=== PATIENT | female | born 1955 | race Caucasian/White ===

== ENCOUNTER → 2019-10-04 12:54 | Outpatient (BNVA) | payer MEDICARE, OTHER, SELFPAY | PROVIDERS: Family Provider Family Medicine; PCP Family Medicine; Visit Provider Internal Medicine Rheumatology | DX: M25.50 Pain in unspecified joint (principal); Z79.899 Other long term (current) drug therapy; M81.0 Age-related osteoporosis without current pathological fracture; R76.8 Other specified abnormal immunological findings in serum; E55.9 Vitamin D deficiency, unspecified; Z11.1 Encounter for screening for respiratory tuberculosis; M19.042 Primary osteoarthritis, left hand; M19.041 Primary osteoarthritis, right hand; M77.32 Calcaneal spur, left foot; M77.31 Calcaneal spur, right foot | CPT/HCPCS: 36415; 71046; 72170; 73130; 73630; 80076; 81001; 82565; 82570; 83516; 84156; 85025; 85651; 86140; 86480; 86812; 87077; 87086; 87186; 99204 ==

== ENCOUNTER 2019-10-04 15:22 | Outpatient (CLI) | payer MEDICARE, OTHER, SELFPAY ==
--- NOTE | 2019-10-04 15:34 | XR_ITS ---
WS: [id number] HAND LEFT TECHNIQUE: 3 views of the left hand CLINICAL INFORMATION: joint pain COMPARISON: None. FINDINGS: Narrowing of the radiocarpal joint. Ulna minus variance. Degenerative changes at the DRUJ. Degenerati ve arthritis first CMC and STT. Mild IP joint narrowing involving the PIP and DIP joints. Normal MCP joints. XR/XR hand LT min 3V* [id number] IMPRESSION: 1. Narrowing of the radiocarpal joint. Ulna minus variance. 2. Degenerative arthritis first CMC and STT. 3. Mild IP joint narrowing involving the PIP and DIP joints.
--- NOTE | 2019-10-04 15:34 | XR_ITS ---
WS: [id number] FOOT RIGHT TECHNIQUE: 3 views of the right foot CLINICAL INFORMATION: joint pain COMPARISON: None. FINDINGS: No evidence of acute fracture or dislocation. Normal tarsal metatarsal alignment. Normal calcaneus. N ormal visualized talar dome. Plantar and Achilles calcaneal spurring. XR/XR foot RT min 3V* [id number] IMPRESSION: Plantar and Achilles calcaneal spurring.
--- NOTE | 2019-10-04 15:34 | XR_ITS ---
WS: [id number] PROCEDURE: XR chest 2V* [id number] CLINICAL INFORMATION: joint pain COMPARISON: None. FINDINGS: Heart: Normal cardiac silhouette. Aortic calcification. Lungs: Moderate chronic emphysematous changes. No acute pulmonary infiltrates. Bones: Hypertrophic changes thoracic spine. Mild thoracic curve. Thoracic kyphosis. Cholecystectomy c lips. XR/XR chest 2V* [id number] IMPRESSION: No acute chest findings.
--- NOTE | 2019-10-04 15:34 | XR_ITS ---
WS: [id number] FOOT LEFT TECHNIQUE: 3 views of the left foot CLINICAL INFORMATION: joint pain COMPARISON: None. FINDINGS: No evidence of acute fracture or dislocation. Normal tarsal metatarsal alignment. Normal calcaneus. N ormal visualized talar dome. Plantar calcaneal spur. Achilles spurring with enthesophyte. XR/XR foot LT min 3V* [id number] IMPRESSION: Plantar calcaneal spur. Achilles spurring with enthesophyte.
--- NOTE | 2019-10-04 15:34 | XR_ITS ---
WS: [id number] HAND RIGHT TECHNIQUE: 3 views of the right hand CLINICAL INFORMATION: joint pain COMPARISON: None. FINDINGS: Narrowing of the radiocarpal joint. Ulna minus variance. Degenerative changes at the DRUJ. Degenerati ve arthritis first CMC and STT with hypertrophic changes. Mild IP joint narrowing involving the PIP a nd DIP joints. Normal MCP joints. XR/XR hand RT min 3V* [id number] IMPRESSION: 1. Narrowing of the radiocarpal joint. Ulna minus variance. 2. Degenerative arthritis first CMC and STT. 3. Mild IP joint narrowing involving the PIP and DIP joints.
--- NOTE | 2019-10-04 15:34 | XR_ITS ---
WS: [id number] PELVIS TECHNIQUE: 1 view(s) of the pelvis CLINICAL INFORMATION: joint pain COMPARISON: None. FINDINGS: Mild degenerative arthritis with joint space narrowing both hips. Pelvic phleboliths. Normal acetabul um. Lower lumbar spine is normal. Inferior and superior pubic rami are normal. Normal iliopectineal l ine. Sacrum is normal in appearance. Normal sacroiliac joints. XR/XR pelvis 1-2V* [id number] IMPRESSION: Unremarkable pelvis
== END 2019-10-04 15:23 | disposition home or self-care (01) ==
LOC: RADWPI 15:31
PROVIDERS: Family Provider Family Medicine; PCP Family Medicine; Visit Provider Internal Medicine Rheumatology
DX: M25.50 Pain in unspecified joint (principal); R76.8 Other specified abnormal immunological findings in serum; Z79.899 Other long term (current) drug therapy; Z11.1 Encounter for screening for respiratory tuberculosis; M81.0 Age-related osteoporosis without current pathological fracture; E55.9 Vitamin D deficiency, unspecified; M19.042 Primary osteoarthritis, left hand; M19.041 Primary osteoarthritis, right hand; M77.32 Calcaneal spur, left foot; M77.31 Calcaneal spur, right foot
CPT/HCPCS: 71046; 72170; 73130; 73630; 80076; 81001; 82565; 82570; 84156; 85025; 85651; 86140; 86480; 86812; 87077; 87086; 87186

== ENCOUNTER → 2019-11-02 11:19 | Outpatient (BNVA) | payer MEDICARE, OTHER, SELFPAY | PROVIDERS: Family Provider Family Medicine; PCP Family Medicine; Visit Provider Internal Medicine Rheumatology | DX: M06.041 Rheumatoid arthritis without rheumatoid factor, right hand (principal); M06.042 Rheumatoid arthritis without rheumatoid factor, left hand; R76.8 Other specified abnormal immunological findings in serum; Z79.899 Other long term (current) drug therapy; M81.0 Age-related osteoporosis without current pathological fracture; R21 Rash and other nonspecific skin eruption; Z79.52 Long term (current) use of systemic steroids | CPT/HCPCS: 81001; 99214 ==

== ENCOUNTER 2020-04-10 10:59 | Outpatient (CLI) | payer MEDICARE, OTHER, SELFPAY ==
[2020-04-10 11:58] LABS: Urine Appearance Clear (CLEAR); Urine Color Straw (Yellow); pH Urine 7 (5-7)
[2020-04-10 11:59] LABS: Add Urine Culture? No; Bacteria Urine 1+ /hpf; Bilirubin Urine Neg (Negative); Blood Urine Neg (Negative); Glucose Urine UA Norm (Normal); Ketones Urine Negative (Negative); Leukocyte Esterase Urine Negative (Negative); Nitrate Urine Negative (Negative); Protein Urine Neg (Negative); Specific Gravity, Urine 1.005 (1.005-1.030); Squamous Epithelial Cell Urine 0-4 /hpf (0-5); Urobilinogen Urine Norm (Negative); WBC Urine 0-4 /hpf (0-5)
[2020-04-10 12:07] LABS: Blood Urea Nitrogen 14 mg/dL (8-23); Glomerular Filtration Rate 99.7 mL/min (90-130)
[2020-04-10 12:45] LABS: Urine Creatinine 32 mg/dL (28-217); Urine Protein Random 4 mg/dL
== END 2020-04-10 11:00 | disposition home or self-care (01) ==
PROVIDERS: Visit Provider Internal Medicine Rheumatology
DX: Z79.899 Other long term (current) drug therapy (principal); M19.90 Unspecified osteoarthritis, unspecified site; R76.8 Other specified abnormal immunological findings in serum; R79.89 Other specified abnormal findings of blood chemistry
CPT/HCPCS: 81001; 82565; 82570; 84156; 84520

== ENCOUNTER 2020-06-13 10:40 | Outpatient (CLI) | payer MEDICARE, OTHER, SELFPAY ==
--- NOTE | 2020-06-13 10:44 | MM_ITS ---
WS: [id number] BILATERAL DIGITAL SCREENING MAMMOGRAPHY WITH CAD CLINICAL INFORMATION: SCREENING HISTORY: Screening mammogram. No current complaints. COMPARISON: TECHNIQUE: Bilateral CC and MLO views. FINDINGS: Scattered fibroglandular densities bilaterally. No suspicious focal mass, asymmetry, calcifications, or architectural distortion. No evidence of malignancy. MM/[place] [id number] IMPRESSION: BI-RADS: 1-Negative FOLLOW UP: 1 Year Follow-up Recommend return to annual screening mammography.
== END 2020-06-13 10:41 | disposition home or self-care (01) ==
LOC: RADSHAW 10:43
PROVIDERS: PCP Family Medicine; Visit Provider Family Medicine
DX: Z12.31 Encounter for screening mammogram for malignant neoplasm of breast (principal)
CPT/HCPCS: 77067

== ENCOUNTER → 2020-06-21 12:48 | Outpatient (BNVA) | payer MEDICARE, OTHER, SELFPAY | PROVIDERS: PCP Family Medicine; Visit Provider Internal Medicine Rheumatology | DX: R76.8 Other specified abnormal immunological findings in serum (principal); M06.041 Rheumatoid arthritis without rheumatoid factor, right hand; M06.042 Rheumatoid arthritis without rheumatoid factor, left hand; M81.0 Age-related osteoporosis without current pathological fracture; Z79.899 Other long term (current) drug therapy; Z98.84 Bariatric surgery status; Z87.891 Personal history of nicotine dependence | CPT/HCPCS: 99214 ==

== ENCOUNTER 2020-07-09 12:43 | Outpatient (CLI) | payer MEDICARE, OTHER, SELFPAY ==
[2020-07-09 12:55] VITALS: BP 159/83; PULSE 90; RESP 18; TEMP 36.3; O2SAT 96
[2020-07-09] MEDS: denosumab 60 mg SDV SUBCUT (13:05)
== END 2020-07-09 12:44 | disposition home or self-care (01) ==
PROVIDERS: PCP Family Medicine; Visit Provider Internal Medicine Rheumatology
DX: M81.0 Age-related osteoporosis without current pathological fracture (principal)
CPT/HCPCS: 96372; J0897

== ENCOUNTER → 2020-09-27 08:10 | Outpatient (BNVA) | payer MEDICARE, OTHER, SELFPAY | PROVIDERS: PCP Family Medicine; Referring Provider Family Medicine; Visit Provider Specialist | DX: M25.569 Pain in unspecified knee (principal); M17.11 Unilateral primary osteoarthritis, right knee; Z96.652 Presence of left artificial knee joint | CPT/HCPCS: 73560; 73565 ==

== ENCOUNTER → 2020-10-15 10:18 | Outpatient (BNVA) | payer MEDICARE, OTHER, SELFPAY | PROVIDERS: PCP Family Medicine; Visit Provider Internal Medicine Rheumatology | DX: R76.8 Other specified abnormal immunological findings in serum (principal); M06.041 Rheumatoid arthritis without rheumatoid factor, right hand; M06.042 Rheumatoid arthritis without rheumatoid factor, left hand; M81.0 Age-related osteoporosis without current pathological fracture; Z79.899 Other long term (current) drug therapy; Z98.84 Bariatric surgery status; Z71.89 Other specified counseling | CPT/HCPCS: 99214 ==

== ENCOUNTER 2020-11-01 11:20 | Outpatient (CLI) | payer MEDICARE, OTHER, SELFPAY ==
[2020-11-01 12:14] LABS: Alanine Aminotransferase 53 U/L (0-33); Albumin Level 4.5 g/dL (3.5-5.2); Alkaline Phosphatase 64 IU/L (35-105); Aspartate Amino Transferase 45 U/L (0-32); Globulin 2.5 g/dL (1.3-4.6); Total Bilirubin 0.5 mg/dL (0.15-1.2)
[2020-11-01 12:29] LABS: Hepatitis B Core AB, Total Non-Reactive (Nonreactive); Hepatitis B Surface Antigen Non-Reactive (Nonreactive); Hepatitis C Virus Antibody Non-Reactive (Nonreactive)
== END 2020-11-01 11:21 | disposition home or self-care (01) ==
PROVIDERS: PCP Family Medicine; Visit Provider Internal Medicine Rheumatology
DX: R94.5 Abnormal results of liver function studies (principal); Z79.899 Other long term (current) drug therapy; Z11.59 Encounter for screening for other viral diseases
CPT/HCPCS: 36415; 80076; 86704; 86803; 87340

== ENCOUNTER → 2020-11-08 11:01 | Day surgery (SDC) | payer MEDICARE, OTHER, SELFPAY | PROVIDERS: PCP Family Medicine; Visit Provider Specialist | DX: Z01.818 Encounter for other preprocedural examination (principal) | CPT/HCPCS: 80053; 81001; 85025; 87077; 87086; 87186; 93005 ==

== ENCOUNTER → 2020-11-16 09:15 | Outpatient (BNVA) | payer MEDICARE, OTHER, SELFPAY | PROVIDERS: PCP Family Medicine; Visit Provider Specialist | DX: Z01.818 Encounter for other preprocedural examination (principal); Z20.822 Contact with and (suspected) exposure to COVID-19 | CPT/HCPCS: 81003; 87077; 87086; 87184; 87635 ==

== ENCOUNTER 2020-11-20 12:04 | Observation (INO) | payer MEDICARE, OTHER, SELFPAY ==
[2020-11-08 10:14] VITALS: BMI 37.3
[2020-11-08 10:42] LABS: Basophils # 0.1 10^3/uL (0.0-0.1); Basophils % 1.4 %; Eosinophils # 0.3 10^3/uL (0.0-0.8); Eosinophils % 3.8 %; Hematocrit 43.6 % (37.0-47.0); Hemoglobin 14.4 g/dL (11.5-15.3); Lymphocytes # 1.4 10^3/uL (0.8-4.8); Lymphocytes % 21.8 %; Mean Corpuscular Hemoglobin 30.9 pg (28.0-34.0); Mean Corpuscular Volume 93.6 fl (81-99); Mean Platelet Volume 10.5 fL (7.4-10.4); Monocytes # 0.5 10^3/uL (0.2-0.9); Monocytes % 8.3 %; Neutrophils # 4.19 10^3/uL (1.8-7.7); Neutrophils % 64.5 %; Nucleated Red Blood Cells % 0 %; Platelet Count 186 10^3/cmm (130-400); Red Blood Count 4.66 10^6/uL (4.1-5.3); Red Cell Distribution Width 12.6 % (12.1-15.1); White Blood Count 6.5 10^3/uL (4.0-10.0)
[2020-11-08 10:44] LABS: Blood Urine Neg (Negative); Glucose Urine UA Norm (Normal); Ketones Urine Negative (Negative); Nitrate Urine Negative (Negative); Protein Urine Neg (Negative); Specific Gravity, Urine 1.005 (1.005-1.030); Urine Appearance Clear (CLEAR); Urine Color Straw (Yellow); pH Urine 7 (5-7)
[2020-11-08 10:45] LABS: Add Urine Microscopic? YES; Bilirubin Urine Neg (Negative); Leukocyte Esterase Urine 2+ (Negative); Urobilinogen Urine Norm (Negative)
--- NOTE | 2020-11-08 11:01 | ECG_ITS ---
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 Measurements Intervals [place] Rate: 77 P: 41 SC: 177 QRS: 39 QRSD: 159 T: 6 QT: 397 QTc: 450 Interpretive Statements SINUS RHYTHM INDETERMINATE AXIS RIGHT BUNDLE BRANCH BLOCK [120+ ms QRS DURATION, UPRIGHT V1, 40+ ms S IN I/aVL/V4/V5/V6] ANTERIOR MYOCARDIAL INFARCTION , PROBABLY OLD [40+ ms Q WAVE AND/OR ST/T ABNORMALITY IN V3/V4] No previous ECG available for comparison Electronically Signed On 11-08-2020 20:41:37 CDT by Marlon Mcgregor M.D. [id number]
[2020-11-08 11:02] LABS: Alanine Aminotransferase 57 U/L (0-33); Albumin Level 4.4 g/dL (3.5-5.2); Alkaline Phosphatase 59 IU/L (35-105); Aspartate Amino Transferase 52 U/L (0-32); Blood Urea Nitrogen 16 mg/dL (8-23); Calcium 9.8 mg/dL (8.5-10.5); Carbon Dioxide 27 mmol/L (22-29); Chloride 100 mmol/L (98-107); Globulin 2.6 g/dL (1.3-4.6); Glomerular Filtration Rate 99.7 mL/min (90-130); Glucose 114 mg/dL (65-115); Osmolality Calculated 292 mOsm/kg (285-295); Sodium 140 mmol/L (136-145); Total Bilirubin 0.4 mg/dL (0.15-1.2)
[2020-11-08 11:06] LABS: Anion Gap 16.6 (5-19); Potassium 3.6 mmol/L (3.5-5.1)
[2020-11-08 11:13] LABS: Add Urine Culture? Yes; Bacteria Urine TRACE /hpf; Squamous Epithelial Cell Urine 0-4 /hpf (0-5); WBC Urine 15-25 /hpf (0-5)
--- NOTE | 2020-11-08 12:28 | P.ANESASSM_ITS ---
Pre-Anesthetic Assessment Pre-Anesthetic Assessment: Height/Weight: Height 1.65 m Weight 101.605 kg Proposed Procedure: Operation Date: 11/20/20 07:00 Proposed Procedures p Total Knee Arthroplasty 06049 M17.10(Right) - Ligia Romero MD Was Beta Yasmin taken within 24 hours: N/A Was Clonidine taken within 24 hours: N/A Social: Social History: No alcohol and No tobacco Exam: Pre-Anes Outpt Exam: alert, oriented x 3, clear to auscultation bilaterally and regular rate & rhythm Airway: Submandibular: WNL Cervical ROM: WNL MP: 2 Dentition: False CV/HEM: CV/HEM: HTN Comments: h/o BBB GI: GI: GERD Metabolic: Metabolic: Hyperlipidemia and Morbid obesity Comments: Chronic steroids Musc/skel: Musc/skel: OA/DJD and RA Anesthetic Plan: ASA status: 3 Anesthesia: Regional (specify below) (SAB with adductor blk) Risk of > 500 ml blood loss (7ml/kg in children): No PFSH Anesthesia PFSH: Medical History Anti-TPO antibodies present Diabetes Fibromyalgia High risk medication use Hypertension Immunization counseling Inflammatory arthritis Osteoporosis Positive PRICE (antinuclear antibody) Seronegative rheumatoid arthritis of both hands Skin rash Skin ulcer of face, limited to breakdown of skin Surgical History History of bariatric surgery History of bladder repair surgery History of carpal tunnel repair History of cholecystectomy History of hysterectomy History of left knee replacement Family History Other CAD (coronary artery disease) Cancer Cardiac disease Diabetes Hyperlipidemia Hypertension Stroke Denies family history of Rheumatoid arthritis Lupus Chronic kidney disease (CKD) Lung disease Social History Smoking and tobacco status: never smoked Alcohol intake: never History of recent travel: No Data Anesthesia CBC & Chem 7: 11/08/20 10:00 11/08/20 10:00 Other Labs: Laboratory Results - last 48 hr 11/08/20 11/08/20 11/08/20 10:00 10:00 10:02 WBC 6.5 RBC 4.66 Hgb 14.4 Hct 43.6 MCV 93.6 MCH 30.9 MCHC 33.0 RDW 12.6 Plt Count 186 MPV 10.5 H Neut % (Auto) 64.5 Lymph % (Auto) 21.8 [place] % (Auto) 8.3 Eos % (Auto) 3.8 Baso % (Auto) 1.4 Neut # (Auto) 4.19 Lymph # (Auto) 1.4 [place] # (Auto) 0.5 Eos # (Auto) 0.3 Baso # (Auto) 0.1 Nucleated RBC % (auto) 0 Nucleated RBCs # 0.0 Sodium 140 Potassium 3.6 Chloride 100 Carbon Dioxide 27 Anion Gap 16.6 BUN 16 Creatinine 0.6 GFR Calculation 99.7 Glucose 114 Calculated Osmolality 292 Calcium 9.8 Total Bilirubin 0.4 AST 52 H ALT 57 H Alkaline Phosphatase 59 Total Protein 7.0 Albumin 4.4 Globulin 2.6 Urine Color Straw Urine Appearance Clear Urine pH 7 Ur Specific [place] 1.005 Urine Protein Neg Urine Glucose (UA) Norm Urine Ketones Negative Urine Blood Neg Urine Nitrate Negative Urine Bilirubin Neg Urine Urobilinogen Norm Ur Leukocyte Esterase 2+ H Urine RBC None Urine WBC 15-25 H Ur Squamous Epith Cells 0-4 H Amorphous Sediment Not Reportable Urine Bacteria Trace Cardiac Studies: No Data to Display
[2020-11-20] VITALS (22 sets, daily range): BP systolic 115–197; BP diastolic 76–112; PULSE 60–81; RESP 14–24; TEMP 36.4–36.7; O2SAT 93–99
[2020-11-20] MEDS: acetaminophen 1,000 MG/100 ML PIGGYBACK 400 MG IV ×3 (06:15→21:18)
[2020-11-20] MEDS: sodium chloride 0.9% 1,000 ML 30 ML IV (06:31)
[2020-11-20] MEDS: CELEcoxib 100 mg Capsule 400 MG PO (06:32)
--- NOTE | 2020-11-20 06:53 | W.PM.OPSUD ---
Surgery/Procedure H&P Update DATE OF PROCEDURE: November 20, 2020 DATE H&P PERFORMED: 11/01/20 H&P UPDATE INFORMATION: I have reviewed H&P completed within last 30 days, I have examined patient prior to procedure, No changes to prior documentation and H&P is in [facility] EMR on date indicated CHANGES TO PREVIOUS DOCUMENTATION: Taking Prednisone 5mg daily PREOP DIAGNOSIS: Primary osteoarthritis right knee PLANNED PROCEDURE: Operation Date: 11/20/20 07:00 Proposed Procedures p Total Knee Arthroplasty 99610 M17.10(Right) - Ligia Romero MD Related Problem List Diagnoses (1) Primary osteoarthritis of right knee:
[2020-11-20] MEDS: clindamycin 600 MG/50 ML PREMIX 100 MG IV ×3 (07:20→22:19)
--- NOTE | 2020-11-20 07:47 | P.ANESUD_ITS ---
Pre-Anesthetic Update Pre-Anesthetic Assessment: Date of Surgery/Procedure: 11/20/20 Preop Antoinette gnosis: Primary osteoarthritis right knee Proposed Procedure: Operation Date: 11/20/20 07:00 Proposed Procedures p Total Knee Arthroplasty 39743 M17.10(Right) - Ligia Romero MD Any changes to Pre-Anesthetic Assessment?: No Last Intake: Intake Last Liquid Date 11/19/20 Last Liquid Time 18:00 Last Solid Date 11/19/20 Last Solid Time 18:00 Vitals: Temperature 98.1 F 11/20/20 06:05 Pulse Rate 72 11/20/20 06:05 Respiratory Rate 18 11/20/20 06:05 Blood Pressure 145/104 11/20/20 06:05 Blood Pressure Kayleigh n 117 11/20/20 06:05 Pulse Oximetry 98 11/20/20 06:05 Oxygen Delivery Me thod 11/20/20 06:20 Exam: Pre-Anes Outpt Exam: alert, oriented x 3, clear to auscultation bilaterally and regular rate & rhythm Other Pertinent Information: Other Pertinent Information: SAB with adductor blk Cardiac Studies: No Data to Display
--- NOTE | 2020-11-20 07:47 | ANES.PROC ---
Anesthesia Procedures Procedure/Date: 11/20/20 Nerve Block ^: Nerve Block 1: Main Anesthesia: spinal anesthesia block Time Out Performed: Yes Consent: requested by attending/covering physician, from patient, risks and benefits reviewed and patient agrees to proceed Nerve block location: adductor canal (right) Anesthesia monitors applied: pulse oximetry, EKG, BP cuff and oxygen Anesthetic Used: ropivicaine 0.5% Amount of anesthesia used (mL): 20 Ultrasound used to: recognize landmarks Nerve Stimulator Used?: No Interscalene/Femoral BLK: 4 stimuplex 21 g needle used for position and inplane approach and visualize local anesthetic spread Injection: neg aspiration of heme Patient Tolerated Procedure: well Complications: none
--- NOTE | 2020-11-20 08:18 | SUR.OPER ---
Family Notified Of Patient's Status Via Phone.
[2020-11-20] MEDS: vancomycin 1,000 MG SDV 1000 MG XX (08:42)
[2020-11-20] MEDS: ceFAZolin 1,000 mg SDV 2000 MG IRRIGATION (08:45)
--- NOTE | 2020-11-20 09:27 | SUR.OPER ---
Family Notified Of Patient's Status Via Phone.
--- NOTE | 2020-11-20 10:16 | XR_ITS ---
WS: [id number] XR knee RT 1-2V 47050 REASON FOR EXAM: S/P TKA FINDINGS: 3 component total right knee arthroplasty. Components of the prosthesis are in proper position and al ignment. No bony abnormality. Postsurgical soft tissue changes soft tissues otherwise unremarkable. XR/XR knee RT 1-2V 96773 IMPRESSION: Total right knee arthroplasty as above.
[2020-11-20] MEDS: fentaNYL 50 mcg/mL INJ 2mL IVP ×2 (10:19→10:24)
[2020-11-20 10:27] LABS: Charge for UA Resulting for Rev
--- NOTE | 2020-11-20 10:49 | PM.OP ---
Operative Report Date of procedure: November 20, 2020 Pre-op Diagnosis: Primary osteoarthritis right knee Post-op diagnosis: same Post-op Findings: Severe osteoarthritis right knee without flexion contracture and with multiple osteophytes Procedure Done: Right total knee arthroplasty Implants: The Madonna total knee system with a size 4 triathlon beaded posterior stabilized femur right, a triathlon titanium tibial component size 4 beaded, a triathlon X3 posterior stabilized tibial bearing insert size 4 X 11 mm and a beaded triathlon titanium asymmetric patella size 35 x 10 mm Specimens removed/disposition: Bone, disposed of Pathology: none sent Surgeon: Ligia Romero 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 No flexion contracture was noted. Condition: stable Disposition: PACU (Then to floor for postoperative rehabilitation and pain management with monitoring under observation) Brief History: This 65-year-old woman presented to the office with severe right knee pain which was incapacitating. She was unable to ambulate or perform reasonable activities of daily living. None of these activities were able to be accomplished comfortably. She was unresponsive to conservative measures and wished to proceed with right total knee arthroplasty risks and complications were discussed. The patient is status post successful left total knee arthroplasty done elsewhere. Consents were signed preoperatively, and questions were answered. The patient wished to proceed. Procedure: The patient was brought to the operating theater, and after undergoing adequate spinal anesthesia and sedation, ASA 3, the right lower extremity was prepped with Dura-Prep and draped in usual fashion following placement of a tourniquet high on the leg. The leg was then draped free. Following prepping and draping, the leg was exsanguinated, and the tourniquet was elevated to 300 mmHg for a total tourniquet time of 115 minutes. Prior to elevation of the tourniquet, but following exposure of the site of surgery, a surgical pause was performed. At the time of the surgical pause, we confirmed the site and side of surgery. Additionally, we confirmed the appropriate and timely administration of preoperative antibiotics, clindamycin 600 mg and Transexemic acid 1 g. The availability of equipment was confirmed, and the patient's identity was verbalized as well. Following the surgical pause, an incision was made centering over the patella continuing proximally and distally as necessary to allow access to the knee joint. Dissection continued through skin and soft tissues using a scalpel. Hemostasis was obtained using electrocautery. The skin incision was followed by a median parapatellar arthrotomy. The leg was extended and the patella was everted. Following this, the leg was returned to flexed position. The distal femur was exposed, and a drill hole was made in this for placement of the distal femoral jig. The distal femoral jig was set at 5? of valgus. The distal femoral cutting block was then placed in appropriate position, and an francois wing was used to confirm an appropriate amount of distal femur would be resected. The distal femoral resection was accomplished with 8 mm of bone being resected distally. After the distal femoral resection had been accomplished, the femur was measured and it measured a size 4. Medial lateral dimension measured a size 4. A size 4 femoral cutting block was placed in position, and we were then able to accomplish the anterior, posterior and chamfer cuts. This jig was then removed and the notch guide was placed in position. With the notch guide in appropriate position, the notch was excised including resection of the anterior and posterior cruciate ligaments. This notch was to allow for the posterior stabilized femoral component. At this point, the femur was prepared and attention was directed to the proximal tibia. The posterior knee retractor was placed along with medial and lateral retractors. Further resection of the menisci was accomplished as we had better visualization. A complete meniscectomy was performed both medially and laterally with care being taken to protect the popliteus. Retractors were then placed so that the proximal tibia was well visualized. A drill hole was then made in the tibia for placement of the intramedullary guide. This guide was placed so that approximately 2 mm of bone would be resected from the deficient medial tibial plateau. The intramedullary guide was utilized supplemented with an extramedullary guide to assure appropriate alignment for the proximal tibial resection. The proximal tibial jig was then evaluated, pinned in position, and the proximal tibial resection was accomplished without difficulty. The jig was removed, and the proximal tibia was measured. It measured a size 5. We then attempted a trial reduction with a size 4 by 9 mm insert. Osteophytes were removed from the tibia. The femoral component was placed in position for the trial reduction, and the knee was placed through range of motion. With this, there was excellent stability with excellent varus-valgus alignment with appropriate patellar tracking. Extension was noted to be full as well. After the knee was manipulated, we were able to insert a size 4 x 11 mm insert. With this, we continued to have excellent varus valgus alignment and full extension. Therefore, this was the chosen component. There was full extension and flexion without lift off and the rotation of the tibia was marked. Alignment was checked from the hip to the ankle, and this was noted to be appropriate as well. Attention was then directed to the patella. The patella was measured with a caliper. We resected sufficient patella to leave approximately 14 mm of patella remaining. Measurements of the patella then indicated that a size asymmetric 35 mm x 10 mm was the appropriate patellar size. We then placed the jig to drill for the 3 pegs of the press-fit patella, and these drill holes were made without incident. A trial patella was then placed, and the knee was placed through range of motion. The patella was noted to track nicely without evidence of subluxation. The femur was prepared for a press-fit femur by drilling 2 holes for the femoral pegs. All trial components were subsequently removed. The tibial tray was then pinned into position, and we broached the tibia for the stem of the tibial component. Subsequently, 4 drill holes were made for placement of the press-fit tibia. This was accomplished without difficulty. Care was taken to assure appropriate rotation of the tibia as well as appropriate position on the proximal tibia. The tibial tray was completely seated on the proximal tibia. Following broaching, the tibial guide was removed, and all surfaces were copiously irrigated. The surfaces were then dried and a bone plug was placed into the distal femur. Exparel was also injected at this point. The Tritanium tibia was impacted into position. The beaded femur was then impacted into position in a cementless fashion. The tibial insert was placed. The patella was pressed into position with a patellar clamp. The knee was irrigated with 20 mL of Betadine and 500 mL of normal saline, and this was allowed to remain in the knee for 3-4 minutes. The knee was then copiously irrigated and suctioned dry. Attention was then directed to closure. Closure was accomplished with 0 Vicryl in the fascial tissues. Following this, a 2-0 Monocryl was used in the subcutaneous tissues, and the skin was closed with skin yudith. A sterile dressing was then placed consisting of Dermabond Prineo, opsite, 4x4's, ABD, sterile soft roll, and an Yunior wrap. The patient was returned the Recovery Room in a satisfactory condition. X-rays were obtained there. The patient will be discharged to the floor for postoperative rehabilitation and pain management. Associated Problem List Diagnoses (1) Primary osteoarthritis of right knee:
[2020-11-20 11:02] LABS: Bilirubin Urine Neg (Negative); Glucose Urine UA Norm (Normal); Ketones Urine Negative (Negative); Leukocyte Esterase Urine Negative (Negative); Nitrate Urine Negative (Negative); Protein Urine Neg (Negative); Urine Appearance Clear (CLEAR); Urine Color Straw (Yellow); Urobilinogen Urine Norm (Negative); pH Urine 5 (5-7)
[2020-11-20] MEDS: oxyCODONE 5 mg IR Tab/Cap PO ×4 (11:41→23:14)
[2020-11-20] MEDS: pantoprazole DR 40 mg Tablet PO (12:30)
[2020-11-20] MEDS: predniSONE 5 mg Tablet PO (12:30)
[2020-11-20] MEDS: venlafaxine 75 mg Tablet 37.5 MG PO (12:30)
[2020-11-20] MEDS: hydroCHLOROthiazide 25 mg Tablet PO (12:30)
[2020-11-20] MEDS: aspirin 325 mg EC Tablet PO (12:31)
[2020-11-20] MEDS: cholecalciferol (vitamin D3) 1,000 unit Tablet 1000 UNIT PO (12:31)
[2020-11-20] MEDS: losartan 50 mg Tablet PO (12:33)
[2020-11-20 12:37] LABS: Add Urine Microscopic? NO; Specific Gravity, Urine 1.005 (1.005-1.030)
[2020-11-20 12:38] LABS: Add Urine Culture? No; Blood Urine Neg (Negative)
[2020-11-20] MEDS: chlorhexidine gluconate 0.12% Btl 473 mL 30 ML MUCOUS MEM ×3 (15:14→20:18)
[2020-11-20] MEDS: calcium carbonate 500 mg Chew Tablet 1000 MG PO (18:26)
[2020-11-20] MEDS: iron polysaccharide complex 150 mg Capsule PO (18:26)
[2020-11-20] MEDS: sennosides-docusate Tablet 2 TAB PO (18:26)
[2020-11-20] MEDS: CELEcoxib 200 mg Capsule PO (18:26)
[2020-11-20] MEDS: ciprofloxacin 500 mg Tablet PO (18:26)
[2020-11-20] MEDS: atorvastatin 40 mg Tablet PO (20:18)
[2020-11-20] MEDS: amitriptyline 25 mg Tablet 50 MG PO (20:18)
[2020-11-21] VITALS (9 sets, daily range): BP systolic 106–160; BP diastolic 69–78; PULSE 71–77; RESP 16–18; TEMP 36.4–36.9; O2SAT 96–98
[2020-11-21 02:35] LABS: Basophils % 0.2 %; Eosinophils % 0.1 %; Hematocrit 31.1 % (37.0-47.0); Hemoglobin 10.4 g/dL (11.5-15.3); Lymphocytes # 1.1 10^3/uL (0.8-4.8); Lymphocytes % 12.7 %; Mean Corpuscular HGB Conc 33.4 g/dL (30.0-36.0); Mean Corpuscular Hemoglobin 31.4 pg (28.0-34.0); Mean Platelet Volume 10.9 fL (7.4-10.4); Monocytes # 0.9 10^3/uL (0.2-0.9); Monocytes % 10.2 %; Neutrophils # 6.67 10^3/uL (1.8-7.7); Neutrophils % 76.6 %; Nucleated Red Blood Cells % 0 %; Platelet Count 175 10^3/cmm (130-400); Red Blood Count 3.31 10^6/uL (4.1-5.3); Red Cell Distribution Width 12.5 % (12.1-15.1); White Blood Count 8.7 10^3/uL (4.0-10.0)
[2020-11-21 03:07] LABS: Anion Gap 12.5 (5-19); Blood Urea Nitrogen 12 mg/dL (8-23); Calcium 8.6 mg/dL (8.5-10.5); Carbon Dioxide 25 mmol/L (22-29); Chloride 102 mmol/L (98-107); Glomerular Filtration Rate 123.1 mL/min (90-130); Glucose 119 mg/dL (65-115); Osmolality Calculated 283 mOsm/kg (285-295); Potassium 3.5 mmol/L (3.5-5.1); Sodium 136 mmol/L (136-145)
[2020-11-21] MEDS: oxyCODONE 5 mg IR Tab/Cap PO ×4 (03:23→15:29)
[2020-11-21] MEDS: acetaminophen 1,000 MG/100 ML PIGGYBACK 400 MG IV (05:31)
--- NOTE | 2020-11-21 06:10 | PC.NURSE ---
SHIFT SUMMARY Has not slept much tonight. Says just not able to sleep. Has had c/o pain in right knee and has received po OXYIR q4h and scheduled doses of IV Tylenol. Ice pack in place. Dressing to right knee C&D. Foot pumps to BLE and SANNA hose to left leg. Rodriguez to be removed this am
[2020-11-21] MEDS: clindamycin 600 MG/50 ML PREMIX 100 MG IV (06:32)
[2020-11-21] MEDS: CELEcoxib 200 mg Capsule PO (06:32)
[2020-11-21] MEDS: cholecalciferol (vitamin D3) 1,000 unit Tablet 1000 UNIT PO (07:50)
[2020-11-21] MEDS: multivitamin therapeutic Tablet 1 TAB PO (07:50)
[2020-11-21] MEDS: pantoprazole DR 40 mg Tablet PO (07:50)
[2020-11-21] MEDS: aspirin 325 mg EC Tablet PO (07:50)
[2020-11-21] MEDS: sennosides-docusate Tablet 2 TAB PO (07:50)
[2020-11-21] MEDS: ciprofloxacin 500 mg Tablet PO (07:51)
[2020-11-21] MEDS: hydroCHLOROthiazide 25 mg Tablet PO (07:51)
[2020-11-21] MEDS: venlafaxine 75 mg Tablet 37.5 MG PO (07:51)
[2020-11-21] MEDS: losartan 50 mg Tablet PO (07:51)
[2020-11-21] MEDS: predniSONE 5 mg Tablet PO ×2 (07:51→15:28)
[2020-11-21] MEDS: chlorhexidine gluconate 0.12% Btl 473 mL 30 ML MUCOUS MEM (07:52)
[2020-11-21] MEDS: calcium carbonate 500 mg Chew Tablet 1000 MG PO (07:52)
[2020-11-21] MEDS: iron polysaccharide complex 150 mg Capsule PO (07:52)
--- NOTE | 2020-11-21 10:01 | PC.CHAP ---
Pastoral Care Encounter/Spiritual Assessment Type of Contact [] Declined money order clerk visit [] Patient/Family/Request visit [] Outpatient visit [] Follow-up visit [] Physician referral [] Code/Alert [X] Routine visit [] Staff referral [] Actively dying [] Patient sleeping [] Family support [] [] Out of room [] Palliative care [] [] Receiving care in room [] Pre-surgical visit [] Trauma [] Long length of stay [] ICU visit [] Other: Relational/Emotional Strength [X] Patient feels connected with others/family/visitors/staff [] Distress [] Loneliness/isolation [] Abandonment Spirituality of Patient [X] Person of Niru [X] Attends Mandaeism of their Niru [X] Believes in Prayer [] Reads Bible or Yazidism materials [] There are Spiritual issues to be addressed Infertility Medical Assistant Interventions [X] Prayer [X] Active listening [X] Non-anxious presence [] Spiritual/emotional support [] Crisis/trauma care [] Spiritual counseling [] Bereavement support [] Provided bereavement packet [] Provided Bible/devotional materials [] Provided toy/stuffed animal, coloring book to patient or family member [] Provided Communion [] Anointing/[place] [] Salvation [X] Completed spiritual assessment [] Other: Impact on Illness or Injury [] Angry [] Fearful [] Anxious [] Often cries [] Exhaustion [] Unable to work [] Unable to attend moravian [] Unable to walk/stand [] Unable to read [] Unable to drive [] Unable to eat/drink [] Unable to sleep [] Unable to be with family [] Patient intubated [] Other: Summary Time spent with patient 10 MIN
[2020-11-21] MEDS: ondansetron 2 mg/ML SDV 2 mL 4 MG IVP (12:23)
[2020-11-21] MEDS: acetaminophen 500 mg Tablet 1000 MG PO (14:55)
--- NOTE | 2020-11-21 15:29 | PM.DCS ---
Discharge Providers Date of Admission: 11/20/20 12:04 Date of Discharge: November 21, 2020 Attending Provider at Admission: Ligia Romero MD Attending Provider at Discharge: Ligia Romero MD Primary Care Provider: Kwadwo Dorado DO Diagnoses at Discharge Discharge Diagnosis (1) Primary osteoarthritis of right knee: Status: Acute (2) History of total right knee replacement: Status: Acute Permanent problem details: Right total knee arthroplasty utilizing the following Implants: The [employer] total knee system with a size 4 triathlon beaded posterior stabilized femur right, a triathlon titanium tibial component size 4 beaded, a triathlon X3 posterior stabilized tibial bearing insert size 4 X 11 mm and a beaded triathlon titanium asymmetric patella size 35 x 10 mm Reason for Visit Reason for Visit: Right total knee Hospital Course Hospital Course This 65-year-old woman was admitted following same-day surgery for right total knee arthroplasty. She tolerated the procedure well and postoperatively was taken to the floor under observation status for postoperative rehabilitation and pain management. Prior to the surgical procedure, the patient noted that she had had at least 6 to 9 months of right knee pain which was worsening and was limiting her activities of daily living. On the first postoperative day, she had ambulated with physical therapy. Her wound was benign. There is no evidence of DVT. She was doing very well. Plans were made for her discharge to home. Her family was in agreement. Physical Exam Const: COMMON NORMALS: no acute distress, average body habitus, patient oriented x3 and alert GENERAL APPEARANCE: cooperative and comfortable ORIENTATION/CONSCIOUSNESS: Yes awake HENMT: COMMON NORMALS: normocephalic and atraumatic HEAD & SCALP: normocephalic and atraumatic Eye: GENERAL EYE: appearance normal, both eyes and all related structures Chest: COMMONS NORMALS: normal inspection of the chest Resp: COMMON NORMALS: normal respiratory effort EFFORT & INSPECTION: Yes able to speak in complete sentences and Yes symmetric chest movement Extremity: RIGHT LOWER EXTREMITY: Yes knee joint (Dressing is removed. Wound is benign.) Right knee: Yes inspection (Minimal swelling. Some ecchymosis about the wound), Yes palpation (Some tenderness, no evidence of DVT), Yes ROM (Not evaluated.) and Yes neurovascular exam (Intact) Neuro: COMMON NORMALS: patient oriented x3 SENSORIUM/ORIENTATION: Yes alert Psych: COMMON NORMALS: mental status grossly normal APPEARANCE: Yes grossly normal ATTITUDE: Yes calm and Yes engaged ATTENTION/CONCENTRATION: Yes attention grossly intact Skin: COMMON NORMALS: no rashes or lesions noted GENERAL SKIN EXAM: no rashes or lesions noted Urinary Catheter Management^: Latex Free: Cath Placed During This Visit: yes, but has since been removed by the nurse Reason for Continuing Indwelling Catheter: Decision to DC Catheter Urinary Catheter Date of Insertion: 11/20/20 Urinary Catheter Time of Insertion: 07:30 Date Urinary Catheter Removed: 11/21/20 Time Urinary Catheter Discontinued: 07:13 Discharge Data Data Completed and Pending: Completed Studies During Hospitalization Category Date Time Status XR knee RT 1-2V 7 3560 Routine Exams 11/20/20 10:16 Completed Labs from last 24 hours 11/21/20 11/21/20 02:01 02:01 WBC 8.7 RBC 3.31 L Hgb 10.4 L Hct 31.1 L MCV 94.0 MCH 31.4 MCHC 33.4 RDW 12.5 Plt Count 175 MPV 10.9 H Neut % (Auto) 76.6 Lymph % (Auto) 12.7 [place] % (Auto) 10.2 Eos % (Auto) 0.1 Baso % (Auto) 0.2 Neut # (Auto) 6.67 Lymph # (Auto) 1.1 [place] # (Auto) 0.9 Eos # (Auto) 0.0 Baso # (Auto) 0.0 Nucleated RBC % (a uto) 0 Nucleated RBCs # 0.0 Sodium 136 Potassium 3.5 Chloride 102 Carbon Dioxide 25 Anion Gap 12.5 BUN 12 Creatinine 0.5 GFR Calculation 123.1 Glucose 119 H Calculated Osmolal ity 283 L Calcium 8.6 Vitals: Last Vital Signs Temp 98.5 F 11/21/20 11:42 Pulse 77 11/21/20 11:42 Resp 18 11/21/20 11:53 BP 160/70 11/21/20 11:42 Pulse Ox 96 11/21/20 11:42 Discharge Plan Discharge Patient Disposition: Home Health Service Condition: Stable Prescriptions: New celecoxib 200 mg Capsule 200 mg PO DAILY 30 Days Qty: 30 RF: 0 acetaminophen 500 mg Tablet 1,000 mg PO Q8H Qty: 0 RF: 0 aspirin 325 mg Tablet,Delayed Release (Dr/Ec) 325 mg PO DAILY Qty: 0 RF: 0 oxycodone 5 mg Tablet 5 mg PO Q4H PRN (Reason: Moderate Pain) 7 Days Qty: 30 RF: 0 Continued amitriptyline 50 mg tablet 50 mg PO DAILY RF: 0 mecobalamin (vitamin B12) 5,000 mcg lozenge 5,000 mcg PO .2x wk RF: 0 prednisone 5 mg tablet 5 mg PO DAILY RF: 0 cholecalciferol (vitamin D3) 50 mcg (2,000 unit) capsule 50 mcg PO DAILY Qty: 30 RF: 3 hydrochlorothiazide 25 mg tablet 25 mg PO DAILY RF: 0 venlafaxine 37.5 mg tablet 37.5 mg PO DAILY RF: 0 losartan 50 mg tablet 50 mg PO DAILY RF: 0 atorvastatin 40 mg tablet 40 mg PO DAILY RF: 0 pantoprazole 40 mg tablet,delayed release (DR/EC) 40 mg PO DAILY Qty: 90 RF: 1 nitrofurantoin macrocrystal 100 mg capsule 100 mg PO BID 5 Days Qty: 10 RF: 0 leflunomide 10 mg tablet 10 mg PO DAILY Qty: 30 RF: 0 Held aspirin [Adult Aspirin Regimen] 81 mg tablet,delayed release (DR/EC) 81 mg PO DAILY RF: 0 Hold Instructions: Resume on 12/19/20. May resume 81 mg aspirin after taking 325 mg x 30 days. ciprofloxacin HCl 500 mg tablet 500 mg PO BID Qty: 14 RF: 0 Hold Instructions: Resume on 11/30/20. May use ciprofloxacin nitrofurantoin is not effective Discharge Orders: Discharge Order (Routine); Ordered 11/21/20 Ordered By: Ligia Romero Other Ambulatory Orders: DME: Walker (Order) Location: None Selected Ordered By: Ligia Romero Referrals: [facility] Home Care [Other] Ligia Romero MD [Physician] - 12/10/20 3:15 pm (APPOINTMENT WITH ORTHO OFFICE FOR APPOINTMENT WITH NURSE ON DECEMBER 04 AT 11:15) Discharge Diet: Advance as tolerated and Usual diet Discharge Activity: Increase activity as tolerated, Limit activity as instructed and Use walker/crutches as instructed Patient Instructions: Celecoxib (By mouth), Knee Replacement (DC), Opioid Safety Activity Restrictions/Additional Instructions: Ice to right knee pain physical therapy for range of motion, strengthening, and gait training. Keep wound covered, you may shower. You may resume your 81 mg aspirin after 30 days. At that time, we will discontinue 325 mg aspirin. Discharge Attestations Time Spent in Discharge Care*: greater than 30 min Specific Discharge Activities: educating patient, documenting/other paperwork and evaluating patient/reviewing data Quality Metrics Clinical Quality Measures During this hospital stay, did patient experience: None Coding Level of Care Code Acute Chg FW [place] note Diagnoses Primary osteoarthritis of right knee M17.11 History of total right knee replacement Z96.651
--- NOTE | 2020-11-21 16:50 | ANE.PACU2 ---
Inpatient post-anesthesia follow up: Airway intact: Yes Vital signs: Temperature 98.5 F Pulse Rate 77 Respiratory Rate 18 Blood Pressure 160/70 Pulse Oximetry 96 Oxygen Delivery Me thod Room Air Oxygen Flow Rate Fraction of Inspir ed Oxygen Hydration adequate: Yes Nausea and vomiting: No Pain level: 2 Mental status: Baseline
--- NOTE | 2020-11-22 09:55 | PC.SOCIAL ---
discharge follow up call made, spoke with patient. patient reports yesterday was a rough day but today she is much better. patient is taking all medications as prescribed. patient reports pain relief with those. discussed with patient taking aspirin 325 mg x 1 month then go back to regular regimen of 81 mg daily. patient is using walker and tolerating well. patient is aware of follow up appointment with dr. bass on 12-10. OZ, PT will be starting visits with patient.
== END 2020-11-21 15:48 | disposition home health service (06) ==
LOC: MEDSURG 12:05
PROVIDERS: Admitting Provider Specialist; PCP Family Medicine; Visit Provider Specialist
PROC: (CPT 27447; principal; 2020-11-20 07:00)
DX: M17.11 Unilateral primary osteoarthritis, right knee (principal); I10 Essential (primary) hypertension; K21.9 Gastro-esophageal reflux disease without esophagitis; E78.5 Hyperlipidemia, unspecified; E66.01 Morbid (severe) obesity due to excess calories; Z68.37 Body mass index [BMI] 37.0-37.9, adult; E11.9 Type 2 diabetes mellitus without complications; M79.7 Fibromyalgia; M81.0 Age-related osteoporosis without current pathological fracture; Z82.49 Family history of ischemic heart disease and other diseases of the circulatory system; Z83.3 Family history of diabetes mellitus
CPT/HCPCS: 27447; 36415; 51702; 64447; 73560; 76942; 80048; 81003; 85025; 97110; 97116; 97161; 97165; 97530; C1776; C9290; G0378; J0690; J1100; J2250; J2405; J2704; J2795; J3010; J3370; J3490; J7030; J7512

== ENCOUNTER → 2020-12-10 10:20 | Outpatient (BNVA) | payer MEDICARE, OTHER, SELFPAY | PROVIDERS: PCP Family Medicine; Visit Provider Specialist | DX: Z96.651 Presence of right artificial knee joint (principal) | CPT/HCPCS: 73560; 73565 ==

== ENCOUNTER 2020-12-10 11:45 | Outpatient (CLI) | payer MEDICARE, OTHER, SELFPAY ==
[2020-12-10 12:26] LABS: Basophils # 0.1 10^3/uL (0.0-0.1); Eosinophils # 0.2 10^3/uL (0.0-0.8); Eosinophils % 3.9 %; Hematocrit 38.9 % (37.0-47.0); Hemoglobin 12.2 g/dL (11.5-15.3); Lymphocytes # 1.4 10^3/uL (0.8-4.8); Lymphocytes % 22.2 %; Mean Corpuscular HGB Conc 31.4 g/dL (30.0-36.0); Mean Corpuscular Hemoglobin 30.7 pg (28.0-34.0); Mean Corpuscular Volume 97.7 fl (81-99); Mean Platelet Volume 9.4 fL (7.4-10.4); Monocytes # 0.5 10^3/uL (0.2-0.9); Monocytes % 8.2 %; Neutrophils # 3.86 10^3/uL (1.8-7.7); Neutrophils % 63.4 %; Nucleated Red Blood Cells % 0 %; Platelet Count 376 10^3/cmm (130-400); Red Blood Count 3.98 10^6/uL (4.1-5.3); Red Cell Distribution Width 14.1 % (12.1-15.1); White Blood Count 6.1 10^3/uL (4.0-10.0)
[2020-12-10 12:56] LABS: Alanine Aminotransferase 47 U/L (0-33); Albumin Level 4.1 g/dL (3.5-5.2); Alkaline Phosphatase 161 IU/L (35-105); Aspartate Amino Transferase 30 U/L (0-32); C Reactive Protein 1.9 mg/L (0.0-4.9); Globulin 2.8 g/dL (1.3-4.6); Glomerular Filtration Rate 123.1 mL/min (90-130); Total Bilirubin 0.4 mg/dL (0.15-1.2); Total Protein 6.9 g/dL (6.6-8.7)
== END 2020-12-10 11:46 | disposition home or self-care (01) ==
LOC: LAB 11:48
PROVIDERS: PCP Family Medicine; Visit Provider Internal Medicine Rheumatology
DX: M06.041 Rheumatoid arthritis without rheumatoid factor, right hand (principal); M06.042 Rheumatoid arthritis without rheumatoid factor, left hand; M19.90 Unspecified osteoarthritis, unspecified site; Z79.899 Other long term (current) drug therapy
CPT/HCPCS: 36415; 80076; 82565; 85025; 86140

== ENCOUNTER 2021-01-16 09:40 | Outpatient (CLI) | payer MEDICARE, OTHER, SELFPAY ==
[2021-01-16 11:06] LABS: 25 Hydroxy Vitamin D 44 ng/mL (30-100); Albumin Level 4.6 g/dL (3.5-5.2); Glomerular Filtration Rate 99.7 mL/min (90-130)
[2021-01-16 12:03] VITALS: BP 132/83; PULSE 78; RESP 18; TEMP 36.3; O2SAT 98
[2021-01-16] MEDS: denosumab 60 mg SDV SUBCUT (12:10)
[2021-01-16 12:18] VITALS: BP 143/83; PULSE 79; RESP 18; TEMP 36.2; O2SAT 98
== END 2021-01-16 09:41 | disposition home or self-care (01) ==
LOC: ONCMED 09:42
PROVIDERS: PCP Family Medicine; Referring Provider Internal Medicine Rheumatology; Visit Provider Internal Medicine Rheumatology
DX: M81.0 Age-related osteoporosis without current pathological fracture (principal); Z79.899 Other long term (current) drug therapy
CPT/HCPCS: 36415; 82040; 82306; 82310; 82565; 96372; J0897

== ENCOUNTER → 2021-02-04 08:14 | Outpatient (BNVA) | payer MEDICARE, OTHER, SELFPAY | PROVIDERS: PCP Family Medicine; Visit Provider Specialist | DX: Z96.651 Presence of right artificial knee joint (principal); M25.461 Effusion, right knee | CPT/HCPCS: 73560; 73565 ==

== ENCOUNTER → 2021-02-13 08:10 | Outpatient (BNVA) | payer MEDICARE, OTHER, SELFPAY | PROVIDERS: PCP Family Medicine; Visit Provider Family Medicine | DX: Z79.899 Other long term (current) drug therapy (principal); E16.2 Hypoglycemia, unspecified | CPT/HCPCS: 80053; 83036; 85025 ==

== ENCOUNTER → 2021-04-17 14:28 | Outpatient (BNVA) | payer MEDICARE, SELFPAY | PROVIDERS: PCP Family Medicine; Visit Provider Internal Medicine Rheumatology | DX: R76.8 Other specified abnormal immunological findings in serum (principal); M06.041 Rheumatoid arthritis without rheumatoid factor, right hand; M06.042 Rheumatoid arthritis without rheumatoid factor, left hand; Z79.899 Other long term (current) drug therapy; M81.0 Age-related osteoporosis without current pathological fracture; Z98.84 Bariatric surgery status; Z71.89 Other specified counseling | CPT/HCPCS: 99214 ==

== ENCOUNTER → 2021-05-20 10:17 | Outpatient (BNVA) | payer MEDICARE, SELFPAY | PROVIDERS: PCP Family Medicine; Visit Provider Family Medicine | DX: R30.0 Dysuria (principal); R42 Dizziness and giddiness; M79.7 Fibromyalgia | CPT/HCPCS: 80048 ==

== ENCOUNTER 2021-06-21 10:16 | Outpatient (CLI) | payer MEDICARE, SELFPAY ==
[2021-06-21 11:05] LABS: Basophils # 0.1 10^3/uL (0.0-0.1); Basophils % 1.8 %; Eosinophils # 0.2 10^3/uL (0.0-0.8); Eosinophils % 3.2 %; Hemoglobin 14.4 g/dL (11.5-15.3); Lymphocytes # 2.6 10^3/uL (0.8-4.8); Lymphocytes % 39.6 %; Mean Corpuscular HGB Conc 32.7 g/dL (30.0-36.0); Mean Corpuscular Hemoglobin 31.2 pg (28.0-34.0); Mean Corpuscular Volume 95.2 fl (81-99); Mean Platelet Volume 10.1 fL (7.4-10.4); Monocytes # 0.7 10^3/uL (0.2-0.9); Monocytes % 10.6 %; Neutrophils # 2.93 10^3/uL (1.8-7.7); Neutrophils % 44.5 %; Nucleated Red Blood Cells % 0 %; Platelet Count 208 10^3/cmm (130-400); Red Blood Count 4.62 10^6/uL (4.1-5.3); Red Cell Distribution Width 12.4 % (12.1-15.1); White Blood Count 6.6 10^3/uL (4.0-10.0)
[2021-06-21 11:35] LABS: Alanine Aminotransferase 83 U/L (0-33); Albumin Level 4.2 g/dL (3.5-5.2); Alkaline Phosphatase 63 IU/L (35-105); Aspartate Amino Transferase 80 U/L (0-32); Globulin 2.9 g/dL (1.3-4.6); Glomerular Filtration Rate 99.4 mL/min (90-130); Total Bilirubin 0.4 mg/dL (0.15-1.2); Total Protein 7.1 g/dL (6.6-8.7)
== END 2021-06-21 10:17 | disposition home or self-care (01) ==
LOC: LAB 10:19
PROVIDERS: PCP Family Medicine; Visit Provider Internal Medicine Rheumatology
DX: M06.041 Rheumatoid arthritis without rheumatoid factor, right hand (principal); M06.042 Rheumatoid arthritis without rheumatoid factor, left hand; Z79.899 Other long term (current) drug therapy
CPT/HCPCS: 80076; 82565; 85025; 86140

== ENCOUNTER 2021-07-18 09:42 | Outpatient (CLI) | payer MEDICARE, SELFPAY ==
[2021-07-18 10:51] LABS: Albumin Level 4.5 g/dL (3.5-5.2); Calcium 10.3 mg/dL (8.5-10.5); Glomerular Filtration Rate 83.2 mL/min (90-130)
[2021-07-18 10:52] LABS: 25 Hydroxy Vitamin D 34 ng/mL (30-100)
[2021-07-18 11:42] VITALS: BP 141/82; PULSE 77; RESP 18; TEMP 36.2; O2SAT 99
[2021-07-18] MEDS: denosumab 60 mg SDV SUBCUT (11:49)
[2021-07-18 11:56] VITALS: BP 146/91; PULSE 75; RESP 18; TEMP 36.6; O2SAT 98
[2021-07-18 13:36] LABS: Alanine Aminotransferase 44 U/L (0-33); Albumin Level 4.6 g/dL (3.5-5.2); Alkaline Phosphatase 74 IU/L (35-105); Aspartate Amino Transferase 40 U/L (0-32); Globulin 2.3 g/dL (1.3-4.6); Total Bilirubin 0.3 mg/dL (0.15-1.2); Total Protein 6.9 g/dL (6.6-8.7)
== END 2021-07-18 09:43 | disposition home or self-care (01) ==
PROVIDERS: PCP Family Medicine; Referring Provider Internal Medicine Rheumatology; Visit Provider Internal Medicine Rheumatology
DX: M81.0 Age-related osteoporosis without current pathological fracture (principal); R79.89 Other specified abnormal findings of blood chemistry; Z79.899 Other long term (current) drug therapy
CPT/HCPCS: 36415; 80076; 82040; 82306; 82310; 82565; 96372; J0897

== ENCOUNTER 2021-08-06 10:03 | Outpatient (CLI) | payer MEDICARE, SELFPAY ==
--- NOTE | 2021-08-06 10:28 | MM_ITS ---
WS: [id number] VIEWS: MLO and CC views both breasts. 3D digital tomosynthesis is also included in this exam. Comparison made with prior exam of 06/09/2011, 07/22/2012, 07/25/2013, 09/12/2014, 06/13/2020.. Findings: There was no sign of mass, architectural distortion or suspicious calcification in either breast. Sc attered fibroglandular densities MM/[place] [id number] Impression: BI-RADS: 2-Benign FOLLOW-UP: 1 Year Follow-up This mammogram was also analyzed by the Computer Aided Detection System R2 Imag e [employer].
== END 2021-08-06 10:04 | disposition home or self-care (01) ==
LOC: RAD 10:06
PROVIDERS: PCP Family Medicine; Visit Provider Family Medicine
DX: Z12.31 Encounter for screening mammogram for malignant neoplasm of breast (principal)
CPT/HCPCS: 77063; 77067

== ENCOUNTER → 2021-08-08 14:03 | Outpatient (BNVA) | payer MEDICARE, SELFPAY | PROVIDERS: PCP Family Medicine; Visit Provider Internal Medicine Rheumatology | DX: M06.041 Rheumatoid arthritis without rheumatoid factor, right hand (principal); M06.042 Rheumatoid arthritis without rheumatoid factor, left hand; R76.8 Other specified abnormal immunological findings in serum; Z79.899 Other long term (current) drug therapy; E55.9 Vitamin D deficiency, unspecified; Z98.84 Bariatric surgery status; Z71.89 Other specified counseling | CPT/HCPCS: 99214 ==

== ENCOUNTER → 2021-12-23 08:59 | Outpatient (BNVA) | payer MEDICARE, SELFPAY | PROVIDERS: PCP Family Medicine; Visit Provider Specialist | DX: Z96.653 Presence of artificial knee joint, bilateral (principal) | CPT/HCPCS: 73560; 73565; 99213 ==

== ENCOUNTER → 2022-01-14 08:57 | Outpatient (BNVA) | payer MEDICARE, SELFPAY | PROVIDERS: PCP Family Medicine; Visit Provider Internal Medicine Rheumatology | DX: M06.041 Rheumatoid arthritis without rheumatoid factor, right hand (principal); M06.042 Rheumatoid arthritis without rheumatoid factor, left hand; Z79.899 Other long term (current) drug therapy; M81.0 Age-related osteoporosis without current pathological fracture; Z71.89 Other specified counseling; K21.9 Gastro-esophageal reflux disease without esophagitis; Z79.52 Long term (current) use of systemic steroids; Z98.84 Bariatric surgery status | CPT/HCPCS: 99214 ==

== ENCOUNTER → 2022-01-16 09:56 | Outpatient (BNVA) | payer MEDICARE, SELFPAY | PROVIDERS: PCP Family Medicine; Visit Provider Family Medicine | DX: M79.7 Fibromyalgia (principal); K52.9 Noninfective gastroenteritis and colitis, unspecified; R10.9 Unspecified abdominal pain; Z79.899 Other long term (current) drug therapy; E78.2 Mixed hyperlipidemia | CPT/HCPCS: 80053; 80061; 82150; 83690; 84439; 84443; 85025; 86140 ==

== ENCOUNTER 2022-01-21 07:36 | Outpatient (CLI) | payer MEDICARE, SELFPAY ==
[2022-01-21 08:04] VITALS: BP 136/81; PULSE 74; RESP 18; TEMP 36.2; O2SAT 96
[2022-01-21] MEDS: denosumab 60 mg SDV SUBCUT (08:12)
[2022-01-21 08:20] VITALS: BP 132/84; PULSE 76; RESP 18; TEMP 36.3; O2SAT 96
== END 2022-01-21 07:37 | disposition home or self-care (01) ==
LOC: ONCMED 07:38
PROVIDERS: PCP Family Medicine; Visit Provider Internal Medicine Rheumatology
DX: M81.0 Age-related osteoporosis without current pathological fracture (principal)
CPT/HCPCS: 96372; J0897

== ENCOUNTER → 2022-01-27 09:41 | Outpatient (BNVA) | payer MEDICARE, SELFPAY | PROVIDERS: PCP Family Medicine; Visit Provider Family Medicine | DX: R30.0 Dysuria (principal); R10.9 Unspecified abdominal pain; R74.8 Abnormal levels of other serum enzymes | CPT/HCPCS: 80053; 80074; 81000; 85025; 87077; 87086; 87184 ==

== ENCOUNTER 2022-02-24 07:43 | Outpatient (CLI) | payer MEDICARE, SELFPAY ==
--- NOTE | 2022-02-24 08:00 | USR_ITS ---
PROCEDURE INFORMATION: Exam: US Abdomen Complete Exam date and time: 02/24/2022 7:58 AM Age: 67 years old Clinical indication: Abnormal findings; Abnormal lab test; Elevated liver enzymes; Prior surgery; Surgery date: 6+ months; Surgery type: Gb removal; Additional info: Elevated lft's, ruq pain TECHNIQUE: Imaging protocol: Real-time ultrasound of the abdomen with image documentation. Complete exam. COMPARISON: No relevant prior studies available. FINDINGS: Liver: There is increased parenchymal echogenicity consistent with fatty changes. No mass. Gallbladder: Not seen from prior cholecystectomy. Biliary ducts: Common bile duct is 0.6 cm in width. Pancreas: Visualized pancreas is unremarkable. Right kidney: Unremarkable. Left kidney: Unremarkable. Spleen: 12.4 x 3.9 cm. No focal parenchymal abnormality. Aorta: Evaluation is limited but unremarkable as visualized. Inferior vena cava: Unremarkable as visualized. US/US abdomen complete* [id number] IMPRESSION: 1. Fatty changes of the liver. 2. Prior cholecystectomy.
== END 2022-02-24 07:44 | disposition home or self-care (01) ==
PROVIDERS: PCP Family Medicine; Visit Provider Family Medicine
DX: K52.9 Noninfective gastroenteritis and colitis, unspecified (principal); R10.9 Unspecified abdominal pain; R74.8 Abnormal levels of other serum enzymes
CPT/HCPCS: 76700

== ENCOUNTER → 2022-02-27 10:55 | Outpatient (BNVA) | payer MEDICARE, SELFPAY | PROVIDERS: PCP Family Medicine; Visit Provider Family Medicine | DX: E87.6 Hypokalemia (principal); R74.8 Abnormal levels of other serum enzymes | CPT/HCPCS: 80053 ==

== ENCOUNTER → 2022-03-25 08:31 | Outpatient (BNVA) | payer MEDICARE, SELFPAY | PROVIDERS: PCP Family Medicine; Visit Provider Surgery | DX: K21.9 Gastro-esophageal reflux disease without esophagitis (principal); R11.0 Nausea; R10.13 Epigastric pain | CPT/HCPCS: 99203 ==

== ENCOUNTER 2022-03-26 10:19 | Day surgery (SDC) | payer MEDICARE, SELFPAY ==
[2022-03-25 10:26] VITALS: BMI 39.9
[2022-03-26 10:51] VITALS: BP 161/80; PULSE 84; RESP 17; TEMP 36.1; O2SAT 99
[2022-03-26] MEDS: sodium chloride 0.9% 1,000 ML 30 ML IV (10:53)
--- NOTE | 2022-03-26 11:07 | P.ANESASSM_ITS ---
Pre-Anesthetic Assessment Height/Weight: Height 1.65 m Weight 108.862 kg Temp Pulse Resp BP Pulse Ox O2 Del Method 97 F L 84 17 161/80 99 03/26/22 10:51 03/26/22 10:51 03/26/22 10:51 03/26/22 10:51 03/26/22 10:51 03/26/22 10:51 Preop Diagnosis: Primary osteoarthritis right knee Operation Date: 03/26/22 11:30 [place] 48443 colon 01034 EGD,K21.9,Z12.11(Not Applicable) - DO kevan Rojas Colonoscopy(Not Applicable) - Heron Brown DO Familial anesthetic complications: None Was Beta Yasmin taken within 24 hours: N/A Was Clonidine taken within 24 hours: N/A Last intake: Intake Last Liquid Date 03/25/22 Last Liquid Time 21:00 Last Solid Date 03/24/22 Last Solid Time 17:00 Social No alcohol and No tobacco Exam alert, oriented x 3, clear to auscultation bilaterally and regular rate & rhythm Airway Submandibular: within normal limits Cervical ROM: within normal limits Mallampati: Class III Dentition: false History/ROS No significant history except as noted and No significant complaints Pulmonary Exertional Dyspnea CV/HEM Stable Angina, Arrythmia, Coronary Artery Disease, Hypertension and Murmur Last saw high school teacher MAGDALENO in January None reported Hepatic None reported GI Gastroesophageal Reflux Disease (None this AM) and Hiatal Hernia Metabolic Morbid Obesity [facility] [place] Fibromyalgia, Lower Back Pain and Osteoarthritis/DJD Neuropsych Anxiety, Depression and Headache Anesthetic Plan ASA status: 3 Anesthesia: Anesthesia Evaluation, General and MAC Risk of > 500 ml blood loss (7ml/kg in children): No Medications/Allergies Home Medications Medication Instructions Recorded Confirmed Last Taken Type aspirin 81 mg tablet,delayed 81 mg PO DAILY 10/04/19 03/25/22 03/24/22 History release (Adult Aspirin Regimen) mecobalamin (vitamin B12) 5,000 5,000 mcg PO .2x wk 10/04/19 03/25/22 03/24/22 History mcg lozenge hydrochlorothiazide 25 mg tablet 25 mg PO DAILY #90 tabs 10/09/21 03/25/22 03/25/22 Rx acetaminophen 500 mg tablet 1,000 mg PO BID PRN pain 01/14/22 03/25/2223 History diclofenac sodium 1 % topical gel 2 g topical QID #100 grams 01/14/22 03/25/22 03/25/22 Rx losartan 50 mg tablet 50 mg PO DAILY #90 tabs 01/26/22 03/25/22 03/25/22 Rx pantoprazole 40 mg tablet,delayed 40 mg PO BID #180 tabs 02/27/22 03/25/22 03/25/22 Rx release tramadol 50 mg tablet 50 mg PO TID PRN pain #60 tabs 02/27/22 03/25/22 03/22/22 Rx adalimumab 40 mg/0.8 mL 40 mg SUBCUT DIRECTED 03/26/22 03/26/22 03/15/22 History subcutaneous pen kit (Humira Pen) amitriptyline 50 mg tablet 50 mg PO DAILY 03/26/22 03/26/22 03/25/22 History venlafaxine 75 mg capsule,extended 75 mg PO DAILY 03/26/22 03/26/22 03/25/22 History release 24 hr Allergies Allergy/AdvReac Type Severity Reaction Status Date / Time latex Allergy Unknown Verified 03/25/22 08:33 nickel Allergy Unknown Verified 03/25/22 08:33 sulfamethoxazole Allergy Unknown Verified 03/25/22 08:33 [From Bactrim] trimethoprim [From Bactrim] Allergy Unknown Verified 03/25/22 08:33 leflunomide AdvReac Intermediate elevated Verified 03/25/22 08:33 LFT's Current Medications Generic Name Dose Route Start Last Admin Trade Name Freq PRN Reason Stop Dose Admin Sodium Chloride 1,000 mls @ 30 mls/hr 03/26/22 10:30 03/26/22 10:53 Sodium Chloride 0.9% IV 03/27/22 10:29 30 mls/hr .Q24H AGUILA Administration PFSH Anesthesia Medical History Anti-TPO antibodies present Diabetes Fibromyalgia High risk medication use Hypertension Immunization counseling Inflammatory arthritis Osteoporosis Positive PRICE (antinuclear antibody) Seronegative rheumatoid arthritis of both hands Skin rash Skin ulcer of face, limited to breakdown of skin Surgical History History of bariatric surgery History of bladder repair surgery History of carpal tunnel repair History of cholecystectomy History of hysterectomy History of left knee replacement History of right knee joint replacement Family History Other CAD (coronary artery disease) Cancer Cardiac disease Diabetes Hyperlipidemia Hypertension Stroke Denies family history of Rheumatoid arthritis Lupus Chronic kidney disease (CKD) Lung disease Social History Smoking and tobacco status: never smoked Alcohol intake: never History of recent travel: No Female Reproductive History Spontaneous abortions: No Data Anesthesia Cardiac Studies: No Data to Display
--- NOTE | 2022-03-26 11:31 | W.PM.OPSUD ---
Surgery/Procedure H&P Update DATE OF PROCEDURE: March 26, 2022 DATE H&P PERFORMED: 03/25/22 PREOP DIAGNOSIS: Primary osteoarthritis right knee PLANNED PROCEDURE: Operation Date: 03/26/22 11:30 Proposed Procedures p 56168 colon 02189 EGD,K21.9,Z12.11(Not Applicable) - DO kevan Rojas Colonoscopy(Not Applicable) - Heron Brown DO
[2022-03-26 13:04] VITALS: BP 158/85; PULSE 80; RESP 18; TEMP 36.1; O2SAT 96
[2022-03-26 13:06] VITALS: BP 172/103; PULSE 79; RESP 18; O2SAT 97
[2022-03-26 13:16] VITALS: BP 174/91; PULSE 75; RESP 18; O2SAT 96
--- NOTE | 2022-03-26 13:43 | ANE.PACU2 ---
Inpatient post-anesthesia follow up: Airway intact: Yes Vital signs: Temperature 97.0 F Pulse Rate 75 Respiratory Rate 18 Blood Pressure 174/91 Pulse Oximetry 96 Oxygen Delivery Me thod Room Air Oxygen Flow Rate Fraction of Inspir ed Oxygen Hydration adequate: Yes Nausea and vomiting: No Pain level: 1 Mental status: Baseline
== END 2022-03-26 13:35 | disposition home or self-care (01) ==
PROVIDERS: PCP Family Medicine; Visit Provider Surgery
PROC: 0DJ08ZZ Inspection of Upper Intestinal Tract, Via Natural or Artificial Opening Endoscopic (ICD-10-PCS; CPT 43235; principal; 2022-03-26 11:30)
PROC: 0DJD8ZZ Inspection of Lower Intestinal Tract, Via Natural or Artificial Opening Endoscopic (ICD-10-PCS; CPT 45378; 2022-03-26 11:30)
DX: Z12.11 Encounter for screening for malignant neoplasm of colon (principal); K21.9 Gastro-esophageal reflux disease without esophagitis; I25.110 Atherosclerotic heart disease of native coronary artery with unstable angina pectoris; I10 Essential (primary) hypertension; E66.01 Morbid (severe) obesity due to excess calories; Z68.39 Body mass index [BMI] 39.0-39.9, adult; M79.7 Fibromyalgia; Z79.82 Long term (current) use of aspirin; E11.9 Type 2 diabetes mellitus without complications; K29.50 Unspecified chronic gastritis without bleeding; B96.81 Helicobacter pylori [H. pylori] as the cause of diseases classified elsewhere
CPT/HCPCS: 43239; 88305; G0121; J2704; J3490; J7030

== ENCOUNTER → 2022-04-09 16:33 | Outpatient (BNVA) | payer MEDICARE, SELFPAY | PROVIDERS: PCP Family Medicine; Visit Provider Surgery | DX: Z09 Encounter for follow-up examination after completed treatment for conditions other than malignant neoplasm (principal); K29.70 Gastritis, unspecified, without bleeding; B96.81 Helicobacter pylori [H. pylori] as the cause of diseases classified elsewhere | CPT/HCPCS: 99212 ==

== ENCOUNTER → 2022-04-22 08:42 | Outpatient (BNVA) | payer MEDICARE, SELFPAY | PROVIDERS: PCP Family Medicine; Visit Provider Family Medicine | DX: R21 Rash and other nonspecific skin eruption (principal); R76.8 Other specified abnormal immunological findings in serum | CPT/HCPCS: 80076; 82565; 85025; 85651; 86038; 86140; 86200; 86431 ==

== ENCOUNTER → 2022-04-30 10:12 | Outpatient (BNVA) | payer MEDICARE, SELFPAY | PROVIDERS: PCP Family Medicine; Visit Provider Internal Medicine Rheumatology | DX: M06.041 Rheumatoid arthritis without rheumatoid factor, right hand (principal); M06.042 Rheumatoid arthritis without rheumatoid factor, left hand; M81.0 Age-related osteoporosis without current pathological fracture; Z79.899 Other long term (current) drug therapy; Z71.89 Other specified counseling; E55.9 Vitamin D deficiency, unspecified | CPT/HCPCS: 99214 ==

== ENCOUNTER 2022-06-19 08:15 | Outpatient (CLI) | payer MEDICARE, SELFPAY ==
--- NOTE | 2022-06-19 08:30 | XR_ITS ---
WS: [id number] SCREENING DEXA SCAN [employer] CLINICAL INFORMATION: M81.0 - Age-related osteoporosis without current patholog... COMPARISON: 2014 FINDINGS: The L1-L4 bone mineral density measures 1.311 g/cm2. This corresponds to a T score score of 1.1 and Z score of 1.6. Left femoral neck bone mineral density measures 0.798 g/cm2. This corresponds to a T score of -1.7 an d Z score of -1.1. Right femoral neck bone mineral density measures 0.831 g/cm2. This corresponds to a T score -1.4of an d Z score of -0.8. Mean femoral neck bone mineral density measures 0.814 g/cm2. This corresponds to a T score of -1.5 an d Z score of -0.9. XR/XR DEXA axial skeleton* [id number] IMPRESSION: Normal bone mineralization lumbar spine. Osteopenia femoral necks. Patient's FRAX calculated 10 year probability for major osteoporotic fracture i s 14.9 % and osteoporotic hip fracture is 3.3%. Bone mineralization in the lumbar spine decreased -3.2% since 2015. Bone mineralization femoral necks decreased -0.5% since 2015.
== END 2022-06-19 08:16 | disposition home or self-care (01) ==
LOC: RAD 08:19
PROVIDERS: PCP Family Medicine; Visit Provider Internal Medicine Rheumatology
DX: M81.0 Age-related osteoporosis without current pathological fracture (principal)
CPT/HCPCS: 77080

== ENCOUNTER → 2022-07-24 10:37 | Outpatient (BNVA) | payer MEDICARE, SELFPAY | PROVIDERS: PCP Family Medicine; Visit Provider Family Medicine | DX: Z00.00 Encounter for general adult medical examination without abnormal findings (principal) | CPT/HCPCS: 93005 ==

== ENCOUNTER → 2022-07-30 09:23 | Outpatient (BNVA) | payer MEDICARE, SELFPAY | PROVIDERS: PCP Family Medicine; Visit Provider Specialist | DX: Z96.653 Presence of artificial knee joint, bilateral (principal); M16.0 Bilateral primary osteoarthritis of hip | CPT/HCPCS: 73523; 73560; 73565; 99215 ==

== ENCOUNTER 2022-08-07 07:39 | Outpatient (CLI) | payer MEDICARE, SELFPAY ==
--- NOTE | 2022-08-07 07:44 | MM_ITS ---
WS: [id number] SCREENING DIGITAL TOMOSYNTHESIS MAMMOGRAM WITH CAD HISTORY: SCREENING COMPARISON: 08/06/2021 and 06/13/2020 Bilateral CC and MLO with tomosynthesis views submitted. Synthetic mammography reviewed. Computer aid ed detection analyzed. Breast composition: There are scattered areas of fibroglandular density. No suspicious masses, microc alcifications or architectural distortion. MM/[place] [id number] IMPRESSION: BI-RADS: 1-Negative FOLLOW UP: 1 Year Follow-up
== END 2022-08-07 07:40 | disposition home or self-care (01) ==
LOC: RAD 07:40
PROVIDERS: PCP Family Medicine; Visit Provider Family Medicine
DX: Z12.31 Encounter for screening mammogram for malignant neoplasm of breast (principal)
CPT/HCPCS: 77063; 77067

== ENCOUNTER → 2022-08-12 10:25 | Outpatient (BNVA) | payer MEDICARE, SELFPAY | PROVIDERS: PCP Family Medicine; Visit Provider Internal Medicine Rheumatology | DX: M06.041 Rheumatoid arthritis without rheumatoid factor, right hand (principal); M06.042 Rheumatoid arthritis without rheumatoid factor, left hand; Z79.899 Other long term (current) drug therapy; R76.8 Other specified abnormal immunological findings in serum; Z71.89 Other specified counseling; M81.0 Age-related osteoporosis without current pathological fracture | CPT/HCPCS: 36415; 80076; 82565; 85025; 86140; 99214 ==

== ENCOUNTER 2022-08-26 08:21 | Outpatient (CLI) | payer MEDICARE, SELFPAY ==
[2022-08-26 09:11] LABS: Alanine Aminotransferase 41 U/L (0-33); Albumin Level 4.2 g/dL (3.5-5.2); Alkaline Phosphatase 105 U/L (35-105); Aspartate Amino Transferase 30 U/L (0-32); Globulin 2.6 g/dL (1.3-4.6); Total Bilirubin 0.3 mg/dL (0.15-1.2); Total Protein 6.8 g/dL (6.6-8.7)
== END 2022-08-26 08:22 | disposition home or self-care (01) ==
PROVIDERS: PCP Family Medicine; Visit Provider Internal Medicine Rheumatology
DX: M06.041 Rheumatoid arthritis without rheumatoid factor, right hand (principal); M06.042 Rheumatoid arthritis without rheumatoid factor, left hand; Z79.899 Other long term (current) drug therapy
CPT/HCPCS: 36415; 80076

== ENCOUNTER 2022-09-08 07:41 | Oncology outpatient (recurring) (ONCR) | payer MEDICARE, SELFPAY ==
[2022-09-08 08:05] VITALS: BP 146/86; PULSE 70; RESP 16; TEMP 36.7; O2SAT 95
[2022-09-08 08:40] LABS: Calcium 9.9 mg/dL (8.5-10.5)
[2022-09-08] MEDS: denosumab 60 mg SDV SUBCUT (08:54)
[2022-09-08 08:57] VITALS: BP 150/88; PULSE 73; RESP 16; TEMP 36.4; O2SAT 93
[2022-09-12 11:44] LABS: Vit D 1,25 (Oh)2, Total 49 pg/mL (18-72); Vit D2 1,25 (Oh)2 <8 pg/mL; Vit D3 1,25 (Oh)2 49 pg/mL
== END 2022-09-15 23:59 | disposition home or self-care (01) ==
PROVIDERS: PCP Family Medicine; Visit Provider Internal Medicine Rheumatology
DX: M81.0 Age-related osteoporosis without current pathological fracture (principal)
CPT/HCPCS: 36415; 82040; 82310; 82565; 82652; 93005; 96372; J0897

== ENCOUNTER → 2022-10-13 09:49 | Outpatient (BNVA) | payer MEDICARE, SELFPAY | PROVIDERS: PCP Family Medicine; Visit Provider Nurse Practitioner Family | DX: L23.9 Allergic contact dermatitis, unspecified cause (principal); L57.0 Actinic keratosis; L81.4 Other melanin hyperpigmentation; L57.8 Other skin changes due to chronic exposure to nonionizing radiation; L85.3 Xerosis cutis; D22.5 Melanocytic nevi of trunk | CPT/HCPCS: 17000; 17003; 99214 ==

== ENCOUNTER → 2022-11-05 08:37 | Outpatient (BNVA) | payer MEDICARE, SELFPAY | PROVIDERS: PCP Family Medicine; Visit Provider Family Medicine | DX: E16.2 Hypoglycemia, unspecified (principal); G47.10 Hypersomnia, unspecified; G47.30 Sleep apnea, unspecified; R40.0 Somnolence; Z79.899 Other long term (current) drug therapy; E83.52 Hypercalcemia | CPT/HCPCS: 80053; 83036; 85027 ==

== ENCOUNTER → 2022-11-11 11:07 | Outpatient (BNVA) | payer MEDICARE, SELFPAY | PROVIDERS: PCP Family Medicine; Visit Provider Internal Medicine Rheumatology | DX: M06.041 Rheumatoid arthritis without rheumatoid factor, right hand (principal); M06.042 Rheumatoid arthritis without rheumatoid factor, left hand; M81.0 Age-related osteoporosis without current pathological fracture; Z79.899 Other long term (current) drug therapy; Z71.89 Other specified counseling; R76.8 Other specified abnormal immunological findings in serum | CPT/HCPCS: 99214 ==

== ENCOUNTER → 2022-12-24 08:26 | Outpatient (BNVA) | payer MEDICARE, SELFPAY | PROVIDERS: PCP Family Medicine; Visit Provider Family Medicine | DX: N39.0 Urinary tract infection, site not specified (principal) | CPT/HCPCS: 81000 ==

== ENCOUNTER 2022-12-27 15:35 | Observation (INO) | payer MEDICARE, SELFPAY ==
[2022-12-27] VITALS (8 sets, daily range): BP systolic 131–160; BP diastolic 66–96; PULSE 69–102; RESP 16–18; TEMP 36.6–36.7; O2SAT 96–99; BMI 35.7
--- NOTE | 2022-12-27 15:38 | ECG_ITS ---
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 Measurements Intervals [place] Rate: 70 P: 46 MO: 193 QRS: -11 QRSD: 152 T: 22 QT: 408 QTc: 443 Interpretive Statements SINUS RHYTHM RIGHT BUNDLE BRANCH BLOCK [120+ ms QRS DURATION, UPRIGHT V1, 40+ ms S IN I/aVL/V4/V5/V6] ANTERIOR MYOCARDIAL INFARCTION , PROBABLY OLD [40+ ms Q WAVE AND/OR ST/T ABNORMALITY IN V3/V4] Compared to ECG 07/24/2022 10:48:49 Myocardial infarct finding now present Electronically Signed On 12-28-2022 8:26:29 [employer]AFETY EQUIPMENT TESTER by Shanell Cueva M.D. [id number]
--- NOTE | 2022-12-27 15:51 | XRR_ITS ---
PROCEDURE INFORMATION: Exam: XR Chest Exam date and time: 12/27/2022 4:05 PM Age: 67 years old Clinical indication: Pain; Chest pressure; Additional info: Chest pain TECHNIQUE: Imaging protocol: Radiologic exam of the chest. Views: 1 view. COMPARISON: CR XR chest 2V* [id number] 10/04/2019 3:37 PM FINDINGS: Lungs: Low lung volumes the lungs are otherwise clear No consolidation. Pleural spaces: Unremarkable. No pleural effusion. No pneumothorax. Heart/Mediastinum: Unremarkable. No cardiomegaly. Bones/joints: Unremarkable. Other findings: No change has occurred since prior examination. XR/XR chest 1V portable [id number] IMPRESSION: No acute findings.
[2022-12-27] MEDS: aspirin 81 mg Chew Tablet 324 MG PO (16:05)
[2022-12-27] MEDS: nitroglycerin 0.4 mg sublingual Tablet SUBLINGUAL (16:06)
[2022-12-27 16:09] LABS: Basophils # 0.1 10^3/uL (0.0-0.1); Basophils % 0.9 %; Eosinophils # 0.6 10^3/uL (0.0-0.8); Eosinophils % 7.5 %; Hematocrit 42.8 % (36-47); Lymphocytes # 3.1 10^3/uL (0.8-4.8); Lymphocytes % 41.4 %; Mean Corpuscular HGB Conc 33.2 g/dL (30-55); Mean Corpuscular Hemoglobin 31.3 pg (27-33); Mean Corpuscular Volume 94.5 fl (85-98); Mean Platelet Volume 10.2 fL (7.4-10.4); Monocytes # 0.6 10^3/uL (0.2-0.9); Monocytes % 7.6 %; Neutrophils # 3.17 10^3/uL (1.8-7.7); Neutrophils % 42.5 %; Nucleated Red Blood Cells % 0 %; Platelet Count 217 10^3/cmm (157-399); Red Blood Count 4.53 10^6/uL (3.85-5.65); Red Cell Distribution Width 12.7 % (12.1-15.1); White Blood Count 7.47 10^3/uL (3.29-11.43)
[2022-12-27 16:20] LABS: INR 0.96 (0.8-1.2); Partial Thromboplastin Time 32.9 SECONDS (23.9-36.7)
[2022-12-27 16:27] LABS: Troponin(5th) Baseline < 6 ng/L (0-10)
--- NOTE | 2022-12-27 16:33 | PC.NURSE ---
PATIENT CHEST PAIN RELIEVED AFTER 2 NITRO.
[2022-12-27 16:35] LABS: Anion Gap 13.9 (5-19); Blood Urea Nitrogen 15 mg/dL (8-23); Calcium 10.9 mg/dL (8.5-10.5); Carbon Dioxide 28 mmol/L (22-29); Chloride 98 mmol/L (98-107); Creatinine Clr Calc Pharmacy 68.1813; Glomerular Filtration Rate 62.1 mL/min (90-130); Glucose 103 mg/dL (65-115); NT Pro B Type Natriuretic Pept 40 pg/mL (0-125); Osmolality Calculated 283 mOsm/kg (285-295); Potassium 3.9 mmol/L (3.5-5.1); Sodium 136 mmol/L (136-145)
--- NOTE | 2022-12-27 16:36 | PC.NURSE ---
2ND NITRO GIVEN AT 1615
--- NOTE | 2022-12-27 17:16 | ED_ITS ---
HPI - Chest Pain General: Chief Complaint: Chest Pain Stated Complaint: Cp Time Seen by Provider: 12/27/22 15:40 History of Present Illness: This patient is a 67-year-old white female who presents to the emergency department with anterior neck pain that radiates down into the chest. Symptoms started 2 hours prior to arrival. She does not have any associated chest pain, nausea or vomiting. Her past medical history includes diabetes, hypertension, rheumatoid arthritis and she has a known right bundle branch block. She does take 81 mg of aspirin every night. She does not smoke. She does have a strong family history of coronary artery disease. Review of Systems General: Reports: 10 or more systems reviewed and unremarkable except in HPI and below Card: Reports: chest pain PFSH ED PFSH: Medical History Anti-TPO antibodies present Diabetes Fibromyalgia Helicobacter pylori gastritis High risk medication use Hypertension Immunization counseling Inflammatory arthritis Osteoporosis Positive PRICE (antinuclear antibody) Seronegative rheumatoid arthritis of both hands Skin rash Skin ulcer of face, limited to breakdown of skin Surgical History History of bariatric surgery History of bladder repair surgery History of carpal tunnel repair History of cholecystectomy History of hysterectomy History of left knee replacement History of right knee joint replacement Family History Other CAD (coronary artery disease) Cancer Diabetes Heart disease Hyperlipidemia Hypertension Stroke Denies family history of Rheumatoid arthritis Lupus Chronic kidney disease (CKD) Lung disease Social History Smoking and tobacco/nicotine status: never used tobacco/nicotine Alcohol intake: never Substance/Drug Use: never Female Reproductive History: Spontaneous abortions: No Physical Exam Narrative: EXAM NARRATIVE: Mild distress secondary to chest discomfort. Const: COMMON NORMALS: patient oriented x3 and no limitations GENERAL APPEARANCE: cooperative HENMT: COMMON NORMALS: normocephalic, atraumatic, Normal nasal mucous membranes and turbinates present, moist oral mucous membranes and oropharynx normal HEAD & SCALP: normal to inspection, normocephalic and atraumatic FACE & SINUS: normal facial exam NOSE: Normal nasal mucous membranes and turbinates present Eye: COMMON NORMALS: Equal, round and reactive pupils present, EOMs intact bilaterally and conjunctivae normal GENERAL EYE: appearance normal, both eyes and all related structures CONJUNCTIVA: Yes conjunctivae normal PUPIL: Yes Equal, round and reactive pupils present Neck/C-Spine: COMMON NORMALS: supple and no JVD Chest: OTHER: Some mild discomfort to palpation of the upper chest. Resp: COMMON NORMALS: normal respiratory effort and clear to auscultation bilaterally AUSCULTATION: clear to auscultation bilaterally Cardio: COMMON NORMALS: no JVD, regular rate, regular rhythm, No gallops present (Cardio), No murmurs present (Cardio) and No rub (Cardio) RATE: regular rate RHYTHM: regular rhythm GI: COMMON NORMALS: Normal to inspection, nondistended, normoactive bowel sounds present, Soft to palpation and non-tender AUSCULTATION: Yes normoactive bowel sounds PALPATION: Yes Soft to palpation : COMMON NORMALS: Yes no CVA tenderness BLADDER/KIDNEY EXAM: Yes no CVA tenderness Back/Pelvis: COMMON NORMALS: no CVA tenderness and thoracic and lumbar spine normal to inspection Extremity: COMMON NORMALS: normal to inspection Neuro: COMMON NORMALS: patient oriented x3 and CN's II-XII intact bilaterally Psych: COMMON NORMALS: mental status grossly normal, Normal thought process present and cooperative THOUGHT PROCESS: Normal thought process present Skin: COMMON NORMALS: no rashes or lesions noted, turgor normal and no jaundice GENERAL SKIN EXAM: no rashes or lesions noted and turgor normal Course Vital Signs: Vital signs: Vital Signs Temperature 97.9 F 12/27/22 15:42 Pulse Rate 70 12/27/22 18:01 Respiratory Rate 18 12/27/22 18:01 Blood Pressure 155/81 12/27/22 18:01 Pulse Oximetry 96 12/27/22 18:01 Oxygen Delivery Me thod Room Air 12/27/22 18:01 MDM - Chest Pain Medical Decision Making EKG reveals a right bundle branch block. No acute ST segment abnormalities. Chest x-ray is normal. CBC and BMP are normal. Coags normal. BNP was 40. Baseline troponin was less than 6. Patient was given 324 mg of aspirin and 2 sublingual nitroglycerin tablets. Her chest pain was initially a 7 and following the treatment it is a 0. 2-hour troponin is pending. Patient remains pain-free. Patient reevaluated at 5:50 PM. Her chest discomfort is returning. She describes it as a heavy sensation. Patient is getting another dose of sublingual nitroglycerin at this time. Pain completely relieved again with the sublingual nitroglycerin. 2-hour troponin is 6. I think the patient is high risk for coronary event. I recommended she be admitted to observation. Patient is in agreement. I did discuss the case with Dr. Hinds, hospitalist. She did accept the patient. She would like nitropaste placed. Patient will be admitted to cardiac stepdown. She is stable. Lab Data 12/27/22 15:54 12/27/22 15:54 Radiology Impressions Chest X-Ray 12/27/22 15:51 IMPRESSION: No acute findings. Laboratory Results WBC 7.47 10^3/uL (3.29-11.43) 12/27/22 15:54 RBC 4.53 10^6/uL (3.85-5.65) 12/27/22 15:54 Hgb 14.20 g/dL (11.27-16.99) 12/27/22 15:54 Hct 42.8 % (36-47) 12/27/22 15:54 MCV 94.5 fl (85-98) 12/27/22 15:54 MCH 31.3 pg (27-33) 12/27/22 15:54 MCHC 33.2 g/dL (30-55) 12/27/22 15:54 RDW 12.7 % (12.1-15.1) 12/27/22 15:54 Plt Count 217 10^3/cmm (157-399) 12/27/22 15:54 MPV 10.2 fL (7.4-10.4) 12/27/22 15:54 Neut % (Auto) 42.5 % 12/27/22 15:54 Lymph % (Auto) 41.4 % 12/27/22 15:54 Sutter % (Auto) 7.6 % 12/27/22 15:54 Eos % (Auto) 7.5 % 12/27/22 15:54 Baso % (Auto) 0.9 % 12/27/22 15:54 Neut # (Auto) 3.17 10^3/uL (1.8-7.7) 12/27/22 15:54 Lymph # (Auto) 3.1 10^3/uL (0.8-4.8) 12/27/22 15:54 Sutter # (Auto) 0.6 10^3/uL (0.2-0.9) 12/27/22 15:54 Eos # (Auto) 0.6 10^3/uL (0.0-0.8) 12/27/22 15:54 Baso # (Auto) 0.1 10^3/uL (0.0-0.1) 12/27/22 15:54 Nucleated RBC % (auto) 0 % 12/27/22 15:54 Nucleated RBCs # 0.0 /100WBC 12/27/22 15:54 PT 13.10 SECONDS (12.1-14.9) 12/27/22 15:54 INR 0.96 (0.8-1.2) 12/27/22 15:54 APTT 32.9 SECONDS (23.9-36.7) 12/27/22 15:54 Sodium 136 mmol/L (136-145) 12/27/22 15:54 Potassium 3.9 mmol/L (3.5-5.1) 12/27/22 15:54 Chloride 98 mmol/L (98-107) 12/27/22 15:54 Carbon Dioxide 28 mmol/L (22-29) 12/27/22 15:54 Anion Gap 13.9 (5-19) 12/27/22 15:54 BUN 15 mg/dL (8-23) 12/27/22 15:54 Creatinine 0.9 mg/dL (0.5-0.9) 12/27/22 15:54 GFR Calculation 62.1 mL/min (90-130) L 12/27/22 15:54 Glucose 103 mg/dL (65-115) 12/27/22 15:54 Calculated Osmolality 283 mOsm/kg (285-295) L 12/27/22 15:54 Calcium 10.9 mg/dL (8.5-10.5) H 12/27/22 15:54 Troponin T Baseline < 6 ng/L (0-10) 12/27/22 15:54 Troponin T 120 Minute 6.0 ng/L (0-10) 12/27/22 17:44 Delta Troponin T 0.32922 ABS# (0-10) 12/27/22 17:44 NT-Pro-B Natriuret Pep 40 pg/mL (0-125) 12/27/22 15:54 All radiology interpretation(s) finalized by discharge Discharge Plan Discharge Condition: Stable Prescriptions: No Action aspirin [Adult Aspirin Regimen] 81 mg tablet,delayed release (DR/EC) 81 mg PO DAILY Hold Instructions: Resume on 12/19/20. May resume 81 mg aspirin after taking 325 mg x 30 days. mecobalamin (vitamin B12) 5,000 mcg lozenge 5,000 mcg PO .2x wk Rx Instructions: allow to dissolve in mouth OR may chew lightly before swallowing acetaminophen 500 mg tablet 1,000 mg PO BID PRN (Reason: pain) tramadol 50 mg tablet 50 mg PO TID PRN (Reason: pain) Qty: 60 1RF cefdinir 300 mg capsule 300 mg PO BID Qty: 20 0RF clobetasol 0.05 % ointment 1 applic topical BID 14 Days Qty: 60 2RF Rx Instructions: Apply to affected areas no more than 2 weeks per month, not for face or skin folds. ketoconazole 2 % cream 1 applic topical BID Qty: 30 6RF Rx Instructions: Apply to red-scaly areas on face 1-2 times daily. hydrochlorothiazide 25 mg tablet See Rx Instructions .ROUTE .COMPLEX Qty: 90 1RF Dose Instruction: TAKE 1 TABLET BY MOUTH EVERY DAY Rx Instructions: TAKE 1 TABLET BY MOUTH EVERY DAY losartan 50 mg tablet See Rx Instructions .ROUTE .COMPLEX Qty: 90 2RF Dose Instruction: TAKE 1 TABLET BY MOUTH EVERY DAY Rx Instructions: TAKE 1 TABLET BY MOUTH EVERY DAY amitriptyline 50 mg tablet 50 mg PO DAILY Qty: 90 2RF Rx Instructions: Take 1 Tablet PO Daily Enbrel 50 mg/mL (1 mL) syringe 50 mg SUBCUT .Q7days Qty: 4 3RF venlafaxine 75 mg capsule,extended release 24hr See Rx Instructions .ROUTE .COMPLEX Qty: 30 5RF Dose Instruction: take 1 capsule BY MOUTH EVERY DAY Rx Instructions: take 1 capsule BY MOUTH EVERY DAY pregabalin [Lyrica] 25 mg capsule 25 mg PO BID Qty: 60 5RF Referrals: Kwadwo Dorado DO [Primary Care Provider] - Coding Level of Care Code ED Repair Coil Winder for Chg [place]
--- NOTE | 2022-12-27 17:41 | ECG_ITS ---
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 Measurements Intervals [place] Rate: 63 P: 51 [place]: 210 QRS: 28 QRSD: 162 T: 26 QT: 434 QTc: 447 Interpretive Statements SINUS RHYTHM WITH FIRST DEGREE AV BLOCK RIGHT BUNDLE BRANCH BLOCK [120+ ms QRS DURATION, UPRIGHT V1, 40+ ms S IN I/aVL/V4/V5/V6] Compared to ECG 12/27/2022 15:38:14 First degree AV block now present Myocardial infarct finding no longer present Electronically Signed On 12-29-2022 8:11:33 PREFLIGHT INSPECTOR by Shanell Cueva M.D. [id number]
--- NOTE | 2022-12-27 18:02 | PC.NURSE ---
PATIENT STATED THAT CHEST PRESSURE IS BACK. PATIENT STATES CHEST PAIN SUBSTERNAL AND NOT THE SAME PAIN BEFORE. PATIENT STATED THIS WAS MORE PRESSURE WHILE PRIOR CHEST PAIN WAS MORE PAINFUL IN NATURE. PROVIDER NOTIFIED, 2ND EKG PERFORMED. PATIENT HAD NO FURTHER NEEDS AT THIS TIME.
--- NOTE | 2022-12-27 18:04 | PC.NURSE ---
PATIENT GIVEN 3 NITRO AT TIME OF CHEST PRESSURE.
[2022-12-27 18:20] LABS: Troponin 5 2HR Delta 0.00001 ABS# (0-10)
[2022-12-27] MEDS: nitroglycerin 1 gm/inch oint Pkt 1 INCH TOPICAL (18:40)
--- NOTE | 2022-12-27 20:38 | CTR_ITS ---
PROCEDURE INFORMATION: Exam: CTA Chest With Contrast Exam date and time: 12/27/2022 9:56 PM Age: 67 years old Clinical indication: Radiating; Prior surgery; Surgery date: 6+ months; Surgery type: Bariatric. Gb; Patient HX: C/O chest pain with posterior radiation; Additional info: Chest pain w radiation to back TECHNIQUE: Imaging protocol: Computed tomographic angiography of the chest with contrast. Exam focused on the arteries. 3D rendering (Not supervised by radiologist): MIP and/or 3D reconstructed images were created by the technologist. Radiation optimization: All CT scans at this facility use at least one of these dose optimization techniques: automated exposure control; mA and/or kV adjustment per patient size (includes targeted exams where dose is matched to clinical indication); or iterative reconstruction. Contrast material: OMNI 350; Contrast volume: 95 ml; Contrast route: INTRAVENOUS (IV); REPORTING DATA: Count of CT and Cardiac NM exams in prior 12 months: This patient has received 0 known CTs and 0 known cardiac nuclear medicine studies in the 12 months prior to the current study. COMPARISON: CR (CHEST, ) 12/27/2022 4:05 PM RADIATION DOSE METRICS: Total DLP (mGy-cm): 820.25 FINDINGS: Pulmonary arteries: No main, lobar, or segmental PE identified. Aorta: Unremarkable. No aortic aneurysm. No aortic dissection. Lungs: The lungs show no dominant mass or spiculated nodule. No focal consolidation is seen. Minor lung base atelectasis or scarring. Slight COPD. Pleural spaces: No pneumothorax. No pleural effusion noted. Heart: The heart is not enlarged. No pericardial effusion is noted. Lymph nodes: No bulky hilar or mediastinal lymphadenopathy noted. Diaphragm: Small hiatal hernia. GE junction postop changes. Gallbladder and bile ducts: Absent gallbladder. Bones/joints: Advanced spine DJD. Soft tissues: Unremarkable. CT/CT angio chest [id number] IMPRESSION: The exam is negative for PE.
--- NOTE | 2022-12-27 20:42 | P.HP_ITS ---
Providers/Chief Complaint Admitting Physician: Tracey Hinds MD Primary Care Provider: Kwadwo Dorado DO Chief Complaint: Cp History of Present Illness Pleasant 67-year-old lady with history of RA, DM 2, HTN, no history of heart disease, presented due to chest pain and pressure radiating to her back as well as mild pain into the neck bilaterally, she was pale, diaphoretic, she took 2 nitroglycerin at home with partial relief, but with returning pain received additional nitroglycerin in ER and subsequent Nitropaste applied which eventually took care of the discomfort. Her blood pressure was somewhat elevated on presentation. Normally does not run this high. He reports pain does not change with movement or inspiration. Not reproducible on palpation. Without any GI symptoms, no heartburn, no nausea or abdominal discomfort. Review of Systems Const: Denies: fever(s), chills, body aches or malaise ENMT: Denies: throat pain Card: Reports: chest pain; Denies: edema, pre-syncope, dyspnea on exertion or orthopnea Resp: Denies: dyspnea, productive cough, change in phlegm color or hemoptysis GI: Denies: abdominal pain, nausea, vomiting, diarrhea, constipation, hematoc hezia or melena : Denies: flank pain, urinary frequency or hematuria Musc: Denies: back pain, joint swelling or joint redness Skin/Breast: Denies: rash or new lesions Neuro: Denies: headache(s), numbness in extremities, weakness in extremities, dizziness, confusion or seizure-like activity Medications/Allergies Home Medications Medication Instructions Recorded Confirmed Last Taken Type aspirin 81 mg tablet,delayed 81 mg PO BEDTIME 10/04/19 12/27/22 12/26/22 21:00 History release (Adult Aspirin Regimen) mecobalamin (vitamin B12) 5,000 5,000 mcg PO DIRECTED 10/04/19 12/27/22 12/22/22 History mcg lozenge acetaminophen 500 mg tablet 1,000 mg PO BID PRN pain 01/14/22 12/27/22 03/23/22 History clobetasol 0.05 % topical ointment 1 applic topical BID 2 weeks #60 05/21/22 12/27/22 12/26/22 Rx grams ketoconazole 2 % topical cream 1 applic topical BID #30 grams 0412/27/22 12/26/22 Rx tramadol 50 mg tablet 50 mg PO TID PRN pain #60 tabs 08/12/22 12/27/22 Unknown Rx etanercept 50 mg/mL (1 mL) 50 mg SUBCUT .Q7days #4 mL 12/22/22 12/27/22 12/22/22 Rx subcutaneous syringe (Enbrel) pregabalin 25 mg capsule (Lyrica) 25 mg PO BID #60 caps 12/23/22 12/27/22 09:00 Rx cefdinir 300 mg capsule 300 mg PO BID #20 caps 12/24/22 12/27/22 12/26/22 09:00 Rx amitriptyline 50 mg tablet 50 mg PO BEDTIME 12/27/22 12/27/22 12/26/22 21:00 History hydrochlorothiazide 25 mg tablet 25 mg PO DAILY 12/27/22 12/27/22 12/26/22 History losartan 50 mg tablet 50 mg PO DAILY 12/27/22 12/27/22 12/27/22 History metronidazole 500 mg tablet 500 mg PO 2XD 12/27/22 12/27/22 12/27/22 09:00 History venlafaxine 75 mg capsule,extended 75 mg PO DAILY 12/27/22 12/27/22 12/26/22 History release 24 hr Allergies Allergy/AdvReac Type Severity Reaction Status Date / Time latex Allergy Unknown Verified 12/24/22 08:17 nickel Allergy Unknown Verified 12/24/22 08:17 sulfamethoxazole Allergy Unknown Verified 12/24/22 08:17 [From Bactrim] trimethoprim [From Bactrim] Allergy Unknown Verified 12/24/22 08:17 leflunomide AdvReac Intermediate elevated Verified 12/24/22 08:17 LFT's PFSH Acute PFSH: Medical History Anti-TPO antibodies present Diabetes Fibromyalgia Helicobacter pylori gastritis High risk medication use Hypertension Immunization counseling Inflammatory arthritis Osteoporosis Positive PRICE (antinuclear antibody) Seronegative rheumatoid arthritis of both hands Skin rash Skin ulcer of face, limited to breakdown of skin Surgical History History of bariatric surgery History of bladder repair surgery History of carpal tunnel repair History of cholecystectomy History of hysterectomy History of left knee replacement History of right knee joint replacement Family History Other CAD (coronary artery disease) Cancer Diabetes Heart disease Hyperlipidemia Hypertension Stroke Denies family history of Rheumatoid arthritis Lupus Chronic kidney disease (CKD) Lung disease Social History Smoking and tobacco/nicotine status: never used tobacco/nicotine Alcohol intake: never Substance/Drug Use: never Female Reproductive History: Spontaneous abortions: No Vitals/I&O/Wt Last Vital Signs Temp 98.1 F 12/27/22 20:00 Pulse 74 12/27/22 20:00 Resp 18 12/27/22 20:00 BP 150/92 12/27/22 20:00 Pulse Ox 96 12/27/22 20:00 O2 Del Method Room Air 12/27/22 20:00 Weight last 48 hrs Weight 97.522 kg Physical Exam Narrative: Accompanied by her daughter. Const: COMMON NORMALS: patient oriented x3 and alert GENERAL APPEARANCE: cooperative ORIENTATION/CONSCIOUSNESS: Yes awake HENMT: COMMON NORMALS: oropharynx normal Neck/C-Spine: COMMON NORMALS: no JVD Resp: COMMON NORMALS: normal respiratory effort and clear to auscultation bilaterally AUSCULTATION: clear to auscultation bilaterally Cardio: COMMON NORMALS: no JVD, regular rhythm, S1 normal heart sound present, S2 normal heart sound present and No murmurs present (Cardio) RHYTHM: regular rhythm HEART SOUNDS: S1 normal heart sound present and S2 normal heart sound present GI: COMMON NORMALS: Normal to inspection, nondistended, normoactive bowel sounds present, Soft to palpation and non-tender PALPATION: Yes Soft to palpation Extremity: COMMON NORMALS: no joint enlargement and no pedal edema Neuro: COMMON NORMALS: patient oriented x3 and moves all extremities SENSORIUM/ORIENTATION: Yes alert Skin: COMMON NORMALS: no rashes or lesions noted GENERAL SKIN EXAM: no rashes or lesions noted Data 12/27/22 15:54 12/27/22 15:54 A&P Assessment and plan (1) Chest pain: Chest pain with radiation to the back, she is also pale, diaphoretic, elevated blood pressure, additional assessment for possibility of dissection, discussed risk with CT angiogram, obtained, results reviewed, no dissection, no PE. Complete troponin EKG series. So far not elevated. Reviewed NT-proBNP. Reviewed CBC, INR, chemistry. Chest x-ray. Reviewed ER documentation, discussed with ER provider and referring hospitalist. Concern for possible acute HI/unstable angina with CAD risk factors. Monitor on telemetry. Obtain TTE. Monitor symptoms. Obtain lipid profile. Repeat CBC, chemistry. Reassessment later in the morning, depending on findings, symptoms, consideration of additional risk stratification prior to discharge, though discussed with her stress test if needed would not be available till Thursday. Plan Recent UTI: Has been started on cefdinir. RA: On Enbrel. Tramadol. Follow-up with rheumatology.. Osteoporosis: On Prolia Remote history of diabetes in remission Hypertension: Monitor blood pressures, continue HCTZ, losartan. Other medical problems. Attestations Medical Necessity Statement*: Place in observation for additional assessment management of recurrent chest pain in a lady with coronary artery disease risk factors. Diagnoses Chest pain R07.9
--- NOTE | 2022-12-27 21:08 | PC.NURSE ---
Spoke with regarding patients pregabalin. The patient did not take tonights dose and would like it tonight. said ok to give dose tonight as one time.
[2022-12-27] MEDS: heparin 5,000 unit/mL INJ 1 mL 5000 UNIT SUBCUT (21:41)
[2022-12-27] MEDS: metroNIDAZOLE 500 MG Tablet PO (21:48)
[2022-12-27] MEDS: iohexol 350 mg/mL 500 mL Btl (per mL) IV (22:03)
[2022-12-27 22:09] LABS: Troponin 5 6HR 6.82 ng/L (0-10); Troponin 5 6HR Delta 0.82001 ng/L (0-12)
[2022-12-27] MEDS: pregabalin 25 mg Capsule PO (22:19)
[2022-12-27] MEDS: amitriptyline 25 mg Tablet 50 MG PO (22:20)
[2022-12-27] MEDS: cefdinir 300 MG CAPSULE PO (22:27)
--- NOTE | 2022-12-27 23:59 | ECG_ITS ---
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 Measurements Intervals [place] Rate: 76 P: 48 MO: 196 QRS: 12 QRSD: 167 T: 6 QT: 430 QTc: 485 Interpretive Statements SINUS RHYTHM RIGHT BUNDLE BRANCH BLOCK [120+ ms QRS DURATION, UPRIGHT V1, 40+ ms S IN I/aVL/V4/V5/V6] POSSIBLE ANTERIOR MYOCARDIAL INFARCTION , OF INDETERMINATE AGE [30 ms Q WAVE IN V3/V4, OR R < 0.2 mV IN V4] Compared to ECG 12/27/2022 17:41:07 Myocardial infarct finding now present First degree AV block no longer present Electronically Signed On 12-29-2022 8:15:36 TRUST VAULT CLERK by Shanell Cueva M.D. [id number]
[2022-12-28] VITALS (12 sets, daily range): BP systolic 132–155; BP diastolic 64–92; PULSE 66–82; RESP 14–18; TEMP 36.4–36.9; O2SAT 93–96
[2022-12-28] MEDS: acetaminophen 500 mg Tablet 1000 MG PO ×2 (03:49→14:45)
[2022-12-28 04:45] LABS: Basophils # 0.1 10^3/uL (0.0-0.1); Basophils % 1.1 %; Eosinophils # 0.6 10^3/uL (0.0-0.8); Eosinophils % 9.2 %; Lymphocytes # 2.6 10^3/uL (0.8-4.8); Lymphocytes % 40.1 %; Mean Corpuscular HGB Conc 33.3 g/dL (30-55); Mean Corpuscular Volume 93.1 fl (85-98); Monocytes # 0.6 10^3/uL (0.2-0.9); Neutrophils # 2.66 10^3/uL (1.8-7.7); Neutrophils % 40.6 %; Nucleated Red Blood Cells % 0 %; Platelet Count 191 10^3/cmm (157-399); Red Blood Count 4.19 10^6/uL (3.85-5.65); Red Cell Distribution Width 12.8 % (12.1-15.1); White Blood Count 6.54 10^3/uL (3.29-11.43)
[2022-12-28 05:04] LABS: Anion Gap 11.7 (5-19); Blood Urea Nitrogen 13 mg/dL (8-23); Carbon Dioxide 29 mmol/L (22-29); Chloride 104 mmol/L (98-107); Glomerular Filtration Rate 99.1 mL/min (90-130); Glucose 104 mg/dL (65-115); Osmolality Calculated 292 mOsm/kg (285-295); Potassium 3.7 mmol/L (3.5-5.1); Sodium 141 mmol/L (136-145)
[2022-12-28 05:15] LABS: Chol HDL Ratio 4.16 mg/dL (0.0-4.40); Cholesterol 187 mg/dL (0-200); HDL Cholesterol 45 mg/dL (60-100); LDL Cholesterol Calculated 120 mg/dL (50-129); Triglycerides 111 mg/dL (0-150); VLDL Cholestrol Calculation 22 mg/dL (0-30)
--- NOTE | 2022-12-28 06:00 | USCV_ITS ---
Rylee Bernard Age: 67 Gender: F : 1955 Exam Date: 12/28/2022 06:50 Ordering Phys: Han Patel MD Technologist: Dennis Ortiz Exam Location: [facility] [place] Indication: Chest pain BP: 134 / 74 HR: 64 Rhythm: Sinus Technical Quality: Adequate MEASUREMENTS (Male / Female) Normal Values 2D ECHO LV Ejection Fraction MOD 2C 68.9 % LV Ejection Fraction 2C AL 68.9 % LA Diameter 4.0 cm LA Width 3.7 cm LA Height 4.4 cm RA Width 3.0 cm RA Height 4.5 cm Aorta at Sinotubular Diameter 2.0 cm IVC Diameter 1.8 cm M-MODE Aortic Annulus Diameter 2.9 cm LA Ao Ratio MM 1.6 MV E Point Septal Separation 0.7 cm DOPPLER AV Peak Velocity 282.3 cm/s LVOT Peak Velocity 108.0 cm/s MV Peak Velocity 120.0 cm/s MV Area PHT 3.5 cm squared Mitral E to A Ratio 0.7 MV E' Velocity 41.0 cm/s Mitral E to MV E' Ratio 10.7 Mitral E to LV E' Lateral Ratio 10.9 Mitral E to LV E' Septal Ratio 10.6 TR Peak Velocity 199.3 cm/s TR Peak Gradient 15.9 mmHg TR Mean Velocity 141.4 cm/s TR Mean Gradient 8.9 mmHg TR Velocity Time Integral 47.2 cm Right Atrial Pressure 3.0 mmHg Pulmonary Artery Systolic Pressu 18.9 mmHg PV Peak Velocity 111.0 cm/s RV Acceleration Time 0.1 s RV Ejection Time 0.3 s RV AcT/ET 0.5 FINDINGS Left Ventricle Normal left ventricular size, systolic function and wall thickness, with no regional wall motion abnormalities with estimated ejection fraction 60 to 65%. Normal left ventricular wall thickness. Normal diastolic filling pattern. Right Ventricle The right ventricle is normal in size and function. Right Atrium The right atrium is normal in size. Left Atrium The left atrium is normal in size. Mitral Valve Structurally normal mitral valve without significant stenosis or prolapse. There is trivial mitral regurgitation. Aortic Valve Moderately calcified aortic valve with mild aortic stenosis. There is no aortic regurgitation. Tricuspid Valve Structurally normal tricuspid valve without significant stenosis. There is mild regurgitation. Pulmonary artery systolic pressure is normal. Pulmonic Valve Structurally normal pulmonic valve without significant stenosis. There is no pulmonic regurgitation. Pericardium Normal pericardium without effusion. Aorta Normal ascending aorta dimension. IVC The inferior vena cava appears normal. CONCLUSIONS Avila Solano MD (Electronically Signed) Final Date: 28 December 2022 12:24 S
[2022-12-28] MEDS: aspirin 325 mg Tablet PO (08:28)
[2022-12-28] MEDS: venlafaxine ER (24HR) 75 mg Capsule PO (08:28)
[2022-12-28] MEDS: metroNIDAZOLE 500 MG Tablet PO ×2 (08:28→18:22)
[2022-12-28] MEDS: cefdinir 300 MG CAPSULE PO ×2 (08:28→18:21)
[2022-12-28] MEDS: losartan 50 mg Tablet PO (08:32)
[2022-12-28] MEDS: pregabalin 25 mg Capsule PO ×2 (08:33→18:22)
[2022-12-28] MEDS: hydroCHLOROthiazide 25 mg Tablet PO (08:33)
[2022-12-28] MEDS: heparin 5,000 unit/mL INJ 1 mL 5000 UNIT SUBCUT ×2 (08:46→21:23)
--- NOTE | 2022-12-28 11:58 | PM.PN ---
Subjective Subjective: Seen this morning. Daughter present at bedside. Patient has not had any more chest pain since last night. She is resting comfortably in a chair. She follows with Dr. Duggan in [place]. She states that she has had several stress tests in the past unsure of the reason why. She has not really reported chest pain before. She states the chest pain she had yesterday was new and has never happened like this in the past. It started off as a sharp pain in her back which radiated to her jaw and then moved down to the middle of her chest. She stated it was 8 out of 10. She did not Respiratory diaphoresis or shortness of breath at the time. However the nature of the pain was very alarming to her and she presented to the ER. Troponins negative x3. Vitals/I&O/Wt Last Vital Signs Temp 97.7 F 12/28/22 07:53 Pulse 67 12/28/22 07:53 Resp 17 12/28/22 07:53 BP 135/67 12/28/22 08:32 Pulse Ox 95 12/28/22 07:53 O2 Del Method Room Air 12/28/22 07:53 12/27/22 12/28/22 12/28/22 22:59 06:59 14:59 Intake Total 240 / 240 600 / 840 236 / 236 Balance 240 / 240 600 / 840 236 / 236 Weight last 48 hrs Weight 97.522 kg Physical Exam Narrative: Accompanied by her daughter. Const: COMMON NORMALS: patient oriented x3 and alert GENERAL APPEARANCE: cooperative ORIENTATION/CONSCIOUSNESS: Yes awake HENMT: COMMON NORMALS: oropharynx normal Neck/C-Spine: COMMON NORMALS: no JVD Resp: COMMON NORMALS: normal respiratory effort and clear to auscultation bilaterally AUSCULTATION: clear to auscultation bilaterally Cardio: COMMON NORMALS: no JVD, regular rhythm, S1 normal heart sound present, S2 normal heart sound present and No murmurs present (Cardio) RHYTHM: regular rhythm HEART SOUNDS: S1 normal heart sound present and S2 normal heart sound present GI: COMMON NORMALS: Normal to inspection, nondistended, normoactive bowel sounds present, Soft to palpation and non-tender PALPATION: Yes Soft to palpation Extremity: COMMON NORMALS: no joint enlargement and no pedal edema Neuro: COMMON NORMALS: patient oriented x3 and moves all extremities SENSORIUM/ORIENTATION: Yes alert Skin: COMMON NORMALS: no rashes or lesions noted GENERAL SKIN EXAM: no rashes or lesions noted Data 12/28/22 03:33 12/28/22 03:33 A&P Assessment and plan (1) Chest pain: CT angio chest rule out PE or aortic dissection. Troponins negative x3 BNP 40 Reviewed labs. Patient does have a number of risk factors with heart disease in her parents and her siblings including her son. Check echocardiogram Obtain lipid profile?reviewed. LDL 120, cholesterol 197 Stress test planned for the morning. We will also obtain her cardiology records from [place]. I have notified the charge nurse on the floor. Due to it being the weekend they will most likely be here by tomorrow. Family updated at bedside. Plan Recent UTI: Has been started on cefdinir. RA: On Enbrel. Tramadol. Follow-up with rheumatology.. Osteoporosis: On Prolia Remote history of diabetes in remission Hypertension: Monitor blood pressures, continue HCTZ, losartan. Other medical problems. Attestations Medical Necessity Statement*: Presented with chest pain. Will need to stay in the hospital for monitoring on the cardiac stepdown on telemetry until stress test in a.m. Diagnoses Chest pain R07.9
--- NOTE | 2022-12-28 17:27 | ECG_ITS ---
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 Interpretive Statements NAME OF STUDY: LEXISCAN SESTAMIBI STRESS TEST INDICATION: Chest Pain PROCEDURE: At the baseline, the EKG revealed normal sinus rhythm with a right bundle branch block. The baseline heart was 80 bpm with a blood pressue of 121/97 mm of Hg Lexiscan was infused over a period of 20 seconds. A total of 0.4 milligrams of Lexiscan was infused. The stress phase was continued for a total of 5 minutes. Heart rate at the end of the stress phase was 89 bpm with a blood pressure 134/71 mm of Hg. The EKG at the peak infusion revealed no significant changes. Sestamibi was injected 20 seconds after the Lexiscan infusion. Heart rate at the end of the recovery phase was 84 bpm with a blood pressure of 158/75 mm of Hg. CONCLUSION: 1. No significant EKG changes with the LexiScan infusion 2. No LexiScan induced chest pain or cardiac arrhythmia 3. Normal blood pressure and heart rate response 4. Sestamibi/sestamibi perfusion scan pending; see separate report. Electronically Signed On 01-02-2023 12:36:31 [employer] by Marlon Mcgregor M.D. [id number]
[2022-12-28] MEDS: amitriptyline 25 mg Tablet 50 MG PO (18:28)
[2022-12-29] VITALS (11 sets, daily range): BP systolic 119–160; BP diastolic 76–90; PULSE 64–90; RESP 14–21; TEMP 36.8–37.4; O2SAT 94–98
[2022-12-29] MEDS: regadenoson 0.4 Mg/5 ml Syringe IVP (07:13)
[2022-12-29] MEDS: venlafaxine ER (24HR) 75 mg Capsule PO (09:47)
[2022-12-29] MEDS: pregabalin 25 mg Capsule PO ×2 (09:47→18:23)
[2022-12-29] MEDS: heparin 5,000 unit/mL INJ 1 mL 5000 UNIT SUBCUT ×2 (09:47→21:21)
[2022-12-29] MEDS: metroNIDAZOLE 500 MG Tablet PO ×2 (09:48→18:23)
[2022-12-29] MEDS: cefdinir 300 MG CAPSULE PO ×2 (09:48→18:23)
[2022-12-29] MEDS: aspirin 325 mg Tablet PO (09:48)
[2022-12-29] MEDS: losartan 50 mg Tablet PO (09:48)
[2022-12-29] MEDS: hydroCHLOROthiazide 25 mg Tablet PO (09:48)
--- NOTE | 2022-12-29 12:12 | PM.PN ---
Subjective Subjective: seen this am no acute events overnight Vitals/I&O/Wt Last Vital Signs Temp 99.4 F 12/29/22 11:11 Pulse 64 12/29/22 11:11 Resp 14 12/29/22 11:11 BP 158/80 12/29/22 11:11 Pulse Ox 98 12/29/22 11:11 O2 Del Method Room Air 12/29/22 11:11 12/28/22 12/29/22 12/29/22 22:59 06:59 14:59 Intake Total 480 / 1196 120 / 120 Balance 480 / 1196 120 / 120 Weight last 48 hrs Weight 97.522 kg Physical Exam Narrative: Accompanied by her daughter. Const: COMMON NORMALS: patient oriented x3 and alert GENERAL APPEARANCE: cooperative ORIENTATION/CONSCIOUSNESS: Yes awake Resp: COMMON NORMALS: normal respiratory effort and clear to auscultation bilaterally AUSCULTATION: clear to auscultation bilaterally Cardio: COMMON NORMALS: regular rhythm, S1 normal heart sound present, S2 normal heart sound present and No murmurs present (Cardio) RHYTHM: regular rhythm HEART SOUNDS: S1 normal heart sound present and S2 normal heart sound present GI: COMMON NORMALS: Normal to inspection, nondistended, normoactive bowel sounds present, Soft to palpation and non-tender PALPATION: Yes Soft to palpation Extremity: COMMON NORMALS: no pedal edema Neuro: COMMON NORMALS: patient oriented x3 and moves all extremities SENSORIUM/ORIENTATION: Yes alert Data 12/28/22 03:33 12/28/22 03:33 A&P Assessment and plan (1) Chest pain: CT angio chest rule out PE or aortic dissection. Troponins negative x3 BNP 40 Reviewed labs. Patient does have a number of risk factors with heart disease in her parents and her siblings including her son. Normal left ventricular size, systolic function and wall ?thickness, with no regional wall motion abnormalities with ?estimated ejection fraction 60 to 65%.? Normal left ventricular ?wall thickness. Normal diastolic filling pattern. Obtain lipid profile?reviewed. LDL 120, cholesterol 197 Stress test planned for today RECORDS FROM [facility] CELSA RODRIGUEZ REVIEWED Echo 06/02/2017 LVEF 55 to 60%. No regional wall motion abnormalities identified at the time CT coronary angiography gone 02/13/2022?Agatston and volume score of 188 and 155 respectively. The calcium score places the patient at 82nd percentile for age group. Normal coronary artery origins. Left main coronary artery is patent with mild ostial calcification is noted mid LAD shows eccentric calcification causing 25 to 50% narrowing. Mid to distal LAD shows focal calcification causing 25 to 30% narrowing cannot entirely exclude moderate narrowing at the origin of the first diagonal branch. Medium size second diagonal branch has eccentric dense calcification making accurate assessment of luminal defect possibly around 50% narrowed. Left circumflex artery shows focal plaque causing less than 25% narrowing. Right coronary artery is a dominant vessel. Ostial calcification is noted causing mild narrowing. The distal vessel is small in caliber. CAD RADS?2. Recommend aggressive medical management. Recommend FFR CT to assess functional significance of LAD and diagonal lesions. Subsequently CTA heart flow FFR analysis was performed on March 13, 2022. It showed FFR CT value 0.97 approximately in the LAD, 0.91 in midportion and 0.83 distally. Apical LAD value of 0.76 which is likely nonsignificant. Left circumflex artery FFR CT value of 0.93, 0.89 in the ramus intermedius branch. RCA 0.98 proximally and 0.[address] suggest nonobstructive coronary artery disease. Recommend aggressive medical management. Of note the first diagonal artery is too small to calculate an FFR value. Conclusion: FFR CT shows normal blood flow through areas of suspected blockage. Risk factor modification including lipid control. Small vessels difficult to assess.. AWAITING RESULTS OF STRESS TEST. Further recommendations based on results Plan Recent UTI: Has been started on cefdinir. RA: On Enbrel. Tramadol. Follow-up with rheumatology.. Osteoporosis: On Prolia Remote history of diabetes in remission Hypertension: Monitor blood pressures, continue HCTZ, losartan. Other medical problems. Attestations Medical Necessity Statement*: awaiting results of stress test Diagnoses Chest pain R07.9
--- NOTE | 2022-12-29 15:23 | PC.SOCIAL ---
IMM Update IMM not given, pt is in Observation status at this time.
--- NOTE | 2022-12-29 17:25 | PM.CONSULT ---
Providers/Reason For Consult Consulting Physician/Specialty*: SUZE Mcgregor MD/cardiology Reason for Consult*: Patient with the chest pain and abnormal Myocardial perfusion imaging Requesting Physician: Dr. Hinds Attending Physician: Tracey Hinds MD Primary Care Provider: Kwadwo Dorado DO History of Present Illness History of Present Illness Rylee Bernard is a 67 year old female with a history of hypertension and a strong family history for premature atherosclerotic heart disease is admitted to hospital through the emergency room, where she presented with complaints of chest pain and neck pain. She had a Myocardial perfusion imaging today which was slightly abnormal. Cardiology consult is requested for further cardiac evaluation recommendations. This patient apparently has been in her baseline state of health up until last Thursday when, while she was shopping at the [employer], started having pain on the right side of the chest radiating to the right side of the neck and to the right jaw. The intensity of the pain was moderate to severe. She had some associated nausea and sweating. She was found to be pale by the family members. The pain persisted for a long time. The intensity of the pain was waxing and waning. She was brought to the emergency room where she was given additional sublingual sublingual nitro. She was placed on Nitropaste and had other symptomatic measures in the emergency room. Finally after 2 to 3 hours, the pain completely resolved. At the time of my examination, patient is pain-free. Myocardial infarction was ruled out with serial enzymes and EKGs. She had a CTA of the chest and PE was ruled out. No evidence of aneurysm or dissection. Her blood pressure was moderately elevated in the ER. She underwent the Myocardial perfusion imaging today. Results are as mentioned below. She is known to have a heart murmur and was found to have mild aortic valve stenosis. LV ejection fraction was within normal limits. No significant wall motion normalities. Her son had a myocardial infarction at the age of 49. He had a three-vessel coronary bypass surgery and mitral valve surgery. Apparently he after the surgical procedure. Her father had some type of congenital heart disease. Mother had myocardial infarction in her 60s. 2 of her brothers had myocardial events in their 50s and 60s. Denies any smoking abuse or alcohol abuse or any other substance abuse. This patient has a history of chest pains. 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 She had a CT CA followed by FFR CT. She was found to have mild to moderate coronary disease in 2018. She also had a Myocardial perfusion imaging which was told to be unremarkable. She has a history of hypertension, questionable history of type 2 diabetes, seronegative rheumatoid arthritis, fibromyalgia. Review of Systems Narrative: CONSTITUTIONAL: No fever or chills. EYES: No blurring of vision or other visual disturbances lately. ENT: No hoarseness of voice, auditory disturbances or sore throat. CARDIOVASCULAR: As mentioned above. RESPIRATORY: History of sleep apnea GASTROINTESTINAL: No hematemesis or melena. GENITOURINARY: No dysuria or hematuria. INTEGUMENTARY: No skin rashes or history of skin cancer. NEURO: No transient ischemic attacks or amaurosis. PSYCHIATRIC: No history of psychosis or major depression. HEMATOLOGIC: No bleeding disorders or significant anemia. ENDOCRINE: No history of polyuria or polydipsia. MUSCULOSKELETAL: History of fibromyalgia and seronegative rheumatoid arthritis ALLERGY/IMMUNOLOGY: As mentioned above. Medications/Allergies Home Medications Medication Instructions Recorded Confirmed Last Taken Type aspirin 81 mg tablet,delayed 81 mg PO BEDTIME 10/04/19 12/27/22 12/26/22 21:00 History release (Adult Aspirin Regimen) mecobalamin (vitamin B12) 5,000 5,000 mcg PO DIRECTED 10/04/19 12/27/22 12/22/22 History mcg lozenge acetaminophen 500 mg tablet 1,000 mg PO BID PRN pain 01/14/22 12/27/22 03/23/22 History clobetasol 0.05 % topical ointment 1 applic topical BID 2 weeks #60 05/21/22 12/27/22 12/26/22 Rx grams ketoconazole 2 % topical cream 1 applic topical BID #30 grams 05/21/22 12/27/22 12/26/22 Rx tramadol 50 mg tablet 50 mg PO TID PRN pain #60 tabs 08/12/22 12/27/22 Unknown Rx etanercept 50 mg/mL (1 mL) 50 mg SUBCUT .Q7days #4 mL 12/22/22 12/27/22 12/22/22 Rx subcutaneous syringe (Enbrel) pregabalin 25 mg capsule (Lyrica) 25 mg PO BID #60 caps 12/23/22 12/27/22 12/27/22 09:00 Rx cefdinir 300 mg capsule 300 mg PO BID #20 caps 12/24/22 12/27/22 12/26/22 09:00 Rx amitriptyline 50 mg tablet 50 mg PO BEDTIME 12/27/22 12/27/22 12/26/22 21:00 History hydrochlorothiazide 25 mg tablet 25 mg PO DAILY 12/27/22 12/27/22 12/26/22 History losartan 50 mg tablet 50 mg PO DAILY 12/27/22 12/27/22 12/27/22 History metronidazole 500 mg tablet 500 mg PO 2XD 12/27/22 12/27/22 12/27/22 09:00 History venlafaxine 75 mg capsule,extended 75 mg PO DAILY 12/27/22 12/27/22 12/26/22 History release 24 hr Allergies Allergy/AdvReac Type Severity Reaction Status Date / Time latex Allergy Unknown Verified 12/24/22 08:17 nickel Allergy Unknown Verified 12/24/22 08:17 sulfamethoxazole Allergy Unknown Verified 12/24/22 08:17 [From Bactrim] trimethoprim [From Bactrim] Allergy Unknown Verified 12/24/22 08:17 leflunomide AdvReac Intermediate elevated Verified 12/24/22 08:17 LFT's Current Medications Generic Name Dose Route Start Last Admin Trade Name Eulalio PRN Reason Stop Dose Admin Acetaminophen 1,000 mg 12/27/22 20:34 12/28/22 14:45 Acetaminophen 500 Mg Tablet PO 1,000 mg BID PRN Administration pain Amitriptyline HCl 50 mg 12/27/22 21:00 12/28/22 18:28 Amitriptyline 25 Mg Tablet PO 50 mg BEDTIME AGUILA Administration Aspirin 325 mg 12/28/22 09:00 12/29/22 09:48 Aspirin 325 Mg Tablet PO 325 mg DAILY AGUILA Administration Cefdinir 300 mg 12/28/22 09:00 12/29/22 09:48 Cefdinir 300 Mg Capsule PO 300 mg BID AGUILA Administration Protocol Heparin Sodium (Porcine) 5,000 unit 12/27/22 20:45 12/29/22 09:47 Heparin 5,000 Unit/Ml Inj 1 Ml SUBCUT 5,000 unit Q12H AGUILA Administration Hydrochlorothiazide 25 mg 12/28/22 09:00 12/29/22 09:48 Hydrochlorothiazide 25 Mg Tablet PO 25 mg DAILY AGUILA Administration Ketoconazole 1 applic 12/28/22 09:00 12/29/22 09:50 Ketoconazole Cream 15 Gm TOPICAL Not Given BID AGUILA Losartan Potassium 50 mg 12/28/22 09:00 12/29/22 09:48 Losartan 50 Mg Tablet PO 50 mg DAILY AGUILA Administration Metronidazole 500 mg 12/27/22 20:45 12/29/22 09:48 Metronidazole 500 Mg Tablet PO 500 mg BID AGUILA Administration Non-Formulary Medication 1 applic 12/28/22 09:00 12/29/22 12:50 Clobetasol TOPICAL Not Given BID AGUILA Pregabalin 25 mg 12/28/22 09:00 12/29/22 09:47 Pregabalin 25 Mg Capsule PO 25 mg BID AGUILA Administration Venlafaxine HCl 75 mg 12/28/22 09:00 12/29/22 09:47 Venlafaxine Er (24hr) 75 Mg Capsule PO 75 mg DAILY AGUILA Administration PFSH Acute PFSH: Medical History Anti-TPO antibodies present Diabetes Fibromyalgia Helicobacter pylori gastritis High risk medication use Hypertension Immunization counseling Inflammatory arthritis Osteoporosis Positive PRICE (antinuclear antibody) Seronegative rheumatoid arthritis of both hands Skin rash Skin ulcer of face, limited to breakdown of skin Surgical History History of bariatric surgery History of bladder repair surgery History of carpal tunnel repair History of cholecystectomy History of hysterectomy History of left knee replacement History of right knee joint replacement Family History Other CAD (coronary artery disease) Cancer Diabetes Heart disease Hyperlipidemia Hypertension Stroke Denies family history of Rheumatoid arthritis Lupus Chronic kidney disease (CKD) Lung disease Social History Smoking and tobacco/nicotine status: never used tobacco/nicotine Alcohol intake: never Substance/Drug Use: never Female Reproductive History: Spontaneous abortions: No Vitals/I&O/Wt Last Vital Signs Temp 99.1 F 12/29/22 15:40 Pulse 71 12/29/22 15:40 Resp 15 12/29/22 15:40 BP 146/90 12/29/22 15:40 Pulse Ox 95 12/29/22 15:40 O2 Del Method Room Air 12/29/22 15:40 12/29/22 12/29/22 12/29/22 06:59 14:59 22:59 Intake Total 360 / 360 Balance 360 / 360 Physical Exam Narrative: GENERAL: The patient is alert and oriented times three. Not in any acute distress. Moderately obese HEENT: No significant pallor, icterus or lymphadenopathy.Oral cavity: There are no mucous membrane lesions. NECK: Trachea appears to be central. No masses noted. No JVD or thyromegaly appreciated. RESPIRATORY: Chest is symmetrical. No intercostals muscle retraction or any accessory muscle activation. There is no chest wall tenderness. Breath sounds are heard bilaterally. No rales or rhonchi heard. No evidence of any consolidation. BREASTS: Deferred. HEART: The heart sounds are normal. No S3 or S4. No significant murmurs. No pericardial rub ABDOMEN: No vessel pulsations or distention. No tenderness. No organomegaly appreciated. Bowel sounds are normally heard. : Deferred. RECTAL: Deferred. LYMPHATIC: No lymphadenopathy noted in the neck. EXTREMITIES: No edema or cyanosis. No clubbing. MUSCULOSKELETAL: No acute joint deformities or swelling SKIN: There are no significant rashes or ecchymosis NEUROPSYCHIATRIC: The patient is alert and oriented x3. Appears to be in a good mood. No tremors or rigidity noted. Data 12/28/22 03:33 12/28/22 03:33 Other Labs: Laboratory Last Values WBC 6.54 10^3/uL (3.29-11.43) 12/28/22 03:33 RBC 4.19 10^6/uL (3.85-5.65) 12/28/22 03:33 Hgb 13.00 g/dL (11.27-16.99) 12/28/22 03:33 Hct 39.0 % (36-47) 12/28/22 03:33 MCV 93.1 fl (85-98) 12/28/22 03:33 MCH 31.0 pg (27-33) 12/28/22 03:33 MCHC 33.3 g/dL (30-55) 12/28/22 03:33 RDW 12.8 % (12.1-15.1) 12/28/22 03:33 Plt Count 191 10^3/cmm (157-399) 12/28/22 03:33 MPV 11.0 fL (7.4-10.4) H 12/28/22 03:33 Neut % (Auto) 40.6 % 12/28/22 03:33 Lymph % (Auto) 40.1 % 12/28/22 03:33 Borden % (Auto) 9.0 % 12/28/22 03:33 Eos % (Auto) 9.2 % 12/28/22 03:33 Baso % (Auto) 1.1 % 12/28/22 03:33 Neut # (Auto) 2.66 10^3/uL (1.8-7.7) 12/28/22 03:33 Lymph # (Auto) 2.6 10^3/uL (0.8-4.8) 12/28/22 03:33 Borden # (Auto) 0.6 10^3/uL (0.2-0.9) 12/28/22 03:33 Eos # (Auto) 0.6 10^3/uL (0.0-0.8) 12/28/22 03:33 Baso # (Auto) 0.1 10^3/uL (0.0-0.1) 12/28/22 03:33 Nucleated RBC % (auto) 0 % 12/28/22 03:33 Nucleated RBCs # 0.0 /100WBC 12/28/22 03:33 PT 13.10 SECONDS (12.1-14.9) 12/27/22 15:54 INR 0.96 (0.8-1.2) 12/27/22 15:54 APTT 32.9 SECONDS (23.9-36.7) 12/27/22 15:54 Sodium 141 mmol/L (136-145) 12/28/22 03:33 Potassium 3.7 mmol/L (3.5-5.1) 12/28/22 03:33 Chloride 104 mmol/L (98-107) 12/28/22 03:33 Carbon Dioxide 29 mmol/L (22-29) 12/28/22 03:33 Anion Gap 11.7 (5-19) 12/28/22 03:33 BUN 13 mg/dL (8-23) 12/28/22 03:33 Creatinine 0.6 mg/dL (0.5-0.9) 12/28/22 03:33 GFR Calculation 99.1 mL/min (90-130) 12/28/22 03:33 Glucose 104 mg/dL (65-115) 12/28/22 03:33 Calculated Osmolality 292 mOsm/kg (285-295) 12/28/22 03:33 Calcium 10.0 mg/dL (8.5-10.5) 12/28/22 03:33 Troponin T Baseline < 6 ng/L (0-10) 12/27/22 15:54 Troponin T 120 Minute 6.0 ng/L (0-10) 12/27/22 17:44 Delta Troponin T 0.36556 ABS# (0-10) 12/27/22 17:44 Troponin T Hi Sens 6Hr 6.82 ng/L (0-10) 12/27/22 21:35 Troponin T Hi Sens 6Hr Delta 0.45688 ng/L (0-12) 12/27/22 21:35 NT-Pro-B Natriuret Pep 40 pg/mL (0-125) 12/27/22 15:54 Triglycerides 111 mg/dL (0-150) 12/28/22 03:33 Cholesterol 187 mg/dL (0-200) 12/28/22 03:33 LDL Cholesterol, Calc 120 mg/dL (50-129) 12/28/22 03:33 Total VLDL Cholesterol 22 mg/dL (0-30) 12/28/22 03:33 HDL Cholesterol 45 mg/dL (60-100) L 12/28/22 03:33 Cholesterol/HDL Ratio 4.16 mg/dL (0.0-4.40) 12/28/22 03:33 Other data: 1.? Myocardial perfusion imaging revealing a small area of slightly decreased ?tracer uptake in the inferior wall region with reversibility, only in the ?supine imaging.? No significant improved abnormality with the prone imaging or ?with defect blackout ?map. ?2.? Elevated transient ischemic dilatation ratio, may suggest endocardial ?ischemia.? But the positive predictive value of the finding is limited in the ?absence of any other abnormal objective findings ?3.? Normal LV ejection fraction of 84% ?4.? LV wall motion analysis revealing no gross wall motion abnormalities. ?Clinical correlation is recommended ECHO Normal LV size ejection fraction of 65%. No gross wall motion abnormalities. Mild aortic valve stenosis. My tricuspid regurgitation. Trace of mitral regurgitation The EKG showed Normal sinus rhythm with a right bundle branch block pattern. First-degree AV block. CTCA and CT FFR done in Feb 06February 2022 at the [facility] CT coronary angiography gone 02/13/2022?Agatston and volume score of 188 and 155 respectively.? The calcium score places the patient at 82nd percentile for age group.? Normal coronary artery origins.? Left main coronary artery is patent with mild ostial calcification is noted mid LAD shows eccentric calcification causing 25 to 50% narrowing.? Mid to distal LAD shows focal calcification causing 25 to 30% narrowing cannot entirely exclude moderate narrowing at the origin of the first diagonal branch.? Medium size second diagonal branch has eccentric dense calcification making accurate assessment of luminal defect possibly around 50% narrowed.? Left circumflex artery shows focal plaque causing less than 25% narrowing.? Right coronary artery is a dominant vessel.? Ostial calcification is noted causing mild narrowing.? The distal vessel is small in caliber.??CAD RADS?2.? Recommend aggressive medical management.? FFR CT to assess functional significance of LAD and diagonal lesions.? Subsequently CTA heart flow FFR analysis was performed on March 13, 2022.? It showed FFR CT value 0.97 approximately in the LAD, 0.91 in midportion and 0.83 distally.? Apical LAD value of 0.76 which is likely nonsignificant.? Left circumflex artery FFR CT value of 0.93, 0.89 in the ramus intermedius branch.? RCA 0.98 proximally and 0.87 distally.? Recommendations FFR CT suggest nonobstructive coronary artery disease.? Recommend aggressive medical management.? Of note the first diagonal artery is too small to calculate an FFR value.??Conclusion: FFR CT shows normal blood flow through areas of suspected blockage.? Risk factor modification including lipid control.? Small vessels difficult to assess.. A&P Assessment and plan (1) Chest pain: The patient chest pain is somewhat atypical. However in view of the multiple risk factors including the strong family history for premature atherosclerotic heart disease, possibility of her having underlying coronary ischemia causing the symptoms is a strong consideration. Her stress test findings are not very convincing. However she had mild to moderate CAD by CT CA, 5 years ago. In view of her history, presenting symptoms and the abnormal objective findings, in order to further evaluate her coronary status, a cardiac catheterization would be appropriate. The risk of bleeding, hematoma, vascular injury, myocardial infarction, myocardial perforation, malignant cardiac arrhythmias ,CVA, renal failure and other concomitant complications were explained in detail. Patient and the family understood this well and consented to proceed. We may go ahead and do schedule this procedure for tomorrow morning. Based on the results, further recommendations will be made. (2) Sleep apnea syndrome: Continue on the current measures. (3) Seronegative rheumatoid arthritis of both hands: Continue on the current treatment. (4) Mixed dyslipidemia: Patient may be started on Lipitor 40 mg p.o. now and daily. (5) Benign essential hypertension with target blood pressure below 140/90: the blood pressure is currently a stage II. Antihypertensive medications needs to be optimized. I may start her on amlodipine 5 mg p.o. now and daily Plan Amlodipine 5 mg p.o. now and daily Crestor 10 mg p.o. Based on the clinical progress and the results of the above, further recommendations will be made. Thank you for the opportunity to evaluate this patient make these recommendations Coding Level of Care Code 55150 Diagnoses Chest pain R07.9 Sleep apnea syndrome G47.30 Seronegative rheumatoid arthritis of both hands M06.041; M06.042 Mixed dyslipidemia E78.2 Benign essential hypertension with target blood pressure below 140/90 I10
--- NOTE | 2022-12-29 17:27 | NMCV_ITS ---
NM alexander perf SPECT r/s* [id number] Rylee Bernard Age: 67 Gender: F : 1955 Exam Date: 12/29/2022 17:27 Ordering Phys: Tracey Hinds MD Technologist: GERRY Alicea Exam Location: [facility] Indications: CHEST PAIN STRESS TEST Please see separate stress test report in [facility] for full findings IMAGE PROTOCOL Rest/Stress 1 Lexiscan Day Radiopharmaceutical Dose (mCi) Administration Site Administered by Rest: Tc-99m 10.8 IV GERRY Saeed Sestamibi Stress:Tc-99m 32.7 IV GERRY Saeed Sestamibi Rest: 29-Dec-2022 60 Discovery 630 Stress: 29-Dec-2022 30 Discovery 630 0.4mg Lexiscan. Images obtained in supine and prone position. SPECT RESULTS Technical Quality: Excellent Raw Data Analysis: Normal Image Corrections: No attenuation or motion correction applied Summed Stress Score: 2 Summed Rest Score: 0 Summed Difference Score: 2 PERFUSION FINDINGS Small area of slightly decreased tracer uptake was noted in the mid and apical inferior wall region, with reversibility, only in the supine imaging. With the prone imaging, fairly uniform tracer uptake was noted FUNCTIONAL RESULTS (calculated via Gated SPECT) Stress Image LV EF (%): 84 Stress EDV (mL):69 TID: 1.17 Stress ESV (mL):11 FUNCTIONAL FINDINGS: Segmental wall motion analysis revealing no gross wall motion abnormalities. The transient ischemic dilatation ratio was slightly increased to 1.17 IMPRESSIONS 1. Myocardial perfusion imaging revealing a small area of slightly decreased tracer uptake in the inferior wall region with reversibility, only in the supine imaging. No significant improved abnormality with the prone imaging or with defect blackout map. 2. Elevated transient ischemic dilatation ratio, may suggest endocardial ischemia. But the positive predictive value of the finding is limited in the absence of any other abnormal objective findings 3. Normal LV ejection fraction of 84% 4. LV wall motion analysis revealing no gross wall motion abnormalities. Clinical correlation is recommended Dr Marlon Mcgregor MD FACC (Electronically Signed) Final Date: 29 December 2022 13:29 S
[2022-12-29] MEDS: atorvastatin 40 mg Tablet PO (21:21)
[2022-12-29] MEDS: amitriptyline 25 mg Tablet 50 MG PO (21:21)
[2022-12-29] MEDS: amlodipine 5 mg Tablet 2.5 MG PO (21:21)
[2022-12-29 22:27] LABS: Glucose Point of Care 55 mg/dL (70-110)
[2022-12-29 23:07] LABS: Glucose Point of Care 178 mg/dL (70-110)
[2022-12-30] VITALS (9 sets, daily range): BP systolic 124–140; BP diastolic 61–112; PULSE 64–73; RESP 16–19; TEMP 36.6; O2SAT 96–98
--- NOTE | 2022-12-30 05:17 | PC.NURSE ---
Patient was diaphoretic and weak, stated that she needed some crackers. BG was taken and POC was 55 @ 22:23. Patient ate crackers with peanut butter and drank a 240mL coke and 120mL of orange juice. Patient BG was 178 @ 23:03.
[2022-12-30] MEDS: diphenhydrAMINE 50 mg Capsule PO (06:20)
[2022-12-30] MEDS: sodium chloride 0.9% 1,000 ML 50 ML IV (06:21)
[2022-12-30] MEDS: aspirin 325 mg Tablet PO (06:21)
--- NOTE | 2022-12-30 06:27 | XACV_ITS ---
Exam Room: [facility] Ht: 165 cm Wt: 98 kg BSA: 2.16 m2 Gender: Female : 1955 Any Known Allergies: Other Exam Priority: Routine Procedure(s): Procedure Description: Diagnostic procedure Procedure Description: Left Heart Catheterization Procedure Description: Left ventriculography Procedure Description: Coronary Angiography Balbir BUSBY; Diagnostic Cath Status: Elective Diagnostic Findings * Left main extremity with no significant stenotic lesions. * The left anterior descending artery is a medium caliber vessel which appears to wrap around the LV apex minimally. Mid LAD was found to have a tubular irregular narrowing at the mid segment ranging anywhere from 30 to 40%. The first diagonal branch was found to have a proximal sidebranch having 30 to 40% tubular narrowing. One of the terminal bifurcations of the artery was found to have a 50% eccentric lesion. No other significant extremity lesions were noted. * The intermedius artery was found to have minimal intimal irregularities(high obtuse marginal). * The circumflex artery also was found to have diffusely minimal regularities with no significant stenotic lesions. * The right coronary artery was found to have a high and posterior takeoff. It appears to be a codominant vessel. Selective engagement was difficult. The artery appears to have some intimal irregularities at the proximal and the mid segments. No significant stenotic lesions were noted.. Conclusions 1. 67-year-old white female with history of hypertension,. Myocardial perfusion imaging revealing a small area of inconsistent reversibility in the inferior wall region with elevated transient ischemic dilatation ratio. Patient apparently has a strong family history for premature atherosclerotic heart disease. In view of her presenting symptoms, risk factors and the abnormal objective findings, in order to further evaluate her coronary status, a cardiac catheterization was recommended. Patient underwent left heart catheterization with left and right coronary angiogram and LV angiogram day. The findings are as follows. 2. 1. Mild diffuse coronary artery disease with 30 to 40% lesion in the mid LAD and around 50% lesion in the first diagonal branch.2. Normal LV ejection fraction of 60%.3. LVEDP 29 mmHg suggesting left-ventricular diastolic dysfunction. Diagnostic RX Recommendation: medical therapy and/or counseling LV EDP: 29 mmHg Ventriculography Ejection Fraction: 60.0 % Left Ventriculography Findings: * The LV gram was performed in the SUTTON projection. The LV cavity appears to be of normal size. No filling defects are noted. No significant mitral valve prolapse or mitral regurgitations were noted. The LVEDP was 29 mmHg which went up to 35 mmHg following the LV angiogram. Left ventricular ejection fraction 60%.. Pressures Phase:Rest AO : 141 / 78 ( 104 ) @ 7:39:00 AM 131 / 90 ( 110 ) @ 7:53:00 AM 149 / 73 ( 109 ) @ 8:04:00 AM 151 / 76 ( 109 ) @ 8:04:00 AM LV : 160 / 2 / 29 @ 8:02:00 AM 168 / 3 / 35 @ 8:04:00 AM 167 / 4 / 37 @ 8:04:00 AM Valves Phase:DefaultPhase AV : 17.0 @ 8:10:29 AM 17.0 @ 8:10:29 AM AV Mean Gradient: 18.0 @ 8:10:29 AM Clinical Evaluation EBL: 5mL-10mL Procedural Details Procedure Consent Obtained. Pre-Procedure Time Out. Identified patient by full name and date of as verbalized by the patient/guarantor. Does the consent match the physician's order: Yes. Accurate & Complete Informed Consent: Yes. Inpatient/Outpatient History & Physical on Chart: Yes. If H&P is completed, is and addenduem needed: No. Visualize and Verify Site with Patient/Guarantor: N/A. Relevant Radiology Images available: Yes. The risks, benefits, and alternatives of sedation and/or procedure were discussed by physician. The patient agrees to continue. Procedure started. [facility] Clinical Fraility Score: 3: Managing Well. Kindergartner Indications: New Onset Angina/Abnormal stress test. Chest Pain Symptom Assessment: Typical Angina Symptoms. Cardiovascular Instability: No. Correct patient, site and procedure confirmed by cath team. PERRLA. Strong, equal hand valve mechanic bilaterally. Lungs clear x 5 lobes. IV Site on Arrival: 20 gauge in the right anticubital. IV Fluids: 0.9% NaCl at KVO. 300 mL infused prior to clinical laboratory medical director. Pre Procedural Pulses: bilateral dorsalis pedis was 2+. Pre Procedural Pulses: bilateral posterior tibial was 2+. Pre Procedural Pulses: bilateral radial was 3+. Oxygen started at 2liters/min via nasal canula. right groin was prepped with chloroprep then draped in the usual sterile fashion. right radial was prepped with chloroprep then draped in the usual sterile fashion. Physician notified. Baseline sample Acquired. HR: 75 BPM. Patient's family unavailable. Equipment: 6F - Radial. Cardiac Cath Pack. ACIST Manifold Kit Model BT 2000. Heparinized Saline (2 units/mL), 1000 mL bag. Physician arrived. Physician scrubbed in. Immediate Pre-Procedure Time Out. Correct Patient: Yes; Correct Procedure: Yes; Correct Site: Yes; Correct Patient Position: Yes; Correct Supplies: Yes; Dried Flammable Prep: Yes; Blood Products Available: N/A;. Lidocaine 1% infiltrated to the right radial. Fingerstick bllod [id number]. Arterial access obtained. A 5 estonian Marco catheter in over the exchange wire. Multiple views taken of left coronary artery. Catheter removed over the exchange wire. A 5 estonian JR4 catheter in over the exchange wire. Catheter removed over the exchange wire. A 5 estonian 3DRC catheter in over the exchange wire. Multiple views taken of right coronary artery. A 5 estonian Angled Pig catheter in over the exchange wire. EDP Sample taken: LV 160/2,29; HR: 76 BPM; SpO2: 96%. LV gram performed in SUTTON @ 10 mL/second for a total of 30 mL. EDP Sample taken: LV 168/3,35; HR: 78 BPM; SpO2: 98%. Pullback taken: LV 167/4,37; AO 149/73(109); Mean: 18mmHg, Peak to Peak: 17mmHg, SEP: 24sec/min; HR: 76 BPM; SpO2: 98%. Catheter removed over the exchange wire. Dr. Mcgregor scrubbed out. A TR Band was successful obtaining hemostatsis at the Right Radial artery insertion site. Post Procedure: Pulses reassessed and unchanged. PERRLA. Strong, equal hand valve mechanic bilaterally. No VTE prophylaxis required. Medication's Wasted: Lidocaine 1% = 2 mL. Medication's Wasted: Nitro = 49.8 mg. Medication's Wasted: Heparin = 1000 units. Total IV fluids: 60 mL. Post-op diagnosis: Mild CAD. Complications: none. Estimated blood loss: 5mL-10mL. Responsiveness - Normal response to verbal stimuli; alert and oriented, PERRLA. Airway - Unaffected, no intervention required; spontaneous ventilation. Circulation: W/N/L, pulses unchanged. Nausea/Vomiting: No. Procedure completed. Patient transferred by wheelchair to 1st floor. Vital chart was stopped. Access Site Site: Right Radial artery Sheath Size: 6 Fr Hemostasis Method: TR Band Hemostasis Success: Successful Procedure Medications Start: 7:28 AM Stop: 7:28 AM Medication: Fentanyl Amount: 25 mcg Route: I.V. Start: 7:29 AM Stop: 7:29 AM Medication: Versed Amount: 1 mg Route: I.V. Start: 7:35 AM Stop: 7:35 AM Medication: Fentanyl Amount: 25 mcg Route: I.V. Start: 7:37 AM Stop: 7:37 AM Medication: Versed Amount: 1 mg Route: I.V. Start: 7:37 AM Stop: 7:37 AM Medication: Verapamil Amount: 5 mg Route: I.A. Start: 7:37 AM Stop: 7:37 AM Medication: Nitrogylcerin Amount: 200 mcg Route: I.A. Start: 7:39 AM Stop: 7:39 AM Medication: Heparin Amount: 5000 units Route: I.V. Start: 7:53 AM Stop: 7:53 AM Medication: Fentanyl Amount: 50 mcg Route: I.V. I, the attending physician, have reviewed and verified all procedure medications. Yes, all medications given per verbal order History/Risk Factors Hypertension: Yes Dyslipidemia: Yes Peripheral Arterial Disease (PAD): No Myocardial Infarction (CA): No Obesity: Yes Renal Disease: No Tobacco Use: Never Prior Interventions PCI: No CABG: No Valve Surgery: No Report Signatures Finalized by Dr Marlon Mcgregor MD [facility] on 12/30/2022 08:10 PM
--- NOTE | 2022-12-30 07:16 | PC.NURSE ---
Patient is off the unit for angiogram.
[2022-12-30 08:28] LABS: Glucose Point of Care 102 mg/dL (70-110)
[2022-12-30] MEDS: cefdinir 300 MG CAPSULE PO (09:34)
[2022-12-30] MEDS: amlodipine 5 mg Tablet 2.5 MG PO (09:34)
[2022-12-30] MEDS: metroNIDAZOLE 500 MG Tablet PO (09:34)
[2022-12-30] MEDS: ketoconazole Cream 15 gm 1 APPLIC TOPICAL (09:34)
[2022-12-30] MEDS: hydroCHLOROthiazide 25 mg Tablet PO (09:35)
[2022-12-30] MEDS: pregabalin 25 mg Capsule PO (09:35)
[2022-12-30] MEDS: losartan 50 mg Tablet PO (09:35)
[2022-12-30] MEDS: venlafaxine ER (24HR) 75 mg Capsule PO (09:35)
[2022-12-30 09:51] LABS: Glucose Point of Care 175 mg/dL (70-110)
--- NOTE | 2022-12-30 09:54 | PC.NURSE ---
Patient is back from angiogram. Diagnostic only, TR band is intact on her right wrist. No oozing or hematoma present at this time. Patient is aware of activity restrictions. Daughter is present at bedside to reinforce safety and activity. Nurse will continue to monitor.
--- NOTE | 2022-12-30 13:08 | P.DS_ITS ---
Discharge Providers Date of Admission: 12/27/22 18:35 Date of Discharge: December 30, 2022 Attending Provider at Admission: Tracey Hinds MD Attending Provider at Discharge: Tracey Hinds MD Primary Care Provider: Kwadwo Dorado DO Diagnoses at Discharge Discharge Diagnosis (1) Chest pain: Status: Acute (2) Sleep apnea syndrome: Status: Acute (3) Seronegative rheumatoid arthritis of both hands: Status: Acute (4) Mixed dyslipidemia: Status: Acute (5) Benign essential hypertension with target blood pressure below 140/90: Status: Acute Reason for Visit Reason for Visit: Cp Hospital Course Hospital Course admitted for chest pain and underwent stress test records reviewed from [place] Dr. ceron RECORDS FROM [facility] CELSA RODRIGUEZ REVIEWED Echo 06/02/2017 LVEF 55 to 60%. No regional wall motion abnormalities identified at the time CT coronary angiography gone 02/13/2022?Agatston and volume score of 188 and 155 respectively.? The calcium score places the patient at 82nd percentile for age group.? Normal coronary artery origins.? Left main coronary artery is patent with mild ostial calcification is noted mid LAD shows eccentric calcification causing 25 to 50% narrowing.? Mid to distal LAD shows focal calcification causing 25 to 30% narrowing cannot entirely exclude moderate narrowing at the origin of the first diagonal branch.? Medium size second diagonal branch has eccentric dense calcification making accurate assessment of luminal defect possibly around 50% narrowed.? Left circumflex artery shows focal plaque causing less than 25% narrowing.? Right coronary artery is a dominant vessel.? Ostial calcification is noted causing mild narrowing.? The distal vessel is small in caliber.??CAD RADS?2.? Recommend aggressive medical management.? Recommend FFR CT to assess functional significance of LAD and diagonal lesions.? Subsequently CTA heart flow FFR analysis was performed on March 13, 2022.? It showed FFR CT value 0.97 approximately in the LAD, 0.91 in midportion and 0.83 distally.? Apical LAD value of 0.76 which is likely nonsignificant.? Left circumflex artery FFR CT value of 0.93, 0.89 in the ramus intermedius branch.? RCA 0.98 proximally and 0.87 distally.? Recommendations FFR CT suggest nonobstructive coronary artery disease.? Recommend aggressive medical management.? Of note the first diagonal artery is too small to calculate an FFR value.??Conclusion: FFR CT shows normal blood flow through areas of suspected blockage.? Risk factor modification including lipid control.? Small vessels difficult to assess.. Patient underwent a cardiac catheterization today.? Was found to have mild diffuse coronary artery disease in the left circumflex and left and descending artery..? Elevated LVEDP of 29 mmHg.? Normal LV ejection fraction. Patient will be dc home in stable condition f/u care will be setup with dr. bruno. Physical Exam Narrative: Accompanied by her daughter. Const: COMMON NORMALS: patient oriented x3 and alert GENERAL APPEARANCE: cooperative ORIENTATION/CONSCIOUSNESS: Yes awake Resp: COMMON NORMALS: normal respiratory effort and clear to auscultation bilaterally AUSCULTATION: clear to auscultation bilaterally Cardio: COMMON NORMALS: regular rhythm, S1 normal heart sound present, S2 normal heart sound present and No murmurs present (Cardio) RHYTHM: regular rhythm HEART SOUNDS: S1 normal heart sound present and S2 normal heart sound present GI: COMMON NORMALS: Normal to inspection, nondistended, normoactive bowel sounds present, Soft to palpation and non-tender PALPATION: Yes Soft to palpation Extremity: COMMON NORMALS: no pedal edema RIGHT UPPER EXTREMITY: Yes wrist (capillary refill < 2 sec, no fluctuance noted at angiogram access site.) Neuro: COMMON NORMALS: patient oriented x3 and moves all extremities SENSORIUM/ORIENTATION: Yes alert Discharge Data Studies Completed and Pending Completed Studies During Hospitalization Category Date Time Status CTA chest [CT angio chest [id number]] Routine Cat Scan 12/27/22 20:38 Completed Sestamibi Stress Test Request Routine Exams 12/28/22 17:27 Draft XR chest 1V portable [id number] Stat Exams 12/27/22 15:51 Completed NM alexander perf SPECT r/s* [id number] Routine Nuc Med 12/29/22 17:27 Completed CV. echo complete* [id number] Routine Ultrasound 12/28/22 06:00 Completed Pending at discharge Category Date Time Status SUBMERSIBLE PILOT request for service Routine Exams 12/30/22 06:27 Taken Radiology Impressions Chest X-Ray 12/27/22 15:51 IMPRESSION: No acute findings. Chest CTA 12/27/22 20:38 IMPRESSION: The exam is negative for PE. Laboratory Results WBC 6.54 10^3/uL (3.29-11.43) 12/28/22 03:33 RBC 4.19 10^6/uL (3.85-5.65) 12/28/22 03:33 Hgb 13.00 g/dL (11.27-16.99) 12/28/22 03:33 Hct 39.0 % (36-47) 12/28/22 03:33 MCV 93.1 fl (85-98) 12/28/22 03:33 MCH 31.0 pg (27-33) 12/28/22 03:33 MCHC 33.3 g/dL (30-55) 12/28/22 03:33 RDW 12.8 % (12.1-15.1) 12/28/22 03:33 Plt Count 191 10^3/cmm (157-399) 12/28/22 03:33 MPV 11.0 fL (7.4-10.4) H 12/28/22 03:33 Neut % (Auto) 40.6 % 12/28/22 03:33 Lymph % (Auto) 40.1 % 12/28/22 03:33 Alexander % (Auto) 9.0 % 12/28/22 03:33 Eos % (Auto) 9.2 % 12/28/22 03:33 Baso % (Auto) 1.1 % 12/28/22 03:33 Neut # (Auto) 2.66 10^3/uL (1.8-7.7) 12/28/22 03:33 Lymph # (Auto) 2.6 10^3/uL (0.8-4.8) 12/28/22 03:33 Alexander # (Auto) 0.6 10^3/uL (0.2-0.9) 12/28/22 03:33 Eos # (Auto) 0.6 10^3/uL (0.0-0.8) 12/28/22 03:33 Baso # (Auto) 0.1 10^3/uL (0.0-0.1) 12/28/22 03:33 Nucleated RBC % (auto) 0 % 12/28/22 03:33 Nucleated RBCs # 0.0 /100WBC 12/28/22 03:33 PT 13.10 SECONDS (12.1-14.9) 12/27/22 15:54 INR 0.96 (0.8-1.2) 12/27/22 15:54 APTT 32.9 SECONDS (23.9-36.7) 12/27/22 15:54 Sodium 141 mmol/L (136-145) 12/28/22 03:33 Potassium 3.7 mmol/L (3.5-5.1) 12/28/22 03:33 Chloride 104 mmol/L (98-107) 12/28/22 03:33 Carbon Dioxide 29 mmol/L (22-29) 12/28/22 03:33 Anion Gap 11.7 (5-19) 12/28/22 03:33 BUN 13 mg/dL (8-23) 12/28/22 03:33 Creatinine 0.6 mg/dL (0.5-0.9) 12/28/22 03:33 GFR Calculation 99.1 mL/min (90-130) 12/28/22 03:33 Glucose 104 mg/dL (65-115) 12/28/22 03:33 POC Glucose 175 mg/dL (70-110) H 12/30/22 09:47 Calculated Osmolality 292 mOsm/kg (285-295) 12/28/22 03:33 Calcium 10.0 mg/dL (8.5-10.5) 12/28/22 03:33 Troponin T Baseline < 6 ng/L (0-10) 12/27/22 15:54 Troponin T 120 Minute 6.0 ng/L (0-10) 12/27/22 17:44 Delta Troponin T 0.94694 ABS# (0-10) 12/27/22 17:44 Troponin T Hi Sens 6Hr 6.82 ng/L (0-10) 12/27/22 21:35 Troponin T Hi Sens 6Hr Delta 0.25738 ng/L (0-12) 12/27/22 21:35 NT-Pro-B Natriuret Pep 40 pg/mL (0-125) 12/27/22 15:54 Triglycerides 111 mg/dL (0-150) 12/28/22 03:33 Cholesterol 187 mg/dL (0-200) 12/28/22 03:33 LDL Cholesterol, Calc 120 mg/dL (50-129) 12/28/22 03:33 Total VLDL Cholesterol 22 mg/dL (0-30) 12/28/22 03:33 HDL Cholesterol 45 mg/dL (60-100) L 12/28/22 03:33 Cholesterol/HDL Ratio 4.16 mg/dL (0.0-4.40) 12/28/22 03:33 Vitals Last Vital Signs Temp 97.9 F 12/30/22 04:20 Pulse 69 12/30/22 10:54 Resp 17 12/30/22 10:54 BP 133/112 12/30/22 10:54 Pulse Ox 98 12/30/22 10:54 O2 Del Method Room Air 12/30/22 08:46 Discharge Plan Discharge Patient Disposition: Home Condition: Stable Prescriptions: New atorvastatin 40 mg Tablet 40 mg PO BEDTIME Qty: 30 0RF amlodipine 5 mg Tablet 5 mg PO DAILY Qty: 30 0RF Continued aspirin [Adult Aspirin Regimen] 81 mg tablet,delayed release (DR/EC) 81 mg PO BEDTIME Hold Instructions: Resume on 12/19/20. May resume 81 mg aspirin after taking 325 mg x 30 days. mecobalamin (vitamin B12) 5,000 mcg lozenge 5,000 mcg PO DIRECTED Rx Instructions: allow to dissolve in mouth OR may chew lightly before swallowing, weekly on Mondays acetaminophen 500 mg tablet 1,000 mg PO BID PRN (Reason: pain) tramadol 50 mg tablet 50 mg PO TID PRN (Reason: pain) Qty: 60 1RF cefdinir 300 mg capsule 300 mg PO BID Qty: 20 0RF Rx Instructions: started 12/26 for 8 days clobetasol 0.05 % ointment 1 applic topical BID 14 Days Qty: 60 2RF Rx Instructions: Apply to affected areas no more than 2 weeks per month, not for face or skin folds. ketoconazole 2 % cream 1 applic topical BID Qty: 30 6RF Rx Instructions: Apply to red-scaly areas on face 1-2 times daily. Enbrel 50 mg/mL (1 mL) syringe 50 mg SUBCUT .Q7days Qty: 4 3RF Rx Instructions: takes on Mondays pregabalin [Lyrica] 25 mg capsule 25 mg PO BID Qty: 60 5RF amitriptyline 50 mg tablet 50 mg PO BEDTIME Rx Instructions: Take 1 Tablet PO Daily hydrochlorothiazide 25 mg tablet 25 mg PO DAILY metronidazole 500 mg tablet 500 mg PO 2XD losartan 50 mg tablet 50 mg PO DAILY venlafaxine 75 mg capsule,extended release 24hr 75 mg PO DAILY Discharge Orders: Discharge Order (Routine); Ordered 12/30/22 Ordered By: Tracey Hinds Referrals: Kwadwo Dorado DO [Primary Care Provider] - 01/05/23 8:30 am Ghazala Pelletier FNP [Nurse Practitioner] - 01/05/23 11:00 am Discharge Diet: Cardiac Discharge Activity: Resume usual activity Patient Instructions: Chest Pain (DC), Coronary Artery Disease in Women (DC), Opioid Safety, Post Angiogram Home Care Instructions Discharge Attestations Time Spent in Discharge Care*: greater than 30 min Quality Metrics Clinical Quality Measures [ No reported AMI, CVA or VTE this stay] Coding Level of Care Code Acute Code for Chg Fwd Diagnoses Chest pain R07.9 Sleep apnea syndrome G47.30 Seronegative rheumatoid arthritis of both hands M06.041; M06.042 Mixed dyslipidemia E78.2 Benign essential hypertension with target blood pressure below 140/90 I10
--- NOTE | 2022-12-30 13:31 | PM.PN ---
Subjective Subjective: Patient underwent a cardiac catheterization today. Was found to have mild diffuse coronary artery disease in the left circumflex and left and descending artery.. Elevated LVEDP of 29 mmHg. Normal LV ejection fraction. Medications: Medication Review Details: Current Medications Acetaminophen (Acetaminophen 500 Mg Tablet) 1,000 mg PO BID PRN PRN Reason: pain Last Admin: 12/28/22 14:45 Dose: 1,000 mg Al Hydrox/Mg Hydrox/Simethicone (Wlbd-Pxp-Wgneuiasf-Sadie 30 Ml Udc) 30 ml PO Q15M PRN PRN Reason: INDIGESTION Amitriptyline HCl (Amitriptyline 25 Mg Tablet) 50 mg PO BEDTIME [facility] Last Admin: 12/29/22 21:21 Dose: 50 mg Amlodipine Besylate (Amlodipine 5 Mg Tablet) 2.5 mg PO DAILY [facility] Last Admin: 12/30/22 09:34 Dose: 2.5 mg Aspirin (Aspirin 325 Mg Tablet) 325 mg PO DAILY [facility] Last Admin: 12/30/22 06:21 Dose: 325 mg Atorvastatin Calcium (Atorvastatin 40 Mg Tablet) 40 mg PO BEDTIME [facility] Last Admin: 12/29/22 21:21 Dose: 40 mg Atropine Sulfate (Atropine 1 Mg/Ml Sdv 1 Ml) 0.5 mg IVP PRN PRN PRN Reason: Symptomatic bradycardia Cefdinir (Cefdinir 300 Mg Capsule) 300 mg PO BID [facility]; Protocol Last Admin: 12/30/22 09:34 Dose: 300 mg Heparin Sodium (Porcine) (Heparin 5,000 Unit/Ml Inj 1 Ml) 5,000 unit SUBCUT Q12H [facility] Last Admin: 12/30/22 08:13 Dose: Not Given Hydrochlorothiazide (Hydrochlorothiazide 25 Mg Tablet) 25 mg PO DAILY [facility] Last Admin: 12/30/22 09:35 Dose: 25 mg Sodium Chloride (Sodium Chloride 0.9%) 1,000 mls @ 75 mls/hr IV .[id number] ONE Stop: 12/30/22 19:19 Last Admin: 12/30/22 06:21 Dose: 50 mls/hr Ketoconazole (Ketoconazole Cream 15 Gm) 1 applic TOPICAL BID [facility] Last Admin: 12/30/22 09:34 Dose: 1 applic Losartan Potassium (Losartan 50 Mg Tablet) 50 mg PO DAILY [facility] Last Admin: 12/30/22 09:35 Dose: 50 mg Magnesium Hydroxide (Magnesium Hydroxide 30 Ml Udc) 30 ml PO DAILY PRN PRN Reason: CONSTIPATION Metronidazole (Metronidazole 500 Mg Tablet) 500 mg PO BID [facility] Last Admin: 12/30/22 09:34 Dose: 500 mg Morphine Sulfate (Morphine 4 Mg/Ml Sdv 1 Ml) 2 mg IVP Q4H PRN PRN Reason: SEVERE PAIN Nitroglycerin (Nitroglycerin 0.4 Mg Sublingual Tablet) 0.4 mg SUBLINGUAL Q5M PRN PRN Reason: CHEST PAIN Non-Formulary Medication (Clobetasol) 1 applic TOPICAL BID [facility] Last Admin: 12/30/22 08:13 Dose: Not Given Non-Formulary Medication (Mecobalamin (Vitamin B12)) 5,000 mcg PO DIRECTED [facility] Ondansetron HCl (Ondansetron 2 Mg/Ml Sdv 2 Ml) 4 mg IVP Q8H PRN PRN Reason: vomiting, or N/V if npo Ondansetron HCl (Ondansetron 2 Mg/Ml Sdv 2 Ml) 4 mg IVP Q2M PRN PRN Reason: NAUSEA Pregabalin (Pregabalin 25 Mg Capsule) 25 mg PO BID [facility] Last Admin: 12/30/22 09:35 Dose: 25 mg Temazepam (Temazepam 15 Mg Capsule) 15 mg PO BEDTIME PRN PRN Reason: INSOMNIA Tramadol HCl (Tramadol 50 Mg Tablet) 50 mg PO TID PRN PRN Reason: pain Venlafaxine HCl (Venlafaxine Er (24hr) 75 Mg Capsule) 75 mg PO DAILY [facility] Last Admin: 12/30/22 09:35 Dose: 75 mg Vitals/I&O/Wt Last Vital Signs Temp 97.9 F 12/30/22 04:20 Pulse 69 12/30/22 10:54 Resp 17 12/30/22 10:54 BP 133/112 12/30/22 10:54 Pulse Ox 98 12/30/22 10:54 O2 Del Method Room Air 12/30/22 08:46 12/29/22 12/30/22 12/30/22 22:59 06:59 14:59 Intake Total 480 / 840 240 / 240 Balance 480 / 840 240 / 240 Physical Exam Narrative: GENERAL: The patient is alert and oriented times three. Not in any acute distress. HEENT: No significant pallor, icterus or lymphadenopathy.Oral cavity: There are no mucous membrane lesions. NECK: Trachea appears to be central. No masses noted. No JVD or thyromegaly appreciated. RESPIRATORY: Chest is symmetrical. No intercostals muscle retraction or any accessory muscle activation. There is no chest wall tenderness. Breath sounds are heard bilaterally. No rales or rhonchi heard. No evidence of any consolidation. BREASTS: Deferred. HEART: The heart sounds are normal. No S3 or S4. No significant murmurs. No pericardial rub ABDOMEN: No vessel pulsations or distention. No tenderness. No organomegaly appreciated. Bowel sounds are normally heard. : Deferred. RECTAL: Deferred. LYMPHATIC: No lymphadenopathy noted in the neck. EXTREMITIES: No edema or cyanosis. No clubbing. MUSCULOSKELETAL: No acute joint deformities or swelling SKIN: There are no significant rashes or ecchymosis NEUROPSYCHIATRIC: The patient is alert and oriented x3. Appears to be in a good mood. No tremors or rigidity noted. Data 12/28/22 03:33 12/28/22 03:33 Other Labs: Laboratory Last Values WBC 6.54 10^3/uL (3.29-11.43) 12/28/22 03:33 RBC 4.19 10^6/uL (3.85-5.65) 12/28/22 03:33 Hgb 13.00 g/dL (11.27-16.99) 12/28/22 03:33 Hct 39.0 % (36-47) 12/28/22 03:33 MCV 93.1 fl (85-98) 12/28/22 03:33 MCH 31.0 pg (27-33) 12/28/22 03:33 MCHC 33.3 g/dL (30-55) 12/28/22 03:33 RDW 12.8 % (12.1-15.1) 12/28/22 03:33 Plt Count 191 10^3/cmm (157-399) 12/28/22 03:33 MPV 11.0 fL (7.4-10.4) H 12/28/22 03:33 Neut % (Auto) 40.6 % 12/28/22 03:33 Lymph % (Auto) 40.1 % 12/28/22 03:33 [place] % (Auto) 9.0 % 12/28/22 03:33 Eos % (Auto) 9.2 % 12/28/22 03:33 Baso % (Auto) 1.1 % 12/28/22 03:33 Neut # (Auto) 2.66 10^3/uL (1.8-7.7) 12/28/22 03:33 Lymph # (Auto) 2.6 10^3/uL (0.8-4.8) 12/28/22 03:33 [place] # (Auto) 0.6 10^3/uL (0.2-0.9) 12/28/22 03:33 Eos # (Auto) 0.6 10^3/uL (0.0-0.8) 12/28/22 03:33 Baso # (Auto) 0.1 10^3/uL (0.0-0.1) 12/28/22 03:33 Nucleated RBC % (auto) 0 % 12/28/22 03:33 Nucleated RBCs # 0.0 /100WBC 12/28/22 03:33 PT 13.10 SECONDS (12.1-14.9) 12/27/22 15:54 INR 0.96 (0.8-1.2) 12/27/22 15:54 APTT 32.9 SECONDS (23.9-36.7) 12/27/22 15:54 Sodium 141 mmol/L (136-145) 12/28/22 03:33 Potassium 3.7 mmol/L (3.5-5.1) 12/28/22 03:33 Chloride 104 mmol/L (98-107) 12/28/22 03:33 Carbon Dioxide 29 mmol/L (22-29) 12/28/22 03:33 Anion Gap 11.7 (5-19) 12/28/22 03:33 BUN 13 mg/dL (8-23) 12/28/22 03:33 Creatinine 0.6 mg/dL (0.5-0.9) 12/28/22 03:33 GFR Calculation 99.1 mL/min (90-130) 12/28/22 03:33 Glucose 104 mg/dL (65-115) 12/28/22 03:33 POC Glucose 175 mg/dL (70-110) H 12/30/22 09:47 Calculated Osmolality 292 mOsm/kg (285-295) 12/28/22 03:33 Calcium 10.0 mg/dL (8.5-10.5) 12/28/22 03:33 Troponin T Baseline < 6 ng/L (0-10) 12/27/22 15:54 Troponin T 120 Minute 6.0 ng/L (0-10) 12/27/22 17:44 Delta Troponin T 0.73595 ABS# (0-10) 12/27/22 17:44 Troponin T Hi Sens 6Hr 6.82 ng/L (0-10) 12/27/22 21:35 Troponin T Hi Sens 6Hr Delta 0.62677 ng/L (0-12) 12/27/22 21:35 NT-Pro-B Natriuret Pep 40 pg/mL (0-125) 12/27/22 15:54 Triglycerides 111 mg/dL (0-150) 12/28/22 03:33 Cholesterol 187 mg/dL (0-200) 12/28/22 03:33 LDL Cholesterol, Calc 120 mg/dL (50-129) 12/28/22 03:33 Total VLDL Cholesterol 22 mg/dL (0-30) 12/28/22 03:33 HDL Cholesterol 45 mg/dL (60-100) L 12/28/22 03:33 Cholesterol/HDL Ratio 4.16 mg/dL (0.0-4.40) 12/28/22 03:33 A&P Assessment and plan (1) Chest pain: Cardiac catheterization revealing mild coronary artery disease. Patient may continue on the risk modifying measures. (2) Sleep apnea syndrome: Continue on the current measures. (3) Seronegative rheumatoid arthritis of both hands: Continue on the current treatment. (4) Mixed dyslipidemia: Patient may be started on Lipitor 40 mg p.o. now and daily. (5) Benign essential hypertension with target blood pressure below 140/90: The blood pressure seems to be getting under control. May continue on the current medications. Plan If the patient continues to remain stable, may be discharged home this afternoon. Follow-up appointment at the clinic in 1 week with the nurse practitioner Appointment with me in the office in 1 Patient avoid any weight lifting with the right hand for the next 3 days Attestations Medical Necessity Statement*: Possible discharge home today Coding Level of Care Code 79487 Diagnoses Chest pain R07.9 Sleep apnea syndrome G47.30 Seronegative rheumatoid arthritis of both hands M06.041; M06.042 Mixed dyslipidemia E78.2 Benign essential hypertension with target blood pressure below 140/90 I10
--- NOTE | 2022-12-30 14:11 | PC.NURSE ---
TR band removed, dressing applied. No issues or concerns. Education provided.
--- NOTE | 2022-12-30 14:12 | PC.NURSE ---
Discharge Note Patient discharged to home via POV accompanied by daughter. Discharge instructions reviewed with patient and/or technical service representative. Mobile pharmacy medications and/or prescriptions provided. Belongings/home medications returned.
== END 2022-12-30 14:14 | disposition home or self-care (01) ==
LOC: ER 17:21 → CSU 18:49
PROVIDERS: Internal Medicine; Internal Medicine Cardiovascular Disease; Admitting Provider Internal Medicine; Emergency Provider Emergency Medicine; PCP Family Medicine; Visit Provider Internal Medicine
DX: R07.9 Chest pain, unspecified (principal); G47.30 Sleep apnea, unspecified; M06.041 Rheumatoid arthritis without rheumatoid factor, right hand; M06.042 Rheumatoid arthritis without rheumatoid factor, left hand; E78.2 Mixed hyperlipidemia; I10 Essential (primary) hypertension; N39.0 Urinary tract infection, site not specified; M81.0 Age-related osteoporosis without current pathological fracture; M79.7 Fibromyalgia
CPT/HCPCS: 36415; 36416; 71045; 71275; 78452; 80048; 80061; 82962; 83880; 84484; 85025; 85610; 85730; 93005; 93017; 93306; 93458; 96372; 96375; 99152; 99153; 99285; A9500; C1769; C1887; C1894; G0378; J1644; J2250; J2785; J3010; J3490; J7030; J7042; Q0163; Q9967

== ENCOUNTER → 2023-01-16 10:19 | Outpatient (BNVA) | payer MEDICARE, SELFPAY | PROVIDERS: PCP Family Medicine; Visit Provider Family Medicine | DX: E16.2 Hypoglycemia, unspecified (principal) | CPT/HCPCS: 82384; 82530; 82542; 82570; 83835; 84300 ==

== ENCOUNTER → 2023-01-27 12:50 | Outpatient (BNVA) | payer MEDICARE, SELFPAY | PROVIDERS: PCP Family Medicine; Visit Provider Nurse Practitioner Family | DX: I25.10 Atherosclerotic heart disease of native coronary artery without angina pectoris (principal); I10 Essential (primary) hypertension | CPT/HCPCS: 36415; 80048; 99214 ==

== ENCOUNTER → 2023-03-10 11:03 | Outpatient (BNVA) | payer MEDICARE, SELFPAY | PROVIDERS: PCP Family Medicine; Visit Provider Internal Medicine Rheumatology | DX: Z79.899 Other long term (current) drug therapy (principal); M06.041 Rheumatoid arthritis without rheumatoid factor, right hand; M06.042 Rheumatoid arthritis without rheumatoid factor, left hand; M81.0 Age-related osteoporosis without current pathological fracture; M79.7 Fibromyalgia; Z71.89 Other specified counseling; R76.8 Other specified abnormal immunological findings in serum | CPT/HCPCS: 36415; 80076; 82306; 82310; 82565; 85025; 86140; 99214 ==

== ENCOUNTER 2023-03-17 07:32 | Oncology outpatient (recurring) (ONCR) | payer MEDICARE, MEDICAID, SELFPAY ==
[2023-03-17 08:17] VITALS: BP 111/71; PULSE 60; RESP 18; TEMP 36; O2SAT 93
[2023-03-17] MEDS: denosumab 60 mg SDV SUBCUT (08:21)
--- NOTE | 2023-03-17 08:29 | PC.NURSE ---
labs drawn in last week and reviewed.mm
== END 2023-03-18 23:59 | disposition home or self-care (01) ==
LOC: ONCMED 07:33
PROVIDERS: PCP Family Medicine; Visit Provider Internal Medicine Rheumatology
DX: M81.0 Age-related osteoporosis without current pathological fracture (principal)
CPT/HCPCS: 96372; 96401; J0897

== ENCOUNTER → 2023-04-06 09:53 | Outpatient (BNVA) | payer MEDICARE, SELFPAY | PROVIDERS: PCP Family Medicine; Visit Provider Family Medicine | DX: Z13.6 Encounter for screening for cardiovascular disorders (principal); Z79.899 Other long term (current) drug therapy | CPT/HCPCS: 80061; 80076; 82947; 83036 ==

== ENCOUNTER 2023-04-15 14:00 | Outpatient (CLI) | payer MEDICARE, SELFPAY | END 2023-04-15 14:01 | disposition home or self-care (01) | LOC: SLEEP 04-16 08:59 | PROVIDERS: PCP Family Medicine; Visit Provider Family Medicine | DX: G47.33 Obstructive sleep apnea (adult) (pediatric) (principal) | CPT/HCPCS: G0399 ==

== ENCOUNTER 2023-04-27 12:52 | Observation (INO) | payer MEDICARE, MEDICAID, SELFPAY ==
[2023-04-27] VITALS (42 sets, daily range): BP systolic 109–152; BP diastolic 61–83; PULSE 59–100; RESP 13–26; TEMP 36.5–37; O2SAT 93–99; BMI 33.4; BMI 34.4
[2023-04-27 13:12] LABS: Glucose Point of Care 130 mg/dL (70-110)
--- NOTE | 2023-04-27 14:50 | CT_ITS ---
WS: [id number] CT HEAD NONCONTRAST HISTORY: Symptoms of acute stroke TECHNIQUE: Contiguous axial imaging performed through the brain in 2.5 mm imaging. Bone and soft tiss ue windows. Sagittal and coronal reformats reviewed. All CT scans at [facility] use at least one of these dose optimization techniques: automated exposure control; mA and/or kV adjustment per pa tient size (includes targeted exams where dose is matched to clinical indication); or iterative recon struction. DLP: 1166.48 mGy COMPARISON: None available. Mild atrophy. Minimal small vessel ischemic disease. No prior infarct. No atrophy or prior infarcts or herniation. Ventricles: Normal size with no hydrocephalus. No inferior displacement of the cerebellar tonsils. Paranasal sinuses: As visualized are clear. Mastoid air cells: Well pneumatized. Calvarium and scalp: Skull is intact with no soft tissue edema or swelling. IMPRESSION: 1. No acute intracranial hemorrhage or edema. 2. Very mild atrophy and small vessel ischemic disease.
--- NOTE | 2023-04-27 14:50 | ECG_ITS ---
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 Measurements Intervals [place] Rate: 68 P: 42 AK: 195 QRS: -4 QRSD: 150 T: 7 QT: 406 QTc: 432 Interpretive Statements SINUS RHYTHM RIGHT BUNDLE BRANCH BLOCK [120+ ms QRS DURATION, UPRIGHT V1, 40+ ms S IN I/aVL/V4/V5/V6] Compared to ECG 12/27/2022 23:59:07 Myocardial infarct finding no longer present Electronically Signed On 04-28-2023 22:58:57 CDT by Marlon Mcgregor M.D. [id number]
[2023-04-27 15:23] LABS: Basophils # 0.1 10^3/uL (0.0-0.1); Basophils % 1.1 %; Eosinophils # 0.4 10^3/uL (0.0-0.8); Eosinophils % 6.4 %; Hematocrit 42.6 % (36-47); Lymphocytes # 1.7 10^3/uL (0.8-4.8); Mean Corpuscular HGB Conc 33.6 g/dL (30-55); Mean Corpuscular Hemoglobin 32.4 pg (27-33); Mean Corpuscular Volume 96.4 fl (85-98); Mean Platelet Volume 10.2 fL (7.4-10.4); Monocytes # 0.5 10^3/uL (0.2-0.9); Monocytes % 7.2 %; Neutrophils # 3.65 10^3/uL (1.8-7.7); Nucleated Red Blood Cells % 0 %; Platelet Count 173 10^3/cmm (157-399); Red Blood Count 4.42 10^6/uL (3.85-5.65); Red Cell Distribution Width 11.9 % (12.1-15.1); White Blood Count 6.29 10^3/uL (3.29-11.43)
[2023-04-27 15:28] LABS: Partial Thromboplastin Time 32.8 SECONDS (23.9-36.7)
--- NOTE | 2023-04-27 15:38 | W.ED.DIZZY ---
HPI - Dizziness General: Chief Complaint: Dizziness Stated Complaint: dizzy Time Seen by Provider: 04/27/23 14:40 Source: patient Mode of arrival: ambulatory History of Present Illness: HPI Narrative: 68-year-old female presents emergency room with dizziness, lightheaded and dizzy upon her at a store called her daughter she had some fluttering in her chest never had any chest pain had some weakness on the left side. No facial droop no numbness and tingling. MD elicited complaint: dizziness Severity: mild Exacerbating factors: nothing Relieving factors: nothing Associated symptoms: Denies chest pain, chills, cough, nausea, nasal congestion or vomiting Associated neuro symptoms: Deny confusion, difficulty speaking, dysphagia, diplopia, extremity weakness, facial numbness, facial weakness, gait changes, numbness in extremities or visual changes Review of Systems Const: Denies: fever(s) or chills ENMT: Denies: nasal congestion Card: Denies: chest pain Resp: Reports: dyspnea, productive cough, wheezing and chest congestion GI: Denies: abdominal pain, nausea, vomiting or dysphagia : Denies: dysuria, urinary frequency or urinary urgency Musc: Denies: neck pain or back pain Skin/Breast: Denies: rash Neuro: Denies: numbness in extremities or confusion PFSH ED PFSH: Medical History Atherosclerosis of [place] coronary artery without angina pectoris Helicobacter pylori gastritis Skin rash 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 Osteoporosis Skin ulcer of face, limited to breakdown of skin Positive PRICE (antinuclear antibody) Inflammatory arthritis Fibromyalgia Hypertension Diabetes High risk medication use Immunization counseling Surgical History History of right knee joint replacement History of left knee replacement History of hysterectomy History of cholecystectomy History of bladder repair surgery History of carpal tunnel repair History of bariatric surgery Family History Other CAD (coronary artery disease) Cancer Diabetes Heart disease Hyperlipidemia Hypertension Stroke Denies family history of Rheumatoid arthritis Lupus Chronic kidney disease (CKD) Lung disease Social History Smoking and tobacco/nicotine status: never used tobacco/nicotine Alcohol intake: never Substance/Drug Use: never Female Reproductive History: Spontaneous abortions: No Physical Exam Const: COMMON NORMALS: no acute distress GENERAL APPEARANCE: cooperative and comfortable ORIENTATION/CONSCIOUSNESS: Yes awake, Yes oriented to person, Yes oriented to place and Yes oriented to time HENMT: COMMON NORMALS: normocephalic, atraumatic and hearing grossly normal bilaterally HEAD & SCALP: normocephalic and atraumatic Resp: COMMON NORMALS: normal respiratory effort, No retractions, No use of accessory muscles and clear to auscultation bilaterally AUSCULTATION: clear to auscultation bilaterally Cardio: COMMON NORMALS: regular rate, regular rhythm and No murmurs present (Cardio) RATE: regular rate RHYTHM: regular rhythm GI: COMMON NORMALS: Soft to palpation and No hepatosplenomegaly present AUSCULTATION: Yes normoactive bowel sounds PALPATION: Yes Soft to palpation, No Tenderness to palpation present (GI), No Guarding due to palpation present (GI) and Yes No hepatosplenomegaly present Extremity: COMMON NORMALS: normal to inspection, capillary refill normal, no clubbing, cyanosis or edema, no calf tenderness and no pedal edema Neuro: SENSORIUM/ORIENTATION: Yes oriented to person, Yes oriented to place and Yes oriented to time Skin: COMMON NORMALS: no rashes or lesions noted GENERAL SKIN EXAM: no rashes or lesions noted Course Vital Signs: Vital signs: Vital Signs Temperature 97.7 F 04/27/23 17:55 Pulse Rate 77 04/27/23 17:55 Respiratory Rate 19 H 04/27/23 17:55 Blood Pressure 145/78 04/27/23 17:55 Pulse Oximetry 98 04/27/23 17:55 Oxygen Delivery Me thod Room Air 04/27/23 17:55 MDM - Dizziness Medical Decision Making NIH score of 2 with persistent ataxia in the left arm and left leg otherwise all other evaluations are normal repeat exam after workup completed is persistent. Will admit for CVA further workup initiation of secondary preventative measures. Patient was previously on a statin and had elevated liver enzymes and liver enzymes markedly elevated today as well. Medical Records I reviewed the patient's medical records. Lab Data I reviewed the patient's lab results. 04/27/23 15:11 04/27/23 15:11 Laboratory Results WBC 6.29 10^3/uL (3.29-11.43) 04/27/23 15:11 RBC 4.42 10^6/uL (3.85-5.65) 04/27/23 15:11 Hgb 14.30 g/dL (11.27-16.99) 04/27/23 15:11 Hct 42.6 % (36-47) 04/27/23 15:11 MCV 96.4 fl (85-98) 04/27/23 15:11 MCH 32.4 pg (27-33) 04/27/23 15:11 MCHC 33.6 g/dL (30-55) 04/27/23 15:11 RDW 11.9 % (12.1-15.1) L 04/27/23 15:11 Plt Count 173 10^3/cmm (157-399) 04/27/23 15:11 MPV 10.2 fL (7.4-10.4) 04/27/23 15:11 Neut % (Auto) 58.0 % 04/27/23 15:11 Lymph % (Auto) 27.0 % 04/27/23 15:11 [place] % (Auto) 7.2 % 04/27/23 15:11 Eos % (Auto) 6.4 % 04/27/23 15:11 Baso % (Auto) 1.1 % 04/27/23 15:11 Neut # (Auto) 3.65 10^3/uL (1.8-7.7) 04/27/23 15:11 Lymph # (Auto) 1.7 10^3/uL (0.8-4.8) 04/27/23 15:11 [place] # (Auto) 0.5 10^3/uL (0.2-0.9) 04/27/23 15:11 Eos # (Auto) 0.4 10^3/uL (0.0-0.8) 04/27/23 15:11 Baso # (Auto) 0.1 10^3/uL (0.0-0.1) 04/27/23 15:11 Nucleated RBC % (auto) 0 % 04/27/23 15:11 Nucleated RBCs # 0.0 /100WBC 04/27/23 15:11 PT 12.40 SECONDS (12.1-14.9) 04/27/23 15:11 INR 0.90 (0.8-1.2) 04/27/23 15:11 APTT 32.8 SECONDS (23.9-36.7) 04/27/23 15:11 Sodium 139 mmol/L (136-145) 04/27/23 15:11 Potassium 4.1 mmol/L (3.5-5.1) 04/27/23 15:11 Chloride 103 mmol/L (98-107) 04/27/23 15:11 Carbon Dioxide 26 mmol/L (22-29) 04/27/23 15:11 Anion Gap 14.1 (5-19) 04/27/23 15:11 BUN 13 mg/dL (8-23) 04/27/23 15:11 Creatinine 0.6 mg/dL (0.5-0.9) 04/27/23 15:11 GFR Calculation 98.8 mL/min (90-130) 04/27/23 15:11 Glucose 99 mg/dL (65-115) 04/27/23 15:11 POC Glucose 130 mg/dL (70-110) H 04/27/23 13:09 Calculated Osmolality 288 mOsm/kg (285-295) 04/27/23 15:11 Calcium 9.8 mg/dL (8.5-10.5) 04/27/23 15:11 Total Bilirubin 0.2 mg/dL (0.15-1.2) 04/27/23 15:11 AST 178 U/L (0-32) H 04/27/23 15:11 ALT 484 U/L (0-33) H 04/27/23 15:11 Alkaline Phosphatase 175 U/L (35-105) H 04/27/23 15:11 Total Protein 7.0 g/dL (6.6-8.7) 04/27/23 15:11 Albumin 4.2 g/dL (3.5-5.2) 04/27/23 15:11 Globulin 2.8 g/dL (1.3-4.6) 04/27/23 15:11 Urine Color Light yellow (Yellow) 04/27/23 15:32 Urine Appearance Clear (CLEAR) 04/27/23 15:32 Urine pH 6 (5-7) 04/27/23 15:32 Ur Specific [place] 1.010 (1.005-1.030) 04/27/23 15:32 Urine Protein Neg (Negative) 04/27/23 15:32 Urine Glucose (UA) Norm (Normal) 04/27/23 15:32 Urine Ketones Negative (Negative) 04/27/23 15:32 Urine Blood Neg (Negative) 04/27/23 15:32 Urine Nitrate Negative (Negative) 04/27/23 15:32 Urine Bilirubin Neg (Negative) 04/27/23 15:32 Urine Urobilinogen Norm mg/dL (Negative) 04/27/23 15:32 Ur Leukocyte Esterase Negative (Negative) 04/27/23 15:32 Urine Opiates Screen Negative ng/mL (Negative) 04/27/23 15:32 Ur Barbiturates Screen Negative ng/mL (Negative) 04/27/23 15:32 Ur Phencyclidine Scrn Negative ng/mL (Negative) 04/27/23 15:32 Ur Amphetamines Screen Negative ng/mL (Negative) 04/27/23 15:32 U Benzodiazepines Scrn Negative ng/mL (Negative) 04/27/23 15:32 Urine Cocaine Screen Negative ng/mL (Negative) 04/27/23 15:32 U Marijuana (THC) Screen Negative ng/mL (Negative) 04/27/23 15:32 All radiology interpretation(s) finalized by discharge Discharge Plan Discharge Patient Disposition: Placed in Observation Admit Provider: Han Patel Clinical Impression: Acute CVA (cerebrovascular accident), Transaminitis Coding Level of Care Code ED Adaptive Physical Education Specialist for Porsha Whitehead NIH stroke score NIHSS Level Of Consciousness - 1a: 0 Level Of Consciousness Questions - 1b: Both Correct Level Of Consciousness Commands - 1c: Both Correct Best Gaze - 2: Normal Visual [place] - 3: No Visual Loss Facial Palsy - 4: Normal Motor Arm Right - 5: No Drift Motor Arm Left - 5: No Drift Motor Leg Right - 6: No Drift Motor Leg Left - 6: No Drift Limb Ataxia - 7: Present In Two Limbs Sensory - 8: Normal Best Language - 9: No Aphasia Dysarthia - 10: Normal Extinction And Inattention - 11: 0 Score Total Score: 2
[2023-04-27 15:42] LABS: Alanine Aminotransferase 484 U/L (0-33); Albumin Level 4.2 g/dL (3.5-5.2); Alkaline Phosphatase 175 U/L (35-105); Anion Gap 14.1 (5-19); Aspartate Amino Transferase 178 U/L (0-32); Blood Urea Nitrogen 13 mg/dL (8-23); Calcium 9.8 mg/dL (8.5-10.5); Carbon Dioxide 26 mmol/L (22-29); Chloride 103 mmol/L (98-107); Creatinine Clr Calc Pharmacy 72.9999; Globulin 2.8 g/dL (1.3-4.6); Glomerular Filtration Rate 98.8 mL/min (90-130); Glucose 99 mg/dL (65-115); Osmolality Calculated 288 mOsm/kg (285-295); Potassium 4.1 mmol/L (3.5-5.1); Sodium 139 mmol/L (136-145); Total Bilirubin 0.2 mg/dL (0.15-1.2)
[2023-04-27 16:33] LABS: Add Urine Microscopic? NO; Charge for UA Resulting for Rev
--- NOTE | 2023-04-27 16:41 | PC.NURSE ---
received report from ER nurse Victoria Per ER report that pt is going to be an observation for dizziness/possible stroke?, Per report pt does not have anything to eat yet due for an order of a bedside swallow study? No meds given in ER per report. VS are stable. Notified Dr Patel in regards to a diet order or clarification of orders.
[2023-04-27 16:51] LABS: Amphetamines Screen Urine Negative (Negative); Barbiturates Screen Urine Negative (Negative); Benzodiazepines Screen Urine Negative (Negative); Bilirubin Urine Neg (Negative); Blood Urine Neg (Negative); Cocaine Screen Urine Negative (Negative); Glucose Urine UA Norm (Normal); Ketones Urine Negative (Negative); Leukocyte Esterase Urine Negative (Negative); Nitrate Urine Negative (Negative); Opiate Screen Urine Negative (Negative); PCP Screen Urine Negative (Negative); Protein Urine Neg (Negative); THC Screen Urine Negative (Negative); Urine Appearance Clear (CLEAR); Urine Color Light yellow (Yellow); Urobilinogen Urine Norm (Negative); pH Urine 6 (5-7)
--- NOTE | 2023-04-27 17:36 | USCV_ITS ---
Rylee Bernard Age: 68 Gender: F : 1955 Exam Date: 04/27/2023 22:40 Ordering Phys: Han Patel MD Technologist: HORACIO Exam Location: [facility] Indication: cva BP: 141 / 69 HR: 70 Rhythm: Sinus Technical Quality: Adequate MEASUREMENTS (Male / Female) Normal Values 2D ECHO LV Diastolic Diameter PLAX 3.4 cm 4.2 - 5.9 / 3.9 - 5.3 cm IVS Diastolic Thickness 1.8 cm 0.6 - 1.0 / 0.6 - 0.9 cm IVS Systolic Thickness 2.3 cm LVPW Diastolic Thickness 1.6 cm 0.6 - 1.0 / 0.6 - 0.9 cm LVPW Systolic Thickness 1.8 cm LVOT Diameter 2.4 cm LV Ejection Fraction 2D Teich 70.8 % LV Ejection Fraction MOD 2C 82.6 % LV Ejection Fraction 2C AL 84.7 % LA Diameter 4.5 cm Aorta at Sinotubular Diameter 2.8 cm IVC Diameter 1.1 cm M-MODE LA Ao Ratio MM 1.7 AV Cusp Separation MM 1.4 cm DOPPLER AV Peak Velocity 297.0 cm/s LVOT Peak Velocity 123.0 cm/s AV Area Cont Eq vti 2.1 cm squared AV Area Cont Eq pk 1.9 cm squared MV Peak Velocity 124.0 cm/s MV Area PHT 3.0 cm squared Mitral E to A Ratio 1.0 TR Peak Velocity 236.0 cm/s TR Peak Gradient 22.3 mmHg TV Peak E Velocity 66.0 cm/s Right Atrial Pressure 3.0 mmHg Pulmonary Artery Systolic Pressu 25.3 mmHg PV Peak Velocity 124.0 cm/s FINDINGS Left Ventricle Normal left ventricular size and systolic function, EF 82%.moderate left ventricular hypertrophy. No regional wall motion abnormalities. Grade II/IV diastolic dysfunction, moderately elevated filling pressures. Right Ventricle The right ventricle is normal in size and function. Right Atrium The right atrium is normal in size. Left Atrium Mildly increased left atrial size. Saline contrast injection revealed no evidence of any right to left shunt Mitral Valve Moderate mitral annular calcification. Aortic Valve Mild aortic valve stenosis, mean gradient 16.7 mmHg, NEREIDA 2.1 cm squared. Peak velocity of 2.9 cm/s Tricuspid Valve Mild tricuspid valve regurgitation. Pulmonic Valve No abnormalities noted Pericardium No pericardial effusion. Aorta Normal ascending aorta dimension. IVC The inferior vena cava appears normal. CONCLUSIONS Normal left ventricular size and systolic function, EF 82%.moderate left ventricular hypertrophy. No regional wall motion abnormalities. Grade II/IV diastolic dysfunction, moderately elevated filling pressures. Mild aortic valve stenosis, mean gradient 16.7 mmHg, NEREIDA 2.1 cm squared. Peak velocity of 2.9 cm/s Mild tricuspid valve regurgitation. Mildly increased left atrial size. Saline contrast injection revealed no evidence of any right to left shunt. There is no pericardial effusion. There are no intracardiac masses. Compared to the study from 12/28/2022, there may not be significant change Dr Marlon Mcgregor MD [facility] (Electronically Signed) Final Date: 28 April 2023 13:11 S
--- NOTE | 2023-04-27 18:09 | P.HP_ITS ---
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 She was assessed in ER for possible CVA, at that time NIH stroke score was reported as 2 with ataxia in left upper and lower extremity. Slurred speech and word finding difficulty have resolved. She reports feeling like she was about to pass out earlier. She reports earlier in the morning she was experiencing some palpitations. Review of Systems 2 Const: Denies: fever(s) or chills ENMT: Denies: throat pain Card: Reports: pre-syncope; Denies: chest pain or edema Resp: Denies: dyspnea or productive cough GI: Denies: abdominal pain, nausea, vomiting or diarrhea Musc: Denies: back pain, joint swelling or joint redness Skin/Breast: Denies: rash or new lesions Neuro: Reports: dizziness; Denies: headache(s) Medications/Allergies Home Medications Medication Instructions Recorded Confirmed Last Taken Type aspirin 81 mg tablet,delayed 81 mg PO BEDTIME 10/04/19 04/27/23 04/26/23 History release (Adult Aspirin Regimen) mecobalamin (vitamin B12) 5,000 5,000 mcg PO DIRECTED 10/04/19 04/27/23 04/27/23 History mcg lozenge acetaminophen 500 mg tablet 1,000 mg PO BID PRN pain 01/14/22 04/27/23 03/23/22 History ketoconazole 2 % topical cream 1 applic topical BID #30 grams 05/21/22 04/27/23 12/26/22 Rx tramadol 50 mg tablet 50 mg PO TID PRN pain #60 tabs 08/12/22 04/27/23 Unknown Rx pregabalin 25 mg capsule (Lyrica) 25 mg PO BID #60 caps 12/23/22 04/27/23 12/27/22 09:00 Rx amitriptyline 50 mg tablet 50 mg PO BEDTIME 12/27/22 04/27/23 04/26/23 History losartan 50 mg tablet 50 mg PO DAILY 12/27/22 04/27/23 04/27/23 History evolocumab 140 mg/mL subcutaneous 140 mg SUBCUT .h1hsnru #2 mL 04/14/23 04/27/23 04/24/23 Rx pen injector (Unique Maldonado) etanercept 50 mg/mL (1 mL) See Rx Instructions .Route 04/22/23 04/27/23 Unknown Rx subcutaneous syringe (Enbrel) .COMPLEX #4 mL amlodipine 5 mg tablet 5 mg PO DAILY 04/27/23 04/27/23 04/27/23 History hydrochlorothiazide 25 mg tablet 25 mg PO DAILY 04/27/23 04/27/23 04/27/23 History phbzccab-nvn-pchpm ac 400 1 tab PO DAILY 04/27/23 04/27/23 04/27/23 History mcg-calcium carb 500 mg-vit K1 20 mcg tablet (Women's 50 Plus Multivitamin) turmeric root extract 150 1 tab PO DAILY 04/27/23 04/27/23 04/27/23 History mg-remedios root extract 25 mg chewable tablet venlafaxine 75 mg capsule,extended 75 mg PO DAILY 04/27/23 04/27/23 04/27/23 History release 24 hr Allergies Allergy/AdvReac Type Severity Reaction Status Date / Time latex Allergy Unknown Verified 04/27/23 15:10 nickel Allergy Unknown Verified 04/27/23 15:10 sulfamethoxazole Allergy Unknown Verified 04/27/23 15:10 [From Bactrim] trimethoprim [From Bactrim] Allergy Unknown Verified 04/27/23 15:10 leflunomide AdvReac Intermediate elevated Verified 04/27/23 15:10 LFT's PFSH Acute 2 PFSH: Medical History Atherosclerosis of bois forte coronary artery without angina pectoris Helicobacter pylori gastritis Skin rash 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 Osteoporosis Skin ulcer of face, limited to breakdown of skin Positive PRICE (antinuclear antibody) Inflammatory arthritis Fibromyalgia Hypertension Diabetes High risk medication use Immunization counseling Surgical History History of right knee joint replacement History of left knee replacement History of hysterectomy History of cholecystectomy History of bladder repair surgery History of carpal tunnel repair History of bariatric surgery Family History Other CAD (coronary artery disease) Cancer Diabetes Heart disease Hyperlipidemia Hypertension Stroke Denies family history of Rheumatoid arthritis Lupus Chronic kidney disease (CKD) Lung disease Social History Smoking and tobacco/nicotine status: never used tobacco/nicotine Alcohol intake: never Substance/Drug Use: never Female Reproductive History: Spontaneous abortions: No Vitals/I&O/Wt Last Vital Signs Temp 97.7 F 04/27/23 17:55 Pulse 77 04/27/23 17:55 Resp 19 H 04/27/23 17:55 BP 145/78 04/27/23 17:55 Pulse Ox 98 04/27/23 17:55 O2 Del Method Room Air 04/27/23 17:55 Weight last 48 hrs Weight 93.894 kg Weight 91.172 kg Physical Exam 2 Narrative: Accompanied by her daughter. Const: COMMON NORMALS: patient oriented x3 and alert GENERAL APPEARANCE: c ooperative ORIENTATION/CONSCIOUSNESS: Yes awake HENMT: COMMON NORMALS: oropharynx normal Neck/C-Spine: COMMON NORMALS: no JVD Resp: COMMON NORMALS: normal respiratory effort and clear to auscultation bilaterally AUSCULTATION: clear to auscultation bilaterally Cardio: COMMON NORMALS: no JVD, regular rhythm, S1 normal heart sound present, S2 normal heart sound present and No murmurs present (Cardio) RHYTHM: regular rhythm HEART SOUNDS: S1 normal heart sound present and S2 normal heart sound present GI: COMMON NORMALS: Normal to inspection, nondistended, normoactive bowel sounds present, Soft to palpation and non-tender PALPATION: Yes Soft to palpation Extremity: COMMON NORMALS: no joint enlargement and no pedal edema Neuro: COMMON NORMALS: patient oriented x3 and moves all extremities S ENSORIUM/ORIENTATION: Yes alert OTHER: She is awake and alert, readily following directions. Mild nystagmus on left gaze. Visual vidal full to confrontation. No visual extinction. Performs FNF well, however, somewhat slower on the left side. No upper or lower extremity drift. Sensation symmetrical, no sensory extinction. Skin: COMMON NORMALS: no rashes or lesions noted GENERAL SKIN EXAM: no rashes or lesions noted Data 04/27/23 15:11 04/27/23 15:11 A&P Assessment and plan (1) Focal neurological deficit: Focal neurologic deficit persisting after an episode of feeling unwell, initially with slurred speech, word finding difficulty, difficulty with ambulation and balance. She does not seem to recall all her symptoms, history in part obtained from her daughter. Noted some persistent motor deficit in the left upper and lower extremity in ER. On my exam he is noted to have mild nystagmus at the left gaze. Somewhat slower when testing left FNF compared to the right. Reviewed vitals, CBC, INR, CMP, UA, U tox, CT head, EKG. ER note, discussed with ER provider. Discussed possibility of CVA. She takes aspirin daily at home. Discussed we will additionally assess with MRI brain, monitor on telemetry. Will assess carotid duplex, echocardiogram with bubble study. Noted mild hyperglycemia, history of diabetes, check A1c. Long-term may benefit from optimization of blood pressure control, however, At risk of orthostatic hypotension. Additionally concern with reported risk of hepatitis with losartan, held for now. Continue amlodipine. HCTZ. Monitor blood pressures. Cardiac diet. Discussed consideration of addition of Plavix to aspirin for 21 days, however, with transaminitis, Plavix may be associated with risk of hepatitis, acute liver failure, hold off starting for now we will have to discuss with regards to liver concerns, although with worsening liver parameters I do not believe that the benefit outweighs potential severe risk. Will increase aspirin dose for now to 162 mg. Discussed risk of bleeding. clinical research monitor at discharge. PT, OT assessment. Follow-up with neurology. (2) Pre-syncope: Monitor on telemetry. clinical research monitor at discharge. Assess echocardiogram. Tomorrow assess orthostatics. (3) Transaminitis: Worsening transaminitis, AST 178, ALT 484. Has been taken off statin. Started on Repatha. Appears there is still worsening of transaminitis. Hold losartan, venlafaxine, amitriptyline for now, all appear to carry risk of hepatitis. Check viral hepatitis panel. 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 Reviewed prior abdominal ultrasound, noted history of fatty liver disease. Will need to follow-up with regards to this. Check also ceruloplasmin, ferritin, TIBC. Plan Remote remote history of diabetes in remission after gastric bypass surgery, noted to have some mild hyperglycemia, 130. Check A1c. CAD, continue aspirin. Also on Repatha, statin was discontinued due to transaminitis. HTN, does have history of orthostatic hypotension, presyncopal episodes today. Blood pressure could benefit from better control, however, risk of further orthostasis as discussed. Additionally concern regarding losartan potential risk of hepatitis. Hold for now. Intermittent hypoglycemia: Check blood glucose in case of any similar episodes of malaise. Seronegative rheumatoid arthritis: On etanercept. Reviewed rheumatology note. Attestations 2 Medical Necessity Statement*: Place in observation for additional assessment and management of possible CVA versus TIA. Diagnoses Focal neurological deficit R29.818 Pre-syncope R55 Transaminitis R74.01
--- NOTE | 2023-04-27 18:34 | PC.NURSE ---
refused meal tray family will bring a pecan yarelis salwendy
[2023-04-27 18:41] LABS: Ferritin 339 ng/mL (15-150); Iron 49 ug/dL (37-145); Percent Saturation 38.2 % (20-50); Total Iron Binding Capacity 128 mcg/dl; Unsaturated Iron Binding 79 ug/dL (112-347)
[2023-04-27] MEDS: pregabalin 25 mg Capsule PO (18:47)
--- NOTE | 2023-04-27 20:59 | USCV_ITS ---
Rylee Bernard Age: 68 Gender: F : 1955 Exam Date: 04/27/2023 22:14 Ordering Phys: Han Patel MD Technologist: HORACIO Exam Location: [facility] – [place] Indication: cva, stopped smoking 1995 Risk Factors: cva, stopped smoking 1995 Previous Vascular Surgery: None Right Brachial BP: 114 / 69 1 Left Brachial BP: / Right Left Velocity (cm/s) Spectral Plaque Velocity (cm/s) Spectral Plaque Syst/Diast Broadening Syst/Diast Broadening 196.10/38.10 Mod None Prox CCA 118.70/ 22.30 Mod None 122.90/18.90 Min Homo Mid CCA 106.40/ 16.20 Min Homo 80.40/ 17.20 Min Hetro Distal CCA 71.50 / 12.10 Min Hetro 79.70/ 21.40 Mod Iglesia Prox ICA 73.60 / 22.30 Min Hetro 57.70/ 14.80 Mod Hetro Mid ICA 79.70 / 26.40 Min Hetro 59.80/ 14.80 Min Homo Distal ICA 85.50 / 28.40 None Homo 113.00 Min Hetro ECA 85.90 Min Homo 1.20 ICA/CCA 1.20 Antegrade Vertebral Antegrade 42.20/ 6.20 cm/s 45.20/ 10.10 cm/s Bi Subclavian Tri 78.30 88.70 FINDINGS Comparison:. 09/07/14. Diffuse bilateral scattered calcified plaque and intimal thickening throughout the common carotid arteries and extending through the bifurcation. Tortuous carotid arteries. Antegrade vertebral arteries. CONCLUSIONS Bilateral ICA stenosis less than 50%. Mild progression of plaque since the prior exam. Dr. Gladys Camara DO (Electronically Signed) Final Date: 28 April 2023 08:49 S
[2023-04-27] MEDS: trazodone 50 mg Tablet 25 MG PO (21:37)
[2023-04-27 21:57] LABS: Hepatitis A Antibody IgM Non-Reactive (Nonreactive); Hepatitis B Core IgM Non-Reactive (Nonreactive); Hepatitis B Surface Antigen Non-Reactive (Nonreactive); Hepatitis C Virus Antibody Non-Reactive (Nonreactive)
[2023-04-28] VITALS (9 sets, daily range): BP systolic 106–155; BP diastolic 48–79; PULSE 62–70; RESP 15–24; TEMP 36.4–37.1; O2SAT 93–99
[2023-04-28 04:46] LABS: Basophils # 0.1 10^3/uL (0.0-0.1); Basophils % 0.9 %; Eosinophils # 0.6 10^3/uL (0.0-0.8); Eosinophils % 8.6 %; Hematocrit 37.9 % (36-47); Lymphocytes # 2.8 10^3/uL (0.8-4.8); Lymphocytes % 41.2 %; Mean Corpuscular HGB Conc 33.5 g/dL (30-55); Mean Corpuscular Hemoglobin 31.8 pg (27-33); Mean Corpuscular Volume 94.8 fl (85-98); Mean Platelet Volume 10.6 fL (7.4-10.4); Monocytes # 0.5 10^3/uL (0.2-0.9); Monocytes % 7.7 %; Neutrophils # 2.84 10^3/uL (1.8-7.7); Neutrophils % 41.5 %; Nucleated Red Blood Cells % 0 %; Platelet Count 167 10^3/cmm (157-399); Red Cell Distribution Width 11.9 % (12.1-15.1); White Blood Count 6.85 10^3/uL (3.29-11.43)
[2023-04-28 05:07] LABS: Estmated Average Glucose 91; Hemoglobin A1C 4.8 % (4.0-6.0)
[2023-04-28 05:09] LABS: Alanine Aminotransferase 354 U/L (0-33); Albumin Level 3.8 g/dL (3.5-5.2); Alkaline Phosphatase 145 U/L (35-105); Anion Gap 13.9 (5-19); Aspartate Amino Transferase 111 U/L (0-32); Blood Urea Nitrogen 13 mg/dL (8-23); Calcium 9.2 mg/dL (8.5-10.5); Carbon Dioxide 25 mmol/L (22-29); Chloride 104 mmol/L (98-107); Creatinine Clr Calc Pharmacy 74.1246; Globulin 2.5 g/dL (1.3-4.6); Glucose 92 mg/dL (65-115); Osmolality Calculated 288 mOsm/kg (285-295); Potassium 3.9 mmol/L (3.5-5.1); Sodium 139 mmol/L (136-145); Total Bilirubin 0.3 mg/dL (0.15-1.2); Total Protein 6.3 g/dL (6.6-8.7)
[2023-04-28 05:12] LABS: Chol HDL Ratio 2.98 mg/dL (0.0-4.40); Cholesterol 152 mg/dL (0-200); HDL Cholesterol 51 mg/dL (60-100); LDL Cholesterol Calculated 90 mg/dL (50-129); LDL HDL Ratio 1.76 RATIO (0.00-3.22); Triglycerides 57 mg/dL (0-150)
--- NOTE | 2023-04-28 09:00 | MR_ITS ---
WS: [id number] MRI HEAD WITHOUT CONTRAST TECHNIQUE: Sagittal T1, T2 axial, T2 axial FLAIR, axial and coronal T1 images, axial susceptibility w eighted imaging, axial diffusion weighted images, and coronal T2 images were obtained. CLINICAL INFORMATION: suspected cva COMPARISON: MRI 2015 CT 04/27/2023 FINDINGS: No evidence of restricted diffusion to suggest acute ischemia. Ventricular system and basilar cistern s are patent. Mild small vessel changes. Mild parenchymal volume loss. Normal posterior fossa. Normal vascular flow voids at the skull base. No extra-axial fluid collections. No evidence of mass or mass effect. Paranasal sinuses and mastoid air cells are well aerated. Normal posterior nasopharynx. No hemosideri n on the susceptibly weighted images. Temporal lobes and hippocampal formations are normal in appeara nce. Normal optic chiasm and pituitary infundibulum. No other suspicious findings. IMPRESSION: 1. No evidence of restricted diffusion to suggest acute ischemia. 2. Mild small vessel changes. Mild parenchymal volume loss. This is slightly progressed since 2014. 3. No hemosiderin on the susceptibly weighted images. 4. No other suspicious findings.
[2023-04-28] MEDS: hydroCHLOROthiazide 25 mg Tablet PO (09:21)
[2023-04-28] MEDS: amlodipine 5 mg Tablet PO (09:21)
[2023-04-28] MEDS: pregabalin 25 mg Capsule PO (09:21)
[2023-04-28] MEDS: aspirin 81 mg EC Tablet 162 MG PO (09:21)
--- NOTE | 2023-04-28 10:15 | PC.NURSE ---
still in the mri department
--- NOTE | 2023-04-28 16:08 | PC.NURSE ---
Discharge Note Patient discharged to home via private vehicle accompanied by violet Matthew. Discharge instructions reviewed with patient and/or event representative. Mobile pharmacy medications and/or prescriptions provided. Belongings/home medications returned.
--- NOTE | 2023-04-28 17:46 | PM.DCS ---
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 She was assessed in ER for possible CVA, at that time NIH stroke score was reported as 2 with ataxia in left upper and lower extremity. Slurred speech and word finding difficulty have resolved. She reports feeling like she was about to pass out earlier. She reports earlier in the morning she was experiencing some palpitations. Hospital Course Hospital Course With persistence of focal deficits and possible presyncope she was hospitalized for further assessment, she was monitored on telemetry and is set up with monitoring analyst at discharge. Blood pressures were monitored, and somewhat elevated side, however, recently she has been orthostatic with standing, and sitting episode of feeling unwell. Could be due to orthostatic hypotension. Due to help address this her amlodipine was discontinued. She was instructed on orthostatic precautions. Please reassess orthostatic vital signs. She was additionally assessed by MRI brain, carotid Doppler study, echocardiogram bubble study. No acute CVA noted on MRI. Her symptoms did seem to further resolve overnight. She continues on aspirin, Repatha. Statin was discontinued due to transaminitis and at the moment is not restarted. We considered clopidogrel, however, with risk of hepatitis, acute liver failure possible limited benefit was not judged to be worse to severe risk. Aspirin dose is increased to 160 mg. Carotid Doppler showed carotid stenosis less than 50% bilaterally. Echocardiogram bubble study did not show intracardiac shunt. Did show grade 2 diastolic dysfunction, mild aortic stenosis. Please follow-up. She is asked to follow-up with cardiology as well. A1c was checked and was 4.8. She did have history of hypoglycemic episodes. No hypoglycemia in the hospital, however, she is set up with glucometer and instructions in case of recurrent episodes to check her blood glucose in addition to heart rate and blood pressure. To help with blood pressure control she is started on olmesartan. Her losartan is discontinued due to transaminitis. Similarly venlafaxine is discontinued due to same risk of hepatitis. Amitriptyline is discontinued due to risk of CVA and hepatitis. She is started on trazodone for insomnia instead which worked for her during hospitalization. With noted worsening transaminitis on presentation, liver parameters were repeated and are better today. AST down to 111, ALT down to 354. Does have mild to moderate alk phos elevation 145. Abdominal ultrasound from about a year ago shows fatty liver disease, this will need to be followed up. Viral hepatitis panel was negative. 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 AMA and ASMA were sent out, please follow-up. Additional studies obtained were ceruloplasmin which is still pending, please follow-up. Ferritin noted mildly elevated, TIBC without suggestion of iron overload. She has recently been taken off statin and assess for now not restarted. Improvement in transaminitis with holding some of the above medicines could suggest medicine effect, otherwise with presyncope question is of possible transient arrhythmia or other hypotension which as mentioned above will be further followed up with monitoring analyst. HCTZ for now was continued, her, in case of further issues with transaminase elevation and/or orthostasis, consider discontinuing/changing out this medication. Not started on beta-helena, currently at the moment as we do not know whether there may have been an episode of bradycardia. In case no bradycardia on cardiac monitoring these medications to be considered as options for management of hypertension hopefully with less orthostatic effect. With regards to TIA she is asked to also follow-up with neurology. Continue to optimize cardiovascular risk factors. Physical Exam Const: COMMON NORMALS: patient oriented x3 and alert GENERAL APPEARANCE: cooperative ORIENTATION/CONSCIOUSNESS: Yes awake HENMT: COMMON NORMALS: oropharynx normal Neck/C-Spine: COMMON NORMALS: no JVD Resp: COMMON NORMALS: normal respiratory effort and clear to auscultation bilaterally AUSCULTATION: clear to auscultation bilaterally Cardio: COMMON NORMALS: no JVD, regular rhythm, S1 normal heart sound present, S2 normal heart sound present and No murmurs present (Cardio) RHYTHM: regular rhythm HEART SOUNDS: S1 normal heart sound present and S2 normal heart sound present GI: COMMON NORMALS: Normal to inspection, nondistended, normoactive bowel sounds present, Soft to palpation and non-tender PALPATION: Yes Soft to palpation Extremity: COMMON NORMALS: no joint enlargement and no pedal edema Neuro: COMMON NORMALS: patient oriented x3 and moves all extremities SENSORIUM/ORIENTATION: Yes alert OTHER: Nonfocal neuroexam. Skin: COMMON NORMALS: no rashes or lesions noted GENERAL SKIN EXAM: no rashes or lesions noted Discharge Data Studies Completed and Pending Completed Studies During Hospitalization Category Date Time Status CT head thrombolytic [id number] Stat Cat Scan 04/27/23 14:50 Completed MR head wo con* [id number] Routine MRI 04/28/23 09:00 Completed CV carotid duplex BI* [id number] Routine Ultrasound 04/27/23 20:59 Completed CV. echo w/w bubble cont [id number] Routine Ultrasound 04/27/23 17:36 Completed Pending at discharge Category Date Time Status AMA [Mitochondrial AB Screen] Routine Lab 04/27/23 15:11 Received Ceruloplasmin Routine Lab 04/27/23 15:11 Received Smooth Muscle AB Screen w/Refl Routine Lab 04/27/23 15:11 Received Laboratory Results WBC 6.85 10^3/uL (3.29-11.43) 04/28/23 04:14 RBC 4.00 10^6/uL (3.85-5.65) 04/28/23 04:14 Hgb 12.70 g/dL (11.27-16.99) 04/28/23 04:14 Hct 37.9 % (36-47) 04/28/23 04:14 MCV 94.8 fl (85-98) 04/28/23 04:14 MCH 31.8 pg (27-33) 04/28/23 04:14 MCHC 33.5 g/dL (30-55) 04/28/23 04:14 RDW 11.9 % (12.1-15.1) L 04/28/23 04:14 Plt Count 167 10^3/cmm (157-399) 04/28/23 04:14 MPV 10.6 fL (7.4-10.4) H 04/28/23 04:14 Neut % (Auto) 41.5 % 04/28/23 04:14 Lymph % (Auto) 41.2 % 04/28/23 04:14 [place] % (Auto) 7.7 % 04/28/23 04:14 Eos % (Auto) 8.6 % 04/28/23 04:14 Baso % (Auto) 0.9 % 04/28/23 04:14 Neut # (Auto) 2.84 10^3/uL (1.8-7.7) 04/28/23 04:14 Lymph # (Auto) 2.8 10^3/uL (0.8-4.8) 04/28/23 04:14 [place] # (Auto) 0.5 10^3/uL (0.2-0.9) 04/28/23 04:14 Eos # (Auto) 0.6 10^3/uL (0.0-0.8) 04/28/23 04:14 Baso # (Auto) 0.1 10^3/uL (0.0-0.1) 04/28/23 04:14 Nucleated RBC % (auto) 0 % 04/28/23 04:14 Nucleated RBCs # 0.0 /100WBC 04/28/23 04:14 PT 12.40 SECONDS (12.1-14.9) 04/27/23 15:11 INR 0.90 (0.8-1.2) 04/27/23 15:11 APTT 32.8 SECONDS (23.9-36.7) 04/27/23 15:11 Sodium 139 mmol/L (136-145) 04/28/23 04:14 Potassium 3.9 mmol/L (3.5-5.1) 04/28/23 04:14 Chloride 104 mmol/L (98-107) 04/28/23 04:14 Carbon Dioxide 25 mmol/L (22-29) 04/28/23 04:14 Anion Gap 13.9 (5-19) 04/28/23 04:14 BUN 13 mg/dL (8-23) 04/28/23 04:14 Creatinine 0.5 mg/dL (0.5-0.9) 04/28/23 04:14 GFR Calculation 122.0 mL/min (90-130) 04/28/23 04:14 Glucose 92 mg/dL (65-115) 04/28/23 04:14 POC Glucose 130 mg/dL (70-110) H 04/27/23 13:09 Estimat Average Glucose 91 04/28/23 04:14 Hemoglobin A1c 4.8 % (4.0-6.0) 04/28/23 04:14 Calculated Osmolality 288 mOsm/kg (285-295) 04/28/23 04:14 Calcium 9.2 mg/dL (8.5-10.5) 04/28/23 04:14 Iron 49 ug/dL (37-145) 04/27/23 15:11 TIBC 128 mcg/dl 04/27/23 15:11 % Saturation 38.2 % (20-50) 04/27/23 15:11 Unsat Iron Binding 79 ug/dL (112-347) L 04/27/23 15:11 Ferritin 339 ng/mL (15-150) H 04/27/23 15:11 Total Bilirubin 0.3 mg/dL (0.15-1.2) 04/28/23 04:14 AST 111 U/L (0-32) H 04/28/23 04:14 ALT 354 U/L (0-33) H 04/28/23 04:14 Alkaline Phosphatase 145 U/L (35-105) H 04/28/23 04:14 Total Protein 6.3 g/dL (6.6-8.7) L 04/28/23 04:14 Albumin 3.8 g/dL (3.5-5.2) 04/28/23 04:14 Globulin 2.5 g/dL (1.3-4.6) 04/28/23 04:14 Triglycerides 57 mg/dL (0-150) 04/28/23 04:14 Cholesterol 152 mg/dL (0-200) 04/28/23 04:14 LDL Cholesterol, Calc 90 mg/dL (50-129) 04/28/23 04:14 HDL Cholesterol 51 mg/dL (60-100) L 04/28/23 04:14 LDL/HDL Ratio 1.76 RATIO (0.00-3.22) 04/28/23 04:14 Cholesterol/HDL Ratio 2.98 mg/dL (0.0-4.40) 04/28/23 04:14 Urine Color Light yellow (Yellow) 04/27/23 15:32 Urine Appearance Clear (CLEAR) 04/27/23 15:32 Urine pH 6 (5-7) 04/27/23 15:32 Ur Specific [place] 1.010 (1.005-1.030) 04/27/23 15:32 Urine Protein Neg (Negative) 04/27/23 15:32 Urine Glucose (UA) Norm (Normal) 04/27/23 15:32 Urine Ketones Negative (Negative) 04/27/23 15:32 Urine Blood Neg (Negative) 04/27/23 15:32 Urine Nitrate Negative (Negative) 04/27/23 15:32 Urine Bilirubin Neg (Negative) 04/27/23 15:32 Urine Urobilinogen Norm mg/dL (Negative) 04/27/23 15:32 Ur Leukocyte Esterase Negative (Negative) 04/27/23 15:32 Urine Opiates Screen Negative ng/mL (Negative) 04/27/23 15:32 Ur Barbiturates Screen Negative ng/mL (Negative) 04/27/23 15:32 Ur Phencyclidine Scrn Negative ng/mL (Negative) 04/27/23 15:32 Ur Amphetamines Screen Negative ng/mL (Negative) 04/27/23 15:32 U Benzodiazepines Scrn Negative ng/mL (Negative) 04/27/23 15:32 Urine Cocaine Screen Negative ng/mL (Negative) 04/27/23 15:32 U Marijuana (THC) Screen Negative ng/mL (Negative) 04/27/23 15:32 Hepatitis A IgM Ab Non-reactive (Nonreactive) 04/27/23 15:11 Hep Bs Antigen Non-reactive (Nonreactive) 04/27/23 15:11 Hep B Core IgM Ab Non-reactive (Nonreactive) 04/27/23 15:11 Hepatitis C Antibody Non-reactive (Nonreactive) 04/27/23 15:11 Vitals Last Vital Signs Temp 97.6 F 04/28/23 12:00 Pulse 70 04/28/23 12:00 Resp 21 H 04/28/23 12:00 BP 119/79 04/28/23 15:18 Pulse Ox 97 04/28/23 12:00 O2 Del Method Room Air 04/28/23 12:00 Discharge Plan Discharge Patient Disposition: Home Condition: Stable Prescriptions: New (DME) diabetic supplies, miscellan. Misc See Rx Instructions .Route Qty: 1 0RF Rx Instructions: Glucometer and 90 lancets and strips olmesartan 20 mg tablet 20 mg PO DAILY Qty: 90 0RF trazodone 50 mg Tablet 25 mg PO BEDTIME Qty: 90 0RF Continued mecobalamin (vitamin B12) 5,000 mcg lozenge 5,000 mcg PO DIRECTED Rx Instructions: allow to dissolve in mouth OR may chew lightly before swallowing, weekly on Mondays acetaminophen 500 mg tablet 1,000 mg PO BID PRN (Reason: pain) tramadol 50 mg tablet 50 mg PO TID PRN (Reason: pain) Qty: 60 1RF ketoconazole 2 % cream 1 applic topical BID Qty: 30 6RF Rx Instructions: Apply to red-scaly areas on face 1-2 times daily. pregabalin [Lyrica] 25 mg capsule 25 mg PO BID Qty: 60 5RF Repatha SureClick 140 mg/mL pen injector 140 mg SUBCUT .[id number] Qty: 2 3RF Enbrel 50 mg/mL (1 mL) syringe See Rx Instructions .ROUTE .COMPLEX Qty: 4 3RF Dose Instruction: inject 50mg SUBCUTANEOUSLY EVERY 7 DAYS Rx Instructions: inject 50mg SUBCUTANEOUSLY EVERY 7 DAYS hydrochlorothiazide 25 mg tablet 25 mg PO DAILY Women's 50 Plus Multivitamin 400 mcg-500 mg calcium-20 mcg Tablet 1 tab PO DAILY turmeric root-remedios root ext 150-25 mg Tablet,Chewable 1 tab PO DAILY Changed Adult Aspirin Regimen 81 mg tablet,delayed release (DR/EC) 162 mg PO BEDTIME Qty: 90 0RF Discontinued amitriptyline 50 mg tablet 50 mg PO BEDTIME losartan 50 mg tablet 50 mg PO DAILY venlafaxine 75 mg capsule,extended release 24hr 75 mg PO DAILY amlodipine 5 mg tablet 5 mg PO DAILY Discharge Orders: Discharge Order (Routine); Ordered 04/28/23 Ordered By: Han Patel Other Ambulatory Orders: MCT/Event Monitor 21 Days (Routine) Timeframe: 1 Day Facility: [facility] - Location: Radiology Ordered By: Han Patel Referrals: Kwadwo Dorado DO [Primary Care Provider] - 05/05/23 10:30 am Alfonso Kent MD [Physician] - 1 week (TIA We have notified your physician's clinic of the need for a follow-up appointment to be scheduled. If you have not heard from them within the next 2 business days, please call them directly. ) Ghazala Pelletier FNP [Nurse Practitioner] - 05/07/23 3:00 pm Discharge Diet: Cardiac and Diabetic Patient Instructions: Trazodone (By mouth), Olmesartan (By mouth), Transient Ischemic Attack (GEN), Non-diabetic Hypoglycemia (GEN), Chronic Hypertension (DC), Non-Alcoholic Fatty Liver Disease (GEN), Hypotension (GEN), What to Do if Your Blood Sugar is Low (GEN), Holter Monitor (GEN), Prevent Cardiovascular Disease (GEN), POTS (Postural Orthostatic Tachycardia Syndrome) (GEN), Stroke Stoplight Activity Restrictions/Additional Instructions: Follow-up with your primary doctor and with neurology for reassessment after transient ischemic attack. Your aspirin dose has been increased 162 mg. You are not started on Plavix as per discussion due to concern for risk to your liver. Continue Repatha. Amitriptyline is discontinued with concern for risk for cerebrovascular accident and hepatitis. Call 911 immediately in case of any concerning symptoms. Continue to optimize risk factors of cardiovascular disease. Continue to monitor your blood pressure 3 times daily, there may be difficulty in optimizing her blood pressure due to also orthostatic hypotension (blood pressure dropping when you are upright, standing or walking. Due to orthostatic hypotension amlodipine is discontinued. Due to elevated liver enzymes losartan is stopped. He was started on olmesartan. He will continue on HCTZ for now, but if there is further issues with liver enzyme elevation or significant orthostatic hypotension, consider also discontinuing/changing that medication. Follow-up with your primary doctor and shipping/receiving manager regarding grade 2 diastolic left heart dysfunction and mild aortic valve stenosis. Maintain heart healthy/Mediterranean diet. Include at least 150 minutes of exercise a week, walking as discussed to the point where you cannot hold a continuous conversation. You are also being set up for monitoring analyst for 3 weeks to assess for any irregular heartbeat, fast heartbeat runs or slow heartbeat or pauses. Follow-up with your primary doctor for reassessment of the monitoring analyst as well as with your shipping/receiving manager to further address any findings. Follow-up with your primary doctor and shipping/receiving manager for reassessment after possible presyncopal episode. In case of any further symptoms check your blood pressure, heart rate and blood glucose immediately. You are given a prescription for a glucometer. In case of low blood glucose, less than 80, take sweet snacks, recheck in 15 minutes, if not improving take more sugary snacks and recheck again in 50 minutes, if still no improving progress to ER. If improving, recheck again in about an hour. Avoid sitting up or standing up suddenly, in case you feel lightheaded sitting or standing this may be due to blood pressure drop with orthostatic hypotension. Sit down or lie down immediately to avoid fainting, falling down and injury. Avoid dehydration. Have your primary doctor reassess orthostatic vitals. In case heart monitor does not show pauses or slow heartbeat consider adding beta-helena or clonidine to help manage blood pressure with less orthostatic effect and less risk to deliver. Losartan, amitriptyline and venlafaxine are discontinued due to risk of hepatitis. You are started on olmesartan. In case of further issues with your liver consider discontinuation of HCTZ. Follow-up with your primary doctor regarding pending studies including studies for autoimmune hepatitis and ceruloplasmin. Consider workup for possible causes of hepatitis. Follow-up with your primary doctor also regarding nonalcoholic fatty liver disease which also would benefit from similar interventions like preventing heart disease including maintaining healthy diet, exercise, weight loss. Monitor for progression to liver cirrhosis. Discussed with your primary doctor discontinued amitriptyline, venlafaxine, started trazodone for sleep. Discharge Attestations Time Spent in Discharge Care*: greater than 30 min Quality Metrics Clinical Quality Measures [ Cerebrovascular Accident { Contraindication to Antithrombotic: None; antithrombotic prescribed; Contraindication to Anticoagulation: Overlap treatment not indicated; Contraindication to Statin: Adverse reaction to drug;}] Coding Level of Care Code 17302 Total time (in minutes) for Discharge: 55 Diagnoses Focal neurological deficit R29.818 Pre-syncope R55 Transaminitis R74.01
[2023-04-29 13:10] LABS: Ceruloplasmin 30 mg/dL (18-53)
[2023-05-01 04:45] LABS: Smooth Muscle Ab Screen NEGATIVE (NEGATIVE)
== END 2023-04-28 16:08 | disposition home or self-care (01) ==
LOC: ER 15:54 → CSU 16:24
PROVIDERS: Admitting Provider Internal Medicine; Emergency Provider Family Medicine; PCP Family Medicine; Visit Provider Internal Medicine
DX: R29.818 Other symptoms and signs involving the nervous system (principal); R55 Syncope and collapse; R74.01 Elevation of levels of liver transaminase levels; Z98.84 Bariatric surgery status; I25.10 Atherosclerotic heart disease of native coronary artery without angina pectoris; I10 Essential (primary) hypertension; E11.649 Type 2 diabetes mellitus with hypoglycemia without coma; Z87.891 Personal history of nicotine dependence; I65.23 Occlusion and stenosis of bilateral carotid arteries
CPT/HCPCS: 36415; 36416; 70450; 70551; 80053; 80061; 80074; 80306; 81003; 82390; 82728; 82962; 83036; 83516; 83540; 83550; 85025; 85610; 85730; 92523; 92610; 93005; 93880; 97161; 97167; 99285; C8929; G0378

== ENCOUNTER 2023-05-20 18:31 | Observation (INO) | payer MEDICARE, MEDICAID, SELFPAY ==
[2023-05-20] VITALS (7 sets, daily range): BP systolic 140–174; BP diastolic 69–89; PULSE 63–86; RESP 16–20; TEMP 36.3–36.6; O2SAT 97–100; BMI 33.4; BMI 33.9
[2023-05-20 18:58] LABS: Glucose Point of Care 139 mg/dL (70-110)
[2023-05-20 19:10] LABS: Basophils # 0.1 10^3/uL (0.0-0.1); Basophils % 0.9 %; Eosinophils # 0.4 10^3/uL (0.0-0.8); Eosinophils % 6.1 %; Hematocrit 42.5 % (36-47); Lymphocytes % 30.9 %; Mean Corpuscular HGB Conc 33.9 g/dL (30-55); Mean Corpuscular Hemoglobin 32.1 pg (27-33); Mean Corpuscular Volume 94.9 fl (85-98); Mean Platelet Volume 10.3 fL (7.4-10.4); Monocytes # 0.5 10^3/uL (0.2-0.9); Monocytes % 7.9 %; Neutrophils # 3.55 10^3/uL (1.8-7.7); Nucleated Red Blood Cells % 0 %; Platelet Count 179 10^3/cmm (157-399); Red Blood Count 4.48 10^6/uL (3.85-5.65); Red Cell Distribution Width 12.3 % (12.1-15.1); White Blood Count 6.57 10^3/uL (3.29-11.43)
--- NOTE | 2023-05-20 19:15 | ED_ITS ---
HPI - Recheck/Abnormal Lab/Rx 2 General: Chief Complaint: Recheck/Abnormal Lab/Rx Stated Complaint: bld sug in 40s Time Seen by Provider: 05/20/23 18:49 History of Present Illness: Patient presents to the ER today with complaints of blood sugar bottoming out multiple times throughout the day. Patient iis not on any diabetes medicines. Patient checked her blood sugar frequently throughout the day and at 1 time it would be 160 and then within an hour later of not doing anything or eating anything he would be in the 40s. Patient is trying to be in eating all throughout the day to help this but is just been fluctuating wildly. Patient eventually came to the ER for further evaluation and treatment. Patient has had a gastric bypass and in the past she did gain all her weight from it but here in the last year she has been watching what she is eaten and lost over 50 pounds again. 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 Osteoporosis Skin ulcer of face, limited to breakdown of skin Positive PRICE (antinuclear antibody) Inflammatory arthritis Fibromyalgia Hypertension Diabetes High risk medication use Immunization counseling Surgical History History of right knee joint replacement History of left knee replacement History of hysterectomy History of cholecystectomy History of bladder repair surgery History of carpal tunnel repair History of bariatric surgery Family History Other CAD (coronary artery disease) Cancer Diabetes Heart disease Hyperlipidemia Hypertension Stroke Denies family history of Rheumatoid arthritis Lupus Chronic kidney disease (CKD) Lung disease Social History Smoking and tobacco/nicotine status: never used tobacco/nicotine Alcohol intake: never Substance/Drug Use: never Female Reproductive History: Spontaneous abortions: No Physical Exam 2 Const: COMMON NORMALS: no acute distress, average body habitus, patient oriented x3, no limitations, healthy appearing, alert and well nourished HENMT: COMMON NORMALS: normocephalic, atraumatic, hearing grossly normal bilaterally, external ears normal, Normal external nose present, moist oral mucous membranes and oropharynx normal HEAD & SCALP: normocephalic and atraumatic NOSE: Normal external nose present EXTERNAL EAR: Yes external ears normal Neck/C-Spine: COMMON NORMALS: no JVD Chest: COMMONS NORMALS: normal inspection of the chest and normal palpation of entire chest wall Resp: COMMON NORMALS: normal respiratory effort, No retractions, No use of accessory muscles and clear to auscultation bilaterally AUSCULTATION: clear to auscultation bilaterally Cardio: COMMON NORMALS: no JVD, regular rate, regular rhythm, S1 normal heart sound present, S2 normal heart sound present, No gallops present (Cardio), No clicks present (Cardio), No murmurs present (Cardio) and No rub (Cardio) R ATE: regular rate RHYTHM: regular rhythm HEART SOUNDS: S1 normal heart sound present and S2 normal heart sound present GI: COMMON NORMALS: Normal to inspection, nondistended, normoactive bowel sounds present, Soft to palpation, non-tender, No hepatosplenomegaly present and no masses PALPATION: Yes Soft to palpation and Yes No hepatosplenomegaly present Neuro: COMMON NORMALS: patient oriented x3 SENSORIUM/ORIENTATION: Yes alert Course 2 Vital Signs: Vital signs: Vital Signs Temperature 97.4 F L 05/20/23 18:41 Pulse Rate 86 05/20/23 20:21 Respiratory Rate 16 05/20/23 20:21 Blood Pressure 140/86 05/20/23 20:21 Pulse Oximetry 98 05/20/23 20:21 Oxygen Delivery Me thod Room Air 05/20/23 20:21 MDM - Recheck/Abnormal Lab/Rx Medical Decision Making Had lab work and a CT scan of the abdomen pelvis most which was essentially benign liver enzymes had improved patient's blood sugar did fluctuate here in the ER from about 160 down to 70 with minimal exertion patient was placed on a D5 drip at 100 cc an hour which improved to 150 and then the the next check it was in the 90s. Discussed these results as well as a benign CT scan of her abdomen pelvis with Dr. Kennedy and family and they agreed to place her observation for the night. Differential Diagnosis Unlikely encounter for medication refill, encounter for wound recheck, encounter for recheck of burn, encounter for removal of sutures or warfarin-induced coagulopathy Medical Records I reviewed the patient's medical records. Lab Data I reviewed the patient's lab results. 05/20/23 19:01 05/20/23 19:01 Radiology Impressions Abdomen/Pelvis CT 05/20/23 19:17 IMPRESSION: 1. Prominent fluid in the small bowel without dilation may reflect an enteritis. 2. Minimal diverticulosis without diverticulitis. 3. Cholecystectomy. 4. Mild biliary dilation, nonspecific. 5. Gastric surgical sutures. 6. Constipation. Laboratory Results WBC 6.57 10^3/uL (3.29-11.43) 05/20/23 19: RBC 4.48 10^6/uL (3.85-5.65) 05/20/23 19: Hgb 14.40 g/dL (11.27-16.99) 05/20/23 19: Hct 42.5 % (36-47) 05/20/23 19: MCV 94.9 fl (85-98) 05/20/23 19: MCH 32.1 pg (27-33) 05/20/23 19: MCHC 33.9 g/dL (30-55) 05/20/23 19: RDW 12.3 % (12.1-15.1) 05/20/23 19: Plt Count 179 10^3/cmm (157-399) 05/20/23 19:01 MPV 10.3 fL (7.4-10.4) 05/20/23 19:01 Neut % (Auto) 54.0 % 05/20/23 19: Lymph % (Auto) 30.9 % 05/20/23 19:01 Hale % (Auto) 7.9 % 05/20/23 19:01 Eos % (Auto) 6.1 % 05/20/23 19:01 Baso % (Auto) 0.9 % 05/20/23 19:01 Neut # (Auto) 3.55 10^3/uL (1.8-7.7) 05/20/23 19:01 Lymph # (Auto) 2.0 10^3/uL (0.8-4.8) 05/20/23 19:01 Hale # (Auto) 0.5 10^3/uL (0.2-0.9) 05/20/23 19:01 Eos # (Auto) 0.4 10^3/uL (0.0-0.8) 05/20/23 19:01 Baso # (Auto) 0.1 10^3/uL (0.0-0.1) 05/20/23 19:01 Nucleated RBC % (auto) 0 % 05/20/23 19:01 Nucleated RBCs # 0.0 /100WBC 05/20/23 19:01 ESR 2 mm/hr (0-15) 05/20/23 19:01 Sodium 138 mmol/L (136-145) 05/20/23 19:01 Potassium 3.4 mmol/L (3.5-5.1) L 05/20/23 19: Chloride 100 mmol/L (98-107) 05/20/23 19: Carbon Dioxide 27 mmol/L (22-29) 05/20/23 19: Anion Gap 14.4 (5-19) 05/20/23 19:01 BUN 16 mg/dL (8-23) 05/20/23 19:01 Creatinine 0.6 mg/dL (0.5-0.9) 05/20/23 19:01 GFR Calculation 98.8 mL/min (90-130) 05/20/23 19:01 Glucose 82 mg/dL (65-115) 05/20/23 19: POC Glucose 97 mg/dL (70-110) 05/20/23 21:14 Calculated Osmolality 286 mOsm/kg (285-295) 05/20/23 19:01 Calcium 10.2 mg/dL (8.5-10.5) 05/20/23 19:01 Phosphorus 2.7 mg/dL (2.5-4.5) 05/20/23 19:01 Magnesium 1.7 mg/dL (1.7-2.3) 05/20/23 19:01 Total Bilirubin 0.2 mg/dL (0.15-1.2) 05/20/23 19:01 AST 36 U/L (0-32) H 05/20/23 19:01 ALT 99 U/L (0-33) H 05/20/23 19:01 Alkaline Phosphatase 142 U/L (35-105) H 05/20/23 19:01 C-Reactive Protein 3.0 mg/L (0.0-4.9) 05/20/23 19:01 Total Protein 7.0 g/dL (6.6-8.7) 05/20/23 19: Albumin 4.4 g/dL (3.5-5.2) 05/20/23 19: Globulin 2.6 g/dL (1.3-4.6) 05/20/23 19:01 Lipase 33 U/L (13-60) 05/20/23 19:01 Urine Color Light yellow (Yellow) 05/20/23 19:25 Urine Appearance Clear (CLEAR) 05/20/23 19:25 Urine pH 5 (5-7) 05/20/23 19:25 Ur Specific Crenshaw 1.010 (1.005-1.030) 05/20/23 19:25 Urine Protein Neg (Negative) 05/20/23 19:25 Urine Glucose (UA) Norm (Normal) 05/20/23 19:25 Urine Ketones Negative (Negative) 05/20/23 19:25 Urine Blood Neg (Negative) 05/20/23 19:25 Urine Nitrate Negative (Negative) 05/20/23 19:25 Urine Bilirubin Neg (Negative) 05/20/23 19:25 Urine Urobilinogen Norm mg/dL (Negative) 05/20/23 19:25 Ur Leukocyte Esterase 1+ (Negative) H 05/20/23 19:25 Urine RBC 0-4 /hpf (0-2) H 05/20/23 19:25 Urine WBC 0-4 /hpf (0-5) H 05/20/23 19:25 Ur Squamous Epith Cells 0-4 /hpf (0-5) H 05/20/23 19:25 Amorphous Sediment Not Reportable 05/20/23 19:25 Urine Bacteria Trace /hpf (NONE) 05/20/23 19:25 All radiology interpretation(s) finalized by discharge Discharge Plan Discharge Patient Disposition: Placed in Observation Clinical Impression: Hypoglycemia Coding Level of Care Code ED Water Pollution Specialist for Porsha Whitehead
--- NOTE | 2023-05-20 19:17 | CTR_ITS ---
PROCEDURE INFORMATION: Exam: CT Abdomen And Pelvis With Contrast Exam date and time: 05/20/2023 7:58 PM Age: 68 years old Clinical indication: Abnormal findings; Abnormal lab test; Other: Elevated lfts; Prior surgery; Surgery date: 6+ months; Surgery type: Char, hyst, bladder repair, bariatric surgery; Additional info: Recurrent hypoglycemia, elevated lfts TECHNIQUE: Imaging protocol: Computed tomography of the abdomen and pelvis with contrast. Radiation optimization: All CT scans at this facility use at least one of these dose optimization techniques: automated exposure control; mA and/or kV adjustment per patient size (includes targeted exams where dose is matched to clinical indication); or iterative reconstruction. Contrast material: OMNI 350; Contrast volume: 100 ml; Contrast route: INTRAVENOUS (IV); COMPARISON: CR XR hip BI m 5V wo/w pel* [id number] 07/30/2022 10:23 AM RADIATION DOSE METRICS: Total DLP (mGy-cm): 930.93 FINDINGS: Liver: Normal. No mass. Gallbladder and bile ducts: Cholecystectomy. Mild biliary dilation, nonspecific. Pancreas: Normal. No ductal dilation. Spleen: Normal. No splenomegaly. Adrenal glands: Normal. No mass. Kidneys and ureters: Normal. No hydronephrosis. Stomach and bowel: Prominent fluid in the small bowel without dilation may reflect an enteritis. Minimal diverticulosis without diverticulitis. Gastric surgical sutures. Constipation. Appendix: No evidence of appendicitis. Intraperitoneal space: Unremarkable. No free air. No significant fluid collection. Vasculature: Unremarkable. No abdominal aortic aneurysm. Lymph nodes: Unremarkable. No enlarged lymph nodes. Urinary bladder: Unremarkable as visualized. Reproductive: Unremarkable as visualized. Bones/joints: Unremarkable. No acute fracture. Soft tissues: Unremarkable. CT/CT abdomen pelvis w con* [id number] IMPRESSION: 1. Prominent fluid in the small bowel without dilation may reflect an enteritis. 2. Minimal diverticulosis without diverticulitis. 3. Cholecystectomy. 4. Mild biliary dilation, nonspecific. 5. Gastric surgical sutures. 6. Constipation.
[2023-05-20 19:31] LABS: Glucose Point of Care 69 mg/dL (70-110)
[2023-05-20 19:32] LABS: Alanine Aminotransferase 99 U/L (0-33); Albumin Level 4.4 g/dL (3.5-5.2); Alkaline Phosphatase 142 U/L (35-105); Anion Gap 14.4 (5-19); Aspartate Amino Transferase 36 U/L (0-32); Blood Urea Nitrogen 16 mg/dL (8-23); Calcium 10.2 mg/dL (8.5-10.5); Carbon Dioxide 27 mmol/L (22-29); Chloride 100 mmol/L (98-107); Creatinine Clr Calc Pharmacy 72.9999; Globulin 2.6 g/dL (1.3-4.6); Glomerular Filtration Rate 98.8 mL/min (90-130); Glucose 82 mg/dL (65-115); Osmolality Calculated 286 mOsm/kg (285-295); Potassium 3.4 mmol/L (3.5-5.1); Sodium 138 mmol/L (136-145); Total Bilirubin 0.2 mg/dL (0.15-1.2)
[2023-05-20 19:33] LABS: Erythrocyte Sedimentation Rate 2 mm/hr (0-15)
[2023-05-20 19:46] LABS: Lipase 33 U/L (13-60); Magnesium 1.7 mg/dL (1.7-2.3); Phosphorus 2.7 mg/dL (2.5-4.5)
[2023-05-20] MEDS: dextrose 5%-sod chloride 0.9% 1,000 ML 100 ML IV (19:47)
[2023-05-20] MEDS: iohexol 350 mg/mL 500 mL Btl (per mL) IV (19:59)
[2023-05-20 20:13] LABS: Glucose Point of Care 150 mg/dL (70-110)
[2023-05-20 20:28] LABS: Add Urine Microscopic? YES; Bilirubin Urine Neg (Negative); Blood Urine Neg (Negative); Glucose Urine UA Norm (Normal); Ketones Urine Negative (Negative); Nitrate Urine Negative (Negative); Protein Urine Neg (Negative); Urine Appearance Clear (CLEAR); Urine Color Light yellow (Yellow); Urobilinogen Urine Norm (Negative); pH Urine 5 (5-7)
[2023-05-20 20:29] LABS: Bacteria Urine TRACE /hpf; Leukocyte Esterase Urine 1+ (Negative); RBC Urine 0-4 /hpf (0-2); Squamous Epithelial Cell Urine 0-4 /hpf (0-5); WBC Urine 0-4 /hpf (0-5)
[2023-05-20 20:30] LABS: Add Urine Culture? No
[2023-05-20 21:19] LABS: Glucose Point of Care 97 mg/dL (70-110)
[2023-05-20 21:50] LABS: Glucose Point of Care 110 mg/dL (70-110)
[2023-05-20 22:10] LABS: Cortisol Random 13.89 ug/dL (2.47-19.5); Free T4 Free Thyroxine 1.37 ng/dL (0.82-1.77); T3 Free 2.5 PG/ML (2.0-4.4)
--- NOTE | 2023-05-20 22:38 | PM.HP ---
Providers/Chief Complaint Admitting Physician: Oumar Art MD Primary Care Provider: Kwadwo Dorado DO Chief Complaint: bld sug in 40s History of Present Illness Rylee Bernard is a 68 year old female with a past medical history of type 2 diabetes mellitus, history of gastric bypass, recent history of 50 pound weight loss, hypertension, rheumatoid arthritis, who presents to [facility] due to recurrent hypoglycemic episodes. Patient tells me that since her gastric bypass, she has had issues with hypoglycemia, typically they resolve with a glucose tablet, or soda. She tells me that today she did have a couple of carbohydrate rich meals, for lunch she had a steak sandwich, since then she has had recurrent hypoglycemic episodes into the low 50s feeling lightheaded and dizzy feeling unwell, not improving with glucose tablet or soda, and these recurrent hypoglycemic episodes have become more frequent more severe, interfering with her functioning. Review of Systems Const: Denies: fever(s) Card: Denies: chest pain GI: Denies: abdominal pain Endo: Denies: polyuria or polydipsia Medications/Allergies Home Medications Medication Instructions Recorded Confirmed Last Taken Type mecobalamin (vitamin B12) 5,000 5,000 mcg PO DIRECTED 10/04/19 05/20/23 05/20/23 22:45 History mcg lozenge acetaminophen 500 mg tablet 1,000 mg PO BID PRN pain 01/14/22 05/20/23 03/23/22 History ketoconazole 2 % topical cream 1 applic topical BID #30 grams 05/21/22 05/20/23 05/20/23 Rx pregabalin 25 mg capsule (Lyrica) 25 mg PO BID #60 caps 12/23/22 05/20/23 05/20/23 Rx evolocumab 140 mg/mL subcutaneous 140 mg SUBCUT .[id number] #2 mL 04/14/23 05/20/23 05/08/23 Rx pen injector (Repatha SureClick) etanercept 50 mg/mL (1 mL) See Rx Instructions .Route 04/22/23 05/20/23 Unknown Rx subcutaneous syringe (Enbrel) .COMPLEX #4 mL hydrochlorothiazide 25 mg tablet 25 mg PO DAILY 04/27/23 05/20/23 05/20/23 History wjsjespy-uce-jqdeu ac 400 1 tab PO DAILY 04/27/23 05/05/23 04/27/23 History mcg-calcium carb 500 mg-vit K1 20 mcg tablet (Women's 50 Plus Multivitamin) turmeric root extract 150 1 tab PO DAILY 04/27/23 05/20/23 05/20/23 22:46 History mg-remedios root extract 25 mg chewable tablet aspirin 81 mg tablet,delayed 162 mg (2 x 81 mg) PO BEDTIME #90 04/28/23 05/20/23 05/20/23 Rx release (Adult Aspirin Regimen) tabs diabetic supplies, miscellan. #1 ea 04/28/23 05/05/23 Unknown Rx olmesartan 20 mg tablet 20 mg PO DAILY #90 tabs 04/28/23 05/20/23 05/20/23 Rx buspirone 10 mg tablet 10 mg PO TID #90 tabs 05/05/23 05/20/23 05/20/23 Rx clonazepam 1 mg tablet 1 mg PO DAILY PRN insomnia #30 tabs 05/07/23 05/20/23 Unknown Rx tramadol 50 mg tablet 50 mg PO TID PRN pain #60 tabs 05/14/23 05/20/23 Unknown Rx Allergies Allergy/AdvReac Type Severity Reaction Status Date / Time latex Allergy Unknown Verified 04/27/23 15:10 nickel Allergy Unknown Verified 04/27/23 15:10 sulfamethoxazole Allergy Unknown Verified 04/27/23 15:10 [From Bactrim] trimethoprim [From Bactrim] Allergy Unknown Verified 04/27/23 15:10 ALEXY Inhibitors AdvReac Severe ADR-Cough Verified 04/28/23 13:55 leflunomide AdvReac Intermediate elevated Verified 04/27/23 15:10 LFT's PFSH Acute PFSH: Medical History Multiple episodes of hypoglycemia Atherosclerosis of [place] coronary artery without angina pectoris Helicobacter pylori gastritis Skin rash 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 Osteoporosis Skin ulcer of face, limited to breakdown of skin Positive PRICE (antinuclear antibody) Inflammatory arthritis Fibromyalgia Hypertension Diabetes High risk medication use Immunization counseling Surgical History History of right knee joint replacement History of left knee replacement History of hysterectomy History of cholecystectomy History of bladder repair surgery History of carpal tunnel repair History of bariatric surgery Family History Other CAD (coronary artery disease) Cancer Diabetes Heart disease Hyperlipidemia Hypertension Stroke Denies family history of Rheumatoid arthritis Lupus Chronic kidney disease (CKD) Lung disease Social History Smoking and tobacco/nicotine status: never used tobacco/nicotine Alcohol intake: never Substance/Drug Use: never Female Reproductive History: Spontaneous abortions: No Vitals/I&O/Wt Last Vital Signs Temp 97.4 F L 05/20/23 22:03 Pulse 68 05/20/23 22:03 Resp 16 05/20/23 22:03 BP 154/89 05/20/23 22:03 Pulse Ox 99 05/20/23 22:03 O2 Del Method Room Air 05/20/23 20:21 Weight last 48 hrs Weight 91.2 kg Weight 91.172 kg Physical Exam Const: COMMON NORMALS: no acute distress and patient oriented x3 Eye: COMMON NORMALS: Equal, round and reactive pupils present and EOMs intact bilaterally Resp: COMMON NORMALS: normal respiratory effort, No retractions, No use of accessory muscles and clear to auscultation bilaterally AUSCULTATION: clear to auscultation bilaterally Cardio: COMMON NORMALS: regular rate, regular rhythm, S1 normal heart sound present and S2 normal heart sound present RATE: regular rate RHYTHM: regular rhythm HEART SOUNDS: S1 normal heart sound present and S2 normal heart sound present GI: COMMON NORMALS: Normal to inspection, nondistended, normoactive bowel sounds present, Soft to palpation and non-tender Extremity: COMMON NORMALS: no pedal edema Neuro: COMMON NORMALS: patient oriented x3, CN's II-XII intact bilaterally and moves all extremities Psych: COMMON NORMALS: mental status grossly normal Data 05/20/23 19:01 05/20/23 19:01 A&P Assessment and plan (1) Postprandial hypoglycemia: (2) History of gastric bypass: (3) Hypoglycemia: Plan Postprandial hypoglycemia -Symptomatology sounds a lot like complication of her history of gastric bypass, what I can gauge for patient is that when she has a carbohydrate rich meal such as this steak sandwich she had this afternoon, she develops significant hypoglycemic episodes, which now have become much more difficult to control with glucose tablets or soda -She is not on any insulin, metformin -No new medications -None of her home medications are highly associated with hypoglycemic episodes -Postprandial hypoglycemia is a well-known complication, although rare from gastric bypass, I have ordered insulin levels, C-peptide levels, I do not believe we do proinsulin levels here, her TSH within normal limits, cortisol is within normal limits will check an a.m. cortisol ? Typically for post gastric bypass hypoglycemia, dietary modification to reduce surgein plasma glucose after meals , thus patient will have to have dietary eval for very low or low carbohydrate high-protein diet, high-fiber diet, dietary changes to increase nutrient transit time, avoid drinking meals, splitting foodintake to 5-6 meals a day ? Other possibilities include adding may be a acarbose or diazoxide ? The other possibility although unlikely is an insulinoma, although CT scan abdomen pelvis did not show any masses within the pancreas can review with radiology in the morning, I have ordered insulin, C-peptide, beta hydroxybutyrate levels -For now continue D5 normal saline at 100 cc an hour, every hour blood sugars -Likely will require dietary eval in the morning -Full code -Lovenox for DVT prophylaxis Attestations Medical Necessity Statement*: Patient requires hospitalization, outpatient observation, for hypoglycemia Diagnoses Postprandial hypoglycemia E16.1 History of gastric bypass Z98.84 Hypoglycemia E16.2
[2023-05-20 22:51] LABS: Glucose Point of Care 89 mg/dL (70-110)
[2023-05-20 23:06] LABS: Estmated Average Glucose 103; Hemoglobin A1C 5.2 % (4.0-6.0)
[2023-05-20] MEDS: enoxaparin 40 mg/0.4 mL Syringe SUBCUT (23:13)
[2023-05-20] MEDS: pantoprazole 40 mg SDV IVP (23:13)
[2023-05-20 23:15] LABS: Cortisol Random 14.03 ug/dL (2.47-19.5)
[2023-05-20 23:29] LABS: Lipase 30 U/L (13-60)
[2023-05-20 23:44] LABS: Glucose Point of Care 177 mg/dL (70-110)
[2023-05-20 23:47] LABS: Gamma Glutamyl Transferase 161 U/L (5-36)
[2023-05-21] VITALS (11 sets, daily range): BP systolic 137–175; BP diastolic 71–82; PULSE 61–82; RESP 16–20; TEMP 35.8–36.8; O2SAT 98–100
[2023-05-21 00:34] LABS: Glucose Point of Care 159 mg/dL (70-110)
[2023-05-21 02:04] LABS: Glucose Point of Care 103 mg/dL (70-110)
[2023-05-21 03:05] LABS: Glucose Point of Care 101 mg/dL (70-110)
[2023-05-21 04:15] LABS: Glucose Point of Care 112 mg/dL (70-110)
[2023-05-21 05:04] LABS: Glucose Point of Care 118 mg/dL (70-110)
[2023-05-21 05:04] LABS: Basophils # 0.1 10^3/uL (0.0-0.1); Eosinophils # 0.4 10^3/uL (0.0-0.8); Eosinophils % 6.8 %; Hematocrit 38.1 % (36-47); Lymphocytes # 2.3 10^3/uL (0.8-4.8); Mean Corpuscular HGB Conc 34.1 g/dL (30-55); Mean Corpuscular Hemoglobin 31.9 pg (27-33); Mean Corpuscular Volume 93.6 fl (85-98); Mean Platelet Volume 10.2 fL (7.4-10.4); Monocytes # 0.5 10^3/uL (0.2-0.9); Monocytes % 8.4 %; Neutrophils # 2.64 10^3/uL (1.8-7.7); Neutrophils % 44.6 %; Nucleated Red Blood Cells % 0 %; Platelet Count 158 10^3/cmm (157-399); Red Blood Count 4.07 10^6/uL (3.85-5.65); Red Cell Distribution Width 12.3 % (12.1-15.1); White Blood Count 5.92 10^3/uL (3.29-11.43)
[2023-05-21 05:23] LABS: Alanine Aminotransferase 75 U/L (0-33); Albumin Level 3.8 g/dL (3.5-5.2); Alkaline Phosphatase 95 U/L (35-105); Anion Gap 11.3 (5-19); Aspartate Amino Transferase 32 U/L (0-32); Blood Urea Nitrogen 10 mg/dL (8-23); Calcium 9.2 mg/dL (8.5-10.5); Carbon Dioxide 28 mmol/L (22-29); Chloride 106 mmol/L (98-107); Globulin 2.1 g/dL (1.3-4.6); Glucose 117 mg/dL (65-115); Magnesium 1.7 mg/dL (1.7-2.3); Osmolality Calculated 294 mOsm/kg (285-295); Phosphorus 2.4 mg/dL (2.5-4.5); Potassium 3.3 mmol/L (3.5-5.1); Sodium 142 mmol/L (136-145); Total Bilirubin 0.4 mg/dL (0.15-1.2); Total Protein 5.9 g/dL (6.6-8.7)
[2023-05-21] MEDS: dextrose 5%-sod chloride 0.9% 1,000 ML 100 ML IV (05:46)
[2023-05-21 06:05] LABS: Glucose Point of Care 123 mg/dL (70-110)
[2023-05-21 07:25] LABS: Glucose Point of Care 176 mg/dL (70-110)
[2023-05-21 08:14] LABS: Glucose Point of Care 188 mg/dL (70-110)
[2023-05-21] MEDS: hydroCHLOROthiazide 25 mg Tablet PO (08:52)
[2023-05-21] MEDS: BuSPIRONE 10 mg Tablet PO (08:53)
[2023-05-21] MEDS: pregabalin 25 mg Capsule PO ×2 (08:53→17:06)
[2023-05-21 09:47] LABS: Glucose Point of Care 69 mg/dL (70-110)
[2023-05-21 10:10] LABS: Glucose Point of Care 133 mg/dL (70-110)
[2023-05-21] MEDS: glucagon 1 mg/mL KIT 1 mL IM (11:05)
[2023-05-21 11:06] LABS: Glucose Point of Care 70 mg/dL (70-110)
[2023-05-21] MEDS: dextrose 10% 1,000 ML 50 ML IV (11:27)
[2023-05-21] MEDS: aspirin 81 mg EC Tablet 162 MG PO (11:27)
[2023-05-21] MEDS: OLMESARTAN 20 MG TAB 1 EACH PO (11:31)
[2023-05-21] MEDS: dextrose 10% 250 ML 1000 ML IV (11:34)
[2023-05-21 11:37] LABS: Glucose Point of Care 84 mg/dL (70-110)
[2023-05-21] MEDS: fexofenadine 60 mg Tablet PO ×2 (12:09→17:06)
[2023-05-21] MEDS: olopatadine 0.1% Op Soln 5 mL Btl 1 DROP EYE-RIGHT ×2 (12:09→17:06)
[2023-05-21 12:40] LABS: Glucose Point of Care 362 mg/dL (70-110)
--- NOTE | 2023-05-21 12:42 | PC.NURSE ---
Patient had an episode where she felt very hot and flushed. Blood glucose was checked and it was 70. Dr. Jean was on the floor and came to patients room. BP slightly elevated. Orders given to change IV fluids to D10. Bolus was given. IM glucagon given. Q1H accu checks continued. Encourage PO intake Q2H. Changed diet to regular.
[2023-05-21 13:39] LABS: Glucose Point of Care 113 mg/dL (70-110)
[2023-05-21 14:25] LABS: Glucose Point of Care 75 mg/dL (70-110)
[2023-05-21 14:54] LABS: Glucose Point of Care 114 mg/dL (70-110)
[2023-05-21] MEDS: ALPRAZolam 0.5 mg Tablet 0.25 MG PO (15:14)
[2023-05-21 15:25] LABS: Glucose Point of Care 134 mg/dL (70-110)
[2023-05-21 16:28] LABS: Glucose Point of Care 125 mg/dL (70-110)
[2023-05-21 17:21] LABS: Glucose Point of Care 121 mg/dL (70-110)
--- NOTE | 2023-05-21 17:44 | P.TS_ITS ---
Transfer Summary Providers Date of Admission: 05/20/23 21:35 Date of Discharge/Transfer: 05/21/23 Attending Provider at Admission: Oumar Art MD Attending Provider at Transfer: Moon Jean MD Primary Care Provider: Kwadwo Dorado DO Transfer Plans: Anticipated date of transfer: 05/21/23 . Diagnoses at Discharge Discharge Diagnosis (1) Postprandial hypoglycemia: Status: Acute (2) History of gastric bypass: Status: Acute (3) Hypoglycemia: Status: Acute Reason for Visit Reason for Visit bld sug in 40s Hospital Course Hospital Course 68-year-old lady with a past medical history of gastric bypass surgery in 2012 at [facility] . She has been dealing with episodic hypoglycemia ever since surgical intervention, however has had increased frequency and severity of these hypoglycemic episodes over the past 2 months in spite of sticking to a low carbohydrate high-protein diet. Patient was admitted to the hospital yesterday after presenting here with symptomatic hypoglycemia. She stated that during the day at home her blood sugar had been in the 50s, she took several glucose tablets and juice however this did not improve her symptoms. At the time she had arrived to the emergency room her blood sugar was 69. She has been on dextrose 10% infusion and has had intermittent injections of glucagon since being here. She becomes symptomatic with diaphoresis, dizziness lightheadedness and tachycardia with blood sugar dropping in the 70s. Patient has had recurrence of these episodes. Previously in December 2022 patient was admitted here for evaluation of chest discomfort and underwent cardiac evaluation. Incidentally was noted to have blood sugar down to 55 on this admission. Review of records show that patient was additionally recently here in early April with concerns for TIA. Overall neurological workup was negative for stroke or TIA. It is possible that hypoglycemia may have contributed to her symptoms experienced at home. Serum TSH, random cortisol level are within normal range. Serum C-peptide level and insulin levels have been ordered, these are send out tests results are not expected for the next few days. Given patient's recurrent symptoms of hypoglycemia, case was discussed with outpatient convolute tube winder Dr. Haynes (patient is not an established patient with endocrinology service) and it was recommended to obtain 72-hour fasting glucose testing for further evaluation of recurrent hypoglycemia. We do not have the capability to perform this test at our hospital, additionally we do not have any inpatient endocrinology services. Therefore we requested transfer to higher center where patient may get appropriate diagnostics and interventions and consultation with endocrinology service. Patient has been accepted for transfer at [facility] in [facility]. Her other comorbidities include seronegative rheumatoid arthritis for which she is under treatment from rheumatology with evolocumab, hypertension. She is not currently on any insulin or other oral hypoglycemic agents. Physical Exam Narrative: General: No acute distress, AO x3 HEENT: PERRLA, pupils bilaterally equal and reactive, pallors not present Chest: Normal vesicular breath sounds, no added sounds, equal good air entry bilaterally CVS: S1-S2 regular, no murmurs, no tachycardia, no gallops, no rubs Abdomen: Soft, nontender, no organomegaly, bowel sounds present Neuro: No focal deficits, no facial deformity, AO x3, power 5/5 in all limbs TS Data Studies Completed and Pending Pending at discharge Category Date Time Status Beta-Hydroxybutyrate QAM Lab 05/21/23 04:28 Received C-Peptide QAM Lab 05/21/23 04:28 Received Insulin ( Reference Lab Test) QAM Lab 05/21/23 04:28 Received Completed Studies During Hospitalization Category Date Time Status CT abdomen pelvis w con* [id number] Stat Cat Scan 05/20/23 19:17 Completed Laboratory Last Values WBC 5.92 10^3/uL (3.29-11.43) 05/21/23 04:28 RBC 4.07 10^6/uL (3.85-5.65) 05/21/23 04:28 Hgb 13.00 g/dL (11.27-16.99) 05/21/23 04:28 Hct 38.1 % (36-47) 05/21/23 04:28 MCV 93.6 fl (85-98) 05/21/23 04:28 MCH 31.9 pg (27-33) 05/21/23 04: MCHC 34.1 g/dL (30-55) 05/21/23 04: RDW 12.3 % (12.1-15.1) 05/21/23 04:28 Plt Count 158 10^3/cmm (157-399) 05/21/23 04:28 MPV 10.2 fL (7.4-10.4) 05/21/23 04: Neut % (Auto) 44.6 % 05/21/23 04:28 Lymph % (Auto) 39.0 % 05/21/23 04: [place] % (Auto) 8.4 % 05/21/23 04: Eos % (Auto) 6.8 % 05/21/23 04: Baso % (Auto) 1.0 % 05/21/23 04: Neut # (Auto) 2.64 10^3/uL (1.8-7.7) 05/21/23 04: Lymph # (Auto) 2.3 10^3/uL (0.8-4.8) 05/21/23 04: [place] # (Auto) 0.5 10^3/uL (0.2-0.9) 05/21/23 04: Eos # (Auto) 0.4 10^3/uL (0.0-0.8) 05/21/23 04: Baso # (Auto) 0.1 10^3/uL (0.0-0.1) 05/21/23 04: Nucleated RBC % (auto) 0 % 05/21/23 04: Nucleated RBCs # 0.0 /100WBC 05/21/23 04: ESR 2 mm/hr (0-15) 05/20/23 19:01 Sodium 142 mmol/L (136-145) 05/21/23 04: Potassium 3.3 mmol/L (3.5-5.1) L 05/21/23 04: Chloride 106 mmol/L (98-107) 05/21/23 04: Carbon Dioxide 28 mmol/L (22-29) 05/21/23 04: Anion Gap 11.3 (5-19) 05/21/23 04: BUN 10 mg/dL (8-23) 05/21/23 04:28 Creatinine 0.5 mg/dL (0.5-0.9) 05/21/23 04: GFR Calculation 122.0 mL/min (90-130) 05/21/23 04:28 Glucose 117 mg/dL (65-115) H 05/21/23 04:28 POC Glucose 121 mg/dL (70-110) H 05/21/23 17:14 Estimat Average Glucose 103 05/20/23 19:01 Hemoglobin A1c 5.2 % (4.0-6.0) 05/20/23 19: Calculated Osmolality 294 mOsm/kg (285-295) 05/21/23 04:28 Calcium 9.2 mg/dL (8.5-10.5) 05/21/23 04:28 Phosphorus 2.4 mg/dL (2.5-4.5) L 05/21/23 04:28 Magnesium 1.7 mg/dL (1.7-2.3) 05/21/23 04:28 Total Bilirubin 0.4 mg/dL (0.15-1.2) 05/21/23 04:28 GGT 161 U/L (5-36) H 05/20/23 19:01 AST 32 U/L (0-32) 05/21/23 04:28 ALT 75 U/L (0-33) H 05/21/23 04:28 Alkaline Phosphatase 95 U/L (35-105) 05/21/23 04:28 C-Reactive Protein 3.0 mg/L (0.0-4.9) 05/20/23 19:01 Total Protein 5.9 g/dL (6.6-8.7) L 05/21/23 04:28 Albumin 3.8 g/dL (3.5-5.2) 05/21/23 04:28 Globulin 2.1 g/dL (1.3-4.6) 05/21/23 04:28 Lipase 30 U/L (13-60) 05/20/23 19: Lipase 33 U/L (13-60) 05/20/23 19: TSH 2.70 uIU/mL (0.27-4.20) 05/20/23 19:01 Free T4 1.37 ng/dL (0.82-1.77) 05/20/23 19:01 Free T3 2.5 PG/ML (2.0-4.4) 05/20/23 19:01 Random Cortisol 13.89 ug/dL (2.47-19.5) 05/20/23 19: Random Cortisol 14.03 ug/dL (2.47-19.5) 05/20/23 19:01 Urine Color Light yellow (Yellow) 05/20/23 19:25 Urine Appearance Clear (CLEAR) 05/20/23 19:25 Urine pH 5 (5-7) 05/20/23 19:25 Ur Specific Luke 1.010 (1.005-1.030) 05/20/23 19:25 Urine Protein Neg (Negative) 05/20/23 19:25 Urine Glucose (UA) Norm (Normal) 05/20/23 19:25 Urine Ketones Negative (Negative) 05/20/23 19:25 Urine Blood Neg (Negative) 05/20/23 19:25 Urine Nitrate Negative (Negative) 05/20/23 19:25 Urine Bilirubin Neg (Negative) 05/20/23 19:25 Urine Urobilinogen Norm mg/dL (Negative) 05/20/23 19:25 Ur Leukocyte Esterase 1+ (Negative) H 05/20/23 19:25 Urine RBC 0-4 /hpf (0-2) H 05/20/23 19:25 Urine WBC 0-4 /hpf (0-5) H 05/20/23 19:25 Ur Squamous Epith Cells 0-4 /hpf (0-5) H 05/20/23 19:25 Amorphous Sediment Not Reportable 05/20/23 19:25 Urine Bacteria Trace /hpf (NONE) 05/20/23 19:25 Radiology Impressions Abdomen/Pelvis CT 05/20/23 19:17 IMPRESSION: 1. Prominent fluid in the small bowel without dilation may reflect an enteritis. 2. Minimal diverticulosis without diverticulitis. 3. Cholecystectomy. 4. Mild biliary dilation, nonspecific. 5. Gastric surgical sutures. 6. Constipation. Recent Clincial Data Last Vital Signs Temp 97.7 F 05/21/23 16:00 Pulse 71 05/21/23 16:00 Resp 17 05/21/23 14:55 BP 145/71 05/21/23 16:00 Pulse Ox 100 05/21/23 16:00 O2 Del Method Room Air 05/21/23 16:00 FiO2 21 05/20/23 23:55 Vital Signs Temp Pulse Resp BP Pulse Ox O2 Del Method 05/21/23 16:00 97.7 F 71 145/71 100 Room Air 05/21/23 14:55 77 17 150/80 98 Room Air 05/21/23 14:00 82 05/21/23 12:00 67 175/75 100 Room Air 05/21/23 10:58 75 16 165/82 100 05/21/23 07:57 75 16 100 Room Air 05/21/23 07:09 97.7 F 61 17 145/79 99 Room Air Intake & Output/Weight 05/19/23 05/20/23 05/21/23 05/22/23 06:59 06:59 06:59 06:59 Intake Total 1490 / 1490 1432.5 / 1432.5 Balance 1490 / 1490 1432.5 / 1432.5 Weight 91.654 kg Vitals Last Vital Signs Temp 97.7 F 05/21/23 16:00 Pulse 71 05/21/23 16:00 Resp 17 05/21/23 14:55 BP 145/71 05/21/23 16:00 Pulse Ox 100 05/21/23 16:00 O2 Del Method Room Air 05/21/23 16:00 FiO2 21 05/20/23 23:55 TS Medications Medications Acetaminophen (Acetaminophen 325 Mg Tablet) 650 mg PO Q6H PRN PRN Reason: Mild/Mod Pain Or Temp >/= 101 Artificial Tears (Artificial Tears Op Soln 15 Ml Btl) 1 drop EYE-BOTH Q4H PRN PRN Reason: DRY EYE(S) Aspirin (Aspirin 81 Mg Ec Tablet) 162 mg PO DAILY [facility] Last Admin: 05/21/23 11:27 Dose: 162 mg Buspirone HCl (Buspirone 10 Mg Tablet) 10 mg PO TID [facility] Last Admin: 05/21/23 15:16 Dose: Not Given Enoxaparin Sodium (Enoxaparin 40 Mg/0.4 Ml Syringe) 40 mg SUBCUT Q24H [facility] Last Admin: 05/20/23 23:13 Dose: 40 mg Fexofenadine HCl (Fexofenadine 60 Mg Tablet) 60 mg PO BID [facility] Last Admin: 05/21/23 17:06 Dose: 60 mg Hydrochlorothiazide (Hydrochlorothiazide 25 Mg Tablet) 25 mg PO DAILY [facility] Last Admin: 05/21/23 08:52 Dose: 25 mg Dextrose (D5w) 500 mls @ 0 mls/hr IV ONCE PRN; Protocol PRN Reason: Adult Acute Hypoglycemia Prot Dextrose (D10w) 125 mls @ 750 mls/hr IV PRN PRN; Protocol PRN Reason: Adult Acute Hypoglycemia Nursing Protocol Dextrose (D10w) 250 mls @ 1,000 mls/hr IV PRN PRN; Protocol PRN Reason: Adult Acute Hypoglycemia Nursing Protocol Last Infusion: 05/21/23 12:03 Dose: Infused Dextrose (D10w) 1,000 mls @ 75 mls/hr IV .[id number] [facility] Last Infusion: 05/21/23 15:30 Dose: 75 mls/hr Morphine Sulfate (Morphine 4 Mg/Ml Sdv 1 Ml) 2 mg IVP Q4H PRN PRN Reason: SEVERE PAIN Olmesartan 20 Mg Tab 1 each PO DAILY [facility] Last Admin: 05/21/23 11:31 Dose: 1 each Non-Formulary Medication (Melatonin) 5 mg PO BEDTIME [facility] Olopatadine HCl (Olopatadine 0.1% Op Soln 5 Ml Btl) 1 drop EYE-RIGHT BID [facility] Last Admin: 05/21/23 17:06 Dose: 1 drop Ondansetron HCl (Ondansetron 2 Mg/Ml Sdv 2 Ml) 4 mg IVP Q8H PRN PRN Reason: vomiting, or N/V if npo Pantoprazole Sodium (Pantoprazole 40 Mg Sdv) 40 mg IVP Q24H [facility] Last Admin: 05/20/23 23:13 Dose: 40 mg Pregabalin (Pregabalin 25 Mg Capsule) 25 mg PO BID [facility] Last Admin: 05/21/23 17:06 Dose: 25 mg Discontinued Medications Alprazolam (Alprazolam 0.5 Mg Tablet) 0.25 mg PO ONCE ONE Stop: 05/21/23 14:56 Last Admin: 05/21/23 15:14 Dose: 0.25 mg Aspirin (Aspirin 81 Mg Ec Tablet) 162 mg PO BEDTIME [facility] Dextrose/Sodium Chloride (Dextrose 5%-Sod Chloride 0.9%) 1,000 mls @ 100 mls/hr IV .Q10H [facility] Last Infusion: 05/21/23 16:55 Dose: Infused Dextrose/Sodium Chloride (Dextrose 5%-Sod Chloride 0.9%) 1,000 mls @ 100 mls/hr IV .Q10H [facility] Last Admin: 05/21/23 02:12 Dose: Not Given Iohexol (Iohexol 350 Mg/Ml 500 Ml Btl (Per Ml)) 0 ml IV ONCE ONE Stop: 05/20/23 19:59 Last Admin: 05/20/23 19:59 Dose: 100 ml Losartan Potassium (Losartan 50 Mg Tablet) 50 mg PO DAILY [facility] Non-Formulary Medication (Olmesartan) 20 mg PO DAILY [facility] Non-Formulary Medication (Melatonin) 5 mg PO DAILY [facility] Allergies latex Allergy (Verified 04/27/23 15:10) Unknown nickel Allergy (Verified 04/27/23 15:10) Unknown sulfamethoxazole [From Bactrim] Allergy (Verified 04/27/23 15:10) Unknown trimethoprim [From Bactrim] Allergy (Verified 04/27/23 15:10) Unknown ALEXY Inhibitors Adverse Reaction (Severe, Verified 04/28/23 13:55) ADR-Cough leflunomide Adverse Reaction (Intermediate, Verified 04/27/23 15:10) elevated LFT's Home Medications mecobalamin (vitamin B12) 5,000 mcg lozenge 5,000 mcg PO DIRECTED 10/04/19 [History Confirmed 05/20/23] acetaminophen 500 mg tablet 1,000 mg PO BID PRN pain 01/14/22 [History Confirmed 05/20/23] ketoconazole 2 % topical cream 1 applic topical BID #30 grams 05/21/22 [Rx Confirmed 05/20/23] pregabalin 25 mg capsule (Lyrica) 25 mg PO BID #60 caps 12/23/22 [Rx Confirmed 05/20/23] evolocumab 140 mg/mL subcutaneous pen injector (Unique Maldonado) 140 mg SUBCUT .i3bcomo #2 mL 04/14/23 [Rx Confirmed 05/20/23] etanercept 50 mg/mL (1 mL) subcutaneous syringe (Enbrel) See Rx Instructions .Route .COMPLEX #4 mL 04/22/23 [Rx Confirmed 05/20/23] hydrochlorothiazide 25 mg tablet 25 mg PO DAILY 04/27/23 [History Confirmed 05/20/23] [id number] ac 400 mcg-calcium carb 500 mg-vit K1 20 mcg tablet (Women's 50 Plus Multivitamin) 1 tab PO DAILY 04/27/23 [History Confirmed 05/20/23] turmeric root extract 150 mg-remedios root extract 25 mg chewable tablet 1 tab PO DAILY 04/27/23 [History Confirmed 05/20/23] aspirin 81 mg tablet,delayed release (Adult Aspirin Regimen) 162 mg (2 x 81 mg) PO BEDTIME #90 tabs 03/12/24 [Rx Confirmed 05/20/23] diabetic supplies, miscellan. #1 ea 04/28/23 [Rx Confirmed 05/20/23] olmesartan 20 mg tablet 20 mg PO DAILY #90 tabs 04/28/23 [Rx Confirmed 05/20/23] buspirone 10 mg tablet 10 mg PO TID #90 tabs 05/05/23 [Rx Confirmed 05/20/23] clonazepam 1 mg tablet 1 mg PO DAILY PRN insomnia #30 tabs 05/07/23 [Rx Conf irmed 05/20/23] tramadol 50 mg tablet 50 mg PO TID PRN pain #60 tabs 05/14/23 [Rx Confirmed 05/20/23] melatonin 5 mg PO BEDTIME 05/21/23 [History Confirmed 05/21/23] Discharge Plan Discharge Patient Disposition: Xfer Other Condition: Stable Prescriptions: No Action mecobalamin (vitamin B12) 5,000 mcg lozenge 5,000 mcg PO DIRECTED Rx Instructions: allow to dissolve in mouth OR may chew lightly before swallowing, weekly on Mondays acetaminophen 500 mg tablet 1,000 mg PO BID PRN (Reason: pain) ketoconazole 2 % cream 1 applic topical BID Qty: 30 6RF Rx Instructions: Apply to red-scaly areas on face 1-2 times daily. buspirone 10 mg tablet 10 mg PO TID Qty: 90 5RF pregabalin [Lyrica] 25 mg capsule 25 mg PO BID Qty: 60 5RF Repatha SureClick 140 mg/mL pen injector 140 mg SUBCUT .[id number] Qty: 2 3RF Enbrel 50 mg/mL (1 mL) syringe See Rx Instructions .ROUTE .COMPLEX Qty: 4 3RF Dose Instruction: inject 50mg SUBCUTANEOUSLY EVERY 7 DAYS Rx Instructions: inject 50mg SUBCUTANEOUSLY EVERY 7 DAYS clonazepam 1 mg tablet 1 mg PO DAILY PRN (Reason: insomnia) Qty: 30 2RF Rx Instructions: Take 1/2 to 1 tab PO at bedtime as needed for insomnia. tramadol 50 mg tablet 50 mg PO TID PRN (Reason: pain) Qty: 60 5RF hydrochlorothiazide 25 mg tablet 25 mg PO DAILY Women's 50 Plus Multivitamin 400 mcg-500 mg calcium-20 mcg Tablet 1 tab PO DAILY turmeric root-remedios root ext 150-25 mg Tablet,Chewable 1 tab PO DAILY (DME) diabetic supplies, miscellan. Misc See Rx Instructions .Route Qty: 1 0RF Rx Instructions: Glucometer and 90 lancets and strips olmesartan 20 mg tablet 20 mg PO DAILY Qty: 90 0RF aspirin [Adult Aspirin Regimen] 81 mg tablet,delayed release (DR/EC) 162 mg PO BEDTIME Qty: 90 0RF melatonin 5 mg PO BEDTIME Discharge Orders: Transfer Out of Facility (Order); Ordered 05/21/23 Ordered By: Moon Jean Referrals: Kwadwo Dorado DO [Primary Care Provider] - Patient Instructions: Opioid Safety Transfer Attestations Time Spent in Transfer Care: greater than 30 min Quality Metrics Clinical Quality Measures [ No reported AMI, CVA or VTE this stay] Coding Level of Care Code Acute Code for Chg Fwd Total time (in minutes) for Discharge: 70 Other Coding Information Prolonged care (total time indicated above or notated here) ( week) Diagnoses Postprandial hypoglycemia E16.1 History of gastric bypass Z98.84 Hypoglycemia E16.2
[2023-05-21 18:21] LABS: Glucose Point of Care 212 mg/dL (70-110)
[2023-05-24 03:51] LABS: Beta-Hydroxybutyrate 0.06 mmol/L
== END 2023-05-21 19:29 | disposition other institution (70) ==
LOC: ER 21:29 → MEDSURG 21:35
PROVIDERS: Emergency Medicine; Admitting Provider Family Medicine; Emergency Provider Emergency Medicine; PCP Family Medicine; Visit Provider Student in an Organized Health Care Education/Training Program
DX: E11.649 Type 2 diabetes mellitus with hypoglycemia without coma (principal); Z98.84 Bariatric surgery status; M06.00 Rheumatoid arthritis without rheumatoid factor, unspecified site; I10 Essential (primary) hypertension; Z79.82 Long term (current) use of aspirin; M79.7 Fibromyalgia
CPT/HCPCS: 36415; 36416; 74177; 80053; 81001; 82010; 82533; 82962; 82977; 83036; 83525; 83690; 83735; 84100; 84439; 84443; 84481; 84681; 85025; 85651; 86140; 94660; 94664; 96361; 96372; 96374; 99285; C9113; G0378; J1610; J1650; J7042; J7799; Q9967

== ENCOUNTER 2023-06-02 09:42 | Outpatient (CLI) | payer MEDICARE, SELFPAY ==
[2023-06-02 10:25] LABS: Anion Gap 10.9 (5-19); Blood Urea Nitrogen 19 mg/dL (8-23); Calcium 10.2 mg/dL (8.5-10.5); Carbon Dioxide 31 mmol/L (22-29); Chloride 100 mmol/L (98-107); Glomerular Filtration Rate 98.8 mL/min (90-130); Glucose 101 mg/dL (65-115); Magnesium 2.2 mg/dL (1.7-2.3); Osmolality Calculated 288 mOsm/kg (285-295); Potassium 3.9 mmol/L (3.5-5.1); Sodium 138 mmol/L (136-145)
== END 2023-06-02 09:43 | disposition home or self-care (01) ==
LOC: LAB 09:44
PROVIDERS: PCP Family Medicine; Visit Provider Internal Medicine Cardiovascular Disease
DX: I25.10 Atherosclerotic heart disease of native coronary artery without angina pectoris (principal); Z79.899 Other long term (current) drug therapy
CPT/HCPCS: 36415; 80048; 83735

== ENCOUNTER → 2023-06-16 08:26 | Outpatient (BNVA) | payer MEDICARE, MEDICAID, SELFPAY | PROVIDERS: PCP Family Medicine; Visit Provider Family Medicine | DX: E16.2 Hypoglycemia, unspecified (principal); R74.8 Abnormal levels of other serum enzymes | CPT/HCPCS: 80053; 83525; 84206; 84305; 84681 ==

== ENCOUNTER 2023-07-14 12:02 | Emergency (ER) | payer MEDICARE, SELFPAY ==
--- NOTE | 2023-07-14 12:02 | ECG_ITS ---
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 Measurements Intervals [place] Rate: 52 P: 2 LA: 172 QRS: -3 QRSD: 144 T: 16 QT: 417 QTc: 389 Interpretive Statements SINUS BRADYCARDIA RIGHT BUNDLE BRANCH BLOCK [120+ ms QRS DURATION, UPRIGHT V1, 40+ ms S IN I/aVL/V4/V5/V6] POSSIBLE ANTERIOR MYOCARDIAL INFARCTION , OF INDETERMINATE AGE [30 ms Q WAVE IN V3/V4, OR R < 0.2 mV IN V4] Compared to ECG 04/27/2023 15:03:48 Myocardial infarct finding now present Sinus rhythm no longer present Electronically Signed On 07-14-2023 16:48:56 CDT by Channing Reynoso M.D. [email or web address].[id number] f
[2023-07-14 12:07] VITALS: BP 184/80; PULSE 51; RESP 18; TEMP 36.6; O2SAT 100; BMI 35.2
--- NOTE | 2023-07-14 12:33 | XR_ITS ---
WS: [id number] Exam: XR chest 1V portable [id number] Date/Time of Exam: 07/14/2023 12:39 PM Reason For Exam: chest pain Comparison 12/27/2022. The lungs are clear and fully inflated. Normal cardiomediastinal silhouette. No pleural effusions. De generative changes and spondylosis of the T-spine. XR/XR chest 1V portable [id number] IMPRESSION: 1. No acute cardiopulmonary finding.
[2023-07-14 12:40] VITALS: BP 176/84; PULSE 52; O2SAT 98
[2023-07-14] MEDS: aspirin 81 mg Chew Tablet 324 MG PO (12:41)
[2023-07-14 13:10] VITALS: PULSE 68; O2SAT 99
[2023-07-14 13:31] LABS: Basophils # 0.1 10^3/uL (0.0-0.1); Basophils % 1.7 %; Eosinophils # 0.5 10^3/uL (0.0-0.8); Eosinophils % 10.5 %; Hematocrit 36.8 % (36-47); Lymphocytes # 1.5 10^3/uL (0.8-4.8); Lymphocytes % 32.1 %; Mean Corpuscular HGB Conc 33.7 g/dL (30-55); Mean Corpuscular Hemoglobin 32.5 pg (27-33); Mean Corpuscular Volume 96.6 fl (85-98); Mean Platelet Volume 10.5 fL (7.4-10.4); Monocytes # 0.4 10^3/uL (0.2-0.9); Monocytes % 7.4 %; Neutrophils # 2.28 10^3/uL (1.8-7.7); Neutrophils % 48.1 %; Nucleated Red Blood Cells % 0 %; Platelet Count 148 10^3/cmm (157-399); Red Blood Count 3.81 10^6/uL (3.85-5.65); Red Cell Distribution Width 12.1 % (12.1-15.1); White Blood Count 4.74 10^3/uL (3.29-11.43)
[2023-07-14 13:50] LABS: Alanine Aminotransferase 192 U/L (0-33); Alkaline Phosphatase 83 U/L (35-105); Anion Gap 13.3 (5-19); Aspartate Amino Transferase 103 U/L (0-32); Blood Urea Nitrogen 14 mg/dL (8-23); Calcium 9.5 mg/dL (8.5-10.5); Carbon Dioxide 27 mmol/L (22-29); Chloride 103 mmol/L (98-107); Creatinine Clr Calc Pharmacy 75.0617; Globulin 2.1 g/dL (1.3-4.6); Glomerular Filtration Rate 98.8 mL/min (90-130); Glucose 128 mg/dL (65-115); Osmolality Calculated 290 mOsm/kg (285-295); Potassium 4.3 mmol/L (3.5-5.1); Sodium 139 mmol/L (136-145); Total Bilirubin 0.3 mg/dL (0.15-1.2); Total Protein 6.1 g/dL (6.6-8.7)
[2023-07-14 13:51] LABS: Troponin(5th) Baseline 7 ng/L (0-10)
[2023-07-14 14:00] VITALS: BP 156/68; PULSE 48; O2SAT 99
--- NOTE | 2023-07-14 14:10 | ECG_ITS ---
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 Measurements Intervals [place] Rate: 47 P: 13 TX: 188 QRS: -1 QRSD: 144 T: 13 QT: 443 QTc: 395 Interpretive Statements SINUS BRADYCARDIA RIGHT BUNDLE BRANCH BLOCK [120+ ms QRS DURATION, UPRIGHT V1, 40+ ms S IN I/aVL/V4/V5/V6] Compared to ECG 07/14/2023 12:02:59 Myocardial infarct finding no longer present Electronically Signed On 07-14-2023 16:51:20 CDT by Channing Reynoso M.D. [id number]
--- NOTE | 2023-07-14 14:14 | CT_ITS ---
WS: [id number] CT HEAD TECHNIQUE: Noncontrast CT of the head obtained from the skullbase to the vertex. CLINICAL INFORMATION: facial numbness COMPARISON: 04/27/2023 DLP: 1121.[address] scans at [facility] use at least one of these dose optimization techniques: automated e xposure control; mA and/or kV adjustment per patient size (includes targeted exams where dose is matc hed to clinical indication); or iterative reconstruction. FINDINGS: No evidence of intracranial hemorrhage or mass effect. Ventricular system and basal cisterns are parks nt. Mild small vessel changes with mild parenchymal volume loss. No extra-axial fluid collections. No evidence of mass or mass effect. Intracranial vascular calcification. Paranasal sinuses and mastoid air cells are well aerated. .Normal visualized soft tissues. CT/CT head wo con* [id number] IMPRESSION: 1. No evidence of intracranial hemorrhage or mass effect. 2. Mild small vessel changes. Mild parenchymal volume loss. 3. Cavernous carotid calcification. 4. No acute intracranial findings. Notified Oziel Mckinley DO at 07/14/2023 3:00 PM.
--- NOTE | 2023-07-14 14:34 | W.ED.CHESTPA ---
HPI - Chest Pain General: Chief Complaint: Chest Pain Stated Complaint: Chest Pain--numbness Time Seen by Provider: 07/14/23 12:32 History of Present Illness: 68-year-old female presents to the emergency room with complaint of intermittent chest pain fluttering or heart this been going on for quite some time now. She has had episodes of hypoglycemia as well. She seen cardiology she has had several episodes of palpitations she is on a relatively low-dose of metoprolol that has not changed recently. Today she began having fluttering palpitations. They have evaluated him in the past thinking she may have atrial fibrillation. She not having any chest pain at this time. She does have some fluttering at times associated with shortness of breath. No medication changes or prescription medicines recently. MD complaint: chest pain Pertinent past history: coronary artery disease Onset (ago): minute(s) Timing of current episode: episodic Onset: during rest Quality: aching Associated symptoms: Deny abdominal pain, diaphoresis, dyspnea, fever(s), leg edema, nausea, palpitations, sense of impending doom, syncope or vomiting Treatment prior to arrival: none Review of Systems Const: Denies: fever(s) or diaphoresis Card: Denies: palpitations or syncope Resp: Denies: dyspnea GI: Denies: abdominal pain, nausea or vomiting : Denies: dysuria, urinary frequency or urinary urgency Musc: Denies: neck pain or back pain Skin/Breast: Denies: rash PFSH ED PFSH: Medical History Multiple episodes of hypoglycemia Atherosclerosis of [place] coronary artery without angina pectoris Helicobacter pylori gastritis Skin rash 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 Osteoporosis Skin ulcer of face, limited to breakdown of skin Positive PRICE (antinuclear antibody) Inflammatory arthritis Fibromyalgia Hypertension Diabetes High risk medication use Immunization counseling Surgical History History of right knee joint replacement History of left knee replacement History of hysterectomy History of cholecystectomy History of bladder repair surgery History of carpal tunnel repair History of bariatric surgery Family History Other CAD (coronary artery disease) Cancer Diabetes Heart disease Hyperlipidemia Hypertension Stroke Denies family history of Rheumatoid arthritis Lupus Chronic kidney disease (CKD) Lung disease Social History Smoking and tobacco/nicotine status: never used tobacco/nicotine Alcohol intake: never Substance/Drug Use: never Female Reproductive History: Spontaneous abortions: No Physical Exam Const: COMMON NORMALS: no acute distress GENERAL APPEARANCE: cooperative and comfortable ORIENTATION/CONSCIOUSNESS: Yes awake, Yes oriented to person, Yes oriented to place and Yes oriented to time HENMT: COMMON NORMALS: normocephalic, atraumatic and hearing grossly normal bilaterally HEAD & SCALP: normocephalic and atraumatic Resp: COMMON NORMALS: normal respiratory effort, No retractions, No use of accessory muscles and clear to auscultation bilaterally AUSCULTATION: clear to auscultation bilaterally Cardio: COMMON NORMALS: regular rate, regular rhythm and No murmurs present (Cardio) RATE: regular rate RHYTHM: regular rhythm GI: COMMON NORMALS: Soft to palpation and No hepatosplenomegaly present AUSCULTATION: Yes normoactive bowel sounds PALPATION: Yes Soft to palpation, No Tenderness to palpation present (GI), No Guarding due to palpation present (GI) and Yes No hepatosplenomegaly present Extremity: COMMON NORMALS: normal to inspection, capillary refill normal, no clubbing, cyanosis or edema, no calf tenderness and no pedal edema Neuro: SENSORIUM/ORIENTATION: Yes oriented to person, Yes oriented to place and Yes oriented to time Skin: COMMON NORMALS: no rashes or lesions noted GENERAL SKIN EXAM: no rashes or lesions noted Course Vital Signs: Vital signs: Vital Signs Temperature 97.9 F 07/14/23 12:07 Pulse Rate 53 L 07/14/23 16:47 Respiratory Rate 18 07/14/23 12:07 Blood Pressure 160/70 07/14/23 16:47 Pulse Oximetry 99 07/14/23 16:47 Oxygen Delivery Me thod Room Air 07/14/23 16:47 MDM - Chest Pain Medical Decision Making Labs and imaging reviewed. Will monitor strip she had several episodes of bradycardia at times down to the 40s. However she was relatively asymptomatic of this she does not have a large number of PVCs noted. No further chest discomfort. Unfortunately for this has been a long ongoing issue. Additionally she is showed me her Dexcom monitor she has had several episodes of rapidly fluctuating blood sugars. She does not take any at antihyperglycemic's blood sugar has gone from 250s down to the 50s and 60s within an hour with no medications. This is an ongoing workup for her as an outpatient she is set up to see endocrinology. Her blood pressure remained elevated. Consulted Dr. Mcgregor by phone and reviewed findings in the emergency room as well as her bradycardia. Dr. Mcgregor recommends we decrease metoprolol to 12.5 twice daily add amlodipine 2.5 daily and follow-up with him within the next week to review. Continue to monitor blood sugars. Dr. Mcgregor is considering placement of a loop recorder. If there is any further symptoms return to the emergency room or contact Dr. Garcia office. Medical Records I reviewed the patient's medical records. Lab Data I reviewed the patient's lab results. 07/14/23 13:26 07/14/23 13:26 Radiology Impressions Chest X-Ray 07/14/23 12:33 IMPRESSION: 1. No acute cardiopulmonary finding. Head CT 07/14/23 14:14 IMPRESSION: 1. No evidence of intracranial hemorrhage or mass effect. 2. Mild small vessel changes. Mild parenchymal volume loss. 3. Cavernous carotid calcification. 4. No acute intracranial findings. Notified Oziel Mckinley DO at 07/14/2023 3:00 PM. Laboratory Results WBC 4.74 10^3/uL (3.29-11.43) 07/14/23 13: RBC 3.81 10^6/uL (3.85-5.65) L 07/14/23 13:26 Hgb 12.40 g/dL (11.27-16.99) 07/14/23 13:26 Hct 36.8 % (36-47) 07/14/23 13:26 MCV 96.6 fl (85-98) 07/14/23 13:26 MCH 32.5 pg (27-33) 07/14/23 13: MCHC 33.7 g/dL (30-55) 07/14/23 13:26 RDW 12.1 % (12.1-15.1) 07/14/23 13:26 Plt Count 148 10^3/cmm (157-399) L 07/14/23 13:26 MPV 10.5 fL (7.4-10.4) H 07/14/23 13:26 Neut % (Auto) 48.1 % 07/14/23 13:26 Lymph % (Auto) 32.1 % 07/14/23 13:26 [place] % (Auto) 7.4 % 07/14/23 13:26 Eos % (Auto) 10.5 % 07/14/23 13:26 Baso % (Auto) 1.7 % 07/14/23 13:26 Neut # (Auto) 2.28 10^3/uL (1.8-7.7) 07/14/23 13:26 Lymph # (Auto) 1.5 10^3/uL (0.8-4.8) 07/14/23 13:26 [place] # (Auto) 0.4 10^3/uL (0.2-0.9) 07/14/23 13:26 Eos # (Auto) 0.5 10^3/uL (0.0-0.8) 07/14/23 13: Baso # (Auto) 0.1 10^3/uL (0.0-0.1) 07/14/23 13:26 Nucleated RBC % (auto) 0 % 07/14/23 13:26 Nucleated RBCs # 0.0 /100WBC 07/14/23 13:26 Sodium 139 mmol/L (136-145) 07/14/23 13:26 Potassium 4.3 mmol/L (3.5-5.1) 07/14/23 13:26 Chloride 103 mmol/L (98-107) 07/14/23 13:26 Carbon Dioxide 27 mmol/L (22-29) 07/14/23 13:26 Anion Gap 13.3 (5-19) 07/14/23 13:26 BUN 14 mg/dL (8-23) 07/14/23 13:26 Creatinine 0.6 mg/dL (0.5-0.9) 07/14/23 13:26 GFR Calculation 98.8 mL/min (90-130) 07/14/23 13:26 Glucose 128 mg/dL (65-115) H 07/14/23 13:26 Calculated Osmolality 290 mOsm/kg (285-295) 07/14/23 13:26 Calcium 9.5 mg/dL (8.5-10.5) 07/14/23 13:26 Magnesium 2.1 mg/dL (1.7-2.3) 07/14/23 13:26 Total Bilirubin 0.3 mg/dL (0.15-1.2) 07/14/23 13:26 AST 103 U/L (0-32) H 07/14/23 13:26 ALT 192 U/L (0-33) H 07/14/23 13:26 Alkaline Phosphatase 83 U/L (35-105) 07/14/23 13:26 Troponin T Baseline 7 ng/L (0-10) 07/14/23 13:26 Troponin T 120 Minute 6.86 ng/L (0-10) 07/14/23 15:24 Delta Troponin T -0.14 ABS# (0-10) L 07/14/23 15:24 Total Protein 6.1 g/dL (6.6-8.7) L 07/14/23 13:26 Albumin 4.0 g/dL (3.5-5.2) 07/14/23 13:26 Globulin 2.1 g/dL (1.3-4.6) 07/14/23 13:26 TSH 3.30 uIU/mL (0.27-4.20) 07/14/23 13:26 All radiology interpretation(s) finalized by discharge Discharge Plan Discharge Patient Disposition: Home Clinical Impression: Palpitations, HTN (hypertension) Condition: Stable Prescriptions: New amlodipine 2.5 mg tablet 2.5 mg PO DAILY Qty: 30 0RF metoprolol tartrate 25 mg tablet 12.5 mg PO BID Qty: 30 0RF Discontinued metoprolol tartrate 25 mg tablet 25 mg PO BID No Action mecobalamin (vitamin B12) 5,000 mcg lozenge 5,000 mcg PO DIRECTED Rx Instructions: allow to dissolve in mouth OR may chew lightly before swallowing, weekly on Mondays buspirone 10 mg tablet 10 mg PO TID Qty: 90 5RF (DME) FreeStMyoKardia Riley 3 Sensor Device See Rx Instructions .MEDSUPPLY Qty: 2 12RF Rx Instructions: Change every 14 days; Use as directed to check blood sugar Repatha SureClick 140 mg/mL pen injector 140 mg SUBCUT .[id number] Qty: 2 3RF Enbrel 50 mg/mL (1 mL) syringe See Rx Instructions .ROUTE .COMPLEX Qty: 4 3RF Dose Instruction: inject 50mg SUBCUTANEOUSLY EVERY 7 DAYS Rx Instructions: inject 50mg SUBCUTANEOUSLY EVERY 7 DAYS tramadol 50 mg tablet 50 mg PO TID PRN (Reason: pain) Qty: 60 5RF (DME) lancets [Accu-Chek Softclix Lancets] Misc See Rx Instructions .Route Qty: 100 5RF Rx Instructions: Use As directed alprazolam 0.25 mg tablet 0.25 mg PO DAILY Qty: 30 2RF magnesium L-lactate 84 mg tablet extended release 168 mg PO DAILY Qty: 60 1RF (DME) Accu-Chek Guide test strips Strip See Rx Instructions .Route Qty: 150 5RF Rx Instructions: Check sugars 5x a day. pregabalin [Lyrica] 25 mg capsule 25 mg PO BID Qty: 60 5RF hydrochlorothiazide 25 mg tablet 25 mg PO DAILY Women's 50 Plus Multivitamin 400 mcg-500 mg calcium-20 mcg Tablet 1 tab PO DAILY (DME) diabetic supplies, miscellan. [facility] See Rx Instructions .Route Qty: 1 0RF Rx Instructions: Glucometer and 90 lancets and strips olmesartan 20 mg tablet 20 mg PO DAILY Qty: 90 0RF aspirin [Adult Aspirin Regimen] 81 mg tablet,delayed release (DR/EC) 162 mg PO BEDTIME Qty: 90 0RF mupirocin 2 % ointment 1 applic TOPICAL PRN PRN (Reason: Skin Irritation) Vitamin D3 25 mcg (1,000 unit) Tablet 25 mcg PO DAILY Prolia 60 mg/mL Syringe 60 mg SUBCUT .[id number] melatonin 5 mg PO BEDTIME Discharge Orders: Discharge ED (Routine); Ordered 07/14/23 Ordered By: Oziel Mckinley Referrals: Kwadwo Dorado DO [Primary Care Provider] - Discharge Diet: Usual diet Discharge Activity: Increase activity as tolerated Patient Instructions: Opioid Safety, Pain Management Activity Restrictions/Additional Instructions: Thank you for choosing [facility] for your healthcare needs today. Please realize this is an emergency room and that we are providing you with a medical screening exam and this may not be complete and all inclusive of all the testing and or work up that you may need to determine your ailment or severity of your illness. It is very important that you follow up as instructed or that you return to the Emergency Department should you have concerns or if your condition changes or worsens in any way. You were seen today for palpitations facial numbness. CT of your head was negative cardiac enzymes and EKGs were normal. We did note that you were significantly bradycardic. Reviewed your case with Dr. Mcgregor. We recommend that you decrease your metoprolol to 12.5 mg twice a day add amlodipine 2.5 mg daily. Follow-up with your primary care doctor within the next week to reevaluate your blood pressure. Coding Level of Care Code ED Transportation Technician for Porsha Whitehead
[2023-07-14 15:00] LABS: Magnesium 2.1 mg/dL (1.7-2.3)
[2023-07-14 15:53] LABS: Troponin 5 2HR 6.86 ng/L (0-10); Troponin 5 2HR Delta -0.14 ABS# (0-10)
[2023-07-14 16:47] VITALS: BP 160/70; PULSE 53; O2SAT 99
--- NOTE | 2023-07-14 18:33 | ECG_ITS ---
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 Measurements Intervals [place] Rate: 48 P: 15 GA: 180 QRS: -1 QRSD: 153 T: 14 QT: 459 QTc: 414 Interpretive Statements SINUS BRADYCARDIA RIGHT BUNDLE BRANCH BLOCK [120+ ms QRS DURATION, UPRIGHT V1, 40+ ms S IN I/aVL/V4/V5/V6] Compared to ECG 07/14/2023 14:10:18 No significant changes Electronically Signed On 07-14-2023 16:51:16 CDT by Channing Reynoso M.D. [email or web address]
== END 2023-07-14 16:51 | disposition home or self-care (01) ==
PROVIDERS: Emergency Provider Family Medicine; PCP Family Medicine
DX: R00.2 Palpitations (principal); I10 Essential (primary) hypertension; Z79.82 Long term (current) use of aspirin; I25.10 Atherosclerotic heart disease of native coronary artery without angina pectoris
CPT/HCPCS: 36415; 70450; 71045; 80053; 83735; 84443; 84484; 85025; 93005; 99285

== ENCOUNTER → 2023-07-28 08:29 | Outpatient (BNVA) | payer MEDICARE, MEDICAID, SELFPAY | PROVIDERS: PCP Family Medicine; Visit Provider Psychiatry & Neurology Neurology | DX: Z86.73 Personal history of transient ischemic attack (TIA), and cerebral infarction without residual deficits (principal); R29.898 Other symptoms and signs involving the musculoskeletal system; M79.641 Pain in right hand; M79.642 Pain in left hand | CPT/HCPCS: 99203 ==

== ENCOUNTER 2023-08-03 14:55 | Outpatient (CLI) | payer MEDICARE, MEDICAID, SELFPAY ==
[2023-08-03 15:53] LABS: Vitamin B12 968 pg/mL (232-1245)
[2023-08-03 16:15] LABS: Folate Level > 20.0 ng/mL (4.8-37.3)
[2023-08-06 23:54] LABS: Methylmalonic Acid 267 nmol/L (69-390)
== END 2023-08-03 14:56 | disposition home or self-care (01) ==
LOC: LAB 14:56
PROVIDERS: PCP Family Medicine; Visit Provider Psychiatry & Neurology Neurology
DX: I63.9 Cerebral infarction, unspecified (principal); E53.8 Deficiency of other specified B group vitamins; E78.2 Mixed hyperlipidemia; R55 Syncope and collapse
CPT/HCPCS: 36415; 82607; 82746; 83090; 83921; 99214

== ENCOUNTER 2023-08-11 07:35 | Outpatient (CLI) | payer MEDICARE, MEDICAID, SELFPAY ==
--- NOTE | 2023-08-11 07:41 | MM_ITS ---
WS: [id number] BILATERAL 3D TOMOSYNTHESIS DIGITAL SCREENING MAMMOGRAPHY WITH CAD CLINICAL INFORMATION: SCREENING HISTORY: Screening mammogram. No current complaints. COMPARISON: 2022 TECHNIQUE: Bilateral CC and MLO views. FINDINGS: Scattered fibroglandular densities bilaterally. No suspicious focal mass, asymmetry, calcifications, or architectural distortion. No evidence of malignancy. MM/[place] [id number] IMPRESSION: BI-RADS: 1-Negative FOLLOW UP: 1 Year Follow-up Recommend return to annual screening mammography.
== END 2023-08-11 07:36 | disposition home or self-care (01) ==
LOC: RAD 07:36
PROVIDERS: PCP Family Medicine; Visit Provider Family Medicine
DX: Z12.31 Encounter for screening mammogram for malignant neoplasm of breast (principal); R92.323 Mammographic fibroglandular density, bilateral breasts
CPT/HCPCS: 77063; 77067

== ENCOUNTER 2023-09-22 14:08 | Oncology outpatient (recurring) (ONCR) | payer MEDICARE, MEDICAID, SELFPAY ==
[2023-09-22] MEDS: denosumab 60 mg SDV SUBCUT (14:30)
[2023-09-22 14:36] VITALS: BP 131/72; PULSE 62; RESP 18; TEMP 36.2; O2SAT 97
== END 2023-10-17 23:55 | disposition home or self-care (01) ==
PROVIDERS: PCP Family Medicine; Visit Provider Internal Medicine Rheumatology
DX: M81.0 Age-related osteoporosis without current pathological fracture (principal); Z79.899 Other long term (current) drug therapy
CPT/HCPCS: 96372; J0897

== ENCOUNTER → 2023-10-05 10:59 | Outpatient (BNVA) | payer MEDICARE, MEDICAID, SELFPAY | PROVIDERS: PCP Family Medicine; Visit Provider Internal Medicine Rheumatology | DX: M06.041 Rheumatoid arthritis without rheumatoid factor, right hand (principal); M06.042 Rheumatoid arthritis without rheumatoid factor, left hand; M81.0 Age-related osteoporosis without current pathological fracture; Z71.85 Encounter for immunization safety counseling; Z79.899 Other long term (current) drug therapy; R76.8 Other specified abnormal immunological findings in serum; Z87.891 Personal history of nicotine dependence | CPT/HCPCS: 99214 ==

== ENCOUNTER → 2023-11-24 11:45 | Outpatient (BNVA) | payer MEDICARE, SELFPAY | PROVIDERS: PCP Family Medicine; Referring Provider Psychiatry & Neurology Neurology; Visit Provider Psychiatry & Neurology Neurology | DX: R29.898 Other symptoms and signs involving the musculoskeletal system (principal); G56.03 Carpal tunnel syndrome, bilateral upper limbs | CPT/HCPCS: 95911 ==

== ENCOUNTER 2023-11-25 11:21 | Emergency (ER) | payer MEDICARE, SELFPAY ==
[2023-11-25 11:26] VITALS: BP 156/75; PULSE 62; RESP 16; TEMP 36.8; O2SAT 97; BMI 33.7
--- NOTE | 2023-11-25 12:04 | W.ED.BACK ---
HPI - Back Pain/Injury General: Chief Complaint: Back Pain/Injury Stated Complaint: twisted back and side of legs Time Seen by Provider: 11/25/23 11:55 History of Present Illness: 68-year-old female who says she tripped and spun on a area rug. She did not fall. But she did tweak her back and is now having pain in her right low back that radiates down her right thigh. No saddle numbness, no urinary retention or incontinence, no focal motor deficit, no sensory deficit. no recent fever. no cough. no shortness of breath. no chest pain. no abdominal pain. no nausea or vomiting. no dysuria. no altered mental status. no edema. Related Data Home Medications Medication Instructions Recorded Confirmed mecobalamin (vitamin B12) 5,000 5,000 mcg PO DIRECTED 10/04/19 11/24/23 mcg lozenge crqxipnt-mag-uyekg ac 400 1 tab PO DAILY 04/27/23 11/24/23 mcg-calcium carb 500 mg-vit K1 20 mcg tablet (Women's 50 Plus Multivitamin) cholecalciferol (vitamin D3) 25 25 mcg PO DAILY 07/14/23 11/24/23 mcg (1,000 unit) tablet (Vitamin D3) denosumab 60 mg/mL subcutaneous 60 mg SUBCUT .[id number] 07/14/23 11/24/23 syringe (Prolia) mupirocin 2 % topical ointment 1 applic topical PRN PRN Skin 07/14/23 11/24/23 Irritation acarbose 25 mg tablet mg PO 07/28/23 11/24/23 melatonin 10 mg PO BEDTIME 10/05/23 11/24/23 Previous Rx's Medication Instructions Recorded aspirin 81 mg tablet,delayed 162 mg (2 x 81 mg) PO BEDTIME #90 04/28/23 release (Adult Aspirin Regimen) tabs diabetic supplies, miscellan. #1 ea 04/28/23 tramadol 50 mg tablet 50 mg PO TID PRN pain #60 tabs 05/14/23 lancets (Accu-Chek Softclix #100 ea 05/26/23 Lancets) blood sugar diagnostic (Accu-Chek #150 ea 06/23/23 Guide test strips) pregabalin 25 mg capsule (Lyrica) 25 mg PO BID #60 caps 06/29/23 metoprolol tartrate 25 mg tablet 12.5 mg (1/2 x 25 mg) PO BID #30 07/14/23 tabs amlodipine 5 mg tablet 5 mg PO DAILY #90 tabs 08/04/23 evolocumab 140 mg/mL subcutaneous See Rx Instructions .Route 08/17/23 pen injector (Repatha SureClick) .COMPLEX #2 mL magnesium L-lactate 84 mg See Rx Instructions .Route 09/28/23 tablet,extended release (Magtab) .COMPLEX #60 tabs etanercept 50 mg/mL (1 mL) See Rx Instructions .Route 10/05/23 subcutaneous syringe (Enbrel) .COMPLEX #4 mL olmesartan 20 mg tablet 20 mg PO DAILY #90 tabs 10/31/23 buspirone 10 mg tablet 10 mg PO TID #90 tabs 11/05/23 alprazolam 0.25 mg tablet 0.25 mg PO DAILY #30 tabs 11/16/23 hydrochlorothiazide 25 mg tablet 25 mg PO DAILY #60 tabs 11/16/23 cyclobenzaprine 10 mg tablet 10 mg PO Q8H PRN muscle spasm #20 11/25/23 tabs dexamethasone 6 mg tablet 6 mg PO DAILY 5 days #5 tabs 11/25/23 diclofenac sodium 50 mg 50 mg PO BID PRN pain #14 tabs 11/25/23 tablet,delayed release hydrocodone 5 mg-acetaminophen 325 1 tab PO Q8H PRN pain #14 tabs 11/25/23 mg tablet Allergies Allergy/AdvReac Type Severity Reaction Status Date / Time latex Allergy Unknown Verified 10/27/23 09:11 nickel Allergy Unknown Verified 10/27/23 09:11 sulfamethoxazole Allergy Unknown Verified 10/27/23 09:11 [From Bactrim] trimethoprim [From Bactrim] Allergy Unknown Verified 10/27/23 09:11 ALEXY Inhibitors AdvReac Severe ADR-Cough Verified 10/27/23 09:11 leflunomide AdvReac Intermediate elevated Verified 10/27/23 09:11 LFT's Review of Systems Narrative: Thank you for choosing [facility] for your healthcare needs today. Please realize this is an emergency room and that we are providing you with a medical screening exam and this may not be complete and all inclusive of all the testing and or work up that you may need to determine your ailment or severity of your illness. You have been screened and evaluated and felt safe for discharge. Health conditions do change or evolve sometimes and as such it is important that you follow up with your Primary Doctor to be re checked, 3-5 days is a general good time frame for follow up. 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 Osteoporosis Skin ulcer of face, limited to breakdown of skin Positive PRICE (antinuclear antibody) Inflammatory arthritis Fibromyalgia Hypertension Diabetes High risk medication use Immunization counseling Surgical History History of right knee joint replacement History of left knee replacement History of hysterectomy History of cholecystectomy History of bladder repair surgery History of carpal tunnel repair History of bariatric surgery Family History Other CAD (coronary artery disease) Cancer Diabetes Heart disease Hyperlipidemia Hypertension Stroke Denies family history of Rheumatoid arthritis Lupus Chronic kidney disease (CKD) Lung disease Social History Smoking and tobacco/nicotine status: former use of tobacco/nicotine Quit status (tobacco/nicotine): has quit using Year quit tobacco: 1995 Alcohol intake: never Substance/Drug Use: never Female Reproductive History: Spontaneous abortions: No Physical Exam Narrative: EXAM NARRATIVE: General: Alert, no acute distress. Head: Normocephalic Neck: Trachea midline Eye: Extraocular movements are intact. Ears, nose, mouth and throat: Oral mucosa moist Respiratory: Respirations are non-labored Musculoskeletal: Normal ROM Back: no step off, no focal tenderness, some paraspinal muscle tenderness Neurological: Alert and oriented to person, place, time, and situation, No focal neurological deficit observed. Psychiatric: Cooperative, appropriate mood & affect. Course Vital Signs: Vital signs: Vital Signs Temperature 98.2 F 11/25/23 11:26 Pulse Rate 62 11/25/23 11:26 Respiratory Rate 16 11/25/23 11:26 Blood Pressure 156/75 11/25/23 11:26 Pulse Oximetry 97 11/25/23 11:26 Oxygen Delivery Me thod Room Air 11/25/23 11:26 MDM - Back Pain/Injury Medical Decision Making Assessment and plan: Low back pain Lumbar strain Lumbar radiculopathy ?IM Decadron, IM Norflex and p.o. Knapp in the emergency room. - Discharged home - Discussed plan with patient. Answered any questions. - Evaluation and treatment of this problem were appropriate in the emergency setting. No radiology studies performed this visit Discharge Plan Discharge Patient Disposition: Home Clinical Impression: Strain of lumbar region Condition: Stable Prescriptions: New cyclobenzaprine 10 mg tablet 10 mg PO Q8H PRN (Reason: muscle spasm) Qty: 20 0RF hydrocodone-acetaminophen 5-325 mg tablet 1 tab PO Q8H PRN (Reason: pain) Qty: 14 0RF Rx Instructions: Take 1/2 to 1 tab every 8 hours as needed for pain dexamethasone 6 mg tablet 6 mg PO DAILY 5 Days Qty: 5 0RF diclofenac sodium 50 mg tablet,delayed release (DR/EC) 50 mg PO BID PRN (Reason: pain) Qty: 14 0RF No Action mecobalamin (vitamin B12) 5,000 mcg lozenge 5,000 mcg PO DIRECTED Rx Instructions: allow to dissolve in mouth OR may chew lightly before swallowing, weekly on Mondays Enbrel 50 mg/mL (1 mL) syringe See Rx Instructions .ROUTE .COMPLEX Qty: 4 5RF Dose Instruction: inject 50mg SUBCUTANEOUSLY EVERY 7 DAYS Rx Instructions: inject 50mg SUBCUTANEOUSLY EVERY 7 DAYS melatonin 10 mg PO BEDTIME acarbose 25 mg tablet PO tramadol 50 mg tablet 50 mg PO TID PRN (Reason: pain) Qty: 60 5RF (DME) lancets [Accu-Chek Softclix Lancets] Misc See Rx Instructions .Route Qty: 100 5RF Rx Instructions: Use As directed (DME) Accu-Chek Guide test strips Strip See Rx Instructions .Route Qty: 150 5RF Rx Instructions: Check sugars 5x a day. pregabalin [Lyrica] 25 mg capsule 25 mg PO BID Qty: 60 5RF amlodipine 5 mg tablet 5 mg PO DAILY Qty: 90 3RF Repatha SureClick 140 mg/mL pen injector See Rx Instructions .ROUTE .COMPLEX Qty: 2 3RF Dose Instruction: inject 140mg SUBCUTANEOUSLY every TWO weeks Rx Instructions: inject 140mg SUBCUTANEOUSLY every TWO weeks magnesium L-lactate [Magtab] 84 mg tablet extended release See Rx Instructions .ROUTE .COMPLEX Qty: 60 1RF Dose Instruction: TAKE TWO TABLETS BY MOUTH DAILY Rx Instructions: TAKE TWO TABLETS BY MOUTH DAILY olmesartan 20 mg tablet 20 mg PO DAILY Qty: 90 1RF buspirone 10 mg tablet 10 mg PO TID Qty: 90 5RF hydrochlorothiazide 25 mg tablet 25 mg PO DAILY Qty: 60 1RF alprazolam 0.25 mg tablet 0.25 mg PO DAILY Qty: 30 2RF Women's 50 Plus Multivitamin 400 mcg-500 mg calcium-20 mcg Tablet 1 tab PO DAILY (DME) diabetic supplies, miscellan. Misc See Rx Instructions .Route Qty: 1 0RF Rx Instructions: Glucometer and 90 lancets and strips aspirin [Adult Aspirin Regimen] 81 mg tablet,delayed release (DR/EC) 162 mg PO BEDTIME Qty: 90 0RF mupirocin 2 % ointment 1 applic TOPICAL PRN PRN (Reason: Skin Irritation) Vitamin D3 25 mcg (1,000 unit) Tablet 25 mcg PO DAILY Prolia 60 mg/mL Syringe 60 mg SUBCUT .[id number] metoprolol tartrate 25 mg tablet 12.5 mg PO BID Qty: 30 0RF Discharge Orders: Discharge ED (Routine); Ordered 11/25/23 Ordered By: Ermelinda Newman Referrals: Gerard Bonilla MD [Primary Care Provider] - Discharge Diet: Usual diet Discharge Activity: Increase activity as tolerated Patient Instructions: Sciatica (ED), Lumbar Radiculopathy (ED) Activity Restrictions/Additional Instructions: Thank you for choosing [facility] for your healthcare needs today. Please realize this is an emergency room and that we are providing you with a medical screening exam and this may not be complete and all inclusive of all the testing and or work up that you may need to determine your ailment or severity of your illness. You have been screened and evaluated and felt safe for discharge. Health conditions do change or evolve sometimes and as such it is important that you follow up with your Primary Doctor to be re checked, 3-5 days is a general good time frame for follow up. You are always welcome to return to the ED for re assessment if your symptoms are worsening or you have new concerns Coding Level of Care Code ED Outside Deliverer for Porsha Whitehead
[2023-11-25] MEDS: HYDROcodone-acetaminophen 5-325 mg Tablet 1 TAB PO (12:20)
[2023-11-25] MEDS: dexamethasone 10 mg/mL INJ IM (12:20)
[2023-11-25] MEDS: orphenadrine 30 mg/mL Inj 2 mL 60 MG IM (12:22)
[2023-11-25 12:33] VITALS: BP 142/67; PULSE 58; O2SAT 100
== END 2023-11-25 12:34 | disposition home or self-care (01) ==
PROVIDERS: Emergency Provider Emergency Medicine; PCP Family Medicine
DX: S39.012A Strain of muscle, fascia and tendon of lower back, initial encounter (principal); Z79.82 Long term (current) use of aspirin; Z87.891 Personal history of nicotine dependence; I25.10 Atherosclerotic heart disease of native coronary artery without angina pectoris; E11.9 Type 2 diabetes mellitus without complications; W22.8XXA Striking against or struck by other objects, initial encounter
CPT/HCPCS: 96372; 99284; J1100; J2360

== ENCOUNTER 2024-01-11 08:28 | Outpatient (CLI) | payer MEDICARE, SELFPAY ==
[2024-01-11 09:29] LABS: Basophils # 0.1 10^3/uL (0.0-0.1); Basophils % 1.8 %; Eosinophils # 0.4 10^3/uL (0.0-0.8); Eosinophils % 8.8 %; Hematocrit 40.8 % (36-47); Lymphocytes % 44.2 %; Mean Corpuscular HGB Conc 33.3 g/dL (30-55); Mean Corpuscular Hemoglobin 32.2 pg (27-33); Mean Corpuscular Volume 96.7 fl (85-98); Mean Platelet Volume 10.7 fL (7.4-10.4); Monocytes # 0.4 10^3/uL (0.2-0.9); Monocytes % 8.8 %; Neutrophils # 1.59 10^3/uL (1.8-7.7); Neutrophils % 36.2 %; Nucleated Red Blood Cells % 0 %; Platelet Count 159 10^3/cmm (157-399); Red Blood Count 4.22 10^6/uL (3.85-5.65); Red Cell Distribution Width 12.3 % (12.1-15.1); White Blood Count 4.41 10^3/uL (3.29-11.43)
[2024-01-11 09:37] LABS: Erythrocyte Sedimentation Rate 2 mm/hr (0-15)
[2024-01-11 09:38] LABS: Alanine Aminotransferase 59 U/L (0-33); Albumin Level 4.2 g/dL (3.5-5.2); Alkaline Phosphatase 54 U/L (35-105); Aspartate Amino Transferase 42 U/L (0-32); Globulin 2.4 g/dL (1.3-4.6); Glomerular Filtration Rate 98.8 mL/min (90-130); Total Bilirubin 0.3 mg/dL (0.15-1.2); Total Protein 6.6 g/dL (6.6-8.7)
== END 2024-01-11 08:29 | disposition home or self-care (01) ==
LOC: LAB 08:31
PROVIDERS: PCP Family Medicine; Visit Provider Internal Medicine Rheumatology
DX: Z79.899 Other long term (current) drug therapy (principal); M06.041 Rheumatoid arthritis without rheumatoid factor, right hand; M06.042 Rheumatoid arthritis without rheumatoid factor, left hand
CPT/HCPCS: 36415; 80076; 82565; 85025; 85651; 86140

== ENCOUNTER 2024-02-03 14:19 | Observation (INO) | payer MEDICARE, SELFPAY ==
[2024-02-02 08:50] LABS: Bilirubin Urine Negative (Negative); Blood Urine Negative (Negative); Glucose Urine UA Negative (Normal); Ketones Urine Negative (Negative); Leukocyte Esterase Urine Negative (Negative); Nitrate Urine Negative (Negative); Protein Urine Negative (Negative); Specific Gravity, Urine 1.009 (1.005-1.030); Urine Appearance Clear (CLEAR); Urine Color Yellow (Yellow); pH Urine 7.5 (5-7)
[2024-02-02 08:50] LABS: Basophils # 0.1 10^3/uL (0.0-0.1); Basophils % 1.2 %; Eosinophils # 0.3 10^3/uL (0.0-0.8); Eosinophils % 5.1 %; Lymphocytes % 38.3 %; Mean Corpuscular HGB Conc 33.7 g/dL (30-55); Mean Corpuscular Hemoglobin 31.7 pg (27-33); Mean Platelet Volume 10.5 fL (7.4-10.4); Monocytes # 0.5 10^3/uL (0.2-0.9); Neutrophils # 2.31 10^3/uL (1.8-7.7); Neutrophils % 45.4 %; Nucleated Red Blood Cells % 0 %; Platelet Count 174 10^3/cmm (157-399); Red Blood Count 4.36 10^6/uL (3.85-5.65); Red Cell Distribution Width 12.3 % (12.1-15.1); White Blood Count 5.09 10^3/uL (3.29-11.43)
[2024-02-02 08:52] LABS: Add Urine Microscopic? YES; Bacteria Urine None Seen /hpf; Hyaline Casts Urine 0-4 /lpf; RBC Urine 0-2 /hpf (0-2); Squamous Epithelial Cell Urine 0-5 /hpf (0-5); WBC Urine 0-5 /hpf (0-5)
[2024-02-02 09:08] LABS: Alanine Aminotransferase 38 U/L (0-33); Alkaline Phosphatase 50 U/L (35-105); Anion Gap 10.9 (5-19); Aspartate Amino Transferase 34 U/L (0-32); Blood Urea Nitrogen 17 mg/dL (8-23); Calcium 10.2 mg/dL (8.5-10.5); Carbon Dioxide 29 mmol/L (22-29); Chloride 104 mmol/L (98-107); Globulin 2.4 g/dL (1.3-4.6); Glucose 92 mg/dL (65-115); Osmolality Calculated 291 mOsm/kg (285-295); Potassium 3.9 mmol/L (3.5-5.1); Sodium 140 mmol/L (136-145); Total Bilirubin 0.3 mg/dL (0.15-1.2); Total Protein 6.4 g/dL (6.6-8.7)
[2024-02-03] VITALS (17 sets, daily range): BP systolic 136–158; BP diastolic 60–104; PULSE 54–85; RESP 16–24; TEMP 36.1–37; O2SAT 95–100; BMI 34.9
[2024-02-03] MEDS: scopolamine 1.5 Patch 1 PATCH TRANSDERMA (08:25)
[2024-02-03] MEDS: sodium chloride 0.9% 1,000 ML 30 ML IV (08:25)
[2024-02-03] MEDS: enoxaparin 30 mg/0.3 mL Syringe SUBCUT (08:26)
[2024-02-03 08:38] LABS: Glucose Point of Care 99 mg/dL (70-110)
--- NOTE | 2024-02-03 09:37 | P.ANESUD_ITS ---
Pre-Anesthetic Update Pre-Anesthetic Assessment: Date of Surgery/Procedure: 02/03/24 Preop Antoinette gnosis: Cystocele, rectocele, mixed urinary incontinence Proposed Procedure: Operation Date: 02/03/24 09:30 Proposed Procedures p Anterior Repair Colporrhaphy 98245, 07474, N81.10, N81.6, N39.46(Not Applicable) - Alexsander Lai MD s Posterior Repair Posterior Colporrhaphy(Not Applicable) - Alexsander Lai MD s Sling Single Incision Sling(Not Applicable) - Alexsander Lai MD Any changes to Pre-Anesthetic Assessment?: No Last Intake: Intake Last Liquid Date 02/02/24 Last Liquid Time 22:00 Last Solid Date 02/02/24 Last Solid Time 17:30 Labs Last 48hrs: Short CBC 02/02/24 Range/Units 08:22 WBC 5.09 (3.29-11.43) 10^ 3/uL Hgb 13.80 (11.27-16.99) g/ dL Hct 41.0 (36-47) % MCV 94.0 (85-98) fl Plt Count 174 (157-399) 10^3/c mm Neut % (Auto) 45.4 % Neut # (Auto) 2.31 (1.8-7.7) 10^3/u L BMP 02/02/24 08:22 Sodium 140 Potassium 3.9 Chloride 104 Carbon Dioxide 29 BUN 17 Creatinine 0.6 Glucose 92 Calcium 10.2 Liver Function 02/02/24 Range/Units 08:22 Total Bilirubin 0.3 (0.15-1.2) mg/dL AST 34 H (0-32) U/L ALT 38 H (0-33) U/L Alkaline Phosphata se 50 (35-105) U/L Albumin 4.0 (3.5-5.2) g/dL Urine 02/02/24 Range/Units 07:52 Urine Color Yellow (Yellow) Urine Appearance Clear (CLEAR) Urine pH 7.5 (5-7) Ur Specific Gravit y 1.009 (1.005-1.030) Urine Protein Negative (Negative) Urine Glucose (UA) Negative (Normal) Urine Ketones Negative (Negative) Urine Nitrate Negative (Negative) Urine Bilirubin Negative (Negative) Ur Leukocyte Audra ase Negative (Negative) Urine RBC 0-2 (0-2) /hpf Urine WBC 0-5 (0-5) /hpf Blood Bank 02/02/24 08:22 Blood Type O Positive Rho(D) Type Rh positive Antibody Screen Negative Vitals: Temperature 97.6 F 02/03/24 08:05 Temperature Source Temporal Artery S can 02/03/24 08:05 Pulse Rate 54 L 02/03/24 08:05 Respiratory Rate 16 02/03/24 08:05 Blood Pressure 141/73 02/03/24 08:05 Blood Pressure Kayleigh n 95 02/03/24 08:05 Pulse Oximetry 98 02/03/24 08:05 Oxygen Delivery Me thod Room Air 02/03/24 08:07 Exam: Pre-Anes Outpt Exam: alert, oriented x 3, clear to auscultation bilaterally and regular rate & rhythm Cardiac Studies: Echocardiogram 04/27/23 Sestamibi Stress Test (Cardiology) 12/28 Cardiac Event Monitor 05/07/23
--- NOTE | 2024-02-03 09:43 | W.PM.OPSUD ---
Surgery/Procedure H&P Update DATE OF PROCEDURE: February 03, 2024 DATE H&P PERFORMED: 01/22/24 H&P UPDATE INFORMATION: I have reviewed H&P completed within last 30 days, I have examined patient prior to procedure and No changes to prior documentation PREOP DIAGNOSIS: Cystocele, rectocele, mixed urinary incontinence PLANNED PROCEDURE: Operation Date: 02/03/24 09:30 Proposed Procedures p Anterior Repair Colporrhaphy 94487, 94911, N81.10, N81.6, N39.46(Not Applicable) - Alexsander Lai MD s Posterior Repair Posterior Colporrhaphy(Not Applicable) - Alexsander Lai MD s Sling Single Incision Sling(Not Applicable) - Alexsander Lai MD
[2024-02-03] MEDS: ceFAZolin 2,000 mg SDV 2000 MG IVP (10:15)
[2024-02-03] MEDS: lidocaine-epi 1% 20 mL INJ INJECTION (10:45)
--- NOTE | 2024-02-03 11:38 | ANES.PROC ---
Anesthesia Procedures Procedure/Date: 02/03/24 Endotracheal intubation Procedure Narrative: My hands were washed immediately prior to the procedure. I wore a surgical cap, mask with protective eyewear, gown and gloves throughout the procedure. The patient was placed on a cardiac rehabilitation specialist including continuous pulse oximetry. The patient received Lidocaine, Propofol and 100mcg of Fentanyl for induction and for adequate paralysis. Using a Mac 3 laryngoscope and a size 7.5cm endotracheal tube with stylet, the patient was intubated on the first attempt. The stylet was removed and cuff balloon was inflated. Appropriate endotracheal tube position was confirmed by direct visualization of vocal cord passage, fogging of the tube, CO2 colormetric indicator and symmetric breath sounds. The tube was secured at ~20cm at the lips. Intubation: Sedative (amount): fentanyl (Propofol, Lidocaine) Paralytic (amount): rocuronium Laryngoscope: Elsie (3) ET Tube Size: 7.5 ET Tube Uncuffed: No Tube Secured Depth (cm): 20 Tube Secured Location: lips Tube Placement Confirmation: visualized tube passing through cords and equal breath sounds bilaterally Intubation Complications: none Other Information: Supervising Anesthesiologist: Dr. Pretty.
--- NOTE | 2024-02-03 12:15 | P.BOP_ITS ---
Date of Procedure: 02/03/24 Surgeon: Alexsander Lai MD Bridges Supervisor(s): Procedure(s) performed: Anterior and posterior colporrhaphy augmented with allograft, mid urethral sling Findings of the procedure(s): Cystocele, rectocele Estimated blood loss: 200 Specimen(s) removed: Post-operative diagnosis: Status post anterior & posterior colporrhaphy with mid urethral sling
--- NOTE | 2024-02-03 12:18 | P.OP_ITS ---
Operative Report Date of procedure: February 03, 2024 Pre-op diagnosis: Cystocele Rectocele Mixed urinary incontinence Post-op diagnosis: same Procedure done: Anterior colporrhaphy augmented with allograft Posterior colporrhaphy augmented with allograft Mid urethral sling Implants: Coloplast dermis allograft Coloplast Altis mid urethral sling Surgeon: Alexsander Lai MD Estimated blood loss (mL): 200 IV fluids (mL): 1,900 Urine output (mL): 200 Complications: none Procedure: After obtaining informed consent, the patient was taken to the operating room and placed in the supine position, given general anesthesia, and prepped and draped in sterile fashion. The abdomen, vulva and vagina were prepped and draped in a sterile manner. A time out procedure was performed. The anterior vaginal mucosa beneath the midurethra was infiltrated with 2% lidocaine with epinephrine. A vertical midline incision was made beneath the midurethra, nearly 1.5 cm length. Careful submucosal dissection was performed bilaterally up to the interior portion of the inferior pubic ramus. The insertion of adductor longus tendon on the patient?s pubic ramus was identified as reference land cornell. Palpated the notch along the internal edge of ischiopubic ramus where the adductor longus tendon and the inferior pubic ramus meet. The Altis single incision sling (SIS) was selected. Then the needle of the SIS inserted aiming at the location of this notch. One of the integrated self- fixating tips place onto the needle by sliding it over the end of the needle. The needle/sling assembly was inserted toward the location of identified reference notch making sure that the flat of the handle is perpendicular to the desired path. The needle was tracked along the posterior surface of the ischiopubic ramus until the midline cornell on the mesh is approximately at the midline position under the urethra. The needle was removed and the same was repeated on the contralateral side until the appropriate sling tension under the urethra was achieved ensuring that the mesh lays flat. The needle was removed and vaginal incision was closed in a running interlocking fashion with 2-0 Vicryl. The vaginal mucosa was then injected in the midline with 2% lidocaine with epinephrine. The vaginal mucosa was scored in the midline with the Bovie approximately 1 cm medial to the urethral meatus to 1 cm distal to the vaginal cuff. This vaginal mucosa was then undermined and then incised in the midline with the Metzenbaum scissors. The lateral aspects of the vaginal mucosa were then grasped with the Allis clamps and the vaginal mucosa was then dissected off the underlying fascia with the Metzenbaum scissors. Again, there was noted to be quite a bit of oozing at the incision, which was controlled with cautery. After adequate dissection was performed, bilaterally. A coloplast Dermis allograft was modified at time of application to fit spacea, 3 x 3 cm piece. The Co loplast allograft was placed in front of cystocele ready to be implanted facing the vagina mucosa. Suture is placed at distal end of graft and placed towards vaginal cuff. Final suture is placed on proximal portion of the graft to complete the placement overlying the bladder. Then Interrupted vertical mattress sutures of 0 Vicryl were used to elevate the cystocele superiorly. The excessive vaginal mucosa was then trimmed with the Metzenbaum scissors and the vaginal mucosa was then reapproximated in the running interlocking fashion with 2-0 Vicryl. Posterior colpoperineorrhaphy was performed with Allis clamps to grasp hymenal caruncles to allow 2-3 fingerbreadths caliber; infiltrated with 2% Lidocaine with epinephrine before triangular incision to excise fibrotic subdermal rectovaginal tissue from old perineal laceration. Fascia dissected off towards vaginal cuff and deemed weakened and thinned-out in midline; colporrhaphy performed with interrupted mattress 0-Vicryl sutures before reinforced with a tension-free 3x3 cms ``in-laid patch of Colopast allograft towards perineal body after a separate crown stitch with 0-Vicryl performed. Field irrigated; hemostasis secured before vaginal incision closed running-locked with 3-0 Vicryl. Then the Rodriguez catheter was removed and cystoscope was inserted. The bladder was filled with sterile water. Complete evaluation of the bladder mucosa was performed noting no lacerations, dimpling, tears, bleeding of the mucosa or muscular layers. Both ureteral orifices were identified. Prompt excretion of urine from both ureteral orifices was noted. Cystoscope was withdrawn. The Rodriguez catheter was replaced. Excellent hemostasis was obtained. A vaginal pack is placed overnight as postoperative support for the vaginal tissues after graft placement and closure of vaginal incisions. Sponge, lap, needle, and instrument counts were correct times three. The patient was taken to the recovery room, awake and in stable condition.
[2024-02-03] MEDS: fentaNYL 50 mcg/mL INJ 2mL IVP (13:09)
[2024-02-03] MEDS: ketorolac 30 mg/mL INJ IVP ×2 (14:41→20:59)
--- NOTE | 2024-02-03 14:58 | ANE.PACU2 ---
Inpatient post-anesthesia follow up: Airway intact: Yes Vital signs: Temperature 97.7 F Pulse Rate 69 Respiratory Rate 18 Blood Pressure 148/104 Pulse Oximetry 96 Oxygen Delivery Me thod Room Air Oxygen Flow Rate 8 Fraction of Inspir ed Oxygen Hydration adequate: Yes Nausea and vomiting: No Pain level: 1 Mental status: Baseline
[2024-02-03 15:08] LABS: Glucose Point of Care 136 mg/dL (70-110)
[2024-02-03] MEDS: HYDROcodone-acetaminophen 5-325 mg Tablet PO (17:15)
[2024-02-03] MEDS: docusate sodium 100 mg Capsule PO (17:15)
[2024-02-03] MEDS: ACARBOSE 25 MG 25 EACH PO (17:54)
[2024-02-03] MEDS: OXYBUTYNIN 10 MG 1 EACH PO (17:55)
[2024-02-03 20:35] LABS: Glucose Point of Care 190 mg/dL (70-110)
[2024-02-03] MEDS: metoprolol tartrate 25 mg Tablet 12.5 MG PO (21:00)
[2024-02-03] MEDS: amlodipine 5 mg Tablet PO (21:00)
[2024-02-03] MEDS: ALPRAZolam 0.5 mg Tablet 0.25 MG PO (21:00)
[2024-02-03] MEDS: BuSPIRONE 10 mg Tablet PO (21:00)
[2024-02-03] MEDS: magnesium lactate 84 mg Tablet PO (21:02)
[2024-02-03] MEDS: pregabalin 25 mg Capsule PO (21:02)
--- NOTE | 2024-02-03 23:32 | PC.NURSE ---
This nurse was told in change of shift report that the patient had complaints of left hip pain. At this time patient reported that the pain as better than it was and she was able to move it more now. This nurse upon every rounding has offered position changes and elevation of hip with pillow to help make patient more comfortable. Patient reports that it is no longer painful at the 2315 rounding just uncomfortable but that is relieved with a pillow or slight shift of weight.
[2024-02-04 00:49] VITALS: BP 115/57; PULSE 74; RESP 14; TEMP 37.1; O2SAT 96
[2024-02-04] MEDS: HYDROcodone-acetaminophen 5-325 mg Tablet PO (01:00)
[2024-02-04 01:01] LABS: Glucose Point of Care 105 mg/dL (70-110)
[2024-02-04] MEDS: ketorolac 30 mg/mL INJ IVP ×2 (03:03→08:01)
--- NOTE | 2024-02-04 03:10 | PC.NURSE ---
This nurse changed patient pad at this time. Pad noted to have minimal bright red blood on it. Patient stated this is the pad that was changed during day shift.
[2024-02-04 05:27] VITALS: BP 123/61; PULSE 65; RESP 16; TEMP 37.2; O2SAT 96
--- NOTE | 2024-02-04 05:39 | PC.NURSE ---
This nurse removed vaginal packing at this time
[2024-02-04 05:54] LABS: Hematocrit 31.7 % (36-47); Mean Corpuscular HGB Conc 33.4 g/dL (30-55); Mean Corpuscular Hemoglobin 32.2 pg (27-33); Mean Corpuscular Volume 96.4 fl (85-98); Mean Platelet Volume 10.3 fL (7.4-10.4); Platelet Count 140 10^3/cmm (157-399); Red Blood Count 3.29 10^6/uL (3.85-5.65); Red Cell Distribution Width 12.3 % (12.1-15.1); White Blood Count 5.94 10^3/uL (3.29-11.43)
[2024-02-04 06:02] LABS: Glucose Point of Care 96 mg/dL (70-110)
[2024-02-04] MEDS: hydroCHLOROthiazide 25 mg Tablet PO (08:01)
[2024-02-04] MEDS: aspirin 81 mg EC Tablet 162 MG PO (08:01)
[2024-02-04 08:03] VITALS: BP 126/60
[2024-02-04] MEDS: pregabalin 25 mg Capsule PO (08:03)
[2024-02-04] MEDS: losartan 50 mg Tablet PO (08:03)
[2024-02-04] MEDS: docusate sodium 100 mg Capsule PO (08:03)
[2024-02-04] MEDS: metoprolol tartrate 25 mg Tablet 12.5 MG PO (08:06)
[2024-02-04] MEDS: BuSPIRONE 10 mg Tablet PO ×2 (08:06→12:04)
[2024-02-04] MEDS: cholecalciferol (vitamin D3) 1,000 unit Tablet 1000 UNIT PO (08:07)
[2024-02-04] MEDS: ACARBOSE 25 MG 25 EACH PO ×2 (08:07→12:00)
[2024-02-04] MEDS: magnesium lactate 84 mg Tablet PO (08:17)
[2024-02-04 08:19] LABS: Glucose Point of Care 125 mg/dL (70-110)
[2024-02-04 10:00] VITALS: BP 143/60; PULSE 56; RESP 16; TEMP 36.6; O2SAT 100
--- NOTE | 2024-02-04 12:35 | PM.OBGYDC ---
Discharge Providers CONVENTION SERVICES MANAGER Date of Admission: 02/03/24 14:19 Date of Discharge: 02/04/24 Attending Provider at Admission: Alexsander Lai MD Attending Provider at Discharge: Alexsander Lai MD Primary Care Provider: Gerard Bonilla MD Reason for Visit Reason for Visit: N39.46 Hospital Course Hospital Course Mrs. Bernard 69-year-old female G2, P2 post hysterectomy from 1980s. Diagnosed with cystocele, rectocele and mixed urinary incontinence. Admitted for planned anterior posterior colporrhaphy augmented with allograft and mid urethral sling. The procedures were performed without complication. Overnight observation have been uneventful. She is afebrile hemodynamically stable preoperative day 1. Tolerating diet well. Ambulating without difficulty. Refers mild discomfort on left hip joint. She was counseled regarding pelvic rest for 6 weeks (no sex, no tampons, no vaginal douches). Return to the emergency room if any fever, increased bleeding or pain and heavy weight lifting limitations to 10 pounds or a gallon of milk. Physical Exam Narrative: GA: Alert and oriented ?3. HEENT: WNL. Heart: Regular rate and rhythm. Lungs: Clear to auscultation bilaterally. Abdomen: Bowel sounds present, nontender. EXPRESSIVE THERAPIST: spotting bleeding. Extremities: No edema, no cyanosis, no calves pain. Urinary Catheter Management: Rodriguez: Cath Placed During This Visit: yes, but has since been removed by the nurse Reason for Continuing Indwelling Catheter: Decision to DC Catheter Urinary Catheter Date of Insertion: 02/03/24 Urinary Catheter Time of Insertion: 10:40 Date Urinary Catheter Removed: 02/04/24 Time Urinary Catheter Discontinued: 05:39 Discharge Data Studies Completed and Pending Laboratory Results WBC 5.94 10^3/uL (3.29-11.43) 02/04/24 05:47 RBC 3.29 10^6/uL (3.85-5.65) L 02/04/24 05:47 Hgb 10.60 g/dL (11.27-16.99) L 02/04/24 05:47 Hct 31.7 % (36-47) L 02/04/24 05:47 MCV 96.4 fl (85-98) 02/04/24 05:47 MCH 32.2 pg (27-33) 02/04/24 05:47 MCHC 33.4 g/dL (30-55) 02/04/24 05:47 RDW 12.3 % (12.1-15.1) 02/04/24 05:47 Plt Count 140 10^3/cmm (157-399) L 02/04/24 05:47 MPV 10.3 fL (7.4-10.4) 02/04/24 05:47 Neut % (Auto) 45.4 % 02/02/24 08:22 Lymph % (Auto) 38.3 % 02/02/24 08:22 [place] % (Auto) 10.0 % 02/02/24 08:22 Eos % (Auto) 5.1 % 02/02/24 08:22 Baso % (Auto) 1.2 % 02/02/24 08:22 Neut # (Auto) 2.31 10^3/uL (1.8-7.7) 02/02/24 08:22 Lymph # (Auto) 2.0 10^3/uL (0.8-4.8) 02/02/24 08:22 [place] # (Auto) 0.5 10^3/uL (0.2-0.9) 02/02/24 08:22 Eos # (Auto) 0.3 10^3/uL (0.0-0.8) 02/02/24 08:22 Baso # (Auto) 0.1 10^3/uL (0.0-0.1) 02/02/24 08:22 Nucleated RBC % (auto) 0 % 02/02/24 08:22 Nucleated RBCs # 0.0 /100WBC 02/02/24 08:22 Sodium 140 mmol/L (136-145) 02/02/24 08:22 Potassium 3.9 mmol/L (3.5-5.1) 02/02/24 08:22 Chloride 104 mmol/L (98-107) 02/02/24 08:22 Carbon Dioxide 29 mmol/L (22-29) 02/02/24 08:22 Anion Gap 10.9 (5-19) 02/02/24 08:22 BUN 17 mg/dL (8-23) 02/02/24 08:22 Creatinine 0.6 mg/dL (0.5-0.9) 02/02/24 08:22 GFR Calculation Not Reportable 02/02/24 08:22 Glucose 92 mg/dL (65-115) 02/02/24 08:22 POC Glucose 125 mg/dL (70-110) H 02/04/24 08:14 Calculated Osmolality 291 mOsm/kg (285-295) 02/02/24 08:22 Calcium 10.2 mg/dL (8.5-10.5) 02/02/24 08:22 Total Bilirubin 0.3 mg/dL (0.15-1.2) 02/02/24 08:22 AST 34 U/L (0-32) H 02/02/24 08:22 ALT 38 U/L (0-33) H 02/02/24 08:22 Alkaline Phosphatase 50 U/L (35-105) 02/02/24 08:22 Total Protein 6.4 g/dL (6.6-8.7) L 02/02/24 08:22 Albumin 4.0 g/dL (3.5-5.2) 02/02/24 08:22 Globulin 2.4 g/dL (1.3-4.6) 02/02/24 08:22 Urine Color Yellow (Yellow) 02/02/24 07:52 Urine Appearance Clear (CLEAR) 02/02/24 07:52 Urine pH 7.5 (5-7) 02/02/24 07:52 Ur Specific [place] 1.009 (1.005-1.030) 02/02/24 07:52 Urine Protein Negative (Negative) 02/02/24 07:52 Urine Glucose (UA) Negative (Normal) 02/02/24 07:52 Urine Ketones Negative (Negative) 02/02/24 07:52 Urine Blood Negative (Negative) 02/02/24 07:52 Urine Nitrate Negative (Negative) 02/02/24 07:52 Urine Bilirubin Negative (Negative) 02/02/24 07:52 Urine Urobilinogen 1.0 mg/dL (Negative) 02/02/24 07:52 Ur Leukocyte Esterase Negative (Negative) 02/02/24 07:52 Urine RBC 0-2 /hpf (0-2) 02/02/24 07:52 Urine WBC 0-5 /hpf (0-5) 02/02/24 07:52 Ur Squamous Epith Cells 0-5 /hpf (0-5) 02/02/24 07:52 Amorphous Sediment Not Reportable 02/02/24 07:52 Urine Bacteria None seen /hpf (NONE) 02/02/24 07:52 Hyaline Casts 0-4 /lpf H 02/02/24 07:52 Blood Type O Positive 02/02/24 08:22 Rho(D) Type Rh positive 02/02/24 08:22 Antibody Screen Negative 02/02/24 08:22 Vitals Last Vital Signs Temp 98.9 F 02/04/24 05:27 Pulse 65 02/04/24 05:27 Resp 16 02/04/24 05:27 BP 126/60 02/04/24 08:03 Pulse Ox 96 02/04/24 05:27 O2 Del Method Room Air 02/04/24 05:27 O2 Flow Rate 8 02/03/24 12:31 Results Labs OB ([facility]): Blood Type O Positive 02/02/24 Antibody Screen Negative 02/02/24 Hct 31.7 % (36-47) L 02/04/24 Hgb 10.60 g/dL (11.27-16.99) L 02/04/24 Rho(D) Type Rh positive 02/02/24 Plt Count 140 10^3/cmm (157-399) L 02/04/24 Hep Bs Antigen Non-reactive (Nonreactive) 04/27/23 Hep B Core IgM Ab Non-reactive (Nonreactive) 04/27/23 Hepatitis C Antibody Non-reactive (Nonreactive) 04/27/23 TSH 3.30 uIU/mL (0.27-4.20) 07/14/23 Free T4 1.37 ng/dL (0.82-1.77) 05/20/23 Hemoglobin A1c 5.2 % (4.0-6.0) 05/20/23 Urine Opiates Screen Negative ng/mL (Negative) 04/27/23 Ur Barbiturates Screen Negative ng/mL (Negative) 04/27/23 Ur Phencyclidine Scrn Negative ng/mL (Negative) 04/27/23 Ur Amphetamines Screen Negative ng/mL (Negative) 04/27/23 U Benzodiazepines Scrn Negative ng/mL (Negative) 04/27/23 Urine Cocaine Screen Negative ng/mL (Negative) 04/27/23 U Marijuana (THC) Screen Negative ng/mL (Negative) 03/11/24 Discharge Plan Discharge Patient Disposition: Home Condition: Stable Prescriptions: New hydrocodone-acetaminophen 5-325 mg tablet 1 tab PO Q4H PRN (Reason: pain) Qty: 20 0RF acetaminophen 325 mg capsule 325 mg PO Q4H PRN (Reason: fever or pain) Qty: 60 0RF docusate sodium [Colace] 100 mg capsule 100 mg PO BID Qty: 60 0RF ibuprofen 800 mg tablet 800 mg PO TID PRN (Reason: pain) Qty: 60 0RF Continued mecobalamin (vitamin B12) 5,000 mcg lozenge 5,000 mcg PO DIRECTED Rx Instructions: allow to dissolve in mouth OR may chew lightly before swallowing, weekly on Mondays melatonin 10 mg PO BEDTIME acarbose 25 mg tablet 25 mg PO TID tramadol 50 mg tablet 50 mg PO TID PRN (Reason: pain) Qty: 60 5RF (DME) lancets [Accu-Chek Softclix Lancets] Misc See Rx Instructions .Route Qty: 100 5RF Rx Instructions: Use As directed (DME) Accu-Chek Guide test strips Strip See Rx Instructions .Route Qty: 150 5RF Rx Instructions: Check sugars 5x a day. amlodipine 5 mg tablet 5 mg PO DAILY Qty: 90 3RF olmesartan 20 mg tablet 20 mg PO DAILY Qty: 90 1RF buspirone 10 mg tablet 10 mg PO TID Qty: 90 5RF hydrochlorothiazide 25 mg tablet 25 mg PO DAILY Qty: 60 1RF alprazolam 0.25 mg tablet 0.25 mg PO DAILY Qty: 30 2RF pregabalin [Lyrica] 25 mg capsule 25 mg PO BID Qty: 60 5RF oxybutynin chloride 10 mg tablet extended release 24hr 10 mg PO DAILY Qty: 30 2RF Women's 50 Plus Multivitamin 400 mcg-500 mg calcium-20 mcg Tablet 1 tab PO DAILY (DME) diabetic supplies, miscellan. Misc See Rx Instructions .Route Qty: 1 0RF Rx Instructions: Glucometer and 90 lancets and strips aspirin [Adult Aspirin Regimen] 81 mg tablet,delayed release (DR/EC) 162 mg PO BEDTIME Qty: 90 0RF mupirocin 2 % ointment 1 applic TOPICAL PRN PRN (Reason: Skin Irritation) cholecalciferol (vitamin D3) [Vitamin D3] 25 mcg (1,000 unit) Tablet 25 mcg PO DAILY Prolia 60 mg/mL Syringe 60 mg SUBCUT .U2INCZWL metoprolol tartrate 25 mg tablet 12.5 mg PO BID Qty: 30 0RF magnesium L-lactate [Magtab] 84 mg tablet extended release 84 mg PO BID Rx Instructions: TAKE TWO TABLETS BY MOUTH DAILY Enbrel 50 mg/mL (1 mL) syringe 50 mg SUBCUT .7D Rx Instructions: inject 50mg SUBCUTANEOUSLY EVERY 7 DAYS Repatha SureClick 140 mg/mL pen injector 140 mg SUBCUT .14D Rx Instructions: inject 140mg SUBCUTANEOUSLY every TWO weeks Discharge Orders: Discharge Order (Routine); Ordered 02/04/24 Ordered By: Alexsander Lai Referrals: Alexsander Lai MD [Physician] - 2 weeks Discharge Diet: Soft Mechanical Discharge Activity: Limit activity as instructed Patient Instructions: Acute Wound Care (DC), Bladder Sling for Women (GEN), Anterior Vaginal Repair (GEN), Posterior Vaginal Repair (GEN), Opioid Safety, Post Anesthesia Care Activity Restrictions/Additional Instructions: 1. Please call [facility] on next working day to make your post-operative appointment in 2 weeks. 2. Please stay home until you come back to the clinic on first post-hospatilization check up. 3. Please follow instructions on your medications CAREFULLY. 4. If you have abdominal incision, do not cover it unless dressing is necessary because of drainage. OK to shower, but avoid bath. Leave steri-strips until they fall off. If they are still on one week after surgery, you may remove them. 5. If you had vaginal surgery or vaginal repair, Dr. Lai may instruct you to take SITZ bath. 6. Yellow, blood tinged odorous vaginal discharge is usually normal after hysterectomy or vaginal surgeries. 7. No SEXUAL INTERCOURSE, tampons, or douches until you are completely released from the post-operative care. 8. Avoid constipation by eating right and maybe using some Metamucil or Milk of Magnesia. 9. All prescription refills are given during the working hours. Please do no wait till it runs out. Call the clinic at [phone] before your medication runs out. The clinic will get in touch with your doctor to prescribe medications if necessary. 10. Please remain within 40 mile radius from our hospital because emergencies do happen now and then during the post-operative period. 11. If you have stairs at home, take one step at a time slowly and minimize the number of trips. It helps to stay in one floor for the next few days. No lifting except what you can lift by one hand until you are released from the post-operative care. 12. Driving is discouraged until you are well healed. It may be 3-4 weeks before you feel strong enough to drive. You should be able to turn and look through the rear window without pain and you should be able to push the brake pedal very hard without pain before you drive. No fast rules, but SAFETY should be your primary concern. DO NOT drive if you are on sedating medications such as narcotics. 13. Call the clinic (during working hours) to make urgent appointment or go to the Emergency room, if any of the following occurs: i. Vaginal bleeding becomes heavy, more than a period. ii. Incision becomes red and sore, or drains pus. iii. Your TEMPERATURE is over 100.4F or you have chill. iv. IV site becomes red and swollen (a little ``knot?? is usually OK) v. Persistent nausea and vomiting vi. Persistent constipation or diarrhea vii. Rash or allergic reaction to medications. Discharge Attestations CONVENTION SERVICES MANAGER Time Spent in Discharge Care*: greater than 30 min Coding Level of Care Code Acute Code for Chg Fwd
[2024-02-04 13:30] VITALS: BP 137/62; PULSE 60; RESP 16; TEMP 36.6; O2SAT 100
== END 2024-02-04 13:40 | disposition home or self-care (01) ==
LOC: OBGYN 14:20
PROVIDERS: Admitting Provider Obstetrics & Gynecology; PCP Family Medicine; Visit Provider Obstetrics & Gynecology
PROC: 0JQC0ZZ Repair Pelvic Region Subcutaneous Tissue and Fascia, Open Approach (ICD-10-PCS; CPT 57240; principal; 2024-02-03 09:20)
PROC: (CPT 57250; 2024-02-03 09:20)
PROC: (CPT 57288; 2024-02-03 09:20)
DX: N81.10 Cystocele, unspecified (principal); N81.6 Rectocele; N39.46 Mixed incontinence; Z90.710 Acquired absence of both cervix and uterus; I10 Essential (primary) hypertension; E11.9 Type 2 diabetes mellitus without complications
CPT/HCPCS: 57288; 57260; 36415; 36416; 51798; 80053; 81001; 82962; 85025; 85027; 86850; 86900; 96374; 96376; A4216; C1713; C1762; G0378; J0690; J1100; J1650; J1885; J2405; J2704; J3010; J3490; J7030

== ENCOUNTER → 2024-02-23 12:42 | Outpatient (BNVA) | payer MEDICARE, SELFPAY | PROVIDERS: PCP Family Medicine; Visit Provider Internal Medicine Cardiovascular Disease | DX: R00.2 Palpitations (principal); G45.1 Carotid artery syndrome (hemispheric); I25.10 Atherosclerotic heart disease of native coronary artery without angina pectoris; I95.9 Hypotension, unspecified; E66.9 Obesity, unspecified; Z68.34 Body mass index [BMI] 34.0-34.9, adult; Z87.891 Personal history of nicotine dependence | CPT/HCPCS: 99214 ==

== ENCOUNTER 2024-03-23 08:34 | Inpatient (IN) | payer MEDICARE, MEDICAID, SELFPAY ==
[2024-03-23] VITALS (19 sets, daily range): BP systolic 144–218; BP diastolic 49–105; PULSE 61–80; RESP 13–20; TEMP 36.4–36.6; O2SAT 93–97; BMI 34.3
--- NOTE | 2024-03-23 08:42 | CT_ITS ---
WS: [id number] CT HEAD NONCONTRAST HISTORY: possible stroke TECHNIQUE: Contiguous axial imaging performed through the brain. Bone and soft tissue windows. Sagittal and coronal reformats reviewed. All CT scans at [facility] use at least one of these dose optimization techniques: automated exposure control; mA and/or kV adjustment per patient size (includes targeted exams where dose is matched to clinical indication); or iterative reconstruction. DLP: 1199.90 mGy COMPARISON: 07/14/2023 No acute intracranial hemorrhage, midline shift or mass effect. Mild atrophy and small vessel disease. Similar to the prior study. No new infarct. Ventricles: Normal size with no hydrocephalus. No inferior displacement of the cerebellar tonsils. Paranasal sinuses: As visualized are clear. Mastoid air cells: Well pneumatized. Calvarium and scalp: Skull is intact with no soft tissue edema or swelling. Mild scattered calcifications through the carotid cavernous sinuses. CT/CT head thrombolytic 18982 IMPRESSION: 1. No acute intracranial hemorrhage or edema. 2. Mild volume loss and small vessel changes. Notified Ermelinda Newman MD at 03/23/2024 8:55 AM.
--- NOTE | 2024-03-23 08:42 | XR_ITS ---
WS: [id number] Portable AP upright chest, 03/23/2024 Clinical Data: Chest pain Comparison: Portable chest, 07/14/2023 Findings: No nodules, masses or effusions are seen. The heart is normal. The pulmonary vascularity is not increased. No pneumonia or pneumothorax is seen. The aortic arch and descending thoracic aorta show calcification and tortuosity. There is calcification above the greater tuberosity of the right shoulder which may represent calcific bursitis and/or tendinitis. 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 XR/XR chest 1V portable [id number] Impression: Atherosclerosis.
--- NOTE | 2024-03-23 08:43 | ECG_ITS ---
[facility]: 2024-[facility]23 Pat Name: Rylee Bernard Department: Room: Gender: Female Court Transcriber: : [id number] Requested By: Ermelinda Hartmann Order Number: [id number] Juan MD: Channing Reynoso M.D. Measurements Intervals [place] Rate: 66 P: 18 PA: 146 QRS: 10 QRSD: 160 T: 31 QT: 416 QTc: 438 Interpretive Statements SINUS RHYTHM RIGHT BUNDLE BRANCH BLOCK [120+ ms QRS DURATION, UPRIGHT V1, 40+ ms S IN I/aVL/V4/V5/V6] PROBABLE ANTERIOR MYOCARDIAL INFARCTION , OF INDETERMINATE AGE [35 ms Q WAVE IN V3/V4] Compared to ECG 07/14/2023 15:44:08 Myocardial infarct finding now present Sinus bradycardia no longer present Electronically Signed On 03-24-2024 22:00:31 [employer]ASER [employer]INT OPERATOR by Channing Reynoso M.D. [email or web address]
[2024-03-23 08:45] LABS: Glucose Point of Care 164 mg/dL (70-110)
[2024-03-23 08:54] LABS: Basophils # 0.1 10^3/uL (0.0-0.1); Basophils % 1.1 %; Eosinophils # 0.4 10^3/uL (0.0-0.8); Eosinophils % 8.3 %; Hematocrit 40.4 % (36-47); Mean Corpuscular HGB Conc 33.7 g/dL (30-55); Mean Corpuscular Hemoglobin 32.5 pg (27-33); Mean Corpuscular Volume 96.7 fl (85-98); Mean Platelet Volume 10.8 fL (7.4-10.4); Monocytes # 0.4 10^3/uL (0.2-0.9); Monocytes % 8.3 %; Neutrophils # 2.34 10^3/uL (1.8-7.7); Neutrophils % 43.9 %; Nucleated Red Blood Cells % 0 %; Platelet Count 148 10^3/cmm (157-399); Red Blood Count 4.18 10^6/uL (3.85-5.65); Red Cell Distribution Width 12.2 % (12.1-15.1); White Blood Count 5.32 10^3/uL (3.29-11.43)
--- NOTE | 2024-03-23 08:56 | W.ED.NEUROSD ---
HPI - Neuro Symptoms/Deficit General: Chief Complaint: Neuro Symptoms/Deficit Stated Complaint: high b/p, chest feels heavy Time Seen by Provider: 03/23/24 08:39 History of Present Illness: 69-year-old female with history of hypertension, and diabetes who presents emergency room with chest pressure, headache, weakness and blurred vision. She says vision still is not as bright as it was but has improved some. No focal visual field deficits. She has generalized weakness. All 4 extremities she has some trouble lifting off the bed. She says her right arm feels heavier than her left. She has no drift. She is complaining of pressure in her chest. Her blood pressure is elevated this morning. 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 It is regularly been in the 170s to 180s but this morning it was over 200 systolic. All of the symptoms started about 45 minutes ago Related Data Home Medications ?Medication ?Instructions ?Recorded ?Confirmed htdwazpt-rhz-abylj ac 400 1 tab PO DAILY 04/27/23 03/23/24 mcg-calcium carb 500 mg-vit K1 20 mcg tablet (Women's 50 Plus Multivitamin) cholecalciferol (vitamin D3) 25 25 mcg PO DAILY 07/14/23 03/23/24 mcg (1,000 unit) tablet (Vitamin D3) denosumab 60 mg/mL subcutaneous 60 mg SUBCUT .[id number] 07/14/23 03/23/24 syringe (Prolia) acarbose 25 mg tablet 25 mg PO TID 07/28/23 03/23/24 etanercept 50 mg/mL (1 mL) 50 mg SUBCUT .7D 02/02/24 03/23/24 subcutaneous syringe (Enbrel) evolocumab 140 mg/mL subcutaneous 140 mg SUBCUT .14D 02/02/24 03/23/24 pen injector (Repatha SureClick) magnesium L-lactate 84 mg 84 mg PO BID 02/02/24 03/23/24 tablet,extended release (Magtab) oxybutynin chloride 10 mg 10 mg PO DAILY 03/23/24 03/23/24 tablet,extended release 24 hr Previous Rx's ?Medication ?Instructions ?Recorded aspirin 81 mg tablet,delayed 162 mg (2 x 81 mg) PO BEDTIME #90 03/12/24 release (Adult Aspirin Regimen) tabs buspirone 10 mg tablet 10 mg PO TID #90 tabs 11/05/23 pregabalin 25 mg capsule (Lyrica) 25 mg PO BID #60 caps 12/31/23 acetaminophen 325 mg capsule 325 mg PO Q4H PRN fever or pain 02/04/24 #60 caps ibuprofen 800 mg tablet 800 mg PO TID PRN pain #60 tabs 02/04/24 alprazolam 0.25 mg tablet 0.25 mg PO DAILY #30 tabs 02/15/24 docusate sodium 100 mg capsule 100 mg PO TID #90 caps 02/19/24 (Colace) olmesartan 40 mg tablet 40 mg PO DAILY #90 tabs 03/10/24 carvedilol 6.25 mg tablet 6.25 mg PO BID #60 tabs 03/21/24 Allergies Allergy/AdvReac Type Severity Reaction Status Date / Time latex Allergy Unknown Verified 03/21/24 13:16 nickel Allergy Unknown Verified 03/21/24 13:16 sulfamethoxazole (From Allergy Unknown Verified 03/21/24 13:16 Bactrim) trimethoprim (From Bactrim) Allergy Unknown Verified 03/21/24 13:16 ALEXY Inhibitors AdvReac Severe ADR-Cough Verified 03/21/24 13:16 leflunomide AdvReac Intermediate elevated Verified 03/21/24 13:16 LFT's Review of Systems Narrative: Constitutional symptoms: Negative except as documented in HPI. Skin symptoms: Negative except as documented in HPI. Eye symptoms: Negative except as documented in HPI. ENMT symptoms: Negative except as documented in HPI. Respiratory symptoms: Negative except as documented in HPI. Cardiovascular symptoms: Negative except as documented in HPI. Gastrointestinal symptoms: Negative except as documented in HPI. Genitourinary symptoms: Negative except as documented in HPI. Musculoskeletal symptoms: Negative except as documented in HPI. Neurologic symptoms: Negative except as documented in HPI. Psychiatric symptoms: Negative except as documented in HPI. Endocrine symptoms: Negative except as documented in HPI. 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 Lai at [facility] for cystocele, rectocele, mixed urinary incontinence History of right knee joint replacement History of left knee replacement History of hysterectomy History of cholecystectomy History of bladder repair surgery in her 20's History of carpal tunnel repair History of bariatric surgery Family History Father Hypertension Heart disease Mother Hypertension Heart disease Brother Diabetes Hypertension Heart disease Sister Heart disease Other CAD (coronary artery disease) Cancer Hyperlipidemia Stroke Denies family history of Rheumatoid arthritis Lupus Chronic kidney disease (CKD) Lung disease Social History Smoking and tobacco/nicotine status: former use of tobacco/nicotine Quit status (tobacco/nicotine): has quit using Year quit tobacco: 1995 Alcohol intake: never Substance/Drug Use: never Female Reproductive History: Spontaneous abortions: No Physical Exam Narrative: EXAM NARRATIVE: General: Alert, no acute distress. Skin: Warm, dry. Head: Normocephalic, atraumatic. Neck: Supple, trachea midline. Eye: Extraocular movements are intact. Ears, nose, mouth and throat: mucosa moist. Cardiovascular: Regular, Normal peripheral perfusion. Respiratory: Lungs are clear to auscultation, respirations are non-labored, breath sounds are equal, Symmetrical chest wall expansion. Gastrointestinal: Soft, Nontender, Non distended Musculoskeletal: Normal ROM, no deformity. Neurological: Alert and oriented, No focal neurological deficit observed. Psychiatric: Cooperative, appropriate mood & affect. Course Vital Signs: Vital signs: Vital Signs Temperature 97.7 F 03/23/24 08:47 Pulse Rate 64 03/23/24 10:30 Respiratory Rate 20 H 03/23/24 08:41 Blood Pressure 200/80 03/23/24 11:00 Pulse Oximetry 97 03/23/24 10:30 Oxygen Delivery Me thod Room Air 03/23/24 10:30 MDM - Neuro Symptoms/Deficit Medical Decision Making Medical decision making: Differential diagnosis for patient with focal neurologic deficit(s) includes but not limited to and based on the above HPI, review of systems and physical exam: ischemic stroke, hemorrhagic stroke and embolic stroke secondary to atrial fibrillation), TIA, Coreas's palsey, metabolic encephalopathy with previous stroke. Differential diagnosis for patient with chest pain includes but is not limited to and based on the above HPI, review of systems and physical exam: Pneumonia. unstable angina. angina. Acute coronary syndrome / [place]. Pulmonary embolism. Costochondritis / musculoskeletal. Pleurisy. Pericarditis. Esophageal spasm. Pancreatis. Cholecystitis. Orders placed to evaluate differential diagnosis based on the above differential, HPI and physical exam NIH Stroke Scale/Score (NIHSS) from [employer] on 03/23/2024 All calculations should be rechecked by clinician prior to use RESULT SUMMARY: 0 points NIH Stroke Scale INPUTS: 1A: Level of consciousness ?> 0 = Alert; keenly responsive 1B: Ask month and age ?> 0 = Both questions right 1C: 'Blink eyes' & 'squeeze hands' ?> 0 = Performs both tasks 2: Horizontal extraocular movements ?> 0 = Normal 3: Visual vidal ?> 0 = No visual loss 4: Facial palsy ?> 0 = Normal symmetry 5A: Left arm motor drift ?> 0 = No drift for 10 seconds 5B: Right arm motor drift ?> 0 = No drift for 10 seconds 6A: Left leg motor drift ?> 0 = No drift for 5 seconds 6B: Right leg motor drift ?> 0 = No drift for 5 seconds 7: Limb Ataxia ?> 0 = No ataxia 8: Sensation ?> 0 = Normal; no sensory loss 9: Language/aphasia ?> 0 = Normal; no aphasia 10: Dysarthria ?> 0 = Normal 11: Extinction/inattention ?> 0 = No abnormality EKG: Time 8:38 AM. Rate 66. Normal sinus rhythm, No ST-T changes, no ectopy, right bundle branch block, This was reviewed and interpreted by myself the ER physician At 8:[address] head: No acute intracranial process. no intracranial hemorrhage, no evidence of infarct. no evidence of acute fracture.This was reviewed and interpreted by myself the ER physician. Consultation: Dr. Kent with neurology was consulted and has seen the patient in the emergency room. He recommends CTA. Admission for blood pressure control. Cardiac monitoring. Lab Review: Laboratory results were reviewed and interpreted by myself the emergency room physician. No leukocytosis. No anemia. No renal failure. Initial troponin is negative. proBNP is minimal at 374. I reviewed the patient's medical record. According to Dr. Churchill's most recent note she been having some issues of hypotension and so hydrochlorothiazide was discontinued, olmesartan was continued and amlodipine was reduced. Also she had a cardiac catheterization about 15 months ago. This showed mild diffuse coronary disease with no occlusions. Ranged between 30 and 50% Reexamination: Patient says chest pain has resolved. She still feels some numbness in her right foot. Otherwise her neurologic exam is normal. Consultation: I spoke with Dr. Pisano who agrees to admission. Assessment and plan: Accelerated hypertension Neurologic symptoms Chest pain Coronary artery disease ?IV hydralazine in the emergency room for blood pressure. has required multiple doses -I discussed the patient with the hospitalist on-call who is admitting the patient. - Discussed findings and plan with patient. Answered any questions. - All laboratory values were reviewed and interpreted personally by myself, the ER physician - All imaging was reviewed and interpreted personally by myself, the ER physician. - Evaluation and treatment of this problem were appropriate in the emergency setting Lab Data 03/23/24 08:45 03/23/24 08:45 Radiology Impressions Chest X-Ray 03/23/24 08:42 Impression: Atherosclerosis. Head CT 03/23/24 08:42 IMPRESSION: 1. No acute intracranial hemorrhage or edema. 2. Mild volume loss and small vessel changes. Notified Ermelinda Newman MD at 03/23/2024 8:55 AM. Head/Neck CTA 03/23/24 09:14 IMPRESSION: 1. No cervical carotid artery stenosis. Small amount of plaque at the bifurcations. 2. Mild plaque to the carotid cavernous arteries. No stenosis. 3. No thrombus or occlusion within the [place]. No aneurysm. Laboratory Results WBC 5.32 10^3/uL (3.29-11.43) 03/23/24 08:45 RBC 4.18 10^6/uL (3.85-5.65) 03/23/24 08:45 Hgb 13.60 g/dL (11.27-16.99) 03/23/24 08:45 Hct 40.4 % (36-47) 03/23/24 08:45 MCV 96.7 fl (85-98) 03/23/24 08:45 MCH 32.5 pg (27-33) 03/23/24 08:45 MCHC 33.7 g/dL (30-55) 03/23/24 08:45 RDW 12.2 % (12.1-15.1) 03/23/24 08:45 Plt Count 148 10^3/cmm (157-399) L 03/23/24 08:45 MPV 10.8 fL (7.4-10.4) H 03/23/24 08:45 Neut % (Auto) 43.9 % 03/23/24 08:45 Lymph % (Auto) 38.0 % 03/23/24 08:45 [place] % (Auto) 8.3 % 03/23/24 08:45 Eos % (Auto) 8.3 % 03/23/24 08:45 Baso % (Auto) 1.1 % 03/23/24 08:45 Neut # (Auto) 2.34 10^3/uL (1.8-7.7) 03/23/24 08:45 Lymph # (Auto) 2.0 10^3/uL (0.8-4.8) 03/23/24 08:45 [place] # (Auto) 0.4 10^3/uL (0.2-0.9) 03/23/24 08:45 Eos # (Auto) 0.4 10^3/uL (0.0-0.8) 03/23/24 08:45 Baso # (Auto) 0.1 10^3/uL (0.0-0.1) 03/23/24 08:45 Nucleated RBC % (auto) 0 % 03/23/24 08:45 Nucleated RBCs # 0.0 /100WBC 03/23/24 08:45 PT 12.50 SECONDS (12.1-14.9) 03/23/24 08:45 INR 0.87 (0.8-1.2) 03/23/24 08:45 APTT 31.9 SECONDS (23.9-36.7) 03/23/24 08:45 Sodium 138 mmol/L (136-145) 03/23/24 08:45 Potassium 4.0 mmol/L (3.5-5.1) 03/23/24 08:45 Chloride 102 mmol/L (98-107) 03/23/24 08:45 Carbon Dioxide 26 mmol/L (22-29) 03/23/24 08:45 Anion Gap 14.0 (5-19) 03/23/24 08:45 BUN 18 mg/dL (8-23) 03/23/24 08:45 Creatinine 0.6 mg/dL (0.5-0.9) 03/23/24 08:45 GFR Calculation Not Reportable 03/23/24 08:45 Glucose 151 mg/dL (65-115) H 03/23/24 08:45 POC Glucose 69 mg/dL (70-110) L 03/23/24 09:46 Calculated Osmolality 291 mOsm/kg (285-295) 03/23/24 08:45 Calcium 9.7 mg/dL (8.5-10.5) 03/23/24 08:45 Total Bilirubin 0.3 mg/dL (0.15-1.2) 03/23/24 08:45 AST 30 U/L (0-32) 03/23/24 08:45 ALT 49 U/L (0-33) H 03/23/24 08:45 Alkaline Phosphatase 137 U/L (35-105) H 03/23/24 08:45 Troponin T Baseline < 6 ng/L (0-10) 03/23/24 08:45 Troponin T 120 Minute 6.04 ng/L (0-10) 03/23/24 10:41 Delta Troponin T 0.14760 ABS# (0-10) 03/23/24 10:41 C-Reactive Protein 3.0 mg/L (0.0-4.9) 03/23/24 08:45 NT-Pro-B Natriuret Pep 374 pg/mL (0-125) H 03/23/24 08:45 Total Protein 6.3 g/dL (6.6-8.7) L 03/23/24 08:45 Albumin 4.2 g/dL (3.5-5.2) 03/23/24 08:45 Globulin 2.1 g/dL (1.3-4.6) 03/23/24 08:45 Vitamin B12 1052 pg/mL (232-1245) 03/23/24 08:45 25-OH Vitamin D Total 29 ng/mL (30-100) L 03/23/24 08:45 Urine Color Yellow (Yellow) 03/23/24 09:35 Urine Appearance Clear (CLEAR) 03/23/24 09:35 Urine pH 7.5 (5-7) 03/23/24 09:35 Ur Specific [place] 1.011 (1.005-1.030) 03/23/24 09:35 Urine Protein Negative (Negative) 03/23/24 09:35 Urine Glucose (UA) Negative (Normal) 03/23/24 09:35 Urine Ketones Negative (Negative) 03/23/24 09:35 Urine Blood Negative (Negative) 03/23/24 09:35 Urine Nitrate Negative (Negative) 03/23/24 09:35 Urine Bilirubin Negative (Negative) 03/23/24 09:35 Urine Urobilinogen 0.2 mg/dL (Negative) 03/23/24 09:35 Ur Leukocyte Esterase 1+ (Negative) A 03/23/24 09:35 Urine RBC 0-2 /hpf (0-2) 03/23/24 09:35 Urine WBC 0-5 /hpf (0-5) 03/23/24 09:35 Ur Squamous Epith Cells 0-5 /hpf (0-5) 03/23/24 09:35 Amorphous Sediment Not Reportable 03/23/24 09:35 Urine Bacteria None seen /hpf (NONE) 03/23/24 09:35 Hyaline Casts 0-4 /lpf H 03/23/24 09:35 Coronavirus (PCR) Negative (Negative) 03/23/24 08:57 Influenza A (PCR) Negative (Negative) 03/23/24 08:57 Influenza Type B (PCR) Negative (Negative) 03/23/24 08:57 RSV (PCR) Negative (Negative) 03/23/24 08:57 All radiology interpretation(s) finalized by discharge Discharge Plan Discharge Patient Disposition: Admitted As Inpatient Clinical Impression: Accelerated hypertension, Chest pain, Vision changes, Neurological symptoms, Coronary artery disease Condition: Stable Coding Level of Care Code ED College Professor for Porsha Whitehead
[2024-03-23 09:07] LABS: INR 0.87 (0.8-1.2)
[2024-03-23 09:09] LABS: Partial Thromboplastin Time 31.9 SECONDS (23.9-36.7)
--- NOTE | 2024-03-23 09:14 | CT_ITS ---
WS: [id number] CT ANGIOGRAM CEREBRAL AND CAROTID ARTERIES HISTORY: Possible stroke TECHNIQUE: CT angiogram is performed of the carotid and cerebral arteries. During arterial injection imaging is obtained from the skull vertex to the aortic arch in 1.25 mm imaging. Coronal and sagittal reformats are submitted. Additional multi planar reformats of the carotid and cerebral arteries are submitted, MIP imaging also reviewed. NASCET criteria utilized. All CT scans at [facility] use at least one of these dose optimization techniques: automated exposure control; mA and/or kV adjustment per patient size (includes targeted exams where dose is matched to clinical indication); or iterative reconstruction. CONTRAST: Omnipaque 350; 100 mL IV. DLP: 407.58 mGy.cm COMPARISON: None available. Carotid Angiogram: Right carotid: Common carotid artery: Mild partial circumferential plaque at the bifurcation. Stenosis less than 50%. Internal carotid artery: Plaque at the bifurcation with less than 50% stenosis. External carotid artery: Patent. Left carotid: Common carotid artery: Arises normally from the aorta. No significant plaque or stenosis. Internal carotid artery: Mild plaque at the bifurcation. No stenosis. External carotid artery: Patent. Right vertebral artery: Unremarkable. Left vertebral artery: Dominant. Patent. Subclavian arteries: No stenosis or significant abnormality. Upper thorax: Normal. Thyroid gland: Normal. Osseous structures: Cervical spondylosis. CEREBRAL ANGIOGRAM: Intracranial vertebral arteries: Normal with no significant atherosclerosis. Basilar artery: No significant stenosis or occlusion. No aneurysm. Intracranial Internal carotid arteries: Demonstrates no significant stenosis or plaque. Middle cerebral arteries: No central emboli or occlusion. Anterior cerebral arteries and ACOM: Normal. Posterior cerebral arteries and PCOM's: Normal. Dural venous sinuses are normally enhancing. Mastoid air cells: Normal. Paranasal sinuses: Normal. Calvarium: Normal. CT/CT angio headneck* [id number] IMPRESSION: 1. No cervical carotid artery stenosis. Small amount of plaque at the bifurcat ions. 2. Mild plaque to the carotid cavernous arteries. No stenosis. 3. No thrombus or occlusion within the [place]. No aneurysm.
[2024-03-23 09:18] LABS: Troponin(5th) Baseline < 6 ng/L (0-10)
[2024-03-23 09:28] LABS: Alanine Aminotransferase 49 U/L (0-33); Albumin Level 4.2 g/dL (3.5-5.2); Alkaline Phosphatase 137 U/L (35-105); Aspartate Amino Transferase 30 U/L (0-32); Blood Urea Nitrogen 18 mg/dL (8-23); Calcium 9.7 mg/dL (8.5-10.5); Carbon Dioxide 26 mmol/L (22-29); Chloride 102 mmol/L (98-107); Creatinine Clr Calc Pharmacy 72.8808; Globulin 2.1 g/dL (1.3-4.6); Glucose 151 mg/dL (65-115); NT Pro B Type Natriuretic Pept 374 pg/mL (0-125); Osmolality Calculated 291 mOsm/kg (285-295); Sodium 138 mmol/L (136-145); Total Bilirubin 0.3 mg/dL (0.15-1.2); Total Protein 6.3 g/dL (6.6-8.7)
[2024-03-23] MEDS: iohexol 350 mg/mL 500 mL Btl (per mL) IV (09:30)
--- NOTE | 2024-03-23 09:36 | PM.CONSULT ---
Providers/Reason For Consult Consulting Physician/Specialty*: Alfonso Kent MD neurology and epilepsy Reason for Consult*: Acute care/code stroke emergency department room #5 Primary Care Provider: Gerard Bonilla MD History of Present Illness History of Present Illness Rylee Bernard is a 69 year old female with a history of hypoglycemia followed by endocrinology and another facility. Patient also has a history of hypertension followed by cardiology at [facility]. According to the patient around 8 AM on 03/23/2024 she reported not feeling well and contacted her daughter who is a nurse at [facility] emergency department. The patient stated that she was experiencing chest pain and blurred vision and weakness all over. At home patient's blood pressure reading was 201/94. The patient stated that she started eating grapes and was drinking orange juice when the EMS arrived. In the emergency department the patient's blood pressure was improved but was still elevated with systolic blood pressure greater than 190. Point of contact glucose Accu-Chek 164. Patient's symptoms resolved in the emergency department. Stat noncontrast head CT was obtained and was reported to be negative for any acute findings. NIH score = 0. CT angiogram of the head and neck ordered. Results pending at the time of this dictation. Drug allergies: Latex type reaction unknown Nickel type reaction unknown Sulfonamide antibiotics (Bactrim) type reaction unknown Trimethoprim (from Bactrim) type reaction unknown ALEXY inhibitors which resulted in a cough Leflunomide resulted in elevated liver enzymes Current medications: Acarbose 25 mg p.o. 3 times daily Tylenol 3 and 25 mg p.o. every 4 hours as needed for pain Aspirin 81 mg tablet 2 p.o. nightly BuSpar 10 mg p.o. 3 times daily Alprazolam 0.25 mg p.o. daily Carvedilol 6.25 mg p.o. twice daily Vitamin D3 25 mcg p.o. daily Colace 100 mg p.o. 3 times daily Enbrel 50 mg subcutaneously every 7 days Ibuprofen 800 mg p.o. 3 times daily as needed for pain Magnesium 84 mg p.o. twice daily Olmesartan 40 mg p.o. daily Oxybutynin chloride 10 mg p.o. daily Lyrica 25 mg p.o. twice daily Prolia 60 mg subcutaneously every 6-month Repatha 140 mg subcutaneously every 14 days Multivitamin 1 p.o. daily Past medical history: Essential hypertension Hypoglycemia TIA involving right internal carotid artery Mixed incontinence urge and stress POP-Q stage II rectocele Bilateral carpal tunnel syndrome Vitamin D deficiency Bradycardia Obstructive sleep apnea History of gastric bypass Insomnia Elevated liver enzymes Atherosclerotic of qagan [place] coronary arteries without angina Primary osteoarthritis of the hips bilateral Helicobacter pylori gastritis Gastroesophageal reflux disease without esophagitis Hypokalemia Mixed dyslipidemia Anxiety and depression Chronic diarrhea Abdominal pain Fibromyalgia History of total right knee replacement Primary osteoarthritis of left knee 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 Osteoporosis Positive PRICE (antinuclear antibody) Inflammatory arthritis Habits: None Review of Systems General: Reports: 10 or more systems reviewed and unremarkable except in HPI and below Medications/Allergies Home Medications ?Medication ?Instructions ?Recorded ?Confirmed ?Last Taken ?Type rissgddx-zpk-jsosl ac 400 1 tab PO DAILY 04/27/23 03/23/24 02/02/24 History mcg-calcium carb 500 mg-vit K1 20 mcg tablet (Women's 50 Plus Multivitamin) aspirin 81 mg tablet,delayed 162 mg (2 x 81 mg) PO BEDTIME #90 04/28/23 03/23/24 02/01/24 Rx release (Adult Aspirin Regimen) tabs cholecalciferol (vitamin D3) 25 25 mcg PO DAILY 07/14/23 03/23/24 02/02/24 History mcg (1,000 unit) tablet (Vitamin D3) denosumab 60 mg/mL subcutaneous 60 mg SUBCUT .[id number] 07/14/23 03/23/24 09/22/23 History syringe (Prolia) acarbose 25 mg tablet 25 mg PO TID 07/28/23 03/23/24 02/02/24 History buspirone 10 mg tablet 10 mg PO TID #90 tabs 11/05/23 03/23/24 02/02/24 Rx pregabalin 25 mg capsule (Lyrica) 25 mg PO BID #60 caps 12/31/23 03/23/24 02/02/24 Rx etanercept 50 mg/mL (1 mL) 50 mg SUBCUT .7D 02/02/24 03/23/24 01/29/24 History subcutaneous syringe (Enbrel) evolocumab 140 mg/mL subcutaneous 140 mg SUBCUT .14D 02/02/24 03/23/24 01/29/24 History pen injector (Repatha SureClick) magnesium L-lactate 84 mg 84 mg PO BID 02/02/24 03/23/24 02/02/24 History tablet,extended release (Magtab) acetaminophen 325 mg capsule 325 mg PO Q4H PRN fever or pain 02/04/24 03/23/24 Unknown Rx #60 caps ibuprofen 800 mg tablet 800 mg PO TID PRN pain #60 tabs 02/04/24 03/23/24 Unknown Rx alprazolam 0.25 mg tablet 0.25 mg PO DAILY #30 tabs 02/15/24 03/23/24 Unknown Rx docusate sodium 100 mg capsule 100 mg PO TID #90 caps 02/19/24 03/23/24 Unknown Rx (Colace) olmesartan 40 mg tablet 40 mg PO DAILY #90 tabs 03/10/24 03/23/24 Unknown Rx carvedilol 6.25 mg tablet 6.25 mg PO BID #60 tabs 03/21/24 03/23/24 Unknown Rx oxybutynin chloride 10 mg 10 mg PO DAILY 03/23/24 03/23/24 Unknown History tablet,extended release 24 hr Allergies Allergy/AdvReac Type Severity Reaction Status Date / Time latex Allergy Unknown Verified 03/21/24 13:16 nickel Allergy Unknown Verified 03/21/24 13:16 sulfamethoxazole (From Allergy Unknown Verified 03/21/24 13:16 Bactrim) trimethoprim (From Bactrim) Allergy Unknown Verified 03/21/24 13:16 ALEXY Inhibitors AdvReac Severe ADR-Cough Verified 03/21/24 13:16 leflunomide AdvReac Intermediate elevated Verified 03/21/24 13:16 LFT's PFSH Acute PFSH: Medical History Vitamin D deficiency Atherosclerosis of [place] coronary artery without angina pectoris Helicobacter pylori gastritis 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 Albino at [facility] for cystocele, rectocele, mixed urinary incontinence History of right knee joint replacement History of left knee replacement History of hysterectomy History of cholecystectomy History of bladder repair surgery in her 20's History of carpal tunnel repair History of bariatric surgery Family History Father Hypertension Heart disease Mother Hypertension Heart disease Brother Diabetes Hypertension Heart disease Sister Heart disease Other CAD (coronary artery disease) Cancer Hyperlipidemia Stroke Denies family history of Rheumatoid arthritis Lupus Chronic kidney disease (CKD) Lung disease Social History Smoking and tobacco/nicotine status: former use of tobacco/nicotine Quit status (tobacco/nicotine): has quit using Year quit tobacco: 1995 Alcohol intake: never Substance/Drug Use: never Female Reproductive History: Spontaneous abortions: No Vitals/I&O/Wt Last Vital Signs Temp 97.7 F 03/23/24 08:47 Pulse 75 03/23/24 08:41 Resp 20 H 03/23/24 08:41 BP 194/81 03/23/24 08:59 Pulse Ox 95 03/23/24 08:41 O2 Del Method Room Air 03/23/24 08:41 Weight last 48 hrs Weight 206 lb Physical Exam Narrative: NIH score = 0. Point of contact glucose Accu-Chek 164. Stat noncontrast head CT was obtained and was reported to be negative for any acute findings. CT angiogram of the head and neck ordered. Results pending at the time of this dictation. Blood pressure 191/81 heart rate 75 respirations 20 temperature 97.7 ?F O2 saturation 95% on room air The patient is alert and oriented x 3. Speech is fluent. Head normocephalic. Neck supple. Cranial nerves II through XII intact. Pupils 4 mm round reactive to light and accommodation. Extraocular movements intact. Visual vidal appear to be full via confrontation. There were no nystagmus. Motor testing 5/5 bilaterally. There was no drift. Tgmfvq-biuz-ywiluv and yzpk-zoyf-qttb maneuvers revealed no ataxia. Deep tendon reflex revealed plantar responses bilaterally. Sensory examination was intact to touch. There was no obvious extinction on double sensory stimulation. Throat clear. Lungs clear. Heart regular rhythm and rate. Extremities were negative for cyanosis Data 03/23/24 08:45 03/23/24 08:45 A&P Assessment and plan (1) TIA (transient ischemic attack): Impression: 1. 69-year-old female with a history of hypoglycemia and hypertension who reported experiencing acute onset of chest pain and blurred vision and weakness all over. The patient's reported eating grapes and drinking orange juice and point of contact glucose Accu-Chek 164 on arrival on arrival and symptoms resolved on arrival. Etiology of symptoms unclear but cannot rule out the possibility of transient ischemic attack versus hypoglycemic episode as well as symptoms related to hypertension Plan: 1. Agree with obtaining CT angiogram of the head and neck to assess for large vessel occlusion 2. Recommend obtaining lab for B12 level and vitamin D 3. Recommend monitoring serum glucose to assess for episodes of hypoglycemia 4. Recommend observation admission to hospital and place patient on cardiac telemetry 5. Neurochecks and vital signs per NIH stroke protocol 6. Recommend discontinuing naproxen and ibuprofen since these medications have been reported to be associated with increased risk for heart disease and strokes 7. Recommend OT and PT consults to evaluate patient's complaints of generalized weakness 8. Stroke pamphlet and stroke education for patient and family 9. Recommend cardiac evaluation 10. Recommend increasing aspirin to 325 mg p.o. every morning with food and start lipid-lowering agent per NIH stroke protocol unless contraindications PDMP PDMP Reviewed: Not Reviewed Consult Attestations Medical Necessity Statement: The patient was evaluated by neurology for acute care/code stroke emergency department room #5 Coding Level of Care Code 14967 Diagnoses TIA (transient ischemic attack) G45.9
[2024-03-23 09:49] LABS: Glucose Point of Care 69 mg/dL (70-110)
[2024-03-23] MEDS: hyDRALAzine 20 mg/mL INJ 1 mL 10 MG IVP (09:53)
--- NOTE | 2024-03-23 09:57 | PC.NURSE ---
PT stated she was feeling like her blood sugar dropped, PT sugar dropped to 69. Have PT peanut butter crackers and apple juice, will continue to monitor
[2024-03-23 10:13] LABS: Bilirubin Urine Negative (Negative); Blood Urine Negative (Negative); Glucose Urine UA Negative (Normal); Ketones Urine Negative (Negative); Leukocyte Esterase Urine 1+ (Negative); Nitrate Urine Negative (Negative); Protein Urine Negative (Negative); Specific Gravity, Urine 1.011 (1.005-1.030); Urine Appearance Clear (CLEAR); Urine Color Yellow (Yellow); Urobilinogen Urine 0.2 mg/dL (Negative); pH Urine 7.5 (5-7)
[2024-03-23 10:17] LABS: Bacteria Urine None Seen /hpf; Hyaline Casts Urine 0-4 /lpf; RBC Urine 0-2 /hpf (0-2); Squamous Epithelial Cell Urine 0-5 /hpf (0-5); WBC Urine 0-5 /hpf (0-5)
[2024-03-23 10:19] LABS: Influenza A NEGATIVE (Negative); Influenza B NEGATIVE (Negative); Respiratory Syncytial Virus Ce NEGATIVE (Negative); SARS-CoV-2 PCR NEGATIVE (Negative)
[2024-03-23 10:25] LABS: 25 Hydroxy Vitamin D 29 ng/mL (30-100); Vitamin B12 1052 pg/mL (232-1245)
[2024-03-23 10:40] LABS: Add Urine Culture? No
[2024-03-23 11:14] LABS: Troponin 5 2HR 6.04 ng/L (0-10); Troponin 5 2HR Delta 0.04001 ABS# (0-10)
[2024-03-23] MEDS: hyDRALAzine 20 mg/mL INJ 1 mL IVP (11:53)
--- NOTE | 2024-03-23 11:53 | ECG_ITS ---
[facility] 2024-[facility]-23 Pat Name: Rylee Bernard Department: Room: Gender: Female Message Clerk: : 1955 Requested By: Ermelinda Hartmann Order Number: [id number] Juan MD: Channing Reynoso M.D. Measurements Intervals [place] Rate: 57 P: 47 NH: 177 QRS: -13 QRSD: 157 T: 16 QT: 465 QTc: 456 Interpretive Statements SINUS BRADYCARDIA RIGHT BUNDLE BRANCH BLOCK [120+ ms QRS DURATION, UPRIGHT V1, 40+ ms S IN I/aVL/V4/V5/V6] PROBABLE ANTERIOR MYOCARDIAL INFARCTION , OF INDETERMINATE AGE [35 ms Q WAVE IN V3/V4] Compared to ECG 03/23/2024 08:38:54 Sinus rhythm no longer present Myocardial infarct finding still present Electronically Signed On 03-24-2024 22:19:33 ENVIRONMENTAL SERVICES SUPERVISOR by Channing Reynoso M.D. [id number]
--- NOTE | 2024-03-23 12:30 | PM.HP ---
Providers/Chief Complaint Primary Care Provider: Gerard Bonilal MD Chief Complaint: high b/p, chest feels heavy History of Present Illness Very pleasant 69-year-old lady with history of moderate coronary artery disease, seronegative RA, recurrent hypoglycemia, HTN, DM, anxiety, other medical problems, presents to the hospital after having chest heaviness, with elevated blood pressure, blurred vision, generalized weakness, stroke code was called initially for possible TIA, CT of the head was assessed, blood glucose was found on lower side, 69. She was seen by neurology, not found to have focal deficits. Question of TIA was assessed. Etiology of symptoms unclear, TIA not entirely excluded, but otherwise still possibly secondary to other related conditions, hypertension, hypoglycemia. With blood pressure as high as 218/91 she received hydralazine, 10 mg, but without response in 2 hours, received additional 20 mg. Blood pressure then downtrending, coming down to 160, 140, and then as low as 124 systolic. At the same time she is starting to have chest pressure and feeling unwell. No arrhythmia noted on telemetry. Twelve-lead EKG repeated. Nitroglycerin initially considered but with blood pressure further coming down deferred. She took 162 mg of aspirin this morning, additional 162 mg requested, heparin drip requested. As well as assessment with echocardiogram. She had mild dry cough, mild cold/flulike illness over the weekend which had resolved. D-dimer requested. She was feeling anxious. Low-dose Ativan has been requested. Small bolus of fluid 250 mL over an hour requested. Head of bed lowered. Repeat blood glucose requested. She is feeling slightly better. Review of Systems Const: Reports: fatigue; Denies: fever(s), chills, body aches or malaise ENMT: Denies: throat pain Card: Reports: lightheadedness and other (Chest pressure); Denies: edema, pre-syncope or dyspnea on exertion Resp: Denies: dyspnea, productive cough, change in phlegm color or hemoptysis GI: Denies: abdominal pain, nausea, vomiting, diarrhea, constipation, hematochezia or melena : Denies: flank pain, urinary frequency or hematuria Musc: Denies: back pain, joint swelling or joint redness Skin/Breast: Denies: rash or new lesions Medications/Allergies Home Medications ?Medication ?Instructions ?Recorded ?Confirmed ?Last Taken ?Type uhyqmuez-avi-suqau ac 400 1 tab PO DAILY 04/27/23 03/23/24 02/02/24 History mcg-calcium carb 500 mg-vit K1 20 mcg tablet (Women's 50 Plus Multivitamin) aspirin 81 mg tablet,delayed 162 mg (2 x 81 mg) PO BEDTIME #90 04/28/23 03/23/24 02/01/24 Rx release (Adult Aspirin Regimen) tabs cholecalciferol (vitamin D3) 25 25 mcg PO DAILY 07/14/23 03/23/24 02/02/24 History mcg (1,000 unit) tablet (Vitamin D3) denosumab 60 mg/mL subcutaneous 60 mg SUBCUT .[id number] 07/14/23 03/23/24 09/22/23 History syringe (Prolia) acarbose 25 mg tablet 25 mg PO TID 07/28/23 03/23/24 02/02/24 History buspirone 10 mg tablet 10 mg PO TID #90 tabs 11/05/23 03/23/24 02/02/24 Rx pregabalin 25 mg capsule (Lyrica) 25 mg PO BID #60 caps 12/31/23 03/23/24 02/02/24 Rx etanercept 50 mg/mL (1 mL) 50 mg SUBCUT .7D 02/02/24 03/23/24 01/29/24 History subcutaneous syringe (Enbrel) evolocumab 140 mg/mL subcutaneous 140 mg SUBCUT .14D 02/02/24 03/23/24 01/29/24 History pen injector (Unique Maldonado) magnesium L-lactate 84 mg 84 mg PO BID 02/02/24 03/23/24 02/02/24 History tablet,extended release (Magtab) acetaminophen 325 mg capsule 325 mg PO Q4H PRN fever or pain 02/04/24 03/23/24 Unknown Rx #60 caps ibuprofen 800 mg tablet 800 mg PO TID PRN pain #60 tabs 02/04/24 03/23/24 Unknown Rx alprazolam 0.25 mg tablet 0.25 mg PO DAILY #30 tabs 02/15/24 03/23/24 Unknown Rx docusate sodium 100 mg capsule 100 mg PO TID #90 caps 02/19/24 03/23/24 Unknown Rx (Colace) olmesartan 40 mg tablet 40 mg PO DAILY #90 tabs 03/10/24 03/23/24 Unknown Rx carvedilol 6.25 mg tablet 6.25 mg PO BID #60 tabs 03/21/24 03/23/24 Unknown Rx oxybutynin chloride 10 mg 10 mg PO DAILY 03/23/24 03/23/24 Unknown History tablet,extended release 24 hr Allergies Allergy/AdvReac Type Severity Reaction Status Date / Time latex Allergy Unknown Verified 03/21/24 13:16 nickel Allergy Unknown Verified 03/21/24 13:16 sulfamethoxazole (From Allergy Unknown Verified 03/21/24 13:16 Bactrim) trimethoprim (From Bactrim) Allergy Unknown Verified 03/21/24 13:16 ALEXY Inhibitors AdvReac Severe ADR-Cough Verified 03/21/24 13:16 leflunomide AdvReac Intermediate elevated Verified 03/21/24 13:16 LFT's PFSH Acute PFSH: Medical History Vitamin D deficiency Atherosclerosis of morongo coronary artery without angina pectoris Helicobacter pylori gastritis 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 Lai at [facility] for cystocele, rectocele, mixed urinary incontinence History of right knee joint replacement History of left knee replacement History of hysterectomy History of cholecystectomy History of bladder repair surgery in her 20's History of carpal tunnel repair History of bariatric surgery Family History Father Hypertension Heart disease Mother Hypertension Heart disease Brother Diabetes Hypertension Heart disease Sister Heart disease Other CAD (coronary artery disease) Cancer Hyperlipidemia Stroke Denies family history of Rheumatoid arthritis Lupus Chronic kidney disease (CKD) Lung disease Social History Smoking and tobacco/nicotine status: former use of tobacco/nicotine Quit status (tobacco/nicotine): has quit using Year quit tobacco: 1995 Alcohol intake: never Substance/Drug Use: never Female Reproductive History: Spontaneous abortions: No Vitals/I&O/Wt Last Vital Signs Temp 97.7 F 03/23/24 08:47 Pulse 64 03/23/24 11:58 Resp 19 H 03/23/24 11:58 BP 197/61 03/23/24 11:58 Pulse Ox 97 03/23/24 11:58 O2 Del Method Room Air 03/23/24 10:30 Weight last 48 hrs Weight 93.44 kg Physical Exam Narrative: Accompanied by her daughter. Const: COMMON NORMALS: patient oriented x3 and alert GENERAL APPEARANCE: cooperative ORIENTATION/CONSCIOUSNESS: Yes awake HENMT: COMMON NORMALS: oropharynx normal Neck/C-Spine: COMMON NORMALS: no JVD Resp: COMMON NORMALS: normal respiratory effort and clear to auscultation bilaterally AUSCULTATION: clear to auscultation bilaterally Cardio: COMMON NORMALS: no JVD, regular rhythm, S1 normal heart sound present, S2 normal heart sound present and No murmurs present (Cardio) RHYTHM: regular rhythm HEART SOUNDS: S1 normal heart sound present and S2 normal heart sound present GI: COMMON NORMALS: Normal to inspection, nondistended, normoactive bowel sounds present, Soft to palpation and non-tender PALPATION: Yes Soft to palpation Extremity: COMMON NORMALS: no joint enlargement and no pedal edema Neuro: COMMON NORMALS: patient oriented x3 and moves all extremities SENSORIUM/ORIENTATION: Yes alert Skin: COMMON NORMALS: no rashes or lesions noted GENERAL SKIN EXAM: no rashes or lesions noted Data 03/23/24 08:45 03/23/24 08:45 Micro: Microbiology 03/23/24 10:41 Blood Culture - Preliminary Blood SPECIMEN COLLECTED 03/23/24 10:46 Blood Culture - Preliminary Blood SPECIMEN COLLECTED A&P Assessment and plan (1) Unstable angina: Recurrent chest pressure, prior to presentation and during hospitalization, blood pressure initially elevated, decreasing after hydralazine down as low as 124 systolic, also accompanied by chest pressure. Nitroglycerin held off due to already decreasing blood pressure. Repeat twelve-lead EKG obtained, without additional change compared to prior. Discussed with patient and her daughter. She took 262 mg of aspirin this morning, additional 162 mg requested. Requested heparin drip for suspected unstable angina. Does have history of moderate, 35 to 50% coronary disease on prior angiogram. Discussed with ER provider, reviewed ER provider note. Discussed with computer systems software engineer. Appreciate consultation. Monitor on telemetry with risk of arrhythmia. Request additional assessment with TTE. Continue to monitor blood pressure, with return of chest pressure with decreasing blood pressure requested small bolus 250 mL over 1 hour. Continue to monitor symptoms. She had some sort of mild cold/flulike illness over the weekend which resolved spontaneously. She had some dry cough during that time. D-dimer requested as well. She has been feel anxious as well, small dose Ativan was requested. Resume her home Xanax as well. Chest x-ray reviewed, reviewed vitals, CBC, CMP. Otherwise without suggestion of sepsis, ongoing infection. (2) TIA (transient ischemic attack): Possible TIA not excluded, but NIH was 0. Seems Less likely A TIA. Has been assessed by neurology. Note reviewed. Appreciate recommendations. Vitamin B12 has been obtained, normal. Vitamin D low normal. Continue glucose monitoring with history of recurrent hypoglycemia, soft blood glucose this morning, 69. Hypoglycemia protocol is requested. She states does not take ibuprofen or naproxen. Discussed with her to avoid NSAIDs. Continue telemetry monitoring. Follow-up TTE. Aspirin increased to 325 mg daily. (3) Hypoglycemia: History of recurrent hypoglycemia. Following with endocrinology. Blood glucose soft this morning, 69. Repeat blood glucose. Recheck POC glucose requested. Hypoglycemia protocol. Plan Coronary artery disease, Seronegative RA, Recurrent hypoglycemia, HTN, has had difficulty with managing blood pressures, previously on amlodipine, HCTZ, metoprolol. Heart rates are becoming bradycardic, metoprolol to be discontinued, switched over to carvedilol. With concern for dehydration HCTZ was stopped, amlodipine was reduced and then discontinued as well. She is continuing on olmesartan. Resume carvedilol, for now at reduced dose 3.125 given reduction blood pressure after hydralazine, monitor blood pressure, resume other medications in case blood pressures are further rising. DM, insulin sliding scale. Monitor POC glucose. Hypoglycemia protocol. Anxiety PDMP PDMP Reviewed: Not Reviewed Attestations Medical Necessity Statement*: Admission over 2 midnights anticipated for assessment management of unstable angina, possible TIA in a lady with underlying coronary to disease, HTN, seronegative rheumatoid arthritis, recurrent hypoglycemia, other comorbidities. Diagnoses Unstable angina I20.0 TIA (transient ischemic attack) G45.9 Hypoglycemia E16.2
--- NOTE | 2024-03-23 12:38 | USCV_ITS ---
Rylee Bernard Age: 69 Gender: F : 1955 Exam Date: 03/23/2024 12:49 Ordering Phys: Han Patel MD Technologist: Exam Location: [facility] [place] Indication: cp as BP: 160 / 54 HR: 74 Rhythm: Sinus Technical Quality: Adequate MEASUREMENTS (Male / Female) Normal Values 2D ECHO LV Diastolic Diameter PLAX 4.8 cm 4.2 - 5.9 / 3.9 - 5.3 cm IVS Diastolic Thickness 0.9 cm 0.6 - 1.0 / 0.6 - 0.9 cm IVS Systolic Thickness 2.0 cm LVPW Diastolic Thickness 1.5 cm 0.6 - 1.0 / 0.6 - 0.9 cm LVPW Systolic Thickness 2.0 cm LVOT Diameter 2.0 cm LV Ejection Fraction 2D Teich 56.0 % LV Ejection Fraction MOD 4C 62.7 % LV Ejection Fraction MOD 2C 72.4 % LV Ejection Fraction 2C AL 73.4 % LA Diameter 3.6 cm RA Systolic Volume 4C AL 50.0 ml RA Systolic Volume 4C MOD 48.5 ml LA Sys Volume AL 49.8 cm cubed LA Sys Volume Index AL 23.7 cm cubed/m squared Aorta at Sinotubular Diameter 2.6 cm IVC Diameter 1.6 cm M-MODE LA Ao Ratio MM 1.5 AV Cusp Separation MM 1.2 cm DOPPLER AV Peak Velocity 321.0 cm/s LVOT Peak Velocity 164.0 cm/s AV Area Cont Eq vti 2.1 cm squared AV Area Cont Eq pk 1.7 cm squared MV Peak Velocity 140.0 cm/s MV Area PHT 2.9 cm squared Mitral E to A Ratio 0.7 TV Peak Velocity 230.0 cm/s TR Peak Velocity 252.0 cm/s TR Peak Gradient 25.4 mmHg TV Peak E Velocity 98.0 cm/s PV Peak Velocity 181.0 cm/s FINDINGS Left Ventricle Left ventricle is normal in size. LV systolic function is normal with EF of 60-65%. No regional wall motion abnormalities are seen. Grade 1 diastolic dysfunction. Right Ventricle Normal in size and function. Right Atrium Normal in size Left Atrium Normal in size Mitral Valve Mild mitral annular calcification. Mild mitral regurgitation. Aortic Valve Aortic valve is thickened. Moderate aortic stenosis with aortic valve area of 2 cm squared and mean gradient across aortic valve of 24 mmHg. Tricuspid Valve Mild tricuspid regurgitation. Pulmonary artery systolic pressure is normal. Pulmonic Valve Not well visualized Pericardium Normal Aorta Normal in size IVC Appears to be normal CONCLUSIONS LV systolic function is normal with EF of 60-65% Grade 1 diastolic dysfunction Mild mitral regurgitation Moderate aortic stenosis Mild tricuspid regurgitation Compared to prior echocardiogram from 2023, aortic stenosis has progressed and is moderate now. Channing Reynoso MD (Electronically Signed) Final Date: 24 March 2024 08:30 S
[2024-03-23] MEDS: sodium chloride 0.9% 250 ML IV (12:39)
[2024-03-23] MEDS: LORazepam 2 mg/mL INJ 1 mL 0.5 MG IVP (12:40)
[2024-03-23 13:04] LABS: Glucose Point of Care 161 mg/dL (70-110)
[2024-03-23 13:20] LABS: D Dimer 0.34 ug/mLFEU (0-0.59)
[2024-03-23] MEDS: heparin 5,000 unit/mL INJ 1 mL IVP (13:37)
[2024-03-23] MEDS: heparin drip 25,000 UNIT/500 ML PREMIX 26 UNIT IV (13:40)
[2024-03-23] MEDS: aspirin 81 mg EC Tablet 162 MG PO (13:41)
--- NOTE | 2024-03-23 14:43 | ECG_ITS ---
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 Measurements Intervals [place] Rate: 62 P: 49 VA: 182 QRS: 9 QRSD: 155 T: 19 QT: 439 QTc: 448 Interpretive Statements SINUS RHYTHM RIGHT BUNDLE BRANCH BLOCK [120+ ms QRS DURATION, UPRIGHT V1, 40+ ms S IN I/aVL/V4/V5/V6] Compared to ECG 03/23/2024 11:53:36 Sinus bradycardia no longer present Myocardial infarct finding no longer present Electronically Signed On 03-24-2024 22:19:06 INDUSTRIAL SOCIOLOGIST by Channing Reynoso M.D. [id number]
[2024-03-23 15:43] LABS: Troponin 5 6HR 33.44 ng/L (0-10)
[2024-03-23 15:50] LABS: Troponin 5 6HR Delta 27.44001 ng/L (0-12)
--- NOTE | 2024-03-23 16:37 | P.CONIM_ITS ---
<Statement entered by Rae Churchill MD - 03/23/24 23:58> Patient was evaluated and cared for in conjunction with an advanced practice practitioner. I personally examined the patient and reviewed the chart and all pertinent data including imaging, telemetry, and laboratory results. I discussed the patient in detail with the advanced practice practitioner. Please see their note for complete H&P testing result and agreed upon plan of care for the patient. 69-year-old female past medical history significant for labile hypertension, nonobstructive coronary artery disease as per angiogram in 2022 presented with hypertensive urgency headache blurry vision, after hydralazine she dropped her blood pressure felt overall weak and flushed however within no time has systolic blood pressure climbed up to more than 190. Recently patient had medicine adjustment did to hypotensive and dehydrated episodes at home. She admits to some chest pressure but denies categorically chest pain. Twelve-lead EKG is not suggestive of acute ongoing ischemia. GENERAL: Patient is alert, awake and oriented x3. HEART: Regular S1 and S2. No murmur, rub or gallop. LUNGS: Clear to auscultate bilaterally. CENTRAL NERVOUS SYSTEM: Grossly nonfocal. EXTREMITIES: Lower extremities with out edema bilaterally. Assessment and plan Hypertensive urgency Atypical chest pain History of nonobstructive coronary disease History of labile hypertension Given patient lability of the blood pressure at the moment I will start her on carvedilol 3.125 mg twice daily along with losartan 50 mg, if needed we can add IV nitroglycerin drip for blood pressure control, echocardiogram will be obtained to assess any structural heart problem, once stable blood pressure weeks may will offer Lexiscan MIBI stress test since patient have nonobstructive coronary artery disease including LAD and RCA documented couple of years ago, further plan will be advised as per progress of the patient Providers/Reason For Consult 2 Consulting Physician/Specialty*: Rae Churchill MD Reason for Consult*: Hypertensive urgency with chest pressure Requesting Physician: Han Patel MD Attending Physician: Han Patel Primary Care Provider: Gerard Bonilla MD History of Present Illness History of Present Illness This is a very pleasant 69-year-old female with a past medical history of palpitations, nonobstructive coronary artery disease, hypertension, history of TIA. She came into the ER today due to high blood pressure. Blood pressure was over 200 systolic. Currently it is 190/78. Heart rate 68. She said initially she developed blurry vision with high blood pressure and came to our ER. She was given hydralazine 10 mg and then subsequently 20 mg around 11:00 today. She developed sudden lowering of her blood pressure and chest pressure. She states that this wasin the center and radiated to her left shoulder. She stated it resolved when her blood pressure stabilized. Currently chest pain free. States blurry vision comes and goes but mostly resolved. EKG without any acute ST or T wave abnormalities. Troponin so far negative. Recently she has had some medication changes. When reviewing her blood pressure log it has been uncontrolled for a few weeks. Currently she has a headache as well. She used to take metoprolol succinate 25 mg but this was changed to carvedilol 6.25 mg twice daily. She also took olmesartan 40 mg at home. Hydrochlorothiazide was recently discontinued due to possible dehydration. Amlodipine 5 mg was discontinued due to patient was having lower blood pressure readings. Head and neck CTA was negative for acute stroke. She denies any unilateral weakness or strokelike symptoms, only blurry vision. Most recent heart cath was done December 30, 2022 that showed mild diffuse coronary artery disease with 30 to 40% lesion in the mid LAD and around a 50% lesion in the first diagonal branch. Currently she is on a heparin drip. Review of Systems 2 Narrative: Consitutional: denies fever, chills, body aches, or changes in appetite, denies abnormal weight loss Eyes: Reports recent blurred vision Card: Denies chest pain at this time, reports recent episode of chest pressure at the center of chest that ratiated to left shoulder that seemed to go away when bp normalized, denies palpitations, irregular heart rhythm, edema, syncope, shortness of breath, orthopnea, leg pain with exertion Resp: Denies shortness of breath, denies hemoptysis, denies cough GI: denies abdominal pain, denies nausea or voimting, denies blood in stool : denies blood in urine, denies dysuria Musc: Denies extremity pain, denies limited range of motion or recent injury Skin: Denies rash, lesions, or wounds, denies changes to skin color Neuro: Denies nubmness in extremities, h/a, s/s of stroke Osei: Denies easy bruiding/bleeding Medications/Allergies Home Medications ?Medication ?Instructions ?Recorded ?Confirmed ?Last Taken ?Type [id number]-[id number] ac 400 1 tab PO DAILY 04/27/2307/1002/02/24 History mcg-calcium carb 500 mg-vit K1 20 mcg tablet (Women's 50 Plus Multivitamin) aspirin 81 mg tablet,delayed 162 mg (2 x 81 mg) PO BED TIME #90 04/28/23 03/23/24 02/01/24 Rx release (Adult Aspirin Regimen) tabs cholecalciferol (vitamin D3) 25 25 mcg PO DAILY 03/23/24 02/02/24 History mcg (1,000 unit) tablet (Vitamin D3) denosumab 60 mg/mL subcutaneous 60 mg SUBCUT .[id number] 07/14/23 03/23/24 09/22/23 History syringe (Prolia) acarbose 25 mg tablet 25 mg PO TID 07/28/2302/02/24 History buspirone 10 mg tablet 10 mg PO TID #90 tabs 03/23/24 02/02/24 Rx pregabalin 25 mg capsule (Lyrica) 25 mg PO BID #60 cap s 12/31/23 03/23/24 02/02/24 Rx etanercept 50 mg/mL (1 mL) 50 mg SUBCUT .7D 02/02/24 0 03/23/24 01/29/24 History subcutaneous syringe (Enbrel) evolocumab 140 mg/mL subcutaneous 140 mg SUBCUT .14D 1 04/04/23 03/23/24 01/29/24 History pen injector (Repmiles Maldonado) magnesium L-lactate 84 mg 84 mg PO BID 02/02/2402/02/24 History tablet,extended release (Magtab) acetaminophen 325 mg capsule 325 mg PO Q4H PRN fever o r pain 02/04/24 03/23/24 Unknown Rx #60 caps ibuprofen 800 mg tablet 800 mg PO TID PRN pain #60 t abs 02/04/24 03/23/24 Unknown Rx alprazolam 0.25 mg tablet 0.25 mg PO DAILY #30 tabs 03/23/24 Unknown Rx docusate sodium 100 mg capsule 100 mg PO TID #90 caps 02/19/24 03/23/24 Unknown Rx (Colace) olmesartan 40 mg tablet 40 mg PO DAILY #90 tabs 02/1703/23/24 Unknown Rx carvedilol 6.25 mg tablet 6.25 mg PO BID #60 tabs 05/1003/23/24 Unknown Rx oxybutynin chloride 5 mg tablet 5 mg PO BID #180 tabs 03/23/24 Unknown Rx Allergies Allergy/AdvReac Type Severity Reaction Status Date / Time latex Allergy Unknown Verified 03/21/24 13:16 nickel Allergy Unknown Verified 03/21/24 13:16 sulfamethoxazole (From Allergy Unknown Verified 03/21/24 13:16 Bactrim) trimethoprim (From Bactrim) Allergy Unknown Verified 03/21/24 13:16 ALEXY Inhibitors AdvReac Severe ADR-Cough Verified 03/21/24 13:16 leflunomide AdvReac Intermediate elevated Verified 03/21/24 13:16 LFT's Current Medications Generic Name Dose Route Start Last Admin Trade Name Freq PRN Reason Stop Dose Admin Heparin Sodium/Sodium Chloride 25,000 unit in 500 mls @ 0 mls/hr 03/23/24 12:45 03/23/24 13:40 Heparin Drip IV 13.91 unit/kg/hr CONT AGUILA 26 mls/hr Administration Protocol Per Protocol PFSH Acute 2 PFSH: Medical History Vitamin D deficiency Atherosclerosis of [place] coronary artery without angina pectoris Helicobacter pylori gastritis 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 Lai at [facility] for cystocele, rectocele, mixed urinary incontinence History of right knee joint replacement History of left knee replacement History of hysterectomy History of cholecystectomy History of bladder repair surgery in her 20's History of carpal tunnel repair History of bariatric surgery Family History Father Hypertension Heart disease Mother Hypertension Heart disease Brother Diabetes Hypertension Heart disease Sister Heart disease Other CAD (coronary artery disease) Cancer Hyperlipidemia Stroke Denies family history of Rheumatoid arthritis Lupus Chronic kidney disease (CKD) Lung disease Social History Smoking and tobacco/nicotine status: former use of tobacco/nicotine Quit status (tobacco/nicotine): has quit using Year quit tobacco: 1995 Alcohol intake: never Substance/Drug Use: never Female Reproductive History: Spontaneous abortions: No Vitals/I&O/Wt Last Vital Signs Temp 97.7 F 03/23/24 08:47 Pulse 68 03/23/24 15:30 Resp 19 H 03/23/24 15:30 BP 190/78 03/23/24 15:30 Pulse Ox 93 03/23/24 15:30 O2 Del Method Room Air 03/23/24 10:30 03/23/24 03/23/24 03/23/24 06:59 14:59 22:59 Intake Total 250 / 250 Balance 250 / 250 Weight last 48 hrs Weight 206 lb Physical Exam 2 Narrative: General: No apparent distress, healthy appearing, well nourished HENMT: normoceophalic Muskuloskeletal: Full ROM Lymphatic: no lymphedema noted Respiratory: Normal respiratory effort, clear to auscultation bilaterally throughout all lung vidal, no use of accessory muscles Cardio: No JVD, regular rate, regular rhythm, S1 S2 normal, murmur 4/6 systolic mitral space, peripheral pulses 2+ radial palpated bilaterally GI: Normal to inspection, nondistended Extremities: Full ROM, normal, normal capillary refill, no cyanosis or edema Neuro: Alert and oriented x4, no focal motor deficits Psych: Affect normal, denies suicidal ideation, mental status grossly normal Skin: bilateral lower extremity varicose veins present Data 03/23/24 08:45 03/23/24 08:45 Micro: Microbiology 03/23/24 10:41 Blood Culture - Preliminary Blood SPECIMEN COLLECTED 03/23/24 10:46 Blood Culture - Preliminary Blood SPECIMEN COLLECTED A&P Assessment and plan (1) Accelerated hypertension: (2) Bradycardia: (3) Atherosclerosis of [place] coronary artery without angina pectoris: Qualifiers: [place] vs. transplanted heart: [place] heart Qualified Code(s): I25.10 - Atherosclerotic heart disease of [place] coronary artery without angina pectoris (4) Chest pain: (5) Coronary artery disease: Qualifiers: Associated angina: with unstable angina Coronary Disease-Associated Artery/Lesion type: [place] artery [place] vs. transplanted heart: [place] heart Qualified Code(s): I25.110 - Atherosclerotic heart disease of [place] coronary artery with unstable angina pectoris (6) Unstable angina: Plan At this time, patient's chest pain has resolved. Troponins are negative. My suspicion is that the chest pressure may have been due to the rapid fluctuation in her blood pressure. She has not had this problem in the past, although progressing coronary artery disease is on the differential. At this time, I recommend continue to trend troponins and EKG, add hydralazine 10 mg prn blood pressure of 170 or greater, add back carvedilol at lower dose due to hx of bradycardia, add losartan at 50 mg, add amlodipine [address] on nitro drip. Continue to monitor closely for any EKG changes or episodes of chest pain. Patient is on heparin drip. She has nitro prn. Recommend obtaining echo to evaluate for any LV function or structural abnormalities. If patient continues to have chest discomfort after these adjustments, may consider stress test. Due to hypertensive urgency, we will allow some permissive hypertension to avoid cerebral edema issues. Will allow bp of 140s/80s. Thank you, Dr. Patel, for allowing us to care for this very pleaseant 69 year old female. PDMP PDMP Reviewed: Not Reviewed Coding Level of Care Code Acute Code for Chg Fwd Diagnoses Accelerated hypertension I10 Bradycardia R00.1 Atherosclerosis of [place] coronary artery of [place] heart without angina pectoris I25.10 [place] vs. transplanted heart: [place] heart Chest pain R07.9 Coronary artery disease involving [place] coronary artery of [place] heart with unstable angina pectoris I25.110 Associated angina: with unstable angina Coronary Disease-Associated Artery/Lesion type: [place] artery [place] vs. transplanted heart: [place] heart Unstable angina I20.0
[2024-03-23] MEDS: carvedilol 6.25 mg Tablet 3.125 MG PO (17:47)
[2024-03-23] MEDS: BuSPIRONE 10 mg Tablet PO ×2 (17:49→21:08)
[2024-03-23] MEDS: docusate sodium 100 mg Capsule PO ×2 (17:49→21:08)
[2024-03-23 18:01] LABS: Glucose Point of Care 97 mg/dL (70-110)
[2024-03-23] MEDS: HYDROcodone-acetaminophen 5-325 mg Tablet 1 TAB PO (18:12)
[2024-03-23] MEDS: nitroglycerin drip 50 MG/250 ML PREMIX IV (18:13)
[2024-03-23 18:40] LABS: Glucose Point of Care 228 mg/dL (70-110)
--- NOTE | 2024-03-23 19:34 | PC.NURSE ---
received in to room 108 via stretcher at 1740.report received.pt is alert and awake and oriented x 4. sr on monitor.dr reza visited room.ordered ntg drip for bp control.ntg began at 10 mcg's for bp 221/87.pt quickly became diaphoretic,felt woozey.bp noted to have dropped to 123/63.ntg turned off and dr reza notified.he ordered to resume ntg drip if needed for bp control at 2.5-5 mcgs.pt oriented to room environment.will continue to monitor bp freq.
--- NOTE | 2024-03-23 19:42 | PC.NURSE ---
pt's accucheck prior to dinner was 97.no s/s insulin was given.pt requested accu check be performed again when she became diaphoretic with ntg drip...it was 228..this was just after dinner was eaten.will reassess at hs to see if s/s insulin needed.pt has hx of hypoglycemia
[2024-03-23 21:05] LABS: Glucose Point of Care 215 mg/dL (70-110)
[2024-03-23] MEDS: amlodipine 5 mg Tablet PO (21:08)
[2024-03-23 21:18] LABS: Partial Thromboplastin Time 173.4 SECONDS (23.9-36.7)
[2024-03-23] MEDS: ALPRAZolam 0.5 mg Tablet 0.25 MG PO (21:22)
--- NOTE | 2024-03-23 22:14 | PC.NURSE ---
Patient takes Pregabalin 25mg PO BID at home and was inquiring about if she would be able to get those while she is here. Notified Dr. Alvarado via [employer], message was read, no orders given at this time.
--- NOTE | 2024-03-23 22:48 | PC.NURSE ---
Notified by lab about critical PTT of 173.[address] [facility], given orders to hold Heparin for 4 hours and decrease rate by 2 units when restarted.
[2024-03-24] VITALS (94 sets, daily range): BP systolic 146–199; BP diastolic 25–86; PULSE 61–113; RESP 9–30; TEMP 36.6–36.9; O2SAT 91–98
[2024-03-24] MEDS: acetaminophen 325 mg Tablet PO (00:20)
[2024-03-24] MEDS: ondansetron 2 mg/ML SDV 2 mL 4 MG IVP ×2 (00:49→20:25)
[2024-03-24 00:50] LABS: Basophils # 0.1 10^3/uL (0.0-0.1); Basophils % 0.7 %; Eosinophils # 0.4 10^3/uL (0.0-0.8); Eosinophils % 5.4 %; Hematocrit 38.7 % (36-47); Lymphocytes # 2.6 10^3/uL (0.8-4.8); Lymphocytes % 38.8 %; Mean Corpuscular HGB Conc 34.4 g/dL (30-55); Mean Platelet Volume 11.2 fL (7.4-10.4); Monocytes # 0.6 10^3/uL (0.2-0.9); Monocytes % 8.8 %; Neutrophils # 3.09 10^3/uL (1.8-7.7); Nucleated Red Blood Cells % 0 %; Platelet Count 146 10^3/cmm (157-399); Red Blood Count 4.16 10^6/uL (3.85-5.65); Red Cell Distribution Width 12.2 % (12.1-15.1); White Blood Count 6.72 10^3/uL (3.29-11.43)
[2024-03-24] MEDS: hyDRALAzine 20 mg/mL INJ 1 mL 10 MG IVP ×4 (00:50→17:58)
[2024-03-24 00:53] LABS: Glucose Point of Care 97 mg/dL (70-110)
[2024-03-24 01:04] LABS: Partial Thromboplastin Time 39.4 SECONDS (23.9-36.7)
[2024-03-24 01:14] LABS: Alanine Aminotransferase 40 U/L (0-33); Alkaline Phosphatase 125 U/L (35-105); Anion Gap 14.6 (5-19); Aspartate Amino Transferase 25 U/L (0-32); Blood Urea Nitrogen 17 mg/dL (8-23); Carbon Dioxide 26 mmol/L (22-29); Chloride 104 mmol/L (98-107); Creatinine Clr Calc Pharmacy 72.9386; Globulin 2.6 g/dL (1.3-4.6); Glucose 98 mg/dL (65-115); Osmolality Calculated 294 mOsm/kg (285-295); Potassium 3.6 mmol/L (3.5-5.1); Sodium 141 mmol/L (136-145); Total Bilirubin 0.3 mg/dL (0.15-1.2); Total Protein 6.6 g/dL (6.6-8.7)
[2024-03-24] MEDS: HYDROcodone-acetaminophen 5-325 mg Tablet 1 TAB PO ×4 (04:29→17:58)
[2024-03-24 06:22] LABS: Glucose Point of Care 132 mg/dL (70-110)
[2024-03-24] MEDS: ACARBOSE 25 MG PO ×3 (08:20→20:35)
[2024-03-24] MEDS: aspirin 325 mg EC Tablet PO (08:21)
[2024-03-24] MEDS: oxybutynin chloride XL 5 MG TABLET 10 MG PO (08:22)
[2024-03-24] MEDS: docusate sodium 100 mg Capsule PO ×3 (08:22→21:20)
[2024-03-24] MEDS: carvedilol 6.25 mg Tablet 3.125 MG PO (08:22)
[2024-03-24] MEDS: BuSPIRONE 10 mg Tablet PO ×3 (08:24→21:19)
[2024-03-24 09:02] LABS: Partial Thromboplastin Time 93.5 SECONDS (23.9-36.7)
[2024-03-24] MEDS: losartan 50 mg Tablet PO ×2 (10:02→21:19)
[2024-03-24] MEDS: amlodipine 5 mg Tablet PO ×2 (10:02→21:19)
[2024-03-24 11:57] LABS: Glucose Point of Care 118 mg/dL (70-110)
--- NOTE | 2024-03-24 12:57 | USR_ITS ---
PROCEDURE INFORMATION: Exam: US Duplex Artery and Vein of the Abdominal and/or Reproductive Organs, Complete Kidneys Exam date and time: 03/24/2024 7:30 PM Age: 69 years old Clinical indication: Abdominal or pelvic symptoms: R/O renal artery stenosis; Additional info: R/O renal artery stenosis, PT ate lunch around 12:30. Will be done tonight. Bm TECHNIQUE: Imaging protocol: Real-time duplex ultrasound scan of the arterial and venous flow with color Doppler flow and spectral waveform analysis with image documentation. Complete duplex exam focused on the kidneys. Duplex exam was performed to evaluate for vascular conditions. COMPARISON: US abdomen complete* [id number] 02/24/2022 7:58 AM FINDINGS: Right kidney: Normal. No hydronephrosis. No masses. Right kidney measures 11.8 cm in length. Right renal aortic ratio is 1.1. Left renal aortic ratio is 0.8. Right renal artery: Normal duplex of the renal artery. Duplex waveforms are within normal limits. No hemodynamically significant stenosis. Right interlobar/arcuate arteries: Resistive indices 0.63-0.80. Right renal vein: Patent Left kidney: Normal. No hydronephrosis. No masses. Left kidney measures 13.4 cm in length. Left renal artery: Normal duplex of the renal artery. Duplex waveforms are within normal limits. No hemodynamically significant stenosis. Left interlobar/arcuate arteries: Resistive indices 0.66-0.77. Left renal vein: Patent Aorta: Visualized aorta is unremarkable. Peak systolic velocity of the aorta of the level of the renal arteries is 126 cm/s. US/CV renal doppler [id number] IMPRESSION: Normal kidneys. No hemodynamically significant stenosis.
[2024-03-24] MEDS: carvedilol 3.125 mg Tablet PO (13:12)
[2024-03-24] MEDS: heparin drip 25,000 UNIT/500 ML PREMIX 16 UNIT IV (15:17)
[2024-03-24 16:39] LABS: Partial Thromboplastin Time 67.9 SECONDS (23.9-36.7)
[2024-03-24 17:12] LABS: Glucose Point of Care 107 mg/dL (70-110)
--- NOTE | 2024-03-24 17:33 | P.PN_ITS ---
Subjective 2 Subjective: She is feeling slightly better today. She had a difficult night. Has been having a bothersome headache, likely related to nitroglycerin infusion. Chest pain/pressure has let up. Blood pressure overall slightly better, but still with fluctuation, and some elevated values. Vitals/I&O/Wt Last Vital Signs Temp 97.8 F 03/24/24 11:59 Pulse 65 03/24/24 16:00 Resp 11 L 03/24/24 16:00 BP 172/66 03/24/24 16:00 Pulse Ox 94 03/24/24 16:00 O2 Del Method Room Air 03/24/24 16:00 03/24/24 03/24/24 03/24/24 06:59 14:59 22:59 Intake Total 321.1 / 1015.75 961.313 / 961.313 25.6 / 986.913 Output Total 600 / 2350 1350 / 1350 500 / 1850 Balance -278.9 / -1334.25 -388.687 / -388.687 -474.4 / -863.087 Weight last 48 hrs Weight 93.582 kg Weight 93.44 kg Weight 93.582 kg Weight 93.44 kg Physical Exam 2 Narrative: Accompanied by her daughter. Const: COMMON NORMALS: patient oriented x3 and alert GENERAL APPEARANCE: c ooperative ORIENTATION/CONSCIOUSNESS: Yes awake OTHER: Cold compress on her forehead. HENMT: COMMON NORMALS: oropharynx normal Neck/C-Spine: COMMON NORMALS: no JVD Resp: COMMON NORMALS: normal respiratory effort and clear to auscultation bilaterally AUSCULTATION: clear to auscultation bilaterally Cardio: COMMON NORMALS: no JVD, regular rhythm, S1 normal heart sound present, S2 normal heart sound present and No murmurs present (Cardio) RHYTHM: regular rhythm HEART SOUNDS: S1 normal heart sound present and S2 normal heart sound present GI: COMMON NORMALS: Normal to inspection, nondistended, normoactive bowel sounds present, Soft to palpation and non-tender PALPATION: Yes Soft to palpation Extremity: COMMON NORMALS: no joint enlargement and no pedal edema Neuro: COMMON NORMALS: patient oriented x3 and moves all extremities S ENSORIUM/ORIENTATION: Yes alert Skin: COMMON NORMALS: no rashes or lesions noted GENERAL SKIN EXAM: no rashes or lesions noted Urinary Catheter Management: Rodriguez: Cath Placed During This Visit: yes Reason for Continuing Indwelling Catheter: Accurate Measurement of Urinary Output in Critically Ill Patients Urinary Catheter Date of Insertion: 03/23/24 Urinary Catheter Time of Insertion: 16:00 Data 03/24/24 00:30 03/24/24 00:30 Micro: Microbiology 03/23/24 10:41 Blood Culture - Preliminary Blood NEGATIVE TO DATE 03/23/24 10:46 Blood Culture - Preliminary Blood NEGATIVE TO DATE A&P Assessment and plan (1) Unstable angina: Chest pressure/heaviness has let up. Blood pressure overall with improvement, although still with some fluctuation. She has been having headaches secondary to nitroglycerin drip. Reviewed vitals, CBC, chemistry, troponin s eries,Echocardiogram has been obtained as well, EKG, reviewed, with noted normal ejection fraction, grade 1 diastolic dysfunction, mild MVR, moderate AVS, mild TVR. Compared to prior echo from 2019 4 aortic stenosis appears to have progressed. Discussed with cigar packing examiner, reviewed cardiology note, continue optimization of blood pressure. Nitroglycerin drip has been titrated off. Continue optimization with oral medications. Carvedilol dose is being increased up to 6.25. Continue amlodipine with increased to twice daily, losartan dose is also increased to twice daily. Monitor blood pressures. Monitor for risk of hypotension with aortic stenosis. Once blood pressure is better controlled, plan would be for additional assessment with stress test with perfusion imaging. Continue calcium channel helena with possible coronary vasospasm. Continue optimization of cardiovascular risk factors with possible microvascular disease. Reviewed D-dimer, not elevated. Resume her home Xanax as well as needed for anxiety. Reviewed vitals, CBC, CMP. Otherwise without suggestion of sepsis, ongoing infection. (2) TIA (transient ischemic attack): Without recurrence of symptoms. CTA head and neck reviewed, no cervical carotid artery stenosis, small amount of plaque at the bifurcations. Mild plaque at the carotid cavernous arteries. No stenosis. Possible TIA not excluded, but NIH was 0. Seems Less likely A TIA. Has been assessed by neurology. Note reviewed. Appreciate recommendations. Vitamin B12 has been obtained, normal. Vitamin D low normal. Continue glucose monitoring with history of recurrent hypoglycemia, soft blood glucose this morning, 69. Hypoglycemia protocol is requested. She states does not take ibuprofen or naproxen. Discussed with her to avoid NSAIDs. Continue telemetry monitoring. Follow-up TTE. Aspirin increased to 325 mg daily. (3) Hypoglycemia: So far without additional recurrence. Continue to monitor POC glucose. History of recurrent hypoglycemia. Following with endocrinology. Blood glucose soft this morning, 69. Repeat blood glucose. Recheck POC glucose requested. Hypoglycemia protocol. Plan Coronary artery disease, Seronegative RA, Recurrent hypoglycemia, HTN, has had difficulty with managing blood pressures, previously on amlodipine, HCTZ, metoprolol. Heart rates are becoming bradycardic, metoprolol to be discontinued, switched over to carvedilol. With concern for dehydration HCTZ was stopped, amlodipine was reduced and then discontinued as well. She is continuing on olmesartan. Resume carvedilol, for now at reduced dose 3.125 given reduction blood pressure after hydralazine, monitor blood pressure, resume other medications in case blood pressures are further rising. DM, insulin sliding scale. Monitor POC glucose. Hypoglycemia protocol. Anxiety PDMP PDMP Reviewed: Not Reviewed Attestations 2 Medical Necessity Statement*: Continue admission for optimization of control of difficult to control hypertension, resistant hypertension, further assessment of chest pressure, with coronary disease, possible unstable angina on presentation. and High MDM includes amount and/or complexity of data reviewed/ordered [ previous or external records, resulted lab(s)/test(s), ordered lab(s)/test(s) and other healthcare professional discussion] and described risk of complication, morbidity or mortality of management as documented Diagnoses Unstable angina I20.0 TIA (transient ischemic attack) G45.9 Hypoglycemia E16.2
[2024-03-24] MEDS: pregabalin 25 mg Capsule PO (17:58)
--- NOTE | 2024-03-24 19:16 | PC.NURSE ---
acarbose will be given late due to pt npo for abd ultrasound.pt takes med with meals.
--- NOTE | 2024-03-24 21:09 | PC.NURSE ---
Patient blood pressure 171/73, Dr Churchill notified and was instructed to give ordered night medications.
[2024-03-24] MEDS: ALPRAZolam 0.5 mg Tablet 0.25 MG PO (21:20)
[2024-03-24] MEDS: carvedilol 6.25 mg Tablet PO (21:20)
[2024-03-24 21:31] LABS: Glucose Point of Care 227 mg/dL (70-110)
[2024-03-24] MEDS: promethazine 25 mg/mL SDV 1 mL 12.5 MG IM (21:39)
--- NOTE | 2024-03-24 21:40 | P.PN_ITS ---
Subjective 2 Subjective: Patient continues to have headache blood pressure this morning was still 180 systolic, patient does not tolerate IV nitroglycerin as blood pressure is very labile and drops right away Vitals/I&O/Wt Last Vital Signs Temp 98.5 F 03/24/24 20:50 Pulse 90 03/24/24 20:50 Resp 15 03/24/24 20:50 BP 167/65 03/24/24 21:19 Pulse Ox 93 03/24/24 20:50 O2 Del Method Room Air 03/24/24 20:50 03/24/24 03/24/24 03/24/24 06:59 14:59 22:59 Intake Total 321.1 / 1015.75 961.313 / 961.313 25.6 / 986.913 Output Total 600 / 2350 1350 / 1350 500 / 1850 Balance -278.9 / -1334.25 -388.687 / -388.687 -474.4 / -863.087 Weight last 48 hrs Weight 206 lb 5 oz Weight 206 lb Weight 206 lb 5 oz Weight 206 lb Physical Exam 2 Const: OTHER: GENERAL: Patient is alert, awake and oriented x3. HEART: Regular S1 and S2. No murmur, rub or gallop. LUNGS: Clear to auscultate bilaterally. CENTRAL NERVOUS SYSTEM: Grossly nonfocal. EXTREMITIES: Lower extremities with out edema bilaterally. Urinary Catheter Management: Rodriguez: Cath Placed During This Visit: yes Reason for Continuing Indwelling Catheter: Accurate Measurement of Urinary Output in Critically Ill Patients Urinary Catheter Date of Insertion: 03/23/24 Urinary Catheter Time of Insertion: 16:00 Data 03/24/24 00:30 03/24/24 00:30 Micro: Microbiology 03/23/24 10:41 Blood Culture - Preliminary Blood NEGATIVE TO DATE 03/23/24 10:46 Blood Culture - Preliminary Blood NEGATIVE TO DATE A&P Assessment and plan (1) Accelerated hypertension: (2) Bradycardia: (3) Atherosclerosis of [place] coronary artery without angina pectoris: Qualifiers: [place] vs. transplanted heart: [place] heart Qualified Code(s): I25.10 - Atherosclerotic heart disease of [place] coronary artery without angina pectoris (4) Chest pain: (5) Coronary artery disease: Qualifiers: Associated angina: with unstable angina Coronary Disease-Associated Artery/Lesion type: [place] artery [place] vs. transplanted heart: [place] heart Qualified Code(s): I25.110 - Atherosclerotic heart disease of [place] coronary artery with unstable angina pectoris (6) Unstable angina: Plan Increase Coreg to 6.125 mg p.o. Increase losartan to 50 Increase amlodipine to 5 mg p.o. Once blood pressure stable we will proceed with Lexiscan MIBI stress test may be next week or as an outpatient Ultrasound for abdominal renal artery Hydralazine 10 mg IV Q6 as needed for systolic blood pressure more than 170 PDMP PDMP Reviewed: Not Reviewed Attestations 2 Medical Necessity Statement*: Require continuation hospitalization for above defined care Coding Level of Care Code Acute Code for Chg Fwd Diagnoses Accelerated hypertension I10 Bradycardia R00.1 Atherosclerosis of [place] coronary artery of [place] heart without angina pectoris I25.10 [place] vs. transplanted heart: [place] heart Chest pain R07.9 Coronary artery disease involving [place] coronary artery of [place] heart with unstable angina pectoris I25.110 Associated angina: with unstable angina Coronary Disease-Associated Artery/Lesion type: [place] artery [place] vs. transplanted heart: [place] heart Unstable angina I20.0
--- NOTE | 2024-03-24 21:44 | PC.NURSE ---
Patient was given zofran for nausea. Patient stated that she was still very nauseous, Dr Churchill was notified and gave new order for phenergan IM 12.5 Q4H for nausea.
[2024-03-24 22:43] LABS: Partial Thromboplastin Time 69.8 SECONDS (23.9-36.7)
[2024-03-25] VITALS (26 sets, daily range): BP systolic 119–172; BP diastolic 52–90; PULSE 64–89; RESP 13–18; TEMP 36.5–37.1; O2SAT 88–95; BMI 34.6
[2024-03-25] MEDS: HYDROcodone-acetaminophen 5-325 mg Tablet 1 TAB PO (02:06)
[2024-03-25 05:34] LABS: Basophils # 0.1 10^3/uL (0.0-0.1); Basophils % 0.7 %; Eosinophils # 0.3 10^3/uL (0.0-0.8); Eosinophils % 3.6 %; Hematocrit 39.5 % (36-47); Lymphocytes # 3.1 10^3/uL (0.8-4.8); Lymphocytes % 44.3 %; Mean Corpuscular HGB Conc 33.4 g/dL (30-55); Mean Corpuscular Hemoglobin 32.3 pg (27-33); Mean Corpuscular Volume 96.6 fl (85-98); Mean Platelet Volume 11.3 fL (7.4-10.4); Monocytes # 0.5 10^3/uL (0.2-0.9); Monocytes % 7.8 %; Neutrophils # 2.99 10^3/uL (1.8-7.7); Neutrophils % 43.5 %; Nucleated Red Blood Cells % 0 %; Platelet Count 164 10^3/cmm (157-399); Red Blood Count 4.09 10^6/uL (3.85-5.65); Red Cell Distribution Width 12.7 % (12.1-15.1); White Blood Count 6.89 10^3/uL (3.29-11.43)
[2024-03-25 05:46] LABS: Partial Thromboplastin Time 61.8 SECONDS (23.9-36.7)
[2024-03-25 05:54] LABS: Alanine Aminotransferase 30 U/L (0-33); Albumin Level 3.8 g/dL (3.5-5.2); Alkaline Phosphatase 116 U/L (35-105); Anion Gap 14.9 (5-19); Aspartate Amino Transferase 21 U/L (0-32); Blood Urea Nitrogen 16 mg/dL (8-23); Calcium 10.4 mg/dL (8.5-10.5); Carbon Dioxide 25 mmol/L (22-29); Chloride 106 mmol/L (98-107); Creatinine Clr Calc Pharmacy 72.9386; Globulin 2.7 g/dL (1.3-4.6); Glucose 95 mg/dL (65-115); Osmolality Calculated 295 mOsm/kg (285-295); Potassium 3.9 mmol/L (3.5-5.1); Sodium 142 mmol/L (136-145); Total Bilirubin 0.3 mg/dL (0.15-1.2); Total Protein 6.5 g/dL (6.6-8.7)
--- NOTE | 2024-03-25 06:06 | PC.NURSE ---
Contacted Dr Reza to confirm if stress test would be performed morning of 03/25, Dr reza stated that no stress test until blood pressure is under control.
[2024-03-25 06:25] LABS: Glucose Point of Care 111 mg/dL (70-110)
[2024-03-25] MEDS: ACARBOSE 25 MG PO ×3 (08:13→17:52)
[2024-03-25] MEDS: aspirin 325 mg EC Tablet PO (08:14)
[2024-03-25] MEDS: carvedilol 6.25 mg Tablet PO ×2 (08:14→21:35)
[2024-03-25] MEDS: docusate sodium 100 mg Capsule PO ×3 (08:14→21:36)
[2024-03-25] MEDS: oxybutynin chloride XL 5 MG TABLET 10 MG PO (08:14)
[2024-03-25] MEDS: pregabalin 25 mg Capsule PO ×2 (08:15→17:52)
[2024-03-25] MEDS: amlodipine 5 mg Tablet PO (08:15)
[2024-03-25] MEDS: BuSPIRONE 10 mg Tablet PO ×3 (08:15→21:36)
[2024-03-25] MEDS: losartan 50 mg Tablet PO ×2 (08:15→21:35)
[2024-03-25] MEDS: ALPRAZolam 0.5 mg Tablet 0.25 MG PO ×3 (08:20→21:35)
[2024-03-25 11:30] LABS: Glucose Point of Care 74 mg/dL (70-110)
[2024-03-25 12:11] LABS: Partial Thromboplastin Time 47.9 SECONDS (23.9-36.7)
--- NOTE | 2024-03-25 12:33 | PC.SOCIAL ---
IMM Updated Updated pt on IMM. No questions voiced. Provided pt a copy. Initialed, dated, & timed a copy & placed in chart.
--- NOTE | 2024-03-25 12:48 | PC.NURSE ---
Patient will stay one more night per Dr Churchill for medication adjustments. Informed patient of discharge cancellation. Patient verbalized understanding.
[2024-03-25 12:57] LABS: Glucose Point of Care 174 mg/dL (70-110)
--- NOTE | 2024-03-25 13:11 | PC.NURSE ---
network development coordinator rounds 2/6 at 0825 stroke education book given. 2/7 rounds patient doing much better, possibly going home today.
--- NOTE | 2024-03-25 13:14 | PC.NURSE ---
learning coordinator rounds 03/24 and 03/25- patient intubated and sedated
--- NOTE | 2024-03-25 14:06 | P.PN_ITS ---
Subjective 2 Subjective: She had a very miserable night, very nauseated, malaise, stress test was canceled. But is feeling better this morning. So far headache has resolved. Vitals/I&O/Wt Last Vital Signs Temp 97.8 F 03/25/24 12:00 Pulse 70 03/25/24 13:57 Resp 16 03/25/24 12:00 BP 119/90 03/25/24 12:00 Pulse Ox 95 03/25/24 12:00 O2 Del Method Room Air 03/25/24 12:00 03/24/24 03/25/24 03/25/24 22:59 06:59 14:59 Intake Total 362.4 / 1323.713 112.267 / 1435.980 687.2 / 687.2 Output Total 1050 / 2400 350 / 2750 700 / 700 Balance -687.6 / -1076.287 -237.733 / -1314.020 -12.8 / -12.8 Weight last 48 hrs Weight 94.461 kg Weight 93.582 kg Weight 93.44 kg Weight 93.582 kg Physical Exam 2 Narrative: Accompanied by her daughter. Appears to be in better spirits, more energetic, pleasant, conversant. He reports feeling much better. Const: COMMON NORMALS: patient oriented x3 and alert GENERAL APPEARANCE: c ooperative ORIENTATION/CONSCIOUSNESS: Yes awake HENMT: COMMON NORMALS: oropharynx normal Neck/C-Spine: COMMON NORMALS: no JVD Resp: COMMON NORMALS: normal respiratory effort and clear to auscultation bilaterally AUSCULTATION: clear to auscultation bilaterally Cardio: COMMON NORMALS: no JVD, regular rhythm, S1 normal heart sound present, S2 normal heart sound present and No murmurs present (Cardio) RHYTHM: regular rhythm HEART SOUNDS: S1 normal heart sound present and S2 normal heart sound present GI: COMMON NORMALS: Normal to inspection, nondistended, normoactive bowel sounds present, Soft to palpation and non-tender PALPATION: Yes Soft to palpation Extremity: COMMON NORMALS: no joint enlargement and no pedal edema Neuro: COMMON NORMALS: patient oriented x3 and moves all extremities S ENSORIUM/ORIENTATION: Yes alert Skin: COMMON NORMALS: no rashes or lesions noted GENERAL SKIN EXAM: no rashes or lesions noted Urinary Catheter Management: Rodriguez: Cath Placed During This Visit: yes, but has since been removed by the nurse Reason for Continuing Indwelling Catheter: Accurate Measurement of Urinary Output in Critically Ill Patients Urinary Catheter Date of Insertion: 03/23/24 Urinary Catheter Time of Insertion: 16:00 Date Urinary Catheter Removed: 03/25/24 Time Urinary Catheter Discontinued: 11:56 Data 03/25/24 04:57 03/25/24 04:57 Micro: Microbiology 03/23/24 10:46 Blood Culture - Preliminary Blood Staphylococcus epidermidis 03/23/24 10:41 Blood Culture - Preliminary Blood NEGATIVE TO DATE A&P Assessment and plan (1) Unstable angina: Stress test was originally planned for today with her and cardiology, however, they had canceled the stress test given she had had a very miserable night with nausea, malaise. She is feeling much better today. Headache is resolved. No recurrence of chest pressure. Discussed with her ambulating to further assess how she is doing. Blood pressure is overall gradually becoming more optimized, medications further adjusted by cardiology. She has completed 48 hours of anticoagulation, heparin drip is discontinued. Switched over to prophylactic Lovenox. Pending additional reassessment, monitor on telemetry for now. Depending condition, may be able to discharge tomorrow if continues to do well and cleared by cardiology with follow-up with outpatient stress test. Monitor for risk of hypotension with aortic stenosis. Discussed with material handler, test case developer. Reviewed cardiology note. Hydralazine has been added. Continue calcium channel helena with possible coronary vasospasm. Continue optimization of cardiovascular risk factors with possible microvascular disease. Reviewed D-dimer, not elevated. Resume her home Xanax as well as needed for anxiety. (2) TIA (transient ischemic attack): Without recurrence of symptoms. CTA head and neck reviewed, no cervical carotid artery stenosis, small amount of plaque at the bifurcations. Mild plaque at the carotid cavernous arteries. No stenosis. Possible TIA not excluded, but NIH was 0. Seems Less likely A TIA. Has been assessed by neurology. Note reviewed. Appreciate recommendations. Vitamin B12 has been obtained, normal. Vitamin D low normal. Continue glucose monitoring with history of recurrent hypoglycemia, soft blood glucose this morning, 69. Hypoglycemia protocol is requested. She states does not take ibuprofen or naproxen. Discussed with her to avoid NSAIDs. Continue telemetry monitoring. Follow-up TTE. Aspirin increased to 325 mg daily. (3) Hypoglycemia: Reviewed POC glucose. So far without additional recurrence. History of recurrent hypoglycemia. Following with endocrinology. Blood glucose soft this morning, 69. Repeat blood glucose. Recheck POC glucose requested. Hypoglycemia protocol. Plan Coronary artery disease, Seronegative RA, Recurrent hypoglycemia, HTN, has had difficulty with managing blood pressures, previously on amlodipine, HCTZ, metoprolol. Heart rates are becoming bradycardic, metoprolol to be discontinued, switched over to carvedilol. With concern for dehydration HCTZ was stopped, amlodipine was reduced and then discontinued as well. She is continuing on olmesartan. Resume carvedilol, for now at reduced dose 3.125 given reduction blood pressure after hydralazine, monitor blood pressure, resume other medications in case blood pressures are further rising. DM, insulin sliding scale. Monitor POC glucose. Hypoglycemia protocol. Anxiety PDMP PDMP Reviewed: Not Reviewed Attestations 2 Medical Necessity Statement*: Continue admission for optimization of control of difficult to control hypertension, resistant hypertension, further assessment after possible unstable angina on presentation. and High MDM includes amount and/or complexity of data reviewed/ordered [ previous or external records, resulted lab(s)/test(s), ordered lab(s)/test(s) and other healthcare professional discussion] and described risk of complication, morbidity or mortality of management as documented Diagnoses Unstable angina I20.0 TIA (transient ischemic attack) G45.9 Hypoglycemia E16.2
[2024-03-25] MEDS: hyDRALAzine 25 mg Tablet PO (15:24)
[2024-03-25] MEDS: enoxaparin 40 mg/0.4 mL Syringe SUBCUT (15:24)
--- NOTE | 2024-03-25 15:26 | P.PN_ITS ---
<Statement entered by Rae Churchill MD - 03/25/24 20:16> Patient was evaluated and cared for in conjunction with an advanced practice practitioner. I personally examined the patient and reviewed the chart and all pertinent data including imaging, telemetry, and laboratory results. I discussed the patient in detail with the advanced practice practitioner. Please see their note for complete H&P testing result and agreed upon plan of care for the patient. Blood pressure steadily improved GENERAL: Patient is alert, awake and oriented x3. HEART: Regular S1 and S2. No murmur, rub or gallop. LUNGS: Clear to auscultate bilaterally. CENTRAL NERVOUS SYSTEM: Grossly nonfocal. EXTREMITIES: Lower extremities with out edema bilaterally. Assessment and plan Hypertensive urgency History of coronary artery disease Chest pressure Continue current management since blood pressure steadily improving with possible discharge tomorrow Subjective 2 Subjective: Patient is doing well overall. She is off nitro drip. Blood pressure was still 170s on my assessment. Denies headache or chest pain at this time. She was unable to do the stress test due to nausea issue. Vitals/I&O/Wt Last Vital Signs Temp 97.8 F 03/25/24 12:00 Pulse 70 03/25/24 13:57 Resp 16 03/25/24 12:00 BP 119/90 03/25/24 12:00 Pulse Ox 95 03/25/24 12:00 O2 Del Method Room Air 03/25/24 12:00 03/25/24 03/25/24 03/25/24 06:59 14:59 22:59 Intake Total 112.267 / 1435.980 687.2 / 687.2 Output Total 350 / 2750 700 / 700 Balance -237.733 / -1314.020 -12.8 / -12.8 Weight last 48 hrs Weight 208 lb 4 oz Weight 206 lb 5 oz Weight 206 lb Weight 206 lb 5 oz Physical Exam 2 Narrative: General: No apparent distress, healthy appearing, well nourished HENMT: normoceophalic Muskuloskeletal: Full ROM Lymphatic: no lymphedema noted Respiratory: Normal respiratory effort, clear to auscultation bilaterally throughout all lung vidal, no use of accessory muscles Cardio: No JVD, regular rate, regular rhythm, S1 S2 normal, murmur 4/6 systolic mitral space, peripheral pulses 2+ radial palpated bilaterally GI: Normal to inspection, nondistended Extremities: Full ROM, normal, normal capillary refill, no cyanosis or edema Neuro: Alert and oriented x4, no focal motor deficits Psych: Affect normal, denies suicidal ideation, mental status grossly normal Skin: bilateral lower extremity varicose veins present Urinary Catheter Management: Rodriguez: Cath Placed During This Visit: yes, but has since been removed by the nurse Reason for Continuing Indwelling Catheter: Accurate Measurement of Urinary Output in Critically Ill Patients Urinary Catheter Date of Insertion: 03/23/24 Urinary Catheter Time of Insertion: 16:00 Date Urinary Catheter Removed: 03/25/24 Time Urinary Catheter Discontinued: 11:56 Data 03/25/24 04:57 03/25/24 04:57 Micro: Microbiology 03/23/24 10:46 Blood Culture - Preliminary Blood Staphylococcus epidermidis 03/23/24 10:41 Blood Culture - Preliminary Blood NEGATIVE TO DATE A&P Assessment and plan (1) Accelerated hypertension: (2) Bradycardia: (3) Atherosclerosis of [place] coronary artery without angina pectoris: Qualifiers: [place] vs. transplanted heart: [place] heart Qualified Code(s): I25.10 - Atherosclerotic heart disease of [place] coronary artery without angina pectoris (4) Chest pain: (5) Coronary artery disease: Qualifiers: Associated angina: with unstable angina Coronary Disease-Associated Artery/Lesion type: [place] artery [place] vs. transplanted heart: [place] heart Qualified Code(s): I25.110 - Atherosclerotic heart disease of [place] coronary artery with unstable angina pectoris (6) Unstable angina: Plan Blood pressure was still in the 170s will add hydralazine 25 mg p.o. 3 times daily as patient has been receiving IV. Last dose was yesterday. Once her blood pressure stabilized from a cardiology standpoint may be discharged and stress test can be done on an outpatient basis. Will get renal ultrasound as well to rule out for renal artery stenosis. She denies any chest pain or shortness of breath since her original arrival. PDMP PDMP Reviewed: Not Reviewed Attestations 2 Medical Necessity Statement*: Deferred to primary. Coding Level of Care Code Acute Code for Chg Fwd Diagnoses Accelerated hypertension I10 Bradycardia R00.1 Atherosclerosis of [place] coronary artery of [place] heart without angina pectoris I25.10 [place] vs. transplanted heart: [place] heart Chest pain R07.9 Coronary artery disease involving [place] coronary artery of [place] heart with unstable angina pectoris I25.110 Associated angina: with unstable angina Coronary Disease-Associated Artery/Lesion type: [place] artery [place] vs. transplanted heart: [place] heart Unstable angina I20.0
[2024-03-25 16:43] LABS: Glucose Point of Care 89 mg/dL (70-110)
[2024-03-25 17:22] LABS: Glucose Point of Care 92 mg/dL (70-110)
[2024-03-25 20:45] LABS: Glucose Point of Care 85 mg/dL (70-110)
[2024-03-26] VITALS (7 sets, daily range): BP systolic 147–194; BP diastolic 49–78; PULSE 58–75; RESP 18–20; TEMP 36.8–37.1; O2SAT 96–97; BMI 34.7
--- NOTE | 2024-03-26 00:56 | PC.NURSE ---
Clarified patient [address] Churchill. BP 153/60 Dr Churchill ordered to give coreg and losartan only. Amlodipine and hydralazine was held per Dr tobias.
[2024-03-26 04:43] LABS: Basophils # 0.1 10^3/uL (0.0-0.1); Basophils % 1.2 %; Eosinophils # 0.4 10^3/uL (0.0-0.8); Eosinophils % 7.4 %; Hematocrit 39.5 % (36-47); Lymphocytes # 3.1 10^3/uL (0.8-4.8); Lymphocytes % 52.9 %; Mean Corpuscular HGB Conc 32.4 g/dL (30-55); Mean Corpuscular Hemoglobin 32.2 pg (27-33); Mean Corpuscular Volume 99.2 fl (85-98); Monocytes # 0.5 10^3/uL (0.2-0.9); Neutrophils # 1.74 10^3/uL (1.8-7.7); Neutrophils % 29.3 %; Nucleated Red Blood Cells % 0 %; Platelet Count 146 10^3/cmm (157-399); Red Blood Count 3.98 10^6/uL (3.85-5.65); Red Cell Distribution Width 12.5 % (12.1-15.1); White Blood Count 5.92 10^3/uL (3.29-11.43)
[2024-03-26 04:57] LABS: Alanine Aminotransferase 29 U/L (0-33); Albumin Level 3.6 g/dL (3.5-5.2); Alkaline Phosphatase 107 U/L (35-105); Anion Gap 13.8 (5-19); Aspartate Amino Transferase 24 U/L (0-32); Blood Urea Nitrogen 14 mg/dL (8-23); Calcium 10.3 mg/dL (8.5-10.5); Carbon Dioxide 27 mmol/L (22-29); Chloride 106 mmol/L (98-107); Creatinine Clr Calc Pharmacy 73.3194; Globulin 2.5 g/dL (1.3-4.6); Glucose 112 mg/dL (65-115); Osmolality Calculated 297 mOsm/kg (285-295); Potassium 3.8 mmol/L (3.5-5.1); Sodium 143 mmol/L (136-145); Total Bilirubin 0.3 mg/dL (0.15-1.2); Total Protein 6.1 g/dL (6.6-8.7)
[2024-03-26 06:03] LABS: Glucose Point of Care 95 mg/dL (70-110)
[2024-03-26] MEDS: oxybutynin chloride XL 5 MG TABLET 10 MG PO (09:09)
[2024-03-26] MEDS: losartan 50 mg Tablet PO (09:09)
[2024-03-26] MEDS: aspirin 325 mg EC Tablet PO (09:09)
[2024-03-26] MEDS: docusate sodium 100 mg Capsule PO (09:09)
[2024-03-26] MEDS: hyDRALAzine 25 mg Tablet PO (09:10)
[2024-03-26] MEDS: carvedilol 6.25 mg Tablet PO (09:10)
[2024-03-26] MEDS: BuSPIRONE 10 mg Tablet PO (09:10)
[2024-03-26] MEDS: pregabalin 25 mg Capsule PO (09:10)
[2024-03-26] MEDS: amlodipine 5 mg Tablet PO (09:10)
[2024-03-26] MEDS: ACARBOSE 25 MG PO (09:12)
[2024-03-26] MEDS: polyethylene glycol 3350 Pkt 17 gm PO (09:16)
[2024-03-26] MEDS: ALPRAZolam 0.5 mg Tablet 0.25 MG PO (09:16)
[2024-03-26 12:17] LABS: Glucose Point of Care 74 mg/dL (70-110)
--- NOTE | 2024-03-26 12:54 | P.DS_ITS ---
Discharge Providers Date of Admission: 03/23/24 13:23 Date of Discharge: March 26, 2024 Attending Provider at Admission: Han Patel Attending Provider at Discharge: Oumar Art MD Primary Care Provider: Gerard Bonilla MD Diagnoses at Discharge Discharge Diagnosis (1) Unstable angina: Status: Acute (2) TIA (transient ischemic attack): Status: Acute (3) Hypoglycemia: Status: Resolved Reason for Visit Reason for Visit: high b/p, chest feels heavy Hospital Course Hospital Course This is a 69-year-old female with a past medical history of CAD, seronegative rheumatoid arthritis, hypoglycemia hypertension diabetes anxiety who presents [facility] due to chest heaviness, blurred vision, or neurolyse weakness Code stroke was called due to concerns for TIA, blood sugar was found to be 69, seen by neurology, no focal neurologic deficits, she was monitored as inpatient no recurrent strokelike symptoms, no recurrent episodes of blurry vision will be discharged on aspirin, statin, with a close follow-up with primary care provider as outpatient For unstable angina she was monitored as inpatient, cardiology was consulted, no recurrent chest pain there was plans on stress testing as inpatient however testing was canceled due to patient's symptomatology of feeling of nausea malaise, nonetheless she will be discharged on aspirin, statin, with a close follow-up with cardiology as outpatient for consideration of stress testing. Patient was advised if she were to have any recurrent chest pain to go to the emergency room For her hypertension she was discharged on carvedilol 6.25 mg twice daily, hydralazine 25 mg 3 times daily, losartan 50 mg p.o. every 12 hours, Norvasc 5 mg twice daily with a close follow-up with cardiology as outpatient For anxiety she was discharged on Xanax 0.25 mg twice daily to be used sparingly, do not drive operate machinery or drink while taking medication Physical Exam Const: COMMON NORMALS: no acute distress and patient oriented x3 Resp: COMMON NORMALS: normal respiratory effort, No retractions, No use of accessory muscles and clear to auscultation bilaterally AUSCULTATION: clear to auscultation bilaterally Cardio: COMMON NORMALS: regular rate, regular rhythm, S1 normal heart sound present and S2 normal heart sound present RATE: regular rate RHYTHM: regular rhythm HEART SOUNDS: S1 normal heart sound present and S2 normal heart sound present GI: COMMON NORMALS: Normal to inspection, nondistended, normoactive bowel sounds present and non-tender Extremity: COMMON NORMALS: no pedal edema Neuro: COMMON NORMALS: patient oriented x3 Psych: COMMON NORMALS: mental status grossly normal Urinary Catheter Management: Rodriguez: Cath Placed During This Visit: yes, but has since been removed by the nurse Reason for Continuing Indwelling Catheter: Accurate Measurement of Urinary Output in Critically Ill Patients Urinary Catheter Date of Insertion: 03/23/24 Urinary Catheter Time of Insertion: 16:00 Date Urinary Catheter Removed: 03/25/24 Time Urinary Catheter Discontinued: 11:56 Discharge Data Studies Completed and Pending Completed Studies During Hospitalization Category Date Time Status CT head thrombolytic [id number] Stat Cat Scan 03/23/24 08:42 Completed CTA head neck [CT angio headneck* [id number]/[id number]] Stat Cat Scan 03/23/24 09:14 Completed XR chest 1V portable [id number] Stat Exams 03/23/24 08:42 Completed CV renal doppler [id number] Routine Ultrasound 03/24/24 12:57 Completed CV. echo complete* [id number] Routine Ultrasound 03/23/24 12:38 Completed Pending at discharge Category Date Time Status Sestamibi Stress Test Request Routine Exams 03/25/24 09:00 Ordered Blood Culture Stat Lab 03/23/24 10:46 Results Radiology Impressions Chest X-Ray 03/23/24 08:42 Impression: Atherosclerosis. Head CT 03/23/24 08:42 IMPRESSION: 1. No acute intracranial hemorrhage or edema. 2. Mild volume loss and small vessel changes. Notified Ermelinda Newman MD at 03/23/2024 8:55 AM. Head/Neck CTA 03/23/24 09:14 IMPRESSION: 1. No cervical carotid artery stenosis. Small amount of plaque at the bifurcations. 2. Mild plaque to the carotid cavernous arteries. No stenosis. 3. No thrombus or occlusion within the [place]. No aneurysm. Renal Ultrasound 03/24/24 12:57 IMPRESSION: Normal kidneys. No hemodynamically significant stenosis. Laboratory Results WBC 5.92 10^3/uL (3.29-11.43) 03/26/24 03:05 RBC 3.98 10^6/uL (3.85-5.65) 03/26/24 03:05 Hgb 12.80 g/dL (11.27-16.99) 03/26/24 03:05 Hct 39.5 % (36-47) 03/26/24 03:05 MCV 99.2 fl (85-98) H 03/26/24 03:05 MCH 32.2 pg (27-33) 03/26/24 03:05 MCHC 32.4 g/dL (30-55) 03/26/24 03:05 RDW 12.5 % (12.1-15.1) 03/26/24 03:05 Plt Count 146 10^3/cmm (157-399) L 03/26/24 03:05 MPV 11.0 fL (7.4-10.4) H 03/26/24 03:05 Neut % (Auto) 29.3 % 03/26/24 03:05 Lymph % (Auto) 52.9 % 03/26/24 03:05 [place] % (Auto) 9.0 % 03/26/24 03:05 Eos % (Auto) 7.4 % 03/26/24 03:05 Baso % (Auto) 1.2 % 03/26/24 03:05 Neut # (Auto) 1.74 10^3/uL (1.8-7.7) L 03/26/24 03:05 Lymph # (Auto) 3.1 10^3/uL (0.8-4.8) 03/26/24 03:05 [place] # (Auto) 0.5 10^3/uL (0.2-0.9) 03/26/24 03:05 Eos # (Auto) 0.4 10^3/uL (0.0-0.8) 03/26/24 03:05 Baso # (Auto) 0.1 10^3/uL (0.0-0.1) 03/26/24 03:05 Nucleated RBC % (auto) 0 % 03/26/24 03:05 Nucleated RBCs # 0.0 /100WBC 03/26/24 03:05 PT 12.50 SECONDS (12.1-14.9) 03/23/24 08:45 INR 0.87 (0.8-1.2) 03/23/24 08:45 APTT 47.9 SECONDS (23.9-36.7) H 03/25/24 11:48 D-Dimer 0.34 ug/mLFEU (0-0.59) 03/23/24 10:27 Sodium 143 mmol/L (136-145) 03/26/24 03:05 Potassium 3.8 mmol/L (3.5-5.1) 03/26/24 03:05 Chloride 106 mmol/L (98-107) 03/26/24 03:05 Carbon Dioxide 27 mmol/L (22-29) 03/26/24 03:05 Anion Gap 13.8 (5-19) 03/26/24 03:05 BUN 14 mg/dL (8-23) 03/26/24 03:05 Creatinine 0.6 mg/dL (0.5-0.9) 03/26/24 03:05 GFR Calculation Not Reportable 03/26/24 03:05 Glucose 112 mg/dL (65-115) 03/26/24 03:05 POC Glucose 74 mg/dL (70-110) 03/26/24 12:06 Calculated Osmolality 297 mOsm/kg (285-295) H 03/26/24 03:05 Calcium 10.3 mg/dL (8.5-10.5) 03/26/24 03:05 Total Bilirubin 0.3 mg/dL (0.15-1.2) 03/26/24 03:05 AST 24 U/L (0-32) 03/26/24 03:05 ALT 29 U/L (0-33) 03/26/24 03:05 Alkaline Phosphatase 107 U/L (35-105) H 03/26/24 03:05 Troponin T Baseline < 6 ng/L (0-10) 03/23/24 08:45 Troponin T 120 Minute 6.04 ng/L (0-10) 03/23/24 10:41 Delta Troponin T 0.21391 ABS# (0-10) 03/23/24 10:41 Troponin T Hi Sens 6Hr 33.44 ng/L (0-10) H 03/23/24 15:12 Troponin T Hi Sens 6Hr Delta 27.87725 ng/L (0-12) H* 03/23/24 15:12 C-Reactive Protein 3.0 mg/L (0.0-4.9) 03/23/24 08:45 NT-Pro-B Natriuret Pep 374 pg/mL (0-125) H 03/23/24 08:45 Total Protein 6.1 g/dL (6.6-8.7) L 03/26/24 03:05 Albumin 3.6 g/dL (3.5-5.2) 03/26/24 03:05 Globulin 2.5 g/dL (1.3-4.6) 03/26/24 03:05 Vitamin B12 1052 pg/mL (232-1245) 03/23/24 08:45 25-OH Vitamin D Total 29 ng/mL (30-100) L 03/23/24 08:45 Urine Color Yellow (Yellow) 03/23/24 09:35 Urine Appearance Clear (CLEAR) 03/23/24 09:35 Urine pH 7.5 (5-7) 03/23/24 09:35 Ur Specific Leonore 1.011 (1.005-1.030) 03/23/24 09:35 Urine Protein Negative (Negative) 03/23/24 09:35 Urine Glucose (UA) Negative (Normal) 03/23/24 09:35 Urine Ketones Negative (Negative) 03/23/24 09:35 Urine Blood Negative (Negative) 03/23/24 09:35 Urine Nitrate Negative (Negative) 03/23/24 09:35 Urine Bilirubin Negative (Negative) 03/23/24 09:35 Urine Urobilinogen 0.2 mg/dL (Negative) 03/23/24 09:35 Ur Leukocyte Esterase 1+ (Negative) A 03/23/24 09:35 Urine RBC 0-2 /hpf (0-2) 03/23/24 09:35 Urine WBC 0-5 /hpf (0-5) 03/23/24 09:35 Ur Squamous Epith Cells 0-5 /hpf (0-5) 03/23/24 09:35 Amorphous Sediment Not Reportable 03/23/24 09:35 Urine Bacteria None seen /hpf (NONE) 03/23/24 09:35 Hyaline Casts 0-4 /lpf H 03/23/24 09:35 Coronavirus (PCR) Negative (Negative) 03/23/24 08:57 Influenza A (PCR) Negative (Negative) 03/23/24 08:57 Influenza Type B (PCR) Negative (Negative) 03/23/24 08:57 RSV (PCR) Negative (Negative) 03/23/24 08:57 Vitals Last Vital Signs Temp 98.3 F 03/26/24 12:00 Pulse 64 03/26/24 12:10 Resp 20 H 03/26/24 12:00 BP 147/70 03/26/24 12:10 Pulse Ox 96 03/26/24 12:10 O2 Del Method Room Air 03/26/24 12:00 Discharge Plan Discharge Patient Disposition: Home Condition: Stable Prescriptions: New amlodipine 5 mg Tablet 5 mg PO Q12H Qty: 90 0RF losartan 50 mg Tablet 50 mg PO Q12H Qty: 180 0RF atorvastatin [Lipitor] 40 mg tablet 40 mg PO QPM Qty: 90 0RF nitroglycerin 0.4 mg tablet, sublingual 0.4 mg sublingual Q5M PRN (Reason: chest pain) Qty: 25 0RF Rx Instructions: do not exceed 3 doses per episode hydralazine 25 mg Tablet 25 mg PO TID 30 Days Qty: 90 0RF polyethylene glycol 3350 [Miralax] 17 gram powder in packet 17 g PO DAILY PRN (Reason: constipation) 30 Days Qty: 30 0RF alprazolam [Xanax] 0.25 mg tablet 0.25 mg PO BID PRN (Reason: anxiety) 7 Days Qty: 14 0RF Continued acarbose 25 mg tablet 25 mg PO TID docusate sodium [Colace] 100 mg capsule 100 mg PO TID Qty: 90 1RF buspirone 10 mg tablet 10 mg PO TID Qty: 90 5RF pregabalin [Lyrica] 25 mg capsule 25 mg PO BID Qty: 60 5RF carvedilol 6.25 mg tablet 6.25 mg PO BID Qty: 60 2RF Rx Instructions: must administer with a meal/food oxybutynin chloride 5 mg tablet 5 mg PO BID Qty: 180 3RF Women's 50 Plus Multivitamin 400 mcg-500 mg calcium-20 mcg Tablet 1 tab PO DAILY aspirin [Adult Aspirin Regimen] 81 mg tablet,delayed release (DR/EC) 162 mg PO BEDTIME Qty: 90 0RF cholecalciferol (vitamin D3) [Vitamin D3] 25 mcg (1,000 unit) Tablet 25 mcg PO DAILY Prolia 60 mg/mL Syringe 60 mg SUBCUT .E8YSUDOM magnesium L-lactate [Magtab] 84 mg tablet extended release 84 mg PO BID Rx Instructions: TAKE TWO TABLETS BY MOUTH DAILY Enbrel 50 mg/mL (1 mL) syringe 50 mg SUBCUT .7D Rx Instructions: inject 50mg SUBCUTANEOUSLY EVERY 7 DAYS Repatha SureClick 140 mg/mL pen injector 140 mg SUBCUT .14D Rx Instructions: inject 140mg SUBCUTANEOUSLY every TWO weeks acetaminophen 325 mg capsule 325 mg PO Q4H PRN (Reason: fever or pain) Qty: 60 0RF Discontinued alprazolam 0.25 mg tablet 0.25 mg PO DAILY Qty: 30 2RF olmesartan 40 mg tablet 40 mg PO DAILY Qty: 90 1RF ibuprofen 800 mg tablet 800 mg PO TID PRN (Reason: pain) Qty: 60 0RF Discharge Orders: Discharge Order (Routine); Ordered 03/26/24 Ordered By: Oumar Art Referrals: Suzanna Garcia NP [Nurse Practitioner] - 04/04/24 3:30 pm Alfonso Kent MD [Physician] - 2 weeks (TIA, needs referal from PCP) Gerard Bonilla MD [Primary Care Provider] - 4-7 days (We have notified your physician's clinic of the need for a follow-up appointment to be scheduled. If you have not heard from them within the next 2 business days, please call them directly. ) Discharge Diet: Cardiac and Diabetic Discharge Activity: Increase activity as tolerated Patient Instructions: Hydralazine (By mouth), Amlodipine (By mouth), Nitroglycerin, Rapid Release (By mouth), Losartan (By mouth) (Cozaar), Atorvastatin (By mouth), Polyethylene Glycol 3350 (By mouth), Heart Healthy Diet, Transient Ischemic Attack (DC), Hypertension (DC), Cardiac Stress Test (GEN), Chest Pain Stoplight, Opioid Safety Activity Restrictions/Additional Instructions: Follow-up with your primary doctor as well as with cardiology for reassessment after episodes of chest pressure, suspected coronary disease, as well as follow- up for stress test. Continue to optimize blood pressures at home, continue to target blood pressure 120/80. Continue medications and heart healthy diet. Limit sodium intake to less than 2 g in a day. Please discontinue ibuprofen and avoid any NSAIDs as a day can increase risk of heart attack and stroke. Seek medical attention in case of any worsening or new concerning symptoms. - I have discharged on Xanax 0.25 mg p.o. twice daily for anxiey Discharge Attestations Time Spent in Discharge Care*: greater than 30 min Quality Metrics Clinical Quality Measures [ No reported AMI, CVA or VTE this stay] Coding Level of Care Code 50439 Total time (in minutes) for Discharge: 45 Diagnoses Unstable angina I20.0 TIA (transient ischemic attack) G45.9 Hypoglycemia E16.2
--- NOTE | 2024-03-26 13:00 | PM.PN ---
Subjective Subjective: Doing better blood pressure is controlled Vitals/I&O/Wt Last Vital Signs Temp 98.3 F 03/26/24 12:00 Pulse 64 03/26/24 12:10 Resp 20 H 03/26/24 12:00 BP 147/70 03/26/24 12:10 Pulse Ox 96 03/26/24 12:10 O2 Del Method Room Air 03/26/24 12:00 03/25/24 03/26/24 03/26/24 22:59 06:59 14:59 Intake Total 240 / 927.2 240 / 240 Balance 240 / 227.2 240 / 240 Weight last 48 hrs Weight 208 lb 6 oz Weight 208 lb 4 oz Physical Exam Const: OTHER: GENERAL: Patient is alert, awake and oriented x3. HEART: Regular S1 and S2. No murmur, rub or gallop. LUNGS: Clear to auscultate bilaterally. CENTRAL NERVOUS SYSTEM: Grossly nonfocal. EXTREMITIES: Lower extremities with out edema bilaterally. Urinary Catheter Management: Rodriguez: Cath Placed During This Visit: yes, but has since been removed by the nurse Reason for Continuing Indwelling Catheter: Accurate Measurement of Urinary Output in Critically Ill Patients Urinary Catheter Date of Insertion: 03/23/24 Urinary Catheter Time of Insertion: 16:00 Date Urinary Catheter Removed: 03/25/24 Time Urinary Catheter Discontinued: 11:56 Data 03/26/24 03:05 03/26/24 03:05 Micro: Microbiology 03/23/24 10:46 Blood Culture - Preliminary Blood Staphylococcus epidermidis A&P Assessment and plan (1) Accelerated hypertension: (2) Bradycardia: (3) Atherosclerosis of [place] coronary artery without angina pectoris: Qualifiers: [place] vs. transplanted heart: [place] heart Qualified Code(s): I25.10 - Atherosclerotic heart disease of [place] coronary artery without angina pectoris (4) Chest pain: (5) Coronary artery disease: Qualifiers: Associated angina: with unstable angina Coronary Disease-Associated Artery/Lesion type: [place] artery [place] vs. transplanted heart: [place] heart Qualified Code(s): I25.110 - Atherosclerotic heart disease of [place] coronary artery with unstable angina pectoris (6) Aortic stenosis: patient has moderate aortic valve stenosis, will continue to monitor as an outpatient 6-month exam and two year echo Plan Blood pressure controlled. Will discharge patient on Coreg 6.25 mg twice daily, amlodipine 5 mg twice daily, losartan 50 mg twice daily, hydralazine 25 mg 3 times daily. Ruled out for renal artery stenosis, will check cortisol level as outpatient Stress test will be performed as an outpatient for nonobstructive coronary disease after optimization of medications. Follow-up with cardiology nurse practitioner or Dr. Churchill in 1 week Advised patient to keep log of blood pressure pulse and send it to us after 4 days PDMP PDMP Reviewed: Not Reviewed Attestations Medical Necessity Statement*: From a cardiovascular perspective patient can be discharged Coding Level of Care Code Acute Code for Chg Fwd Diagnoses Accelerated hypertension I10 Bradycardia R00.1 Atherosclerosis of [place] coronary artery of [place] heart without angina pectoris I25.10 [place] vs. transplanted heart: [place] heart Chest pain R07.9 Coronary artery disease involving [place] coronary artery of [place] heart with unstable angina pectoris I25.110 Associated angina: with unstable angina Coronary Disease-Associated Artery/Lesion type: [place] artery [place] vs. transplanted heart: [place] heart Aortic stenosis I35.0
== END 2024-03-26 13:27 | disposition home or self-care (01) | DRG 69 ==
LOC: ER 09:53 → ER IP 13:24 → CSU 15:26
PROVIDERS: Internal Medicine; Internal Medicine Cardiovascular Disease; Admitting Provider Internal Medicine; Emergency Provider Emergency Medicine; PCP Family Medicine; Visit Provider Family Medicine
DX: G45.9 Transient cerebral ischemic attack, unspecified (principal); I25.110 Atherosclerotic heart disease of native coronary artery with unstable angina pectoris; I1A.0 Resistant hypertension; I10 Essential (primary) hypertension; R00.1 Bradycardia, unspecified; I35.0 Nonrheumatic aortic (valve) stenosis; Z79.82 Long term (current) use of aspirin; G56.03 Carpal tunnel syndrome, bilateral upper limbs; G47.33 Obstructive sleep apnea (adult) (pediatric); Z98.84 Bariatric surgery status; G47.00 Insomnia, unspecified; M16.0 Bilateral primary osteoarthritis of hip; K21.9 Gastro-esophageal reflux disease without esophagitis; E78.2 Mixed hyperlipidemia; F41.9 Anxiety disorder, unspecified; F32.A Depression, unspecified; M79.7 Fibromyalgia; I16.0 Hypertensive urgency; E11.649 Type 2 diabetes mellitus with hypoglycemia without coma; Z86.73 Personal history of transient ischemic attack (TIA), and cerebral infarction without residual deficits; Z87.891 Personal history of nicotine dependence; M81.0 Age-related osteoporosis without current pathological fracture; M06.042 Rheumatoid arthritis without rheumatoid factor, left hand; M06.041 Rheumatoid arthritis without rheumatoid factor, right hand; Z96.651 Presence of right artificial knee joint
CPT/HCPCS: 36415; 36416; 70450; 70496; 70498; 71045; 80053; 81001; 82306; 82607; 82962; 83880; 84484; 85025; 85378; 85610; 85730; 86140; 87040; 87077; 87150; 87186; 87205; 87637; 93005; 93306; 93975; 96372; 96374; 96375; 96376; 97110; 97116; 97161; 99285; A9270; J0360; J1644; J1650; J2060; J2405; J2550; J3490; J7050

== ENCOUNTER → 2024-03-29 17:15 | Outpatient (BNVA) | payer MEDICARE, MEDICAID, SELFPAY | PROVIDERS: PCP Family Medicine; Visit Provider Internal Medicine Cardiovascular Disease | DX: R07.9 Chest pain, unspecified (principal); I25.110 Atherosclerotic heart disease of native coronary artery with unstable angina pectoris; I10 Essential (primary) hypertension; Z79.899 Other long term (current) drug therapy | CPT/HCPCS: 82533 ==

== ENCOUNTER → 2024-04-11 09:45 | Outpatient (BNVA) | payer MEDICARE, MEDICAID, SELFPAY | PROVIDERS: PCP Family Medicine; Visit Provider Internal Medicine Rheumatology | DX: M06.041 Rheumatoid arthritis without rheumatoid factor, right hand (principal); M06.042 Rheumatoid arthritis without rheumatoid factor, left hand; M81.0 Age-related osteoporosis without current pathological fracture; Z79.899 Other long term (current) drug therapy; Z71.89 Other specified counseling; R76.8 Other specified abnormal immunological findings in serum | CPT/HCPCS: 99214 ==

== ENCOUNTER 2024-04-12 08:14 | Oncology outpatient (recurring) (ONCR) | payer MEDICARE, MEDICAID, SELFPAY ==
--- NOTE | 2024-02-02 08:52 | P.ANESASSM_ITS ---
Pre-Anesthetic Assessment Height/Weight: Height 1.65 m Pulmonary Sleep Apnea CV/HEM Arrythmia, Coronary Artery Disease and Hypertension 12/30/22: FURNACE CONVERTER Conclusions 1. 67-year-old white female with history of hypertension,. Myocardial perfusion imaging revealing a small area of inconsistent reversibility in the inferior wall region with elevated transient ischemic dilatation ratio. Patient apparently has a strong family history for premature atherosclerotic heart disease. In view of her presenting symptoms, risk factors and the abnormal objective findings, in order to further evaluate her coronary status, a cardiac catheterization was recommended. Patient underwent left heart catheterization with left and right coronary angiogram and LV angiogram day. The findings are as follows. 2. 1. Mild diffuse coronary artery disease with 30 to 40% lesion in the mid LAD and around 50% lesion in the first diagonal branch.2. Normal LV ejection fraction of 60%.3. LVEDP 29 mmHg suggesting left-ventricular diastolic dysfunction. 12/28/22: Stress Test 1. No significant EKG changes with the LexiScan infusion 2. No LexiScan induced chest pain or cardiac arrhythmia 3. Normal blood pressure and heart rate response 4. Sestamibi/sestamibi perfusion scan pending; see separate report. 12/28/22: ECHO Left Ventricle Normal left ventricular size, systolic function and wall thickness, with no regional wall motion abnormalities with estimated ejection fraction 60 to 65%. Normal left ventricular wall thickness. Normal diastolic filling pattern. GI Gastroesophageal Reflux Disease hx gastric bypass [facility] [place] Fibromyalgia and Rheumatoid Arthritis fibromaylagia Neuropsych Cerebrovascular Accident Anesthetic Plan ASA status: 3 Anesthesia: General Risk of > 500 ml blood loss (7ml/kg in children): No Medications/Allergies Home Medications Medication Instructions Recorded Confirmed Last Taken Type mecobalamin (vitamin B12) 5,000 5,000 mcg PO DIRECTED 10/04/19 02/02/24 02/01/24 History mcg lozenge gzjyijwb-qrk-kadxs ac 400 1 tab PO DAILY 04/27/23 02/02/24 02/02/24 History mcg-calcium carb 500 mg-vit K1 20 mcg tablet (Women's 50 Plus Multivitamin) aspirin 81 mg tablet,delayed 162 mg (2 x 81 mg) PO BEDTIME #90 04/28/23 02/02/24 02/01/24 Rx release (Adult Aspirin Regimen) tabs diabetic supplies, miscellan. #1 ea 04/28/23 02/01/24 Unknown Rx tramadol 50 mg tablet 50 mg PO TID PRN pain #60 tabs 05/14/23 02/02/24 Unknown Rx lancets (Accu-Chek Softclix #100 ea 05/26/23 02/01/24 Unknown Rx Lancets) blood sugar diagnostic (Accu-Chek #150 ea 06/23/23 02/01/24 Unknown Rx Guide test strips) cholecalciferol (vitamin D3) 25 25 mcg PO DAILY 07/14/23 02/02/24 02/02/24 History mcg (1,000 unit) tablet (Vitamin D3) denosumab 60 mg/mL subcutaneous 60 mg SUBCUT .[id number] 07/14/23 02/02/24 09/22/23 History syringe (Prolia) metoprolol tartrate 25 mg tablet 12.5 mg (1/2 x 25 mg) PO BID #30 07/14/23 02/02/24 02/02/24 Rx tabs mupirocin 2 % topical ointment 1 applic topical PRN PRN Skin 07/14/23 02/02/24 02/02/24 History Irritation acarbose 25 mg tablet 25 mg PO TID 07/28/23 02/02/24 02/02/24 History amlodipine 5 mg tablet 5 mg PO DAILY #90 tabs 08/04/23 02/02/24 02/01/24 Rx melatonin 10 mg PO BEDTIME 10/05/23 02/02/24 02/01/24 History olmesartan 20 mg tablet 20 mg PO DAILY #90 tabs 10/31/23 02/02/24 02/02/24 Rx buspirone 10 mg tablet 10 mg PO TID #90 tabs 11/05/23 02/02/24 02/02/24 Rx alprazolam 0.25 mg tablet 0.25 mg PO DAILY #30 tabs 11/16/23 02/02/24 02/01/24 Rx hydrochlorothiazide 25 mg tablet 25 mg PO DAILY #60 tabs 11/16/23 02/02/24 02/02/24 Rx pregabalin 25 mg capsule (Lyrica) 25 mg PO BID #60 caps 12/31/23 02/02/24 02/02/24 Rx oxybutynin chloride 10 mg 10 mg PO DAILY #30 tabs 01/25/24 02/02/24 02/01/24 Rx tablet,extended release 24 hr etanercept 50 mg/mL (1 mL) 50 mg SUBCUT .7D 02/02/24 02/02/24 01/29/24 History subcutaneous syringe (Enbrel) evolocumab 140 mg/mL subcutaneous 140 mg SUBCUT .14D 02/02/24 02/02/24 01/29/24 History pen injector (Repatha SureClick) magnesium L-lactate 84 mg 84 mg PO BID 02/02/24 02/02/24 02/02/24 History tablet,extended release (Magtab) Allergies Allergy/AdvReac Type Severity Reaction Status Date / Time latex Allergy Unknown Verified 02/02/24 07:54 nickel Allergy Unknown Verified 02/02/24 07:54 sulfamethoxazole Allergy Unknown Verified 02/02/24 07:54 [From Bactrim] trimethoprim [From Bactrim] Allergy Unknown Verified 02/02/24 07:54 ALEXY Inhibitors AdvReac Severe ADR-Cough Verified 02/02/24 07:54 leflunomide AdvReac Intermediate elevated Verified 02/02/24 07:54 LFT's [facility] [place] Anesthesia Medical History Vitamin D deficiency Multiple episodes of hypoglycemia Atherosclerosis of 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 Osteoporosis Skin ulcer of face, limited to breakdown of skin Positive PRICE (antinuclear antibody) Inflammatory arthritis Fibromyalgia Hypertension Diabetes High risk medication use Immunization counseling Surgical History History of right knee joint replacement History of left knee replacement History of hysterectomy History of cholecystectomy History of bladder repair surgery History of carpal tunnel repair History of bariatric surgery Family History Father Hypertension Heart disease Mother Hypertension Heart disease Brother Diabetes Hypertension Heart disease Sister Heart disease Other CAD (coronary artery disease) Cancer Hyperlipidemia Stroke Denies family history of Rheumatoid arthritis Lupus Chronic kidney disease (CKD) Lung disease Social History Smoking and tobacco/nicotine status: former use of tobacco/nicotine Quit status (tobacco/nicotine): has quit using Year quit tobacco: 1995 Alcohol intake: never Substance/Drug Use: never Female Reproductive History Spontaneous abortions: No Data Anesthesia Cardiac Studies: Echocardiogram 04/27/23 Sestamibi Stress Test (Cardiology) 12/28 Cardiac Event Monitor 05/07/23
[2024-04-12 08:38] VITALS: BP 107/72; PULSE 103; RESP 16; TEMP 36.2; O2SAT 100
[2024-04-12] MEDS: denosumab 60 mg SDV SUBCUT (08:39)
[2024-04-12 08:42] VITALS: BP 109/71; PULSE 56; TEMP 36; O2SAT 95
== END 2024-04-15 23:59 | disposition home or self-care (01) ==
PROVIDERS: PCP Family Medicine; Visit Provider Internal Medicine Rheumatology
DX: M81.0 Age-related osteoporosis without current pathological fracture; Z79.899 Other long term (current) drug therapy; Z53.9 Procedure and treatment not carried out, unspecified reason
CPT/HCPCS: 96372; J0897

== ENCOUNTER → 2024-04-19 13:37 | Outpatient (BNVA) | payer MEDICARE, SELFPAY | PROVIDERS: PCP Family Medicine; Visit Provider Psychiatry & Neurology Neurology | DX: G45.1 Carotid artery syndrome (hemispheric) (principal); G56.03 Carpal tunnel syndrome, bilateral upper limbs; R29.898 Other symptoms and signs involving the musculoskeletal system; M79.641 Pain in right hand; M79.642 Pain in left hand; R29.90 Unspecified symptoms and signs involving the nervous system | CPT/HCPCS: 99212 ==

== ENCOUNTER 2024-04-20 07:15 | Outpatient (CLI) | payer MEDICARE, MEDICAID, SELFPAY ==
[2024-04-20 07:38] VITALS: BMI 34.2
--- NOTE | 2024-04-20 07:41 | ECG_ITS ---
Payment plugin [facility] Test Date: 2024-04-20 Pat Name: Rylee Bernard Department: Room: Gender: Female Flow Specialist: : 1955 Requested By: Rae Churchill Order Number: [id number] Reading MD: RAE CHURCHILL Interpretive Statements Lung unchanged pre/post procedure; Intraprocedure shortess of breath; Symptoms resoled by discharge NOTE: Please note that this is the electrocardiogram portion of the Lexiscan/Sestamibi stress test. The perfusion scan will be documented separately. DATA: Baseline heart rate was 58 beats per minute. Baseline blood pressure was 160/63 millimeters of mercury. Target heart rate was 149. Maximum heart rate achieved was 91. which was 61% of the predicted target heart rate. Maximum blood pressure was 160/83 millimeters of mercury. The reason for ending the test was completion of the protocol. The patient did not experience any symptoms. ELECTROCARDIOGRAM: BASELINE: Sinus rhythm. Normal axis. Right bundle branch block otherwise, no ST-T changes suggestive of ischemia noted. No arrhythmia noted. EXERCISE: After Lexiscan injection, no ST-T changes suggestive of ischemic noted. No arrhythmia noted. CONCLUSION: Please note due to baseline abnormality of the EKG specificity and sensitivity of the EKG portion of LexiScan MIBI stress test will be low 1. EKG not suggestive of ischemia 2. Lexiscan injection unremarkable. 3. Perfusion scan will be documented separately. Electronically Signed On 05-29-2024 20:35:36 CDT by RAE CHURCHILL [email or web address]
--- NOTE | 2024-04-20 07:41 | NMCV_ITS ---
NM alexander perf SPECT r/s* [id number] Rylee Bernard Age: 69 Gender: F : 1955 Exam Date: 04/20/2024 08:14 Ordering Phys: Rae Churchill MD ([email or web address]) Technologist: GERRY Lee Exam Location: [facility] Indications: CP STRESS TEST Please see separate stress test report in [facility] for full findings IMAGE PROTOCOL Rest/Stress 1 Lexiscan Day Radiopharmaceutical Dose (mCi) Administration Site Administered by Rest: Tc-99m 10.7 IV Montse Kyle PEDIATRIC NURSE PRACTITIONER Sestamibi Stress:Tc-99m 32.5 IV Montse Kyle, PEDIATRIC NURSE PRACTITIONER Sestamibi Rest: 20-Apr-2024 60 Discovery 630 Stress: 20-Apr-2024 30 Discovery 630 0.4mg Lexiscan. Images obtained in supine and prone position. SPECT RESULTS Technical Quality: Good Raw Data Analysis: Normal Image Corrections: No attenuation or motion correction applied Summed Stress Score: 4 Summed Rest Score: 2 Summed Difference Score: 2 PERFUSION FINDINGS Medium sized area of moderate to severe reversibility noted in basal to distal inferior wall suggestive of possible lesion in RCA territory. FUNCTIONAL RESULTS (calculated via Gated SPECT) Stress Image LV EF (%): 81 Stress EDV (mL):89 TID: 1.16 Stress ESV (mL):17 FUNCTIONAL FINDINGS: There is normal left ventricular systolic function. IMPRESSIONS Medium sized area of moderate to severe reversibility noted in basal to distal inferior wall suggestive of possible stenosis in RCA territory. EKG segment will be documented separately. This is a positive study for ischemia. Rae Churchill MD (Electronically Signed) Final Date: 20 April 2024 22:15 S
[2024-04-20 09:19] VITALS: BP 141/42; PULSE 78
[2024-04-20] MEDS: regadenoson 0.4 Mg/5 ml Syringe IVP (09:20)
== END 2024-04-20 07:16 | disposition home or self-care (01) ==
LOC: CDL 07:17
PROVIDERS: PCP Family Medicine; Visit Provider Internal Medicine Cardiovascular Disease
DX: R07.9 Chest pain, unspecified (principal); R93.1 Abnormal findings on diagnostic imaging of heart and coronary circulation
CPT/HCPCS: 36415; 78452; 93017; 96374; A9500; J2785

== ENCOUNTER 2024-05-10 07:16 | Outpatient (CLI) | payer MEDICARE, MEDICAID, SELFPAY ==
[2024-05-10] VITALS (22 sets, daily range): BP systolic 108–165; BP diastolic 54–85; PULSE 56–69; RESP 13–20; TEMP 36.6; O2SAT 96–100; BMI 34.1
--- NOTE | 2024-05-10 07:30 | XACV_ITS ---
Exam Room: 2 Ht: 165 cm Wt: 93 kg BSA: 2.10 m2 Gender: Female : 1955 Any Known Allergies: Other Exam Priority: Routine Procedure(s): Procedure Description: Diagnostic procedure Procedure Description: Left Heart Catheterization Procedure Description: Coronary Angiography KISHANZhao ANN; Diagnostic Cath Status: Elective Diagnostic Findings * Left Main has no disease. * Circumflex has no disease. * Right Coronary Artery has no disease. * Distal Left Anterior Descending: mild 40% stenosis, MICKEY: 3 flow. * Coronary angiography shows right dominance. Conclusions 1. There is mild coronary artery disease with one vessel disease. Recommendations * Continue current medical management and risk factor modification. Diagnostic RX Recommendation: medical therapy and/or counseling Pressures Phase:Rest AO : 130 / 66 ( 92 ) @ 11:26:00 AM 105 / 70 ( 88 ) @ 11:28:00 AM 104 / 68 ( 86 ) @ 11:29:00 AM 109 / 66 ( 87 ) @ 11:32:00 AM 165 / 76 ( 113 ) @ 12:02:00 PM 170 / 78 ( 116 ) @ 12:02:00 PM LV : 185 / -7 / 18 @ 12:02:00 PM 191 / -8 / 19 @ 12:02:00 PM Valves Phase:DefaultPhase AV : 21.0 @ 11:09:23 AM AV Mean Gradient: 32.0 @ 11:09:23 AM Clinical Evaluation EBL: 5mL-10mL Procedural Details Procedure Consent Obtained. Pre-Procedure Time Out. Identified patient by full name and date of as verbalized by the patient/guarantor. Does the consent match the physician's order: Yes. Accurate & Complete Informed Consent: Yes. Inpatient/Outpatient History & Physical on Chart: Yes. If H&P is completed, is and addenduem needed: No; If yes, is the addendum complete: N/A. Visualize and Verify Site with Patient/Guarantor: N/A. Relevant Radiology Images available: Yes. Pre-op teaching completed and patient verbalized understanding. The risks, benefits, and alternatives of sedation and/or procedure were discussed by physician. The patient agrees to continue. Procedure started. Physician arrived. [facility] Clinical Fraility Score: 4: Vulnerable. Material Controller Indications: Abnormal Stress Test. Chest Pain Symptom Assessment: Atypical Angina. Material Controller Indications: Pre-operative Evaluation. Correct patient, site and procedure confirmed by cath team. IV Site on Arrival: 20 gauge in the left anticubital. IV Fluids: 0.9% NaCl at KVO. 0 mL infused prior to senior laboratory technician. Pre Procedural Pulses: bilateral dorsalis pedis was 3+. Pre Procedural Pulses: bilateral posterior tibial was 2+. Oxygen started at 2liters/min via nasal canula. Pre Procedural Pulses: bilateral radial was 3+. right groin was prepped with chloroprep then draped in the usual sterile fashion. right radial was prepped with chloroprep then draped in the usual sterile fashion. Baseline sample Acquired. HR: 62 BPM. Physician scrubbed in. Immediate Pre-Procedure Time Out. Correct Patient: Yes; Correct Procedure: Yes; Correct Site: Yes; Correct Patient Position: Yes; Correct Supplies: Yes; Dried Flammable Prep: Yes; Blood Products Available: N/A;. Lidocaine 1% infiltrated to the right radial. Arterial access obtained. A 5 [place] Marco catheter in over wire. Multiple views taken of right coronary artery. Catheter redirected to the LCA. Multiple views taken of left coronary artery. Physician review of cine films. Glidewire inserted through the catheter. Catheter removed over the glide wire. A 5 [place] MPA2 catheter in over wire. Wire out. Exchange wire inserted. Catheter removed over the exchange wire. Calvin catheter inserted OTW and advanced. Gradient taken: LV 185/-8,18; AO 165/76(113); Mean: 32mmHg, Peak to Peak: 20mmHg, SEP: 20sec/min; HR: 62 BPM; SpO2: 100%. Gradient taken: LV 191/-9,19; AO 170/78(116); Mean: 32mmHg, Peak to Peak: 21mmHg, SEP: 20sec/min; HR: 74 BPM; SpO2: 100%. Catheter removed over the exchange wire. A TR Band was successful obtaining hemostatsis at the Right Radial artery insertion site. Post Procedure: Pulses reassessed and unchanged. PERRLA. Strong, equal hand chief yeoman bilaterally. No VTE prophylaxis required. Medication's Wasted: Lidocaine 1% = 18 mL. Medication's Wasted: Nitro = 49.8 mcg. Medication's Wasted: Other = 75 mcg. Total IV fluids: 100 mL. Vital chart was stopped. Complications: None. Post-op diagnosis: Aortic Stenosis. Estimated blood loss: 5mL-10mL. Responsiveness - Normal response to verbal stimuli; alert and oriented, PERRLA. Airway - Unaffected, no intervention required; spontaneous ventilation. Circulation: W/N/L, pulses unchanged. Nausea/Vomiting: No. Procedure completed. Patient transferred by stretcher to CPRU. Access Site Site: Right Radial artery Sheath Size: 6 Fr Hemostasis Method: TR Band Hemostasis Success: Successful Procedure Medications Start: 10:14 AM Stop: 10:14 AM Medication: Versed 1 mg and Fentanyl 25 mcg Amount: 1 Route: I.V. Start: 10:17 AM Stop: 10:17 AM Medication: Versed Amount: 1 mg Route: I.V. Start: 10:22 AM Stop: 10:22 AM Medication: Nitrogylcerin Amount: 200 mcg Route: I.A. Start: 10:25 AM Stop: 10:25 AM Medication: Heparin Amount: 5000 units Route: I.V. I, the attending physician, have reviewed and verified all procedure medications. Yes, all medications given per verbal order History/Risk Factors Hypertension: Yes Dyslipidemia: Yes Renal Disease: No Tobacco Use: Former Prior Interventions PCI: No CABG: No Report Signatures Finalized by Rae Churchill MD on 05/22/2024 06:29 PM
[2024-05-10] MEDS: diphenhydrAMINE 50 mg Capsule PO (07:45)
[2024-05-10 07:49] LABS: Basophils # 0.1 10^3/uL (0.0-0.1); Basophils % 1.2 %; Eosinophils # 0.2 10^3/uL (0.0-0.8); Eosinophils % 5.3 %; Hematocrit 41.2 % (36-47); Lymphocytes # 1.8 10^3/uL (0.8-4.8); Lymphocytes % 43.7 %; Mean Corpuscular HGB Conc 32.8 g/dL (30-55); Mean Corpuscular Hemoglobin 31.3 pg (27-33); Mean Corpuscular Volume 95.6 fl (85-98); Mean Platelet Volume 10.3 fL (7.4-10.4); Monocytes # 0.4 10^3/uL (0.2-0.9); Monocytes % 8.5 %; Neutrophils % 41.1 %; Nucleated Red Blood Cells % 0 %; Platelet Count 157 10^3/cmm (157-399); Red Blood Count 4.31 10^6/uL (3.85-5.65); Red Cell Distribution Width 12.3 % (12.1-15.1); White Blood Count 4.14 10^3/uL (3.29-11.43)
[2024-05-10 08:13] LABS: Blood Urea Nitrogen 14 mg/dL (8-23); Calcium 9.1 mg/dL (8.5-10.5); Carbon Dioxide 27 mmol/L (22-29); Chloride 107 mmol/L (98-107); Glucose 107 mg/dL (65-115); Osmolality Calculated 293 mOsm/kg (285-295); Sodium 141 mmol/L (136-145)
--- NOTE | 2024-05-10 10:11 | W.PM.OPSFHP ---
Same Day Surgery H&P Indication for Procedure/HPI DATE OF PROCEDURE: May 10, 2024 CHIEF COMPLAINT/INDICATIONFOR SURGICAL PROCEDURE: Angina Abnormal stress Worsening of shortness of breath Moderate to severe aortic valve stenosis Preop aortic valve 69-year-old female past medical history significant for moderate to severe aortic valve stenosis hypertension hyperlipidemia nonobstructive coronary artery disease with history of 50% LAD in 2022 for worsening of shortness of breath which was thought to be angina equivalent underwent stress test which turns out to be abnormal positive. Due to worsening of symptoms and possible preop for aortic valvular course patient was brought in for left heart catheterization. PREOP DIAGNOSIS: As above, aortic valve stenosis, preop, angina, abnormal stress test PLANNED PROCEDURE: Operation Date: 05/10/24 08:30 Proposed Procedures p Cardiac Catheterization - [facility] w/wo LV & Coros(Left) - Rae Churchill MD As above GENERAL: Patient is alert, awake and oriented x3. HEART: Regular S1 and S2. 2/6 systolic murmur, no rub or gallop LUNGS: Clear to auscultate bilaterally. CENTRAL NERVOUS SYSTEM: Grossly nonfocal. Medications/Allergies* Home Medications ?Medication ?Instructions ?Recorded ?Confirmed ?Type hyfpldoa-zse-qrxwl ac 400 1 tab PO DAILY 04/27/23 04/19/24 History mcg-calcium carb 500 mg-vit K1 20 mcg tablet (Women's 50 Plus Multivitamin) cholecalciferol (vitamin D3) 25 25 mcg PO DAILY 07/14/23 05/10/24 History mcg (1,000 unit) tablet (Vitamin D3) denosumab 60 mg/mL subcutaneous 60 mg SUBCUT .[id number] 07/14/23 05/10/24 History syringe (Prolia) acarbose 25 mg tablet 25 mg PO TID diabetes 07/28/23 05/10/24 History magnesium L-lactate 84 mg 84 mg PO BID 02/02/24 05/10/24 History tablet,extended release (Magtab) Fiber Gummies PO 03/29/24 04/19/24 History Tums PO PRN Heartburn 03/29/24 04/19/24 History Turemeric and Toya PO 03/29/24 04/19/24 History cyanocobalamin (vitamin B-12) 5,000 mcg PO .weekly 03/29/24 05/10/24 History 5,000 mcg capsule melatonin 5 mg capsule 5 mg PO 03/29/24 04/19/24 History mupirocin calcium 2 % topical cream 1 applic topical BID PRN Rash 03/29/24 05/10/24 History tramadol 50 mg tablet 50 mg PO BID PRN Pain 03/29/24 05/10/24 History triamcinolone acetonide 0.1 % 1 applic topical BID PRN Rash 03/29/24 05/10/24 History topical cream Allergies/Adverse Reactions Allergy/AdvReac Type Severity Reaction Status Date / Time latex Allergy Unknown Verified 05/10/24 07:53 nickel Allergy Unknown Verified 05/10/24 07:53 sulfamethoxazole (From Allergy Unknown Verified 05/10/24 07:53 Bactrim) trimethoprim (From Bactrim) Allergy Unknown Verified 05/10/24 07:53 ALEXY Inhibitors AdvReac Severe ADR-Cough Verified 05/10/24 07:53 leflunomide AdvReac Intermediate elevated Verified 05/10/24 07:53 LFT's Current Medications: Generic Name Dose Route Start Last Admin Trade Name Freq PRN Reason Stop Dose Admin Sodium Chloride 1,000 mls @ 50 mls/hr 05/10/24 07:30 05/10/24 07:52 Sodium Chloride 0.9% IV 05/11/24 03:29 Not Given .Q20H ONE Pertinent History/Comorbid Conditions* Medical History (Updated 03/27/24 @ 00:00 by NUBIA Ortega) Vitamin D deficiency Atherosclerosis of [place] coronary artery without angina pectoris Helicobacter pylori gastritis 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 Lai at [facility] for cystocele, rectocele, mixed urinary incontinence History of right knee joint replacement History of left knee replacement History of hysterectomy History of cholecystectomy History of bladder repair surgery in her 20's History of carpal tunnel repair History of bariatric surgery Family History (Updated 12/31/23 @ 08:05 by Tsering Westfall [facility]) Diabetes Brother CAD (coronary artery disease) Heart disease Father Mother Brother Sister Hyperlipidemia Cancer Hypertension Father Mother Brother Stroke Denies family history of Rheumatoid arthritis Lupus Chronic kidney disease (CKD) Lung disease Social History Smoking and tobacco/nicotine status: never used tobacco/nicotine Quit status (tobacco/nicotine): has quit using Year quit tobacco: 1995 Alcohol intake: never Substance/Drug Use: never Pertinent Exam Findings alert, oriented x 3, clear to auscultation bilaterally and operative site marked As above Conscious Sedation Assessment PATIENT ASSESSED PRIOR TO SEDATION, WITH NO CHANGE NOTED: Yes AIRWAY EVAL/ANESTHESIA PLAN: ASA II, Risks, benefits & alternatives of sedation and/or procedure discussed and Patient agrees to continue as planned ADDITIONAL INFORMATION: Patient has been explained all risk-benefit and alternative for the procedure. Patient understand 2% risk of stroke major bleed, patient understands expected risk of minor bleeding oozing infection hematoma contrast induced nephropathy. Patient would like to proceed with it. Patient understand risk for urgent or emergent vascular or bypass surgery. Recommendations Surgery/Procedure today Other Plans: Proceed with left heart cath/PCI if indicated Coding Level of Care Code Acute Code for Chg [place]
--- NOTE | 2024-05-10 11:20 | SUR.PHASEII ---
Received the patient back from the labor mediator via cot s/p Diagnostic LHC. Drowsy, but A & 0 x 3. telemetry monitor placed and vital signs obtained. TR band x 2 intact to the right wrist. No bleeding or hematoma noted. Palpable radial pulse. No other assessment changes noted from pre cath assessment. Family at bedside. No concerns voiced at this time.
--- NOTE | 2024-05-10 12:20 | SUR.PHASEII ---
Letting the air out of the 2nd TR band per protocol. Patient resting in bed with no concerns voiced at this time. Daughter remains at bedside.
[2024-05-10] MEDS: carvedilol 6.25 mg Tablet PO (13:00)
--- NOTE | 2024-05-10 13:05 | SUR.PHASEII ---
Patient transferred via wheelchair to PACU bed 12. Report to be given at bedside.
--- NOTE | 2024-05-10 15:46 | SUR.PHASEII ---
TR band removal Pt had 2 TR bands. 1318 - remaining 2ml of air released from 2nd TR band. Bruising noted, no hematoma or bleeding observed. Radial pulse palpable. Started releasing air from primary TR band at 1318. Every 5-15minutes 1-2 ml of air released until band deflated. Band deflated at 1526. Site bruised proximal to puncture site. No bleeding or hematoma noted. Site soft. Clean bandaid placed on site. Patient education provided on signs and symptoms to monitor for and activity restrictions. Patient and daughter verbalized understanding.
== END 2024-05-10 07:17 | disposition home or self-care (01) ==
PROVIDERS: PCP Family Medicine; Visit Provider Internal Medicine Cardiovascular Disease
DX: I25.10 Atherosclerotic heart disease of native coronary artery without angina pectoris (principal); F43.9 Reaction to severe stress, unspecified; I35.0 Nonrheumatic aortic (valve) stenosis; I10 Essential (primary) hypertension; E78.5 Hyperlipidemia, unspecified; Z87.891 Personal history of nicotine dependence; E11.9 Type 2 diabetes mellitus without complications
CPT/HCPCS: 36415; 80048; 85025; 93458; 96374; 99152; 99153; C1769; C1887; C1894; J1644; J2250; J3010; J3490; J7030; J9999; Q0163; Q9967

== ENCOUNTER → 2024-07-25 09:14 | Outpatient (BNVA) | payer MEDICARE, SELFPAY | PROVIDERS: PCP Family Medicine; Visit Provider Internal Medicine Rheumatology | DX: M06.041 Rheumatoid arthritis without rheumatoid factor, right hand (principal); M06.042 Rheumatoid arthritis without rheumatoid factor, left hand; M81.0 Age-related osteoporosis without current pathological fracture; Z71.89 Other specified counseling; Z79.899 Other long term (current) drug therapy; R76.8 Other specified abnormal immunological findings in serum | CPT/HCPCS: 36415; 80076; 82565; 85025; 85651; 86140; 86480; 99214 ==

== ENCOUNTER 2024-07-29 10:32 | Emergency (ER) | payer MEDICARE, SELFPAY ==
[2024-07-29] VITALS (7 sets, daily range): BP systolic 127–172; BP diastolic 63–86; PULSE 55–65; RESP 12–18; TEMP 36.7; O2SAT 93–99; BMI 34.9
--- NOTE | 2024-07-29 10:34 | ECG_ITS ---
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 Measurements Intervals [place] Rate: 53 P: 54 [place]: 179 QRS: -3 QRSD: 170 T: 37 QT: 430 QTc: 407 Interpretive Statements SINUS BRADYCARDIA RIGHT BUNDLE BRANCH BLOCK [120+ ms QRS DURATION, UPRIGHT V1, 40+ ms S IN I/aVL/V4/V5/V6] Compared to ECG 03/23/2024 14:34:27 Sinus rhythm no longer present Electronically Signed On 07-29-2024 14:46:53 CDT by Channing Reynoso M.D. [id number]
--- NOTE | 2024-07-29 10:34 | XR_ITS ---
WS: [id number] Portable AP upright chest, 07/29/2024 Clinical Data: chest pain Comparison: Portable chest, 03/23/2024 Findings: No nodules, masses or effusions are seen. The heart is normal. The pulmonary vascularity is not increased. No pneumonia or pneumothorax is seen. The aortic arch shows calcification and tortuosity. Monitor leads are on the chest wall. XR/XR chest 1V portable [id number] Impression: Atherosclerosis.
[2024-07-29 11:07] LABS: Basophils # 0.1 10^3/uL (0.0-0.1); Basophils % 2.2 %; Eosinophils # 0.4 10^3/uL (0.0-0.8); Eosinophils % 7.2 %; Hematocrit 40.8 % (36-47); Lymphocytes # 2.4 10^3/uL (0.8-4.8); Lymphocytes % 43.4 %; Mean Corpuscular HGB Conc 32.6 g/dL (30-55); Mean Corpuscular Volume 95.1 fl (85-98); Mean Platelet Volume 10.2 fL (7.4-10.4); Monocytes # 0.4 10^3/uL (0.2-0.9); Monocytes % 7.7 %; Neutrophils # 2.13 10^3/uL (1.8-7.7); Neutrophils % 39.3 %; Nucleated Red Blood Cells % 0 %; Platelet Count 160 10^3/cmm (157-399); Red Blood Count 4.29 10^6/uL (3.85-5.65); Red Cell Distribution Width 12.6 % (12.1-15.1); White Blood Count 5.42 10^3/uL (3.29-11.43)
[2024-07-29 11:26] LABS: Troponin(5th) Baseline < 6 ng/L (0-10)
[2024-07-29 11:31] LABS: Alanine Aminotransferase 68 U/L (0-33); Albumin Level 4.2 g/dL (3.5-5.2); Alkaline Phosphatase 60 U/L (35-105); Anion Gap 13.9 (5-19); Aspartate Amino Transferase 52 U/L (0-32); Blood Urea Nitrogen 16 mg/dL (8-23); Calcium 9.8 mg/dL (8.5-10.5); Carbon Dioxide 24 mmol/L (22-29); Chloride 104 mmol/L (98-107); Creatinine Clr Calc Pharmacy 73.6196; Globulin 2.6 g/dL (1.3-4.6); Glucose 87 mg/dL (65-115); Osmolality Calculated 287 mOsm/kg (285-295); Potassium 3.9 mmol/L (3.5-5.1); Sodium 138 mmol/L (136-145); Total Bilirubin 0.4 mg/dL (0.15-1.2); Total Protein 6.8 g/dL (6.6-8.7)
--- NOTE | 2024-07-29 11:45 | W.ED.CHESTPA ---
HPI - Chest Pain General: Chief Complaint: Chest Pain Stated Complaint: CP Time Seen by Provider: 07/29/24 10:56 History of Present Illness: 69-year-old female presents emergency room with sudden onset of chest pain center of her chest radiating into her back and her shoulders lasted for about 15 minutes and then resolved. Interestingly within the last month she had an angiogram done which did not show any significant coronary artery disease she had not taken any aspirin or nitro for this. No shortness of breath no hemoptysis. No fever sweats or chills this time I seen the patient in the exam room all of her symptoms had resolved. No history of PE or DVT. Associated symptoms: Deny abdominal pain, dyspnea or fever(s) Related Data Home Medications ?Medication ?Instructions ?Recorded ?Confirmed pupjmdrm-fey-tamlc ac 400 1 tab PO DAILY 04/27/23 07/29/24 mcg-calcium carb 500 mg-vit K1 20 mcg tablet (Women's 50 Plus Multivitamin) cholecalciferol (vitamin D3) 25 25 mcg PO DAILY 07/14/23 07/29/24 mcg (1,000 unit) tablet (Vitamin D3) denosumab 60 mg/mL subcutaneous 60 mg SUBCUT .[id number] 07/14/23 07/29/24 syringe (Prolia) acarbose 25 mg tablet 25 mg PO TID diabetes 07/28/23 07/29/24 Fiber Gummies 3 ea PO DAILY 03/29/24 07/29/24 Tums 500 mg PO DAILY PRN Heartburn 03/29/24 07/29/24 Turemeric and Toya 1 tab PO DAILY 03/29/24 07/29/24 cyanocobalamin (vitamin B-12) 5,000 mcg PO .weekly 03/29/24 07/29/24 5,000 mcg capsule melatonin 5 mg capsule 5 mg PO BEDTIME 03/29/24 07/29/24 mupirocin calcium 2 % topical cream 1 applic topical BID PRN Rash 03/29/24 07/29/24 triamcinolone acetonide 0.1 % 1 applic topical BID PRN Rash 03/29/24 07/29/24 topical cream docusate sodium 100 mg capsule 100 mg PO TID 07/29/24 07/29/24 magnesium L-lactate 84 mg 168 mg PO DAILY 07/29/24 07/29/24 tablet,extended release (Magtab) polyethylene glycol 3350 17 See Rx Instructions .Route 07/29/24 07/29/24 gram/dose oral powder (ClearLax) .COMPLEX PRN Constipation Previous Rx's ?Medication ?Instructions ?Recorded aspirin 81 mg tablet,delayed 162 mg (2 x 81 mg) PO BEDTIME #90 04/28/23 release (Adult Aspirin Regimen) tabs nitroglycerin 0.4 mg sublingual 0.4 mg sublingual Q5M PRN chest 03/25/24 tablet pain #25 tabs atorvastatin 40 mg tablet (Lipitor) 40 mg PO QPM #90 tabs 04/11/24 carvedilol 6.25 mg tablet 6.25 mg PO BID #180 tabs 04/11/24 hydralazine 25 mg tablet 25 mg PO TID 90 days #270 tabs 04/11/24 losartan 50 mg tablet 50 mg PO Q12H #180 tabs 04/11/24 oxybutynin chloride 5 mg tablet 5 mg PO BID #180 tabs 04/18/24 buspirone 10 mg tablet 10 mg PO TID #90 tabs 05/05/24 evolocumab 140 mg/mL subcutaneous 140 mg SUBCUT .14D #2 mL 06/27/24 pen injector (Repatha Willyick) pregabalin 25 mg capsule (Lyrica) 25 mg PO BID #60 caps 06/28/24 amlodipine 5 mg tablet 5 mg PO Q12H #90 tabs 07/08/24 alprazolam 0.25 mg tablet 0.25 mg PO BID PRN anxiety #60 tabs 07/18/24 etanercept 50 mg/mL (1 mL) 50 mg SUBCUT Q7D #4 mL 07/25/24 subcutaneous syringe (Enbrel) prednisone 10 mg tablet See Rx Instructions PO .COMPLEX 07/25/24 PRN joint pain flare #30 tabs tramadol 50 mg tablet 50 mg PO BID PRN pain (scale score 07/25/24 7-10) #60 tabs pantoprazole 40 mg tablet,delayed 40 mg PO BID 10 days #40 tabs 07/29/24 release (Protonix) Allergies Allergy/AdvReac Type Severity Reaction Status Date / Time latex Allergy Unknown Verified 06/09/24 15:29 nickel Allergy Unknown Verified 06/09/24 15:29 sulfamethoxazole (From Allergy Unknown Verified 06/09/24 15:29 Bactrim) trimethoprim (From Bactrim) Allergy Unknown Verified 06/09/24 15:29 ALEXY Inhibitors AdvReac Severe ADR-Cough Verified 06/09/24 15:29 leflunomide AdvReac Intermediate elevated Verified 06/09/24 15:29 LFT's Review of Systems Const: Denies: fever(s) or chills Card: Reports: chest pain Resp: Denies: dyspnea GI: Denies: abdominal pain : Denies: dysuria, urinary frequency or urinary urgency Musc: Denies: neck pain or back pain Skin/Breast: Denies: rash PFSH ED PFSH: Medical History Vitamin D deficiency Atherosclerosis of [place] coronary artery without angina pectoris Helicobacter pylori gastritis 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 Lai at [facility] for cystocele, rectocele, mixed urinary incontinence History of right knee joint replacement History of left knee replacement History of hysterectomy History of cholecystectomy History of bladder repair surgery in her 20's History of carpal tunnel repair History of bariatric surgery Family History Father Hypertension Heart disease Mother Hypertension Heart disease Brother Diabetes Hypertension Heart disease Sister Heart disease Other CAD (coronary artery disease) Cancer Hyperlipidemia Stroke Denies family history of Rheumatoid arthritis Lupus Chronic kidney disease (CKD) Lung disease Social History Smoking and tobacco/nicotine status: former use of tobacco/nicotine Quit status (tobacco/nicotine): has quit using Year quit tobacco: 1995 Alcohol intake: never Substance/Drug Use: never Female Reproductive History: Spontaneous abortions: No Physical Exam Const: COMMON NORMALS: no acute distress GENERAL APPEARANCE: cooperative and comfortable ORIENTATION/CONSCIOUSNESS: Yes awake, Yes oriented to person, Yes oriented to place and Yes oriented to time HENMT: COMMON NORMALS: normocephalic, atraumatic and hearing grossly normal bilaterally HEAD & SCALP: normocephalic and atraumatic Resp: COMMON NORMALS: normal respiratory effort, No retractions, No use of accessory muscles and clear to auscultation bilaterally AUSCULTATION: clear to auscultation bilaterally Cardio: COMMON NORMALS: regular rate, regular rhythm and No murmurs present (Cardio) RATE: regular rate RHYTHM: regular rhythm GI: COMMON NORMALS: Soft to palpation and No hepatosplenomegaly present AUSCULTATION: Yes normoactive bowel sounds PALPATION: Yes Soft to palpation, No Tenderness to palpation present (GI), No Guarding due to palpation present (GI) and Yes No hepatosplenomegaly present Extremity: COMMON NORMALS: normal to inspection, capillary refill normal, no clubbing, cyanosis or edema, no calf tenderness and no pedal edema Neuro: SENSORIUM/ORIENTATION: Yes oriented to person, Yes oriented to place and Yes oriented to time Skin: COMMON NORMALS: no rashes or lesions noted GENERAL SKIN EXAM: no rashes or lesions noted Course Vital Signs: Vital signs: Vital Signs Temperature 98.0 F 07/29/24 10:39 Pulse Rate 65 07/29/24 13:59 Respiratory Rate 13 07/29/24 13:45 Blood Pressure 127/68 07/29/24 13:59 Pulse Oximetry 99 07/29/24 13:59 Oxygen Delivery Me thod Room Air 07/29/24 10:39 MDM - Chest Pain Medical Decision Making Cardiac enzymes negative D-dimer negative EKG does not show any acute disease. Reviewed previous angiogram there is 40% mild stenosis in the LAD but had good flow was not considered to be significant. She has no bump in her cardiac enzymes D-dimer undetectable chest x-ray negative. Will discharge her home suspect she may had's some esophageal spasm she does have some heartburn symptoms fairly often which she said we will start her on pantoprazole 40 twice daily for 10 days then 40 daily diet instructions given discharge patient home, follow-up with primary care and cardiology return for further symptoms. Medical Records Angiography 05/10/2024 - Dr. Hazel Diagnostic Cath Status: Elective Diagnostic Findings * Left Main has no disease. * Circumflex has no disease. * Right Coronary Artery has no disease. * Distal Left Anterior Descending: mild 40% stenosis, MICKEY: 3 flow. * Coronary angiography shows right dominance. Conclusions 1. There is mild coronary artery disease with one vessel disease. Recommendations * Continue current medical management and risk factor modification. Diagnostic RX Recommendation: medical therapy and/or counseling Lab Data 07/29/24 11:03 07/29/24 11:03 Radiology Impressions Chest X-Ray 07/29/24 10:34 Impression: Atherosclerosis. Laboratory Results WBC 5.42 10^3/uL (3.29-11.43) 07/29/24 11:03 RBC 4.29 10^6/uL (3.85-5.65) 07/29/24 11:03 Hgb 13.30 g/dL (11.27-16.99) 07/29/24 11:03 Hct 40.8 % (36-47) 07/29/24 11:03 MCV 95.1 fl (85-98) 07/29/24 11:03 MCH 31.0 pg (27-33) 07/29/24 11:03 MCHC 32.6 g/dL (30-55) 07/29/24 11:03 RDW 12.6 % (12.1-15.1) 07/29/24 11:03 Plt Count 160 10^3/cmm (157-399) 07/29/24 11:03 MPV 10.2 fL (7.4-10.4) 07/29/24 11:03 Neut % (Auto) 39.3 % 07/29/24 11:03 Lymph % (Auto) 43.4 % 07/29/24 11:03 [place] % (Auto) 7.7 % 07/29/24 11:03 Eos % (Auto) 7.2 % 07/29/24 11:03 Baso % (Auto) 2.2 % 07/29/24 11:03 Neut # (Auto) 2.13 10^3/uL (1.8-7.7) 07/29/24 11:03 Lymph # (Auto) 2.4 10^3/uL (0.8-4.8) 07/29/24 11:03 [place] # (Auto) 0.4 10^3/uL (0.2-0.9) 07/29/24 11:03 Eos # (Auto) 0.4 10^3/uL (0.0-0.8) 07/29/24 11:03 Baso # (Auto) 0.1 10^3/uL (0.0-0.1) 07/29/24 11:03 Nucleated RBC % (auto) 0 % 07/29/24 11:03 Nucleated RBCs # 0.0 /100WBC 07/29/24 11:03 D-Dimer <= 0.27 ug/mLFEU (0-0.59) 07/29/24 11:03 Sodium 138 mmol/L (136-145) 07/29/24 11:03 Potassium 3.9 mmol/L (3.5-5.1) 07/29/24 11:03 Chloride 104 mmol/L (98-107) 07/29/24 11:03 Carbon Dioxide 24 mmol/L (22-29) 07/29/24 11:03 Anion Gap 13.9 (5-19) 07/29/24 11:03 BUN 16 mg/dL (8-23) 07/29/24 11:03 Creatinine 0.6 mg/dL (0.5-0.9) 07/29/24 11:03 GFR Calculation Not Reportable 07/29/24 11:03 Glucose 87 mg/dL (65-115) 07/29/24 11:03 Calculated Osmolality 287 mOsm/kg (285-295) 07/29/24 11:03 Calcium 9.8 mg/dL (8.5-10.5) 07/29/24 11:03 Total Bilirubin 0.4 mg/dL (0.15-1.2) 07/29/24 11:03 AST 52 U/L (0-32) H 07/29/24 11:03 ALT 68 U/L (0-33) H 07/29/24 11:03 Alkaline Phosphatase 60 U/L (35-105) 07/29/24 11:03 Troponin T Baseline < 6 ng/L (0-10) 07/29/24 11:03 Troponin T 120 Minute < 6.0 ng/L (0-10) 07/29/24 12:56 Delta Troponin T 0 ABS# (0-10) 07/29/24 12:56 Total Protein 6.8 g/dL (6.6-8.7) 07/29/24 11:03 Albumin 4.2 g/dL (3.5-5.2) 07/29/24 11:03 Globulin 2.6 g/dL (1.3-4.6) 07/29/24 11:03 All radiology interpretation(s) finalized by discharge Discharge Plan Discharge Patient Disposition: Home Clinical Impression: Esophageal spasm, Atypical chest pain Condition: Stable Prescriptions: New pantoprazole [Protonix] 40 mg tablet,delayed release (DR/EC) 40 mg PO BID 10 Days Qty: 40 0RF No Action acarbose 25 mg tablet 25 mg PO TID oxybutynin chloride 5 mg tablet 5 mg PO BID Qty: 180 3RF carvedilol 6.25 mg tablet 6.25 mg PO BID Qty: 180 2RF Rx Instructions: must administer with a meal/food hydralazine 25 mg tablet 25 mg PO TID 90 Days Qty: 270 1RF atorvastatin [Lipitor] 40 mg tablet 40 mg PO QPM Qty: 90 1RF losartan 50 mg tablet 50 mg PO Q12H Qty: 180 1RF triamcinolone acetonide 0.1 % cream 1 applic topical BID PRN (Reason: Rash) mupirocin calcium 2 % cream 1 applic topical BID PRN (Reason: Rash) melatonin 5 mg capsule 5 mg PO BEDTIME cyanocobalamin (vitamin B-12) 5,000 mcg capsule 5,000 mcg PO .weekly Fiber Gummies 3 ea PO DAILY Tums 500 mg PO DAILY PRN (Reason: Heartburn) Turemeric and Toya 1 tab PO DAILY Enbrel 50 mg/mL (1 mL) syringe 50 mg SUBCUT Q7D Qty: 4 5RF Rx Instructions: inject 50mg SUBCUTANEOUSLY EVERY 7 DAYS tramadol 50 mg tablet 50 mg PO BID PRN (Reason: pain (scale score 7-10)) Qty: 60 0RF prednisone 10 mg tablet See Rx Instructions PO .COMPLEX PRN (Reason: joint pain flare) Qty: 30 1RF Rx Instructions: Take 1 or 2 tablets by mouth daily up to 7 days as needed for joint pain flare. buspirone 10 mg tablet 10 mg PO TID Qty: 90 5RF Repatha SureClick 140 mg/mL pen injector 140 mg SUBCUT .14D Qty: 2 3RF Rx Instructions: inject 140mg SUBCUTANEOUSLY every TWO weeks pregabalin [Lyrica] 25 mg capsule 25 mg PO BID Qty: 60 5RF amlodipine 5 mg tablet 5 mg PO Q12H Qty: 90 1RF alprazolam 0.25 mg tablet 0.25 mg PO BID PRN (Reason: anxiety) Qty: 60 0RF Women's 50 Plus Multivitamin 400 mcg-500 mg calcium-20 mcg Tablet 1 tab PO DAILY aspirin [Adult Aspirin Regimen] 81 mg tablet,delayed release (DR/EC) 162 mg PO BEDTIME Qty: 90 0RF cholecalciferol (vitamin D3) [Vitamin D3] 25 mcg (1,000 unit) Tablet 25 mcg PO DAILY Prolia 60 mg/mL Syringe 60 mg SUBCUT .[id number] nitroglycerin 0.4 mg tablet, sublingual 0.4 mg sublingual Q5M PRN (Reason: chest pain) Qty: 25 0RF Rx Instructions: do not exceed 3 doses per episode polyethylene glycol 3350 [ClearLax] 17 gram/dose powder See Rx Instructions .ROUTE .COMPLEX PRN (Reason: Constipation) Rx Instructions: Dissolve 17 grams in liquid and drink BY MOUTH EVERY DAY as needed for constipation. docusate sodium 100 mg capsule 100 mg PO TID magnesium L-lactate [Magtab] 84 mg tablet extended release 168 mg PO DAILY Discharge Orders: Discharge ED (Routine); Ordered 07/29/24 Ordered By: Oziel Mckinley Referrals: Gerard Bonilla MD [Primary Care Provider, [facility]] Discharge Diet: As Directed Discharge Activity: Resume usual activity Patient Instructions: Opioid Safety, Pain Management Activity Restrictions/Additional Instructions: Thank you for choosing [facility] for your healthcare needs today. It is very important that you follow up as instructed or that you return to the Emergency Department should you have concerns or if your condition changes or worsens in any way. You were seen in the emergency room with a complaint of an episode of chest pain. We reviewed your previous recent angiogram there is no significant coronary disease your EKGs today did not show any acute changes and your cardiac enzymes trended normal. Your chest x-ray did not show any signs of pneumonia or pneumothorax there is no widening of your mediastinum suggestive of any aneurysms. We also did a D-dimer which was negative without in conjunction with your vital signs gives a very very low probability of a pulmonary embolism. Based on your description of symptoms and their characteristics suspect you may have an esophageal spasm. We recommend that you start on Protonix 40 mg 1 pill twice a day for 10 days then 1 pill daily. Follow-up with your primary care doctor to see if they wish to continue this. If you have recurrent symptoms you may wish to discuss with primary care doctor if further evaluation needs to be done. Print Language: Spanish Coding Level of Care Code ED Financial [employer] President for Porsha Whitehead
--- NOTE | 2024-07-29 11:57 | PC.NURSE ---
pt c/o SOB with ambulation to bathroom.
--- NOTE | 2024-07-29 12:35 | ECG_ITS ---
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 Measurements Intervals [place] Rate: 49 P: 41 [place]: 189 QRS: -5 QRSD: 162 T: 10 QT: 429 QTc: 388 Interpretive Statements SINUS BRADYCARDIA RIGHT BUNDLE BRANCH BLOCK [120+ ms QRS DURATION, UPRIGHT V1, 40+ ms S IN I/aVL/V4/V5/V6] ANTERIOR MYOCARDIAL INFARCTION , OF INDETERMINATE AGE [40+ ms Q WAVE AND/OR ST/T ABNORMALITY IN V3/V4] Compared to ECG 07/29/2024 10:34:51 Myocardial infarct finding now present Electronically Signed On 07-29-2024 14:59:34 CDT by Channing Reynoso M.D. [email or web address]
[2024-07-29 13:07] LABS: D Dimer <= 0.27 ug/mLFEU (0-0.59)
[2024-07-29 13:18] LABS: Troponin 5 2HR < 6.0 ng/L (0-10); Troponin 5 2HR Delta 0 ABS# (0-10)
== END 2024-07-29 14:08 | disposition home or self-care (01) ==
PROVIDERS: Physician Assistant; Emergency Provider Family Medicine; PCP Family Medicine
DX: K22.4 Dyskinesia of esophagus (principal); E07.89 Other specified disorders of thyroid; Z79.82 Long term (current) use of aspirin; Z87.891 Personal history of nicotine dependence; I25.10 Atherosclerotic heart disease of native coronary artery without angina pectoris; E11.9 Type 2 diabetes mellitus without complications; I10 Essential (primary) hypertension
CPT/HCPCS: 36415; 71045; 80053; 84484; 85025; 85378; 93005; 99285

== ENCOUNTER 2024-08-25 06:49 | Outpatient (CLI) | payer MEDICARE, SELFPAY ==
[2024-08-25 09:06] LABS: Alanine Aminotransferase 41 U/L (0-33); Albumin Level 4.0 g/dL (3.5-5.2); Alkaline Phosphatase 67 U/L (35-105); Aspartate Amino Transferase 35 U/L (0-32); Globulin 2.9 g/dL (1.3-4.6); Total Protein 6.9 g/dL (6.6-8.7)
== END 2024-08-25 06:50 | disposition home or self-care (01) ==
LOC: LAB 06:52
PROVIDERS: PCP Family Medicine; Visit Provider Internal Medicine Rheumatology
DX: R74.8 Abnormal levels of other serum enzymes (principal); I35.0 Nonrheumatic aortic (valve) stenosis; I63.9 Cerebral infarction, unspecified; I10 Essential (primary) hypertension; R00.2 Palpitations; I25.10 Atherosclerotic heart disease of native coronary artery without angina pectoris; E78.5 Hyperlipidemia, unspecified; R06.09 Other forms of dyspnea
CPT/HCPCS: 36415; 80076; 84315; 87086

== ENCOUNTER → 2024-08-31 13:45 | Outpatient (BNVA) | payer MEDICARE, MEDICAID, SELFPAY | PROVIDERS: PCP Family Medicine; Visit Provider Internal Medicine Cardiovascular Disease | DX: I25.10 Atherosclerotic heart disease of native coronary artery without angina pectoris (principal); I35.0 Nonrheumatic aortic (valve) stenosis; N39.0 Urinary tract infection, site not specified; Z87.891 Personal history of nicotine dependence | CPT/HCPCS: 99214 ==

== ENCOUNTER 2024-09-05 13:16 | Outpatient (CLI) | payer MEDICARE, MEDICAID, SELFPAY ==
--- NOTE | 2024-09-05 14:00 | XR_ITS ---
WS: [id number] SCREENING DEXA SCAN [place] CLINICAL INFORMATION: Z78.0 - Asymptomatic menopausal state COMPARISON: 2022 FINDINGS: The L1-L4 bone mineral density measures 1.294 g/cm2. This corresponds to a T score score of 1.0 and Z score of 1.6. Left femoral neck bone mineral density measures 0.763 g/cm2. This corresponds to a T score of -1.9 and Z score of -1.1. Right femoral neck bone mineral density measures 0.818 g/cm2. This corresponds to a T score -1.5of and Z score of -0.7. Mean femoral neck bone mineral density measures 0.790 g/cm2. This corresponds to a T score of -1.7 and Z score of -0.9. XR/XR DEXA axial skeleton* [id number] IMPRESSION: Normal bone mineralization lumbar spine. Osteopenia femoral necks Patient's FRAX calculated 10 year probability for major osteoporotic fracture i s 18.5% and osteoporotic hip fracture is 5.3%.
--- NOTE | 2024-09-05 14:40 | MM_ITS ---
WS: [id number] BILATERAL 3D TOMOSYNTHESIS DIGITAL SCREENING MAMMOGRAPHY WITH CAD CLINICAL INFORMATION: Z12.31 - Encounter for screening mammogram for malignant ... HISTORY: Screening mammogram. No current complaints. COMPARISON: 2023 TECHNIQUE: Bilateral CC and MLO views. FINDINGS: Scattered fibroglandular densities bilaterally. No suspicious focal mass, asymmetry, calcifications, or architectural distortion. No evidence of malignancy. MM/MM scr tomosynthesis [id number] IMPRESSION: DENSITY: There are scattered areas of fibroglandular density. BI-RADS: 1 - Negative. FOLLOW UP: 1 Year Follow-up Recommend return to annual screening mammography.
== END 2024-09-05 13:17 | disposition home or self-care (01) ==
LOC: RAD 13:17
PROVIDERS: PCP Family Medicine; Visit Provider Nurse Practitioner Women's Health
DX: Z12.31 Encounter for screening mammogram for malignant neoplasm of breast (principal); Z13.820 Encounter for screening for osteoporosis; Z78.0 Asymptomatic menopausal state; R92.323 Mammographic fibroglandular density, bilateral breasts; M85.851 Other specified disorders of bone density and structure, right thigh; M85.852 Other specified disorders of bone density and structure, left thigh
CPT/HCPCS: 77063; 77067; 77080

== ENCOUNTER → 2024-10-18 14:42 | Outpatient (BNVA) | payer MEDICARE, MEDICAID, SELFPAY | PROVIDERS: PCP Family Medicine; Visit Provider Internal Medicine Cardiovascular Disease | DX: R00.1 Bradycardia, unspecified (principal); I45.4 Nonspecific intraventricular block; I49.8 Other specified cardiac arrhythmias; Z95.0 Presence of cardiac pacemaker; Z95.2 Presence of prosthetic heart valve; Z87.891 Personal history of nicotine dependence | CPT/HCPCS: 99214 ==

== ENCOUNTER → 2025-01-01 10:56 | Outpatient (BNVA) | payer MEDICARE, MEDICAID, SELFPAY | PROVIDERS: PCP Family Medicine; Visit Provider Emergency Medicine | DX: R30.0 Dysuria (principal) | CPT/HCPCS: 87086 ==

== ENCOUNTER → 2025-01-02 07:38 | Outpatient (BNVA) | payer MEDICARE, MEDICAID, SELFPAY | PROVIDERS: PCP Family Medicine; Visit Provider Emergency Medicine | DX: R30.0 Dysuria (principal) | CPT/HCPCS: 81000 ==

== ENCOUNTER → 2025-01-10 11:12 | Outpatient (BNVA) | payer MEDICARE, MEDICAID, SELFPAY | PROVIDERS: PCP Family Medicine; Visit Provider Internal Medicine Rheumatology | DX: M06.041 Rheumatoid arthritis without rheumatoid factor, right hand (principal); M06.042 Rheumatoid arthritis without rheumatoid factor, left hand; M81.0 Age-related osteoporosis without current pathological fracture; Z79.899 Other long term (current) drug therapy; Z71.85 Encounter for immunization safety counseling; R76.89 Other specified abnormal immunological findings in serum | CPT/HCPCS: 99214 ==

== ENCOUNTER 2025-01-17 15:10 | Outpatient (CLI) | payer MEDICARE, MEDICAID, SELFPAY ==
[2025-01-17 16:07] LABS: Albumin Level 4.2 g/dL (3.5-5.2); Calcium 9.8 mg/dL (8.5-10.5)
== END 2025-01-17 15:11 | disposition home or self-care (01) ==
LOC: LAB 15:10
PROVIDERS: PCP Family Medicine; Visit Provider Internal Medicine Rheumatology
DX: M81.0 Age-related osteoporosis without current pathological fracture (principal); M79.7 Fibromyalgia; Z95.0 Presence of cardiac pacemaker; Z95.2 Presence of prosthetic heart valve
CPT/HCPCS: 36415; 82040; 82306; 82310; 82565; 99214

== ENCOUNTER 2025-01-23 07:57 | Oncology outpatient (recurring) (ONCR) | payer MEDICARE, SELFPAY ==
[2025-01-23] MEDS: denosumab 60 mg SDV (Infusion Clinic Only) SUBCUT (08:16)
[2025-01-23 08:17] VITALS: BP 113/64; PULSE 84; RESP 16; TEMP 36.4; O2SAT 95
== END 2025-02-15 23:59 | disposition home or self-care (01) ==
PROVIDERS: PCP Family Medicine; Visit Provider Internal Medicine Rheumatology
DX: M81.0 Age-related osteoporosis without current pathological fracture (principal); Z79.899 Other long term (current) drug therapy
CPT/HCPCS: 96372; J0897